=== PATIENT | male | born 1940 | race Caucasian/White ===

== ENCOUNTER → 2016-11-16 | Outpatient (CLI) | payer MEDICARE, OTHER ==
[~2016-11-16] MED LIST: 70/30 INSULIN SQ; ASP81TEC PO; CARV25TA PO; HCT25T PO; LOSA100T7 PO; LOVA40TA2 PO; PHEN100C4 PO; TERA5CAP10 GT; TRAM50TA2 PO; [UNRECOGNIZED DRUG - OTHER] SQ
--- NOTE | 2016-11-16 10:42 | Diagnostic Imaging Report ---
INDICATION: Fall with left hip pain. DISCUSSION: Two views of the left hip are obtained, no comparison. Moderate degenerative changes are noted within the left sacroiliac joint. The left hip joint is maintained. No fracture or dislocation. Soft tissues are unremarkable. IMPRESSION: 1. Negative left hip. 2. Moderate degenerative changes within the left sacroiliac joint. Dictated by: Dictated on workstation # [id number]
== END ==
LOC: RAD 09:52
PROVIDERS: ATTEND Nurse Practitioner Family
DX: M25.552 Pain in left hip (principal); Z91.81 History of falling
CPT/HCPCS: 73502

== ENCOUNTER → 2017-11-03 | Outpatient (CLI) | payer MEDICARE, OTHER ==
[~2017-11-03] VITALS: Ht 182.9 cm; Wt 97.5 kg
[~2017-11-03] MED LIST changes: +methylPREDNISolone 80 MG/ML (DEPO MEDROL) VIAL ONE
--- NOTE | 2017-11-05 13:43 | OPERATIVE REPORT ---
DATE OF SERVICE: 11/03/2017 DIAGNOSIS: Piriformis syndrome, left side. PROCEDURE: Left-sided piriformis injection. PROCEDURE IN DETAIL: With the patient placed in the prone position over the table, the area over the gluteus kathleen of the side in which the patient reports symptoms was prepped and under fluoroscopy a needle was used with local to anesthetize the area over the piriformis. A 25-gauge spinal needle was directed under fluoroscopy down into the location of where the piriformis is located. Aspiration was negative for blood or any other fluids. At this point, the contrast was injected and identified the flow that was similar to the muscle pattern of the piriformis. This was then visualized with internal and external rotation of the hip joint to identify the motion that was consistent with a piriformis dye pattern under the circumstance. Whenever we had satisfactory evidence of placement in the piriformis muscle, about 8 mg of Depo-Medrol was injected and approximately 6 to 7 mL of local was injected. The patient tolerated the procedure well. Job ID: [id number] DocumentID: [id number] Dictated Date: 11/04/2017 19:09:21 Transcripter Date: 11/05/2017 05:14:53 Dictated By: JONA LOREDO DO
== END ==
LOC: CARD 13:01
PROVIDERS: ATTEND Pain Medicine Interventional Pain Medicine
DX: G57.02 Lesion of sciatic nerve, left lower limb (principal)
CPT/HCPCS: 20550; 77002

== ENCOUNTER → 2018-07-20 | Outpatient (CLI) | payer MEDICARE, OTHER ==
[~2018-07-20] MED LIST changes: -methylPREDNISolone 80 MG/ML (DEPO MEDROL) VIAL ONE
== END ==
LOC: WOUNDCARE 08:39
PROVIDERS: ATTEND Nurse Practitioner
DX: E11.621 Type 2 diabetes mellitus with foot ulcer (principal); L97.522 Non-pressure chronic ulcer of other part of left foot with fat layer exposed; I70.345 Atherosclerosis of unspecified type of bypass graft(s) of the left leg with ulceration of other part of foot
CPT/HCPCS: 11042

== ENCOUNTER → 2018-07-25 | Outpatient (CLI) | payer MEDICARE, OTHER | LOC: WOUNDCARE 08:43 | PROVIDERS: ATTEND Nurse Practitioner | DX: E11.621 Type 2 diabetes mellitus with foot ulcer (principal); L97.522 Non-pressure chronic ulcer of other part of left foot with fat layer exposed; I70.345 Atherosclerosis of unspecified type of bypass graft(s) of the left leg with ulceration of other part of foot | CPT/HCPCS: 11042 ==

== ENCOUNTER → 2018-08-01 | Outpatient (CLI) | payer MEDICARE, OTHER | LOC: WOUNDCARE 09:16 | PROVIDERS: ATTEND Nurse Practitioner | DX: E11.621 Type 2 diabetes mellitus with foot ulcer (principal); L97.522 Non-pressure chronic ulcer of other part of left foot with fat layer exposed; I70.345 Atherosclerosis of unspecified type of bypass graft(s) of the left leg with ulceration of other part of foot | CPT/HCPCS: 99213 ==

== ENCOUNTER → 2018-08-08 | Outpatient (CLI) | payer MEDICARE, OTHER | LOC: WOUNDCARE 09:16 | PROVIDERS: ATTEND Nurse Practitioner | DX: E11.621 Type 2 diabetes mellitus with foot ulcer (principal); L97.522 Non-pressure chronic ulcer of other part of left foot with fat layer exposed; I70.345 Atherosclerosis of unspecified type of bypass graft(s) of the left leg with ulceration of other part of foot | CPT/HCPCS: 99213 ==

== ENCOUNTER → 2018-08-22 | Outpatient (CLI) | payer MEDICARE, OTHER | LOC: WOUNDCARE 09:19 | PROVIDERS: ATTEND Surgery | DX: E11.621 Type 2 diabetes mellitus with foot ulcer (principal); I70.345 Atherosclerosis of unspecified type of bypass graft(s) of the left leg with ulceration of other part of foot; L97.522 Non-pressure chronic ulcer of other part of left foot with fat layer exposed | CPT/HCPCS: 99212 ==

== ENCOUNTER → 2018-12-21 | Outpatient (CLI) | payer MEDICARE, OTHER ==
--- NOTE | 2018-12-21 12:03 | Diagnostic Imaging Report ---
PROCEDURE: US DOPPLER ABD/COMPLETE TECHNIQUE: Multiple real-time grayscale images were obtained over the kidneys in various projections. Duplex evaluation of renal arteries was also attempted. INDICATION: Uncontrolled hypertension. FINDINGS: The right kidney measures 11.8 x 6.2 x 5.3 cm and the left kidney measures 10.8 x 6.1 x 6.0 cm. Cortical thickness and echogenicity is normal. No calculi or hydronephrosis is identified. Right kidney does contain a cyst inferiorly measuring approximately 2.9 x 3.2 cm. Left kidney contains multiple cysts, largest 4.7 x 4.3 x 5.3 cm. Additional 4 to 5 cm cysts on the left are also noted. Renal Doppler is severely limited due to bowel interference. Only the distal renal arteries could be visualized which demonstrate normal velocities and normal renal artery to aorta ratios. IMPRESSION: 1. Bilateral renal cysts. No calculi or hydronephrosis is seen. 2. Severely compromised study of the renal arteries due to bowel interference. Only the distal renal arteries could be visualized and appear unremarkable. Dictated by: Dictated on workstation # [id number]
== END ==
LOC: RAD 06:45
PROVIDERS: ATTEND Nurse Practitioner Family
DX: N28.1 Cyst of kidney, acquired (principal); I10 Essential (primary) hypertension
CPT/HCPCS: 93975

== ENCOUNTER → 2019-09-14 | Outpatient (CLI) | payer MEDICARE, OTHER ==
--- NOTE | 2019-09-14 14:03 | Diagnostic Imaging Report ---
PROCEDURE: US carotid duplex, bilateral. TECHNIQUE: Multiple real-time grayscale images were obtained over the carotid arteries in various projections, bilaterally. Additional spectral analysis and color Doppler duplex images were also obtained. INDICATION: History of diabetes and hypertension. Carotid stenosis. CORRELATION STUDY: None FINDINGS: Color and grayscale images demonstrate rather extensive irregular, heterogeneous plaque-like formation at the carotid bifurcations as well as at the origin of the internal and external carotid arteries. Patient has reported right-sided endarterectomy which is patent. There is diffuse increased velocity within essentially all visualized vessels. On the right, there is increased velocity at the internal carotid artery up to 307 cm/s with an ICA/CCA ratio of 2.2. Findings are somewhat equivocal but would suggest to have at least 50% if not greater than 70% stenosis. There is also significant increased velocity in the external carotid artery to 465 cm/s. On the left, there is increased velocity up to 322 cm/s with an ICA/CCA ratio of 3. Findings are consistent with a greater than 50 and likely greater than 70% stenosis. There is also increased velocity in the left external carotid artery at 301 cm/s. The vertebral arteries are with antegrade direction of flow. Parameters based on the consensus panel Guthrie-Scale and Doppler ultrasound criteria published September 2003, Radiology, Volume 229. DOPPLER (peak systolic velocity M/S Right Left CCA 1.37 1.04 ICA Proximal 2.53 3.22 ICA Mid 3.07 1.95 ICA Distal 1.73 1.70 RATIO 2.2 3.0 ECA 4.65 3.01 VERT 1.01 .28 IMPRESSION: 1. There is rather extensive atherosclerotic plaque-like formation throughout the common carotid arteries, carotid bifurcations, as well as internal and external carotid arteries. This includes the previous right-sided endarterectomy. While findings are somewhat indeterminate, there is at least 50 if not greater than 70% stenosis of the bilateral internal carotid arteries slightly greater on the left compared to the right. 2. Findings compatible with likely significant stenosis of bilateral external carotid arteries right greater than left. Dictated by: Dictated on workstation # [id number]
== END ==
LOC: RAD 08:48
PROVIDERS: ATTEND Nurse Practitioner Family
DX: I65.29 Occlusion and stenosis of unspecified carotid artery (principal); I10 Essential (primary) hypertension; E11.9 Type 2 diabetes mellitus without complications
CPT/HCPCS: 93880

== ENCOUNTER 2020-12-16 17:23 | Inpatient (IN) | payer MEDICARE, OTHER ==
[~2020-12-16] VITALS: Ht 182.9 cm; Wt 91.9 kg
[2020-12-16] MEDS ORDERED: IBUPROFEN 800 MG (MOTRIN) TAB PO ONE (17:30)
--- NOTE | 2020-12-16 17:34 | ED Respiratory ---
General Chief Complaint: Respiratory Problems Stated Complaint: SOB/PNEUMONIA Source: patient, EMS Exam Limitations: no limitations History of Present Illness Date Seen by Provider: Dec 16, 2020 Time Seen by Provider: 17:32 Initial Comments To ER by EMS from home with reports of shortness of breath. Diagnosed allegedly with "double pneumonia" on 12/04, sick x2-3 weeks. Has not yet been tested for Covid. Temperature per EMS was 103 (though he is afebrile here). No pre- existing lung disease that he is aware of. He arrives dyspneic. His oxygen saturation was 94% on room air but with significantly increased respiratory effort Timing/Duration: constant Associated Symptoms: cough Allergies and Home Medications Allergies Coded Allergies: NKANo Known Allergies (Verified Allergy, Unknown, 05/25/08) Home Medications Aspirin 81 Mg Tabec, 81 MG PO DAILY, (Reported) Carvedilol 25 Mg Tablet, 1 EACH PO BID, (Reported) Hydrochlorothiazide 25 Mg Tab, 25 MG PO DAILY, (Reported) Losartan Potassium 100 Mg Tablet, 100 MG PO DAILY, (Reported) Lovastatin 40 Mg Tablet, 1 EACH PO DAILY WITH SUPPER, (Reported) Phenytoin Sodium Extended 100 Mg Capsule, 100 MG PO TID, (Reported) Terazosin Hcl 5 Mg Capsule, 5 MG GT BID, (Reported) Tramadol Hcl 50 Mg Tablet, 50 MG PO BID, (Reported) [70/30 Insulin] , 25 UNITS SQ DAILY, (Reported) [N Insulin] , 25 UNITS SQ DAILY, (Reported) Patient Home Medication List Home Medication List Reviewed: Yes Review of Systems Review of Systems Constitutional: see HPI, fever EENTM: see HPI Respiratory: see HPI, cough Genitourinary: no symptoms reported Musculoskeletal: no symptoms reported Skin: no symptoms reported Psychiatric/Neurological: No Symptoms Reported Past Lticfju-Bvemaq-Kxywth Hx Immunizations Up To Date Date of Pneumonia Vaccine: Aug 25, 2010 Physical Exam Vital Signs - First Documented 12/16/20 17:30 Temp 36.9 Pulse 71 Resp 30 B/P (MAP) 161/65 (97) Pulse Ox 99 O2 Delivery Non Rebreather O2 Flow Rate 12.00 Capillary Refill : Height: 6'0.00" Weight: 215lbs. 0.0oz. 97.199776ck; 29.2 BMI Method: General Appearance: WD/WN, no apparent distress, obese, other (Alert, he is in respiratory distress. His oxygen saturation is 99% on 10 L. His respiratory rate is 32, shallow breathing with expiratory wheezes. Blood pressure 161/65 heart rate 69.) Eyes: Bilateral Eye Normal Inspection, Bilateral Eye PERRL, Bilateral Eye EOMI Neck: non-tender, full range of motion Respiratory: decreased breath sounds, accessory muscle use, wheezing Cardiovascular: regular rate, rhythm, no murmur Gastrointestinal: normal bowel sounds, non tender, soft Extremities: normal capillary refill, other (Pedal edema 3+ left lower extremity 2+ right lower extremity) Neurologic/Psychiatric: alert, normal mood/affect, oriented x 3 Skin: normal color, warm/dry Focused Exam Lactate Level 12/16/20 17:50: Lactic Acid Level 1.03 Lactic Acid Level Laboratory Tests Test 12/16/20 17:50 Lactic Acid Level 1.03 MMOL/L (0.50-2.00) Progress/Results/Core Measures Suspected Sepsis SIRS Temperature: Pulse: Respiratory Rate: Laboratory Tests 12/16/20 17:50: White Blood Count 13.2H Blood Pressure / Mean: 12/16/20 17:50: Lactic Acid Level 1.03 Laboratory Tests 12/16/20 17:50: Creatinine 1.31H, Platelet Count 216, Total Bilirubin 0.4 Results/Orders Lab Results Laboratory Tests Test 12/16/20 17:50 12/16/20 17:59 12/16/20 18:10 Range/Units White Blood Count 13.2 H 4.3-11.0 10^3/uL Red Blood Count 3.87 L 4.30-5.52 10^6/uL Hemoglobin 11.2 L 13.3-17.7 g/dL Hematocrit 34 L 40-54 % Mean Corpuscular Volume 88 80-99 fL Mean Corpuscular Hemoglobin 29 25-34 pg Mean Corpuscular Hemoglobin Concent 33 32-36 g/dL Red Cell Distribution Width 13.5 10.0-14.5 % Platelet Count 216 130-400 10^3/uL Mean Platelet Volume 10.3 9.0-12.2 fL Immature Granulocyte % (Auto) 1 % Neutrophils (%) (Auto) 84 H 42-75 % Lymphocytes (%) (Auto) 4 L 12-44 % Monocytes (%) (Auto) 10 0-12 % Eosinophils (%) (Auto) 1 0-10 % Basophils (%) (Auto) 0 0-10 % Neutrophils # (Auto) 11.1 H 1.8-7.8 10^3/uL Lymphocytes # (Auto) 0.6 L 1.0-4.0 10^3/uL Monocytes # (Auto) 1.4 H 0.0-1.0 10^3/uL Eosinophils # (Auto) 0.1 0.0-0.3 10^3/uL Basophils # (Auto) 0.0 0.0-0.1 10^3/uL Immature Granulocyte # (Auto) 0.1 0.0-0.1 10^3/uL Neutrophils % (Manual) 80 % Lymphocytes % (Manual) 9 % Monocytes % (Manual) 9 % Eosinophils % (Manual) 1 % Basophils % (Manual) 1 % Blood Morphology Comment NORMAL D-Dimer 2.20 H 0.00-0.49 UG/ML Sodium Level 137 135-145 MMOL/L Potassium Level 4.2 3.6-5.0 MMOL/L Chloride Level 101 98-107 MMOL/L Carbon Dioxide Level 24 21-32 MMOL/L Anion Gap 12 5-14 MMOL/L Blood Urea Nitrogen 39 H 7-18 MG/DL Creatinine 1.31 H 0.60-1.30 MG/DL Estimat Glomerular Filtration Rate 53 BUN/Creatinine Ratio 30 Glucose Level 126 H 70-105 MG/DL Lactic Acid Level 1.03 0.50-2.00 MMOL/L Calcium Level 8.8 8.5-10.1 MG/DL Corrected Calcium 9.1 8.5-10.1 MG/DL Total Bilirubin 0.4 0.1-1.0 MG/DL Aspartate Amino Transf (AST/SGOT) 69 H 5-34 U/L Alanine Aminotransferase (ALT/SGPT) 48 0-55 U/L Alkaline Phosphatase 95 40-136 U/L Troponin I 0.886 *H <0.028 NG/ML C-Reactive Protein High Sensitivity 20.20 H 0.00-0.50 MG/DL B-Type Natriuretic Peptide 1555.0 H <100.0 PG/ML Total Protein 6.7 6.4-8.2 GM/DL Albumin 3.6 3.2-4.5 GM/DL Procalcitonin 0.09 <0.10 NG/ML Coronavirus 2019 ([facility]NA) Negative Negative Blood Gas Puncture Site NA Blood Gas Patient Temperature 36.9 Arterial Blood pH 7.39 7.37-7.43 Arterial Blood Partial Pressure CO2 42 35-45 MMHG Arterial Blood Partial Pressure O2 38 *L 79-93 MMHG Arterial Blood HCO3 25 23-27 MMOL/L Arterial Blood Total CO2 26.5 21.0-31.0 MMOL/L Arterial Blood Oxygen Saturation 59 L 94-100 % Arterial Blood Base Excess 0.9 -2.5-2.5 MMOL/L Alli Test NA Blood Gas Ventilator Setting NO Blood Gas Inspired Oxygen NA Micro Results Microbiology 12/16/20 Influenza Types A,B Antigen (VICENTE) - Final, Complete My Orders Orders - GRETA MOTA APRN Cbc With Automated Diff (12/16/20 17:29) Comprehensive Metabolic Panel (12/16/20 17:29) Bipap (Bilevel) Set Up (12/16/20 17:29) Arterial Blood Gas (12/16/20 17:29) BNP (12/16/20 17:29) Ekg Tracing (12/16/20 17:29) Chest 1 View, Ap/Pa Only (12/16/20 17:29) Procalcitonin (Pct) (12/16/20 17:29) Hs C Reactive Protein (12/16/20 17:29) Fibrin Degradation Products (12/16/20 17:29) Covid 19 Inhouse Test (12/16/20 17:29) Blood Culture (12/16/20 17:29) Lactic Acid Analyzer (12/16/20 17:29) Influenza A And B Antigens (12/16/20 17:53) Albuterol Inhaler (Ventolin Hfa) (12/16/20 17:48) Manual Differential (12/16/20 17:50) Ct Angio Chest W (12/16/20 18:27) Ns Iv 1000 Ml (Sodium Chloride 0.9%) (12/16/20 18:30) Enoxaparin Injection (Lovenox Injection) (12/16/20 18:45) Dexamethasone Injection (Decadron Inje (12/16/20 18:45) Iohexol Injection (Omnipaque 350 Mg/Ml 1 (12/16/20 18:45) Received Contrast (Hold Metformin- Contr (12/16/20 18:45) Ns (Ivpb) (Sodium Chloride 0.9% Ivpb Bag (12/16/20 18:45) Furosemide Injection (Lasix Injection) (12/16/20 18:45) Troponin I (12/16/20 18:41) Coronavirus Sars-Cov-2 So 2019 (12/16/20 18:41) Medications Given in ED Current Medications Medications Dose Ordered Sig/Obdulio Route Start Time Stop Time Status Last Admin Dose Admin Albuterol Sulfate 18 gm STK-MED ONCE IH 12/16/20 17:48 12/16/20 17:53 DC 12/16/20 18:22 18 GM Iohexol 100 ml ONCE ONCE IV 12/16/20 18:45 12/16/20 18:46 DC 12/16/20 19:05 82 ML Sodium Chloride 100 ml ONCE ONCE IV 12/16/20 18:45 12/16/20 18:46 DC 12/16/20 19:05 80 ML Vital Signs/I&O 12/16/20 12/16/20 17:30 18:15 Temp 36.9 Pulse 71 66 Resp 30 22 B/P (MAP) 161/65 (97) Pulse Ox 99 97 O2 Delivery Non Rebreather O2 Flow Rate 12.00 30.00 Capillary Refill : Diagnostic Imaging Diagonstic Imaging: Xray Plain Films/CT/US/NM/MRI: chest Comments NAME: ROSAURA JUAN [facility] REC#: [id number] PT STATUS: REG ER : 1940 PHYSICIAN: GRETA MOTA APRN ADMIT DATE: 12/16/20/ER Draft Date of Exam:12/16/20 CHEST 1 VIEW, AP/PA ONLY INDICATION: Shortness of air EXAMINATION: Chest 12/16/2020 FINDINGS: There are scattered bilateral peripheral infiltrates. There is a likely small left effusion. There is cardiomegaly. Pulmonary vasculature is congested. There is no pneumothorax. IMPRESSION: 1. Bibasilar peripheral infiltrates with possible small left effusion 2. Pulmonary vascular congestion. Dictated on workstation # [id number] Dict: 12/16/201816 Trans: 12/16/20 1821 EDEN [id number] Interpreted by: ANGELINA INIGUEZ MD Electronically signed by: Departure Communication (Admissions) 1950-with the application of BiPAP at 16/8 and 30% his respiratory rate decreased from the low to mid 30s down to 21. His sats remained 99%. He is much more relaxed and breathing better. I spoke with Dr. Aguilar and Dr. Decker, will admit the patient. I updated the patient's Amy. Impression Primary Impression: Respiratory distress Additional Impression: CHF (congestive heart failure) Disposition: ADMITTED INPATIENT Condition: Stable Admissions Decision to Admit Reason: Admit from ER (General) Decision to Admit/Date: Dec 16, 2020 Time/Decision to Admit Time: 18:41 Departure-Patient Inst. Referrals: JG AGUILAR MD (PCP/Family) Primary Care Physician GRETA MOTA APRN Dec 16, 2020 17:34
[2020-12-16] MEDS ORDERED: RT-ALBUTEROL INHALER HFA (VENTOLIN HFA) 18 GM IH ONE (17:48)
[2020-12-16 18:08] LABS: BASOPHILS % (AUTO) 0 % (0-10); EOSINOPHILS # (AUTO) 0.1 10^3/uL (0.0-0.3); EOSINOPHILS % (AUTO) 1 % (0-10); HEMATOCRIT 34 % (40-54); HEMOGLOBIN 11.2 g/dL (13.3-17.7); LYMPHOCYTES # (AUTO) 0.6 10^3/uL (1.0-4.0); LYMPHOCYTES % (AUTO) 4 % (12-44); MEAN CORPUSCULAR HEMOGLOBIN 29 pg (25-34); MEAN CORPUSCULAR HGB CONC 33 g/dL (32-36); MEAN CORPUSCULAR VOLUME 88 fL (80-99); MEAN PLATELET VOLUME 10.3 fL (9.0-12.2); MONOCYTES # (AUTO) 1.4 10^3/uL (0.0-1.0); MONOCYTES % (AUTO) 10 % (0-12); NEUTROPHILS # (AUTO) 11.1 10^3/uL (1.8-7.8); NEUTROPHILS % (AUTO) 84 % (42-75); PLATELET COUNT 216 10^3/uL (130-400); WHITE BLOOD COUNT 13.2 10^3/uL (4.3-11.0)
[2020-12-16 18:12] LABS: ALBUMIN 3.6 GM/DL (3.2-4.5); POTASSIUM 4.2 MMOL/L (3.6-5.0)
[2020-12-16 18:13] LABS: CALCIUM 8.8 MG/DL (8.5-10.1)
[2020-12-16 18:14] LABS: TOTAL PROTEIN 6.7 GM/DL (6.4-8.2)
[2020-12-16 18:15] VITALS: BP_DIAS 145
[2020-12-16 18:16] LABS: BILIRUBIN,TOTAL 0.4 MG/DL (0.1-1.0)
[2020-12-16 18:18] LABS: CREATININE SERUM 1.31 MG/DL (0.60-1.30)
[2020-12-16 18:19] LABS: ABG BASE EXCESS 0.9 MMOL/L (-2.5-2.5); ABG OXYGEN SATURATION 59 % (94-100); ABG PCO2 42 MMHG (35-45); ABG PH 7.39 (7.37-7.43); ABG TCO2 26.5 MMOL/L (21.0-31.0)
--- NOTE | 2020-12-16 18:21 | Diagnostic Imaging Report ---
INDICATION: Shortness of air EXAMINATION: Chest 12/16/2020 FINDINGS: There are scattered bilateral peripheral infiltrates. There is a likely small left effusion. There is cardiomegaly. Pulmonary vasculature is congested. There is no pneumothorax. IMPRESSION: 1. Bibasilar peripheral infiltrates with possible small left effusion 2. Pulmonary vascular congestion. Dictated by: Dictated on workstation # [id number]
[2020-12-16 18:23] LABS: ABG PO2 38 MMHG (79-93)
[2020-12-16 18:24] LABS: PATIENT TEMP 36.9; VENTILATOR NO
[2020-12-16 18:25] LABS: BASOPHILS % (MANUAL) 1 %; EOSINOPHILS % (MANUAL) 1 %; LYMPHOCYTES % (MANUAL) 9 %; MONOCYTES % (MANUAL) 9 %; NEUTROPHILS % (MANUAL) 80 %; RBC MORPH NORMAL
[2020-12-16] MEDS ORDERED: NS IV 1000 ML 1,000 ML IV SCH (18:30)
[2020-12-16] MEDS ORDERED: IOHEXOL 350 MG/ML 100 ML (OMNIPAQUE 350) VIAL IV ONE (18:45)
[2020-12-16] MEDS ORDERED: FUROSEMIDE 40 MG/4 ML INJ (LASIX) IVP ONE (18:45)
[2020-12-16] MEDS ORDERED: NS 100 ML (IVPB) BAG IV ONE (18:45)
[2020-12-16] MEDS ORDERED: ENOXAPARIN 100 MG/1 ML (LOVENOX) SYR SC ONE (18:45)
[2020-12-16] MEDS ORDERED: HOLD METFORMIN - RECEIVED CONTRAST 20 ML VIAL IV SCH (18:45)
[2020-12-16 19:11] VITALS: BP_DIAS 145
--- NOTE | 2020-12-16 19:27 | Diagnostic Imaging Report ---
PROCEDURE: CT angiography of the chest with contrast, 12/16/2020. TECHNIQUE: Multiple contiguous axial images were obtained through the chest after uneventful bolus administration of intravenous contrast. 3D reconstructed CTA MIP acquisitions were also performed. Auto Exposure Controls were utilized during the CT exam to meet ALARA standards for radiation dose reduction. INDICATION: Patient is on BiPAP, shortness of air with cough FINDINGS: There are no central or proximal segmental pulmonary emboli. There is atherosclerotic disease throughout the aorta. There is adenopathy throughout the mediastinum and the jose bilaterally. There are small bilateral pleural effusions. Patchy airspace opacity seen diffusely throughout both lungs likely infiltrates especially at the apices and both lung bases. Visualized upper abdomen demonstrates likely stones in the gallbladder. There are chronic changes throughout the osseous structures. IMPRESSION: 1. Small bilateral pleural effusions with scattered bilateral infiltrates. 2. No central or proximal segmental pulmonary emboli. 3. Adenopathy which is likely reactive, follow-up could be performed to assure resolution. Dictated by: Dictated on workstation # [id number]
[2020-12-16] MEDS ORDERED: PIPERACILLIN SODIUM/TAZOBACTAM 4.5 GM in NS (IVPB) 100 ML IV ONE ×4 (19:45)
[2020-12-16] MEDS ORDERED: NS (IVPB) 100 ML ONE (20:06)
[2020-12-16] MEDS ORDERED: PIPERACILLIN/TAZO 4.5 GM VIAL (ZOSYN) IV ONE (20:06)
[2020-12-16 21:48] VITALS: BP 172/67
[2020-12-16 22:08] VITALS: BP_DIAS 172
[2020-12-16 22:52] VITALS: BP_DIAS 161
[2020-12-16] MEDS: RT-ALBUTEROL INHALER HFA (VENTOLIN HFA) 18 GM IH SCH (22:52)
[2020-12-16] MEDS: inSUlin ASPART (NovoLOG) 1 UNIT/0.01 ML (CHARGE PER UNIT) SQ SCH (23:42)
[2020-12-17] MEDS ORDERED: PIPERACILLIN/TAZO 4.5 GM VIAL (ZOSYN) IV ONE (01:50)
[2020-12-17] MEDS ORDERED: NS (IVPB) 100 ML ONE (01:51)
[2020-12-17] MEDS: PIPERACILLIN/TAZO 4.5 GM/NS 100 ML IV SCH ×6 (02:13→17:59)
[2020-12-17] MEDS: RT-ALBUTEROL INHALER HFA (VENTOLIN HFA) 18 GM IH SCH ×6 (02:56→22:47)
[2020-12-17 03:30] LABS: BASOPHILS % (AUTO) 0 % (0-10); EOSINOPHILS % (AUTO) 0 % (0-10); HEMATOCRIT 35 % (40-54); HEMOGLOBIN 11.5 g/dL (13.3-17.7); LYMPHOCYTES # (AUTO) 0.5 10^3/uL (1.0-4.0); LYMPHOCYTES % (AUTO) 4 % (12-44); MEAN CORPUSCULAR HEMOGLOBIN 29 pg (25-34); MEAN CORPUSCULAR HGB CONC 33 g/dL (32-36); MEAN CORPUSCULAR VOLUME 88 fL (80-99); MEAN PLATELET VOLUME 10.2 fL (9.0-12.2); MONOCYTES # (AUTO) 0.7 10^3/uL (0.0-1.0); MONOCYTES % (AUTO) 5 % (0-12); NEUTROPHILS # (AUTO) 11.5 10^3/uL (1.8-7.8); NEUTROPHILS % (AUTO) 90 % (42-75); PLATELET COUNT 208 10^3/uL (130-400); WHITE BLOOD COUNT 12.8 10^3/uL (4.3-11.0)
[2020-12-17 03:41] LABS: ALBUMIN 3.6 GM/DL (3.2-4.5); POTASSIUM 3.6 MMOL/L (3.6-5.0)
[2020-12-17 03:42] LABS: CALCIUM 8.9 MG/DL (8.5-10.1)
[2020-12-17 03:44] LABS: TOTAL PROTEIN 6.9 GM/DL (6.4-8.2)
[2020-12-17 03:45] LABS: BILIRUBIN,TOTAL 0.5 MG/DL (0.1-1.0)
[2020-12-17 03:47] LABS: CREATININE SERUM 1.41 MG/DL (0.60-1.30); PHOSPHORUS 4.9 MG/DL (2.3-4.7)
[2020-12-17 03:50] LABS: MAGNESIUM 2.2 MG/DL (1.6-2.4)
--- NOTE | 2020-12-17 04:36 | Pulmonary Consultation ---
History of Present Illness History of Present Illness Date Seen by Provider: Dec 17, 2020 Time Seen by Provider: 04:31 Date of Admission Allergies and Home Medications Allergies Coded Allergies: NKANo Known Allergies (Verified Allergy, Unknown, 05/25/08) Home Medications Aspirin 81 Mg Tabec, 81 MG PO DAILY, (Reported) Carvedilol 25 Mg Tablet, 1 EACH PO BID, (Reported) Hydrochlorothiazide 25 Mg Tab, 25 MG PO DAILY, (Reported) Losartan Potassium 100 Mg Tablet, 100 MG PO DAILY, (Reported) Lovastatin 40 Mg Tablet, 1 EACH PO DAILY WITH SUPPER, (Reported) Phenytoin Sodium Extended 100 Mg Capsule, 100 MG PO TID, (Reported) Terazosin Hcl 5 Mg Capsule, 5 MG GT BID, (Reported) Tramadol Hcl 50 Mg Tablet, 50 MG PO BID, (Reported) [70/30 Insulin] , 25 UNITS SQ DAILY, (Reported) [N Insulin] , 25 UNITS SQ DAILY, (Reported) Past Ccgsdlq-Uskgch-Bhchyh Hx Patient Social History Alcohol Use: Denies Use Smoking Status: Former Smoker Type Used: Cigarettes Former Smoker, Quit: Dec 08, 1999 Recent Infectious Disease Expo: No Recent Hopitalizations: No Have you traveled recently?: No Alcohol Use?: No Immunizations Up To Date Date of Pneumonia Vaccine: Aug 25, 2010 Past Medical History Surgeries: Yes Respiratory: Yes Pneumonia Cardiac: Yes Hypertension Neurological: Yes (CVA) Stroke Gastrointestinal: No Musculoskeletal: Yes Endocrine: Yes (TYPE II TAKES INSULIN) Diabetes, Non-Insulin dep Cancer: No Psychosocial: No Sepsis Event Evaluation Height, Weight, BMI Height: 6'0.00" Weight: 215lbs. 0.0oz. 97.365999hw; 29.41 BMI Method: Exam Exam Vital Signs Date Time Temp Pulse Resp B/P (MAP) Pulse Ox O2 Delivery O2 Flow Rate FiO2 12/17/20 04:00 89 30 166/85 (112) 98 Nasal Cannula 3.00 12/17/20 03:00 86 20 164/86 (112) 98 Nasal Cannula 3.00 12/17/20 02:56 99 Nasal Cannula 3.00 12/17/20 02:30 Nasal Cannula 3.00 12/17/20 02:00 77 26 175/71 (105) 98 NIV Bilevel 30.00 12/17/20 01:00 76 12/17/20 01:00 76 24 165/67 (99) 99 NIV Bilevel 30.00 12/17/20 00:00 80 27 170/90 (116) 99 NIV Bilevel 30.00 12/16/20 23:00 77 19 169/68 (101) NIV Bilevel 30.00 12/16/20 22:52 75 24 30.00 12/16/20 22:08 77 19 98 30.00 12/16/20 22:00 78 26 172/69 (103) 97 NIV Bilevel 30.00 12/16/20 21:48 37.6 83 99 100 12/16/20 21:45 82 30 169/68 (101) 93 NIV Bilevel 30.00 12/16/20 21:30 84 32 130/91 (104) 92 NIV Bilevel 30.00 12/16/20 21:29 NIV Bilevel 30 12/16/20 21:26 37.6 83 25 172/67 (102) NIV Bilevel 30.00 12/16/20 21:00 93 35 178/95 (122) 93 NIV Bilevel 30.00 12/16/20 20:53 84 12/16/20 20:26 36.9 77 22 157/61 (97) 99 NIV Bilevel 12/16/20 19:11 66 22 96 30.00 12/16/20 18:15 66 22 97 30.00 12/16/20 17:30 36.9 71 30 161/65 (97) 99 Non Rebreather 12.00 I & O 12/17/20 07:00 Intake Total 200 ml Output Total 1150 ml Balance -950 ml Height & Weight Height: 6'0.00" Weight: 215lbs. 0.0oz. 97.782384tf; 29.41 BMI Method: Capillary Refill: Less Than 3 Seconds Gastrointestinal: normal bowel sounds, non tender, soft Results Lab Laboratory Tests 12/16/20 17:50 12/17/20 03:15 Assessment/Plan Assessment/Plan Acute respiratory distress -BiPAP PRN -Influenza neg -COVID pending leukocytosis r./o PNA -PCT is negative x 1 Cont Zosyn NSTEMI -Cardiology following [facility] -Lasix Hypokalemia -Replace SHAJI GREENE DO Dec 17, 2020 04:36
[2020-12-17] MEDS: KCL 20 MEQ TAB (K-DUR) PO SCH ×2 (05:47→08:11)
[2020-12-17] MEDS: inSUlin ASPART (NovoLOG) 1 UNIT/0.01 ML (CHARGE PER UNIT) SQ SCH ×3 (05:47→17:22)
[2020-12-17] MEDS ORDERED: POTASSIUM CL 10MEQ/50ML IVPB 50 ML IV SCH (06:00)
[2020-12-17] MEDS ORDERED: MAGNESIUM 1 GM/100 ML IVPB 100 ML IV SCH (06:00)
[2020-12-17] MEDS ORDERED: FUROSEMIDE 40 MG/4 ML INJ (LASIX) IV SCH (07:00)
--- NOTE | 2020-12-17 07:58 | Diagnostic Imaging Report ---
INDICATION: Congestive heart failure Portable chest 12:27 AM Heart size and pulmonary vascularity are normal. There is some bilateral perihilar atelectasis. There are no effusions or pneumothoraces. IMPRESSION: Perihilar atelectasis. No significant change compared to the previous day. Dictated by: Dictated on workstation # [id number]
[2020-12-17] MEDS ORDERED: KCL 20 MEQ TAB (K-DUR) PO ONE (08:00)
[2020-12-17] MEDS: ASPIRIN 81 MG CHEW (CHILDREN'S ASA) PO SCH (08:11)
[2020-12-17] MEDS: dexAMETHasone 6 MG TAB (DECADRON) PO SCH (08:11)
[2020-12-17] MEDS: ENOXAPARIN 100 MG/1 ML (LOVENOX) SYR SC SCH ×2 (08:12→21:37)
--- NOTE | 2020-12-17 08:31 | History & Physical ---
History of Present Illness History of Present Illness Reason for visit/HPI PT IS A 80 Y/O MALE WHO IS KNOWN TO ME A PATIENT IN MY CLINIC. HE WAS SEEN BY THE NURSE PRACTITIONER IN MY PRACTICE ON 12/04/2020 OVER TELEMEDICINE VISIT. HE HAD REPORTED A 4 WEEK ILLNESS, COUGH AND CONGESTION WORSENING, HE WAS SENT FOR LABS AND CHEST XRAY AT [facility] THAT DAY. HIS CXR SHOWED LARGE BILATERAL INFILTRATES AND NORMAL WHITE COUNT. HE WAS ADVISED WE THOUGHT ADMISSION TO THE HOSPITAL WAS NEEDED BUT HE REFUSED ADMISSION AND INSISTED ON OUTPATIENT TREATMENT. APPARENTLY, HE FELT A LITTLE BIT BETTER INITIALLY, HOWEVER ONCE ANTIBIOTICS WERE COMPLETED, HE STARTED TO FEEL POORLY AGAIN. HE WAS FOUND TO HAVE RECURRENT PNEUMONIA BILATERALLY AND NSTEMI AND ADMITTED TO THE HOSPITAL FOR FURTHER WORK-UP AND TREATMENT. Date of Admission Dec 16, 2020 at 18:45 Date Seen by a Provider: Dec 17, 2020 Time Seen by a Provider: 08:20 I consulted on this patient on 12/17/20 08:26 Attending Physician Jg Aguilar MD Admitting Physician Jg Aguilar MD Consult DR. GREENE CARDIOLOGY Allergies and Home Medications Allergies Coded Allergies: WILMAANo Known Allergies (Verified Allergy, Unknown, 05/25/08) Home Medications Albuterol Sulfate 18 Gm Hfa.aer.ad, 2 PUFF INH Q6H PRN for SHORTNESS OF BREATH, (Reported) Aspirin 81 Mg Tablet.dr, 81 MG PO DAILY, (Reported) Carvedilol 25 Mg Tablet, 25 MG PO BID, (Reported) Clonidine HCl 0.1 Mg Tablet, 0.2 MG PO 0800,1700, (Reported) TAKES 2 (0.1MG) TABS Clonidine HCl 0.1 Mg Tablet, 0.1 MG PO 1200,2200, (Reported) Diltiazem HCl 360 Mg Capsule.er, 360 MG PO DAILY, (Reported) Famotidine 10 Mg Tablet, 10 MG PO DAILY PRN for HEARTBURN, (Reported) Hydrochlorothiazide 25 Mg Tablet, 25 NG PO DAILY, (Reported) Ibuprofen 800 Mg Tablet, 400-800 MG PO BID PRN for PAIN-MILD (1-4), (Reported) TAKES TO 1 (400NG) TAB Insulin NPH Hum/Reg Insulin Hm 100 Unit/1 Ml Vial, 30 UNIT SQ DAILY, (Reported) Insulin NPH Human Isophane 100 Unit/1 Ml Vial, 30 UNIT SQ 1700 W/MEAL, (Reported) Levothyroxine Sodium 25 Mcg Tablet, 25 MCG PO DAILY, (Reported) Losartan Potassium 100 Mg Tablet, 100 MG PO 1200, (Reported) Phenytoin Sodium Extended 100 Mg Capsule, 100 MG PO DAILY, (Reported) Phenytoin Sodium Extended 100 Mg Capsule, 200 MG PO HS, (Reported) TAKES 2 (100MG) CAPS Terazosin HCl 5 Mg Capsule, 5 MG PO BID, (Reported) Tramadol HCl 50 Mg Tablet, 50-100 MG PO Q6H PRN for PAIN-MODERATE (5-7), (Reported) Patient Home Medication List Home Medication List Reviewed: Yes Past Fclqogh-Fhnxzj-Hhtfcr Hx Patient Social History Alcohol Use: Denies Use Recreational Drug Use: No Smoking Status: Former Smoker Former Smoker, Quit: Dec 08, 1999 Type Used: Cigarettes Recent Foreign Travel: No Contact w/other who traveled: No Recent Hopitalizations: No Recent Infectious Disease Expo: No Immunizations Up To Date Date of Pneumonia Vaccine: Aug 25, 2010 Past Medical History Cardiac: Hypertension Neurological: Stroke Endocrine: Diabetes, Non-Insulin dep Physical Exam Vital Signs Vital Signs - First Documented 12/16/20 12/16/20 17:30 21:29 Temp 36.9 Pulse 71 Resp 30 B/P (MAP) 161/65 (97) Pulse Ox 99 O2 Delivery Non Rebreather O2 Flow Rate 12.00 FiO2 30 Capillary Refill : Less Than 3 Seconds Height, Weight, BMI Height: 6'0.00" Weight: 215lbs. 0.0oz. 97.056126be; 29.41 BMI Method: Assessment/Plan Assessment and Plan BILATERAL PNEUMONIA RESPIRATORY DISTRESS NSTEMI LEUKOCYTOSIS HYPOKALEMIA HX OF EXTENSIVE TOBACCOISM BILATERAL PNEUMONIA RESPIRATORY DISTRESS NSTEMI LEUKOCYTOSIS HYPOKALEMIA HX OF EXTENSIVE TOBACCOISM Admission Diagnosis Admission Status: Inpatient Order (span 2 midnights) Reason for Inpatient Admission: INPT ADMISSION FOR PNEUMONIA, NSTEMI - WILL REQUIRE AT LEAST 72 HOURS IN THE HOSPITAL JG AGUILAR MD Dec 17, 2020 08:31
[2020-12-17] MEDS ORDERED: cloNIDine 0.1 MG (CATAPRES) TAB ONE (08:48)
[2020-12-17] MEDS ORDERED: LOSARTAN 100 MG (COZAAR) TABLET PO ONE (09:30)
[2020-12-17] MEDS ORDERED: CARVEDILOL 3.125 MG (COREG) TABLET PO ONE (09:30)
--- NOTE | 2020-12-17 09:31 | Consultation-Cardiology ---
HPI-Cardiology Cardiology Consultation: Date of Consultation 12/17/20 Time Seen by a Provider: 08:50 Date of Admission 12-16-20 Attending Physician Jg Duarte MD Admitting Physician Jg Duarte MD Consulting Physician SATISH CONNOLLY HPI: Chief Complaint: NSTEMI Mr. Juan is a 80 yr old male admitted to ICU 2 from the ED with increasing SOB over the last couple days. He reports he was diagnosed with pneumonia the end of November, he completed out pt tx and was feeling somewhat better. However, over the last couple days he began to develop increasing SOB. He denies any c/o CP, palpitations, syncope or near syncope. He reports chronic LLE swelling following fem-pop grafting, which he feels has been somewhat worse the last few weeks. He reports frequent minimally productive cough. He states his breathing is better this morning. He previously followed with Dr. Read of [facility] cardiology, but has not seen anyone in several years. Review of Systems-Cardiology Review of Systems Constitutional: No chills, No fever; malaise, tiredness Eyes: No vision change Ears/Nose/Throat: No epistaxis, No recent hearing loss Respiratory: As described under HPI Cardiovascular: As described under HPI Gastrointestinal: No constipation, No diarrhea, No nausea, No vomiting Genitourinary: No dysuria, No hematuria Musculoskeletal: back pain (chronic) Skin: No rash on exposed areas, No ulcerations on exposed areas Psychiatric/Neurological: No anxiety, No depression, No seizure, No focal weakness, No syncope Hematologic: No bleeding abnormalities WPN-Rnanwl-Mtcidl Hx Patient Social History Smoking Status: Former Smoker Have you traveled recently?: No Alcohol Use?: No Pt feels they are or have been: No Immunizations Up To Date Date of Pneumonia Vaccine: Aug 25, 2010 Past Medical History PMH As described under Assessment. Family Medical History Family Medical History: He reports his father from an [place] at age 50. Allergies and Home Medications Allergies Coded Allergies: NKANo Known Allergies (Verified Allergy, Unknown, 05/25/08) Home Medications Aspirin 81 Mg Tabec, 81 MG PO DAILY, (Reported) Carvedilol 25 Mg Tablet, 1 EACH PO BID, (Reported) Hydrochlorothiazide 25 Mg Tab, 25 MG PO DAILY, (Reported) Losartan Potassium 100 Mg Tablet, 100 MG PO DAILY, (Reported) Lovastatin 40 Mg Tablet, 1 EACH PO DAILY WITH SUPPER, (Reported) Phenytoin Sodium Extended 100 Mg Capsule, 100 MG PO TID, (Reported) Terazosin Hcl 5 Mg Capsule, 5 MG GT BID, (Reported) Tramadol Hcl 50 Mg Tablet, 50 MG PO BID, (Reported) [70/30 Insulin] , 25 UNITS SQ DAILY, (Reported) [N Insulin] , 25 UNITS SQ DAILY, (Reported) Physical Exam-Cardiology Physical Exam Vital Signs/I&O 12/16/20 12/16/20 12/16/20 12/16/20 21:29 21:30 21:45 21:48 Temp 37.6 Pulse 84 82 83 Resp 32 30 B/P (MAP) 130/91 (104) 169/68 (101) Pulse Ox 92 93 99 O2 Delivery NIV Bilevel NIV Bilevel NIV Bilevel O2 Flow Rate 30.00 30.00 FiO2 30 100 12/16/20 12/16/20 12/16/20 12/16/20 22:00 22:08 22:52 23:00 Pulse 78 77 75 77 Resp 26 19 24 19 B/P (MAP) 172/69 (103) 169/68 (101) Pulse Ox 97 98 O2 Delivery NIV Bilevel NIV Bilevel O2 Flow Rate 30.00 30.00 30.00 30.00 12/17/20 12/17/20 12/17/20 12/17/20 00:00 01:00 01:00 02:00 Pulse 80 76 76 77 Resp 27 24 26 B/P (MAP) 170/90 (116) 165/67 (99) 175/71 (105) Pulse Ox 99 99 98 O2 Delivery NIV Bilevel NIV Bilevel NIV Bilevel O2 Flow Rate 30.00 30.00 30.00 12/17/20 12/17/20 12/17/20 12/17/20 02:30 02:56 03:00 04:00 Pulse 86 89 Resp 20 30 B/P (MAP) 164/86 (112) 166/85 (112) Pulse Ox 99 98 98 O2 Delivery Nasal Cannula Nasal Cannula Nasal Cannula Nasal Cannula O2 Flow Rate 3.00 3.00 3.00 3.00 12/17/20 12/17/20 12/17/20 12/17/20 05:00 06:00 06:40 07:00 Pulse 89 93 93 89 B/P (MAP) 172/73 (106) 146/87 (106) 166/110 (128) Pulse Ox 99 97 99 O2 Delivery Nasal Cannula Nasal Cannula Nasal Cannula O2 Flow Rate 3.00 3.00 1.00 12/17/20 12/17/20 12/17/20 07:05 07:56 08:00 Temp 36.6 Pulse 93 B/P (MAP) 161/105 (123) Pulse Ox 98 97 O2 Delivery Nasal Cannula Nasal Cannula O2 Flow Rate 1.00 1.00 12/17/20 00:00 Intake Total 100 ml Output Total 400 ml Balance -300 ml Capillary Refill : Less Than 3 Seconds Constitutional: AAO x 3, well-developed, well-nourished HEENT: PERRL, hearing is well preserved, oral hygience is good Neck: No carotid bruit; carotid pulses are 2 + bilaterally Respiratory: No accessory muscle use, No respiratory distress; chest expansion is symmetric, chest is bilaterally symmetric, other (scattered rhonchi; fair air entry) Cardiovascular: regular rate-rhythm; No JVD; S1 and S2, systolic murmur Gastrointestinal: No tender; soft, round, audible bowel sounds Extremities: other (Mild to mod LLE swelling (he reports chronic)) Neurologic/Psychiatric: grossly intact (moves all extremities) Skin: No rash on exposed areas, No ulcerations on exposed areas Data Review Labs Laboratory Tests 12/16/20 17:50: White Blood Count 13.2H, Red Blood Count 3.87L, Hemoglobin 11.2L, Hematocrit 34L , Mean Corpuscular Volume 88, Mean Corpuscular Hemoglobin 29, Mean Corpuscular Hemoglobin Concent 33, Red Cell Distribution Width 13.5, Platelet Count 216, Mean Platelet Volume 10.3, Immature Granulocyte % (Auto) 1, Neutrophils (%) (Auto) 84H, Lymphocytes (%) (Auto) 4L, Monocytes (%) (Auto) 10, Eosinophils (%) (Auto) 1, Basophils (%) (Auto) 0, Neutrophils # (Auto) 11.1H, Lymphocytes # (Auto) 0.6L, Monocytes # (Auto) 1.4H, Eosinophils # (Auto) 0.1, Basophils # (Auto) 0.0, Immature Granulocyte # (Auto) 0.1, Neutrophils % (Manual) 80, Lymphocytes % (Manual) 9, Monocytes % (Manual) 9, Eosinophils % (Manual) 1, Basophils % (Manual) 1, Blood Morphology Comment NORMAL, D-Dimer 2.20H, Sodium Level 137, Potassium Level 4.2, Chloride Level 101, Carbon Dioxide Level 24, Anion Gap 12, Blood Urea Nitrogen 39H, Creatinine 1.31H, Estimat Glomerular Filtration Rate 53, BUN/Creatinine Ratio 30, Glucose Level 126H, Lactic Acid Level 1.03, Calcium Level 8.8, Corrected Calcium 9.1, Total Bilirubin 0.4, Aspartate Amino Transf (AST/SGOT) 69H, Alanine Aminotransferase (ALT/SGPT) 48, Alkaline Phosphatase 95, Troponin I 0.886*H, C-Reactive Protein High Sensitivity 20.20H, B-Type Natriuretic Peptide 1555.0H, Total Protein 6.7, Albumin 3.6, Procalcitonin 0.09 12/16/20 17:59: Coronavirus 2019 (BRENNA) Negative 12/16/20 18:10: Blood Gas Puncture Site NA, Blood Gas Patient Temperature 36.9, Arterial Blood pH 7.39, Arterial Blood Partial Pressure CO2 42, Arterial Blood Partial Pressure O2 38*L, Arterial Blood HCO3 25, Arterial Blood Total CO2 26.5, Arterial Blood Oxygen Saturation 59L, Arterial Blood Base Excess 0.9, Alli Test NA, Blood Gas Ventilator Setting NO, Blood Gas Inspired Oxygen NA 12/16/20 23:15: Glucometer 97 12/17/20 03:15: White Blood Count 12.8H, Red Blood Count 3.94L, Hemoglobin 11.5L, Hematocrit 35L , Mean Corpuscular Volume 88, Mean Corpuscular Hemoglobin 29, Mean Corpuscular Hemoglobin Concent 33, Red Cell Distribution Width 13.4, Platelet Count 208, Mean Platelet Volume 10.2, Immature Granulocyte % (Auto) 1, Neutrophils (%) (Auto) 90H, Lymphocytes (%) (Auto) 4L, Monocytes (%) (Auto) 5, Eosinophils (%) (Auto) 0, Basophils (%) (Auto) 0, Neutrophils # (Auto) 11.5H, Lymphocytes # (Auto) 0.5L, Monocytes # (Auto) 0.7, Eosinophils # (Auto) 0.0, Basophils # (Auto) 0.0, Immature Granulocyte # (Auto) 0.1, Sodium Level 137, Potassium Level 3.6, Chloride Level 99, Carbon Dioxide Level 24, Anion Gap 14, Blood Urea Nitrogen 38H, Creatinine 1.41H, Estimat Glomerular Filtration Rate 48, BUN/Creatinine Ratio 27, Glucose Level 157H, Calcium Level 8.9, Corrected Calcium 9.2, Phosphorus Level 4.9H, Magnesium Level 2.2, Total Bilirubin 0.5, Aspartate Amino Transf (AST/SGOT) 58H, Alanine Aminotransferase (ALT/SGPT) 44, Alkaline Phosphatase 93, Troponin I 0.786*H, Total Protein 6.9, Albumin 3.6, Procalcitonin 0.10H Microbiology 12/16/20 Influenza Types A,B Antigen (VICENTE) - Final, Complete Laboratory Tests 12/16/20 17:50 12/17/20 03:15 Radiology NAME: ROSAURA JUAN [facility] REC#: [id number] PT STATUS: ADM IN : 1940 PHYSICIAN: JG DUARTE MD ADMIT DATE: 12/16/20/ICU Signed Date of Exam:12/17/20 CHEST 1 VIEW, AP/PA ONLY INDICATION: Congestive heart failure Portable chest 12:27 AM Heart size and pulmonary vascularity are normal. There is some bilateral perihilar atelectasis. There are no effusions or pneumothoraces. IMPRESSION: Perihilar atelectasis. No significant change compared to the previous day. Dictated by: Dictated on workstation # [id number] Dict: 12/17/20 0749 Trans: 12/17/20 0823 [facility] [id number] Interpreted by: VIC THOMPSON MD Electronically signed by: VIC THOMPSON MD 12/17/20822 ECG Impression ECG Initial ECG Rhythm: Normal Sinus A/P-Cardiology Assessment/Admission Diagnosis NSTEMI Respiratory distress - improved COVID PUI CHF H/O CVA in 1974 - details unknown HTN PVD - H/O L fem-pop by Dr. Gould in Aug 2002 at [facility], [place], [place] - February 2006 - L fem-pop repair by Dr. Reeder at [facility] in [place], [place] - H/O MRSA in L LLE in the past - Chronic LLE swelling following fem-pop repair Carotid arterial dz - H/O R CEA in January [address] Reeder at [facility] in [place], [place] H/O iliac stenting in January [address] Reeder at [facility] HLD DM 2 - insulin CKD GERD Hiatal hernia H/O skin cancer removal Discussion and Recomendations NSTEMI - for which he desires conservative tx - no c/o CP CHF - echocardiogram to eval structure and function - treat with diuretics Monitor lab and replace electrolytes as indicated Uncontrolled hypertension - resume home medications adjust as indicated ASA, continue Lovenox Management of pneumonia per medical/pulmonary services Further recs will be based on his hospital course We would like to thank Dr. Duarte for this consult SATISH GUERRA Dec 17, 2020 09:31
[2020-12-17] MEDS ORDERED: ONDANSETRON 4 MG/2 ML (SDV) Z0FRAN ONE (12:13)
[2020-12-17] MEDS: ONDANSETRON 4 MG/2 ML (SDV) Z0FRAN IVP PRN ×3 (12:28→19:48)
--- NOTE | 2020-12-17 13:52 | Consultation-Cardiology ---
HPI-Cardiology Cardiology Consultation: Date of Consultation 12/17/20 Time Seen by a Provider: 09:30 Date of Admission Attending Physician Ines Aguilar MD Admitting Physician Ines Aguilar MD Consulting Physician HARRY BARLOW MD, FACP, FACC HPI: Chief Complaint: Reason for consultation: Mildly elevated troponin HPI Mr. Rosas is a 80 yr old male admitted to ICU 2 from the ED with increasing SOB over the last couple days. He reports he was diagnosed with pneumonia the end of November, he completed out pt tx and was feeling somewhat better. However, over the last couple days he began to develop increasing SOB. He denies any c/o CP, palpitations, syncope or near syncope. He reports chronic LLE swelling following fem-pop grafting, which he feels has been somewhat worse the last few weeks. He reports frequent minimally productive cough. He states his breathing is better this morning. He previously followed with Dr. Read of [facility] cardiology, but has not seen anyone in several years. Review of Systems-Cardiology Review of Systems Constitutional: No chills, No fever; malaise, tiredness Eyes: No vision change Ears/Nose/Throat: No epistaxis, No recent hearing loss Respiratory: As described under HPI Cardiovascular: As described under HPI Gastrointestinal: No constipation, No diarrhea, No nausea, No vomiting Genitourinary: No dysuria, No hematuria Musculoskeletal: back pain (chronic) Skin: No rash on exposed areas, No ulcerations on exposed areas Psychiatric/Neurological: No anxiety, No depression, No seizure, No focal weakness, No syncope Hematologic: No bleeding abnormalities TFU-Erqixt-Fqunnx Hx Patient Social History Smoking Status: Former Smoker Have you traveled recently?: No Alcohol Use?: No Pt feels they are or have been: No Immunizations Up To Date Date of Pneumonia Vaccine: Aug 25, 2010 Past Medical History PMH As described under Assessment. Family Medical History Family Medical History: He reports his father from an [place] at age 50. Allergies and Home Medications Allergies Coded Allergies: NKANo Known Allergies (Verified Allergy, Unknown, 05/25/08) Home Medications Aspirin 81 Mg Tabec, 81 MG PO DAILY, (Reported) Carvedilol 25 Mg Tablet, 1 EACH PO BID, (Reported) Hydrochlorothiazide 25 Mg Tab, 25 MG PO DAILY, (Reported) Losartan Potassium 100 Mg Tablet, 100 MG PO DAILY, (Reported) Lovastatin 40 Mg Tablet, 1 EACH PO DAILY WITH SUPPER, (Reported) Phenytoin Sodium Extended 100 Mg Capsule, 100 MG PO TID, (Reported) Terazosin Hcl 5 Mg Capsule, 5 MG GT BID, (Reported) Tramadol Hcl 50 Mg Tablet, 50 MG PO BID, (Reported) [70/30 Insulin] , 25 UNITS SQ DAILY, (Reported) [N Insulin] , 25 UNITS SQ DAILY, (Reported) Patient Home Medication List Home Medication List Reviewed: Yes Physical Exam-Cardiology Physical Exam Vital Signs/I&O 12/17/20 12/17/20 12/17/20 12/17/20 02:00 02:30 02:56 03:00 Pulse 77 86 Resp 26 20 B/P (MAP) 175/71 (105) 164/86 (112) Pulse Ox 98 99 98 O2 Delivery NIV Bilevel Nasal Cannula Nasal Cannula Nasal Cannula O2 Flow Rate 30.00 3.00 3.00 3.00 12/17/20 12/17/20 12/17/20 12/17/20 04:00 05:00 06:00 06:40 Pulse 89 89 93 93 Resp 30 B/P (MAP) 166/85 (112) 172/73 (106) 146/87 (106) Pulse Ox 98 99 97 O2 Delivery Nasal Cannula Nasal Cannula Nasal Cannula O2 Flow Rate 3.00 3.00 3.00 12/17/20 12/17/20 12/17/20 12/17/20 07:00 07:05 07:56 08:00 Temp 36.6 Pulse 89 93 B/P (MAP) 166/110 (128) 161/105 (123) Pulse Ox 99 98 97 O2 Delivery Nasal Cannula Nasal Cannula Nasal Cannula O2 Flow Rate 1.00 1.00 1.00 12/17/20 12/17/20 12/17/20 12/17/20 09:00 10:15 11:44 12:00 Temp 36.7 Pulse 103 Resp 18 B/P (MAP) 156/123 (134) Pulse Ox 95 94 96 O2 Delivery Nasal Cannula Nasal Cannula Nasal Cannula O2 Flow Rate 1.00 1.00 1.00 12/17/20 12:41 Pulse 95 12/17/20 00:00 Intake Total 100 ml Output Total 400 ml Balance -300 ml Capillary Refill : Less Than 3 Seconds Constitutional: AAO x 3, well-developed, well-nourished HEENT: PERRL, hearing is well preserved, oral hygience is good Neck: No carotid bruit; carotid pulses are 2 + bilaterally Respiratory: No accessory muscle use, No respiratory distress; chest expansion is symmetric, chest is bilaterally symmetric, other (scattered rhonchi; fair air entry) Cardiovascular: regular rate-rhythm; No JVD; S1 and S2, systolic murmur Gastrointestinal: No tender; soft, round, audible bowel sounds Extremities: other (Mild to mod LLE swelling (he reports chronic)) Neurologic/Psychiatric: grossly intact (moves all extremities) Skin: No rash on exposed areas, No ulcerations on exposed areas Data Review Labs Laboratory Tests 12/16/20 17:50: White Blood Count 13.2H, Red Blood Count 3.87L, Hemoglobin 11.2L, Hematocrit 34L , Mean Corpuscular Volume 88, Mean Corpuscular Hemoglobin 29, Mean Corpuscular Hemoglobin Concent 33, Red Cell Distribution Width 13.5, Platelet Count 216, Mean Platelet Volume 10.3, Immature Granulocyte % (Auto) 1, Neutrophils (%) (Auto) 84H, Lymphocytes (%) (Auto) 4L, Monocytes (%) (Auto) 10, Eosinophils (%) (Auto) 1, Basophils (%) (Auto) 0, Neutrophils # (Auto) 11.1H, Lymphocytes # (Auto) 0.6L, Monocytes # (Auto) 1.4H, Eosinophils # (Auto) 0.1, Basophils # (Auto) 0.0, Immature Granulocyte # (Auto) 0.1, Neutrophils % (Manual) 80, Lymphocytes % (Manual) 9, Monocytes % (Manual) 9, Eosinophils % (Manual) 1, Basophils % (Manual) 1, Blood Morphology Comment NORMAL, D-Dimer 2.20H, Sodium Level 137, Potassium Level 4.2, Chloride Level 101, Carbon Dioxide Level 24, Anion Gap 12, Blood Urea Nitrogen 39H, Creatinine 1.31H, Estimat Glomerular Filtration Rate 53, BUN/Creatinine Ratio 30, Glucose Level 126H, Lactic Acid Level 1.03, Calcium Level 8.8, Corrected Calcium 9.1, Total Bilirubin 0.4, Aspartate Amino Transf (AST/SGOT) 69H, Alanine Aminotransferase (ALT/SGPT) 48, Alkaline Phosphatase 95, Troponin I 0.886*H, C-Reactive Protein High Sensitivity 20.20H, B-Type Natriuretic Peptide 1555.0H, Total Protein 6.7, Albumin 3.6, Procalcitonin 0.09 12/16/20 17:59: Coronavirus 2019 (BRENNA) Negative 12/16/20 18:10: Blood Gas Puncture Site NA, Blood Gas Patient Temperature 36.9, Arterial Blood pH 7.39, Arterial Blood Partial Pressure CO2 42, Arterial Blood Partial Pressure O2 38*L, Arterial Blood HCO3 25, Arterial Blood Total CO2 26.5, Arterial Blood Oxygen Saturation 59L, Arterial Blood Base Excess 0.9, Alli Test NA, Blood Gas Ventilator Setting NO, Blood Gas Inspired Oxygen NA 12/16/20 23:15: Glucometer 97 12/17/20 03:15: White Blood Count 12.8H, Red Blood Count 3.94L, Hemoglobin 11.5L, Hematocrit 35L , Mean Corpuscular Volume 88, Mean Corpuscular Hemoglobin 29, Mean Corpuscular Hemoglobin Concent 33, Red Cell Distribution Width 13.4, Platelet Count 208, Mean Platelet Volume 10.2, Immature Granulocyte % (Auto) 1, Neutrophils (%) (Auto) 90H, Lymphocytes (%) (Auto) 4L, Monocytes (%) (Auto) 5, Eosinophils (%) (Auto) 0, Basophils (%) (Auto) 0, Neutrophils # (Auto) 11.5H, Lymphocytes # (Auto) 0.5L, Monocytes # (Auto) 0.7, Eosinophils # (Auto) 0.0, Basophils # (Auto) 0.0, Immature Granulocyte # (Auto) 0.1, Sodium Level 137, Potassium Level 3.6, Chloride Level 99, Carbon Dioxide Level 24, Anion Gap 14, Blood Urea Ni trogen 38H, Creatinine 1.41H, Estimat Glomerular Filtration Rate 48, BUN/Creatinine Ratio 27, Glucose Level 157H, Calcium Level 8.9, Corrected Calci um 9.2, Phosphorus Level 4.9H, Magnesium Level 2.2, Total Bilirubin 0.5, Aspartate Amino Transf (AST/SGOT) 58H, Alanine Aminotransferase (ALT/SGPT) 44, Alkaline Phosphatase 93, Troponin I 0.786*H, Total Protein 6.9, Albumin 3.6, Procalcitonin 0.10H 12/17/20 11:43: Glucometer 180H Microbiology 12/16/20 Influenza Types A,B Antigen (VICENTE) - Final, Complete Laboratory Tests 12/16/20 17:50 12/17/20 03:15 A/P-Cardiology Assessment/Admission Diagnosis Shortness of breath (likely multifactorial0 - bilat pneumonia - CHF (type undetermined) - possibly COVID Minimal troponin elevation, likely type 2 MT due to CHF and pneumonia H/O CVA in 1974 - details unknown HTN PVD - H/O L fem-pop by Dr. Gould in Aug 2002 at [place], [place] - February 2006 - L fem-pop repair by Dr. Reeder at [facility] in [place], [place] - H/O MRSA in L LLE in the past - Chronic LLE swelling following fem-pop repair Carotid arterial dz - H/O R CEA in January [address] Reeder at [facility] in [place], [place] H/O iliac stenting in January [address] Reeder at [facility] HLD DM 2 - insulin CKD GERD Hiatal hernia H/O skin cancer removal Discussion and Recomendations Unstable symptoms. He wishes to be managed conservatively only Echocardiogram to eval structure and function - treat with diuretics Monitor lab and replace electrolytes as indicated Uncontrolled hypertension - resume home medications adjust as indicated ASA, continue Lovenox Management of pneumonia per medical/pulmonary services Further recs will be based on his hospital course We would like to thank Dr. Aguilar for this consult HARRY BARLOW MD FACP [facility] Dec 17, 2020 13:52
[2020-12-17] MEDS ORDERED: LEVO25TA5 PO (15:27)
[2020-12-17] MEDS ORDERED: TRAM50TA3 PO (15:27)
[2020-12-17] MEDS ORDERED: IBUP-1780 PO (15:27)
[2020-12-17] MEDS ORDERED: TERA5CAP3 PO (15:27)
[2020-12-17] MEDS ORDERED: ASPI-1238 PO (15:27)
[2020-12-17] MEDS ORDERED: ALBU18HF2 INH (15:27)
[2020-12-17] MEDS ORDERED: HYDR25TA4 PO (15:27)
[2020-12-17] MEDS ORDERED: LOSA100T57 PO (15:27)
[2020-12-17] MEDS ORDERED: PHEN100C11 PO ×2 (15:27)
[2020-12-17] MEDS ORDERED: CARV25TA PO (15:27)
[2020-12-17] MEDS ORDERED: INSN1U SQ (15:27)
[2020-12-17] MEDS ORDERED: HUM100VI15 SQ (15:27)
[2020-12-17] MEDS ORDERED: DILT360C30 PO (15:27)
[2020-12-17] MEDS ORDERED: CLN.1T PO ×2 (15:27)
[2020-12-17] MEDS ORDERED: FAMO-144 PO (15:27)
[2020-12-17] MEDS: FUROSEMIDE 40 MG/4 ML INJ (LASIX) IVP SCH (17:59)
[2020-12-17] MEDS ORDERED: RX-TRAMADOL 50 MG (ULTRAM) TAB PPK#4 PO PRN (18:15)
[2020-12-17] MEDS ORDERED: IBUPROFEN 800 MG (MOTRIN) TAB PO PRN (18:15)
[2020-12-17] MEDS ORDERED: IBUPROFEN 600 MG (MOTRIN) TAB PO PRN (18:30)
[2020-12-17] MEDS: cloNIDine 0.1 MG (CATAPRES) TAB PO SCH ×2 (18:58→21:42)
[2020-12-17] MEDS ORDERED: PHENYTOIN 100 MG (DILANTIN) CAP PO SCH (21:00)
[2020-12-17] MEDS: KCL 10 MEQ TAB (MICRO K) PO SCH (21:37)
[2020-12-17] MEDS: CARVEDILOL 12.5 MG (COREG) TABLET PO SCH (21:37)
[2020-12-17] MEDS: TERAZOSIN 5 MG (HYTRIN) CAPSULE PO SCH (21:38)
[2020-12-18] MEDS: inSUlin ASPART (NovoLOG) 1 UNIT/0.01 ML (CHARGE PER UNIT) SQ SCH ×3 (00:51→12:04)
[2020-12-18] MEDS: PIPERACILLIN/TAZO 4.5 GM/NS 100 ML IV SCH ×4 (01:10→09:13)
[2020-12-18] MEDS: RT-ALBUTEROL INHALER HFA (VENTOLIN HFA) 18 GM IH SCH ×3 (02:39→10:35)
[2020-12-18] MEDS: KCL 20 MEQ TAB (K-DUR) PO SCH ×2 (06:08→06:17)
[2020-12-18] MEDS: FUROSEMIDE 40 MG/4 ML INJ (LASIX) IVP SCH (06:17)
[2020-12-18 06:22] LABS: BASOPHILS % (AUTO) 0 % (0-10); EOSINOPHILS # (AUTO) 0.1 10^3/uL (0.0-0.3); EOSINOPHILS % (AUTO) 1 % (0-10); HEMATOCRIT 32 % (40-54); HEMOGLOBIN 10.3 g/dL (13.3-17.7); LYMPHOCYTES % (AUTO) 17 % (12-44); MEAN CORPUSCULAR HEMOGLOBIN 29 pg (25-34); MEAN CORPUSCULAR HGB CONC 33 g/dL (32-36); MEAN CORPUSCULAR VOLUME 89 fL (80-99); MEAN PLATELET VOLUME 10.4 fL (9.0-12.2); MONOCYTES # (AUTO) 1.1 10^3/uL (0.0-1.0); MONOCYTES % (AUTO) 9 % (0-12); NEUTROPHILS % (AUTO) 73 % (42-75); PLATELET COUNT 219 10^3/uL (130-400); WHITE BLOOD COUNT 12.3 10^3/uL (4.3-11.0)
[2020-12-18] MEDS ORDERED: LEVOTHYROXINE 25 MCG (LEVOTHROID) TAB PO SCH (06:30)
[2020-12-18 06:31] LABS: POTASSIUM 3.6 MMOL/L (3.6-5.0)
[2020-12-18 06:33] LABS: CALCIUM 8.9 MG/DL (8.5-10.1)
[2020-12-18 06:37] LABS: CREATININE SERUM 1.5 MG/DL (0.60-1.30)
[2020-12-18] MEDS ORDERED: inSUlin NPH/REG (NovoLIN 70/30) CHARGE PER UNIT SQ SCH (07:00)
--- NOTE | 2020-12-18 08:43 | Discharge Summary ---
Diagnosis/Chief Complaint Date of Admission Dec 16, 2020 at 18:45 Date of Discharge Reason Hospital Visit PT IS A 80 Y/O MALE WHO IS KNOWN TO ME A PATIENT IN MY CLINIC. HE WAS SEEN BY THE NURSE PRACTITIONER IN MY PRACTICE ON 12/04/2020 OVER TELEMEDICINE VISIT. HE HAD REPORTED A 4 WEEK ILLNESS, COUGH AND CONGESTION WORSENING, HE WAS SENT FOR LABS AND CHEST XRAY AT [facility] THAT DAY. HIS CXR SHOWED LARGE BILATERAL INFILTRATES AND NORMAL WHITE COUNT. HE WAS ADVISED WE THOUGHT ADMISSION TO THE HOSPITAL WAS NEEDED BUT HE REFUSED ADMISSION AND INSISTED ON OUTPATIENT TREATMENT. APPARENTLY, HE FELT A LITTLE BIT BETTER INITIALLY, HOWEVER ONCE ANTIBIOTICS WERE COMPLETED, HE STARTED TO FEEL POORLY AGAIN. HE WAS FOUND TO HAVE RECURRENT PNEUMONIA BILATERALLY AND NSTEMI AND ADMITTED TO THE HOSPITAL FOR FURTHER WORK-UP AND TREATMENT. Discharge Summary Discharge Physical Examination Allergies: Coded Allergies: NKANo Known Allergies (Verified Allergy, Unknown, 05/25/08) Vitals & I&Os Vital Signs Date Time Temp Pulse Resp B/P (MAP) Pulse Ox O2 Delivery O2 Flow Rate FiO2 12/18/20 07:01 93 Room Air 12/18/20 04:37 36.4 80 20 122/58 (79) 12/17/20 12:00 1.00 12/16/20 21:48 100 Hospital Course Pending Labs Laboratory Tests 12/18/20 00:46: Glucometer 150 12/18/20 05:29: Glucometer 110 12/18/20 05:40: White Blood Count 12.3, Red Blood Count 3.57, Hemoglobin 10.3, Hematocrit 32, Mean Corpuscular Volume 89, Mean Corpuscular Hemoglobin 29, Mean Corpuscular Hemoglobin Concent 33, Red Cell Distribution Width 13.2, Platelet Count 219, Mean Platelet Volume 10.4, Immature Granulocyte % (Auto) 1, Neutrophils (%) (Auto) 73, Lymphocytes (%) (Auto) 17, Monocytes (%) (Auto) 9, Eosinophils (%) (Auto) 1, Basophils (%) (Auto) 0, Neutrophils # (Auto) 9.0, Lymphocytes # (Auto) 2.0, Monocytes # (Auto) 1.1, Eosinophils # (Auto) 0.1, Basophils # (Auto) 0.0, Immature Granulocyte # (Auto) 0.1, Sodium Level 142, Potassium Level 3.6, Chloride Level 103, Carbon Dioxide Level 25, Anion Gap 14, Blood Urea Nitrogen 50, Creatinine 1.50, Estimat Glomerular Filtration Rate 45, BUN/Creatinine Ratio 33, Glucose Level 110, Calcium Level 8.9 Discharge Instructions to patient/family Please see electronic discharge instructions given to patient. Discharge Medications Reviewed and agree with Discharge Medication list on patient's Discharge Instruction sheet JG DUARTE MD Dec 18, 2020 08:43
[2020-12-18] MEDS ORDERED: DEXA1TAB PO (08:55)
[2020-12-18] MEDS ORDERED: LACT1CAP87 PO (08:55)
[2020-12-18] MEDS ORDERED: MOXI400T31 PO (08:55)
[2020-12-18] MEDS ORDERED: FURO-124 PO (08:59)
[2020-12-18] MEDS ORDERED: POTA10TA36 PO (08:59)
[2020-12-18] MEDS ORDERED: LOSARTAN 100 MG (COZAAR) TABLET PO SCH (09:00)
[2020-12-18] MEDS ORDERED: PHENYTOIN 100 MG (DILANTIN) CAP PO SCH (09:00)
--- NOTE | 2020-12-18 09:01 | Discharge Inst-Simple/Standard ---
Discharge Inst-Standard Reconcile Patient Problems Problems Reviewed?: Yes Discharge Medications New, Converted or Re-Newed RX: Transmitted to Pharmacy Patient Instructions/Follow Up Plan of Care/Instructions/FU: 1 wk [facility] Activity as Tolerated: Yes Discharge Diet: ADA Diet Health Concerns: diabetes, pneumonia, hypertension, coronary artery disease Return to The Hospital For: worsening chest pain, shortness of breath, or lifethreatening illness or injury Medication List: Active Scripts Active Potassium Chloride 10 Meq Tab.er.prt 10 Meq PO Q48H Lasix (Furosemide) 40 Mg Tablet 40 Mg PO Q48H Acidophilus Lactobacilli (Lactobacillus Acidophilus) 1 Each Capsule 1 Each PO TID Moxifloxacin HCl 400 Mg Tablet 400 Mg PO DAILY drink 16 ounces of water with this pill Dexamethasone 1 Mg Tablet 1 Mg PO DAILY 3 pills day #1, 2 pills day#2 & 3 , 1pill day #4 & 5, 1/2 pill day # 6, 7 then stop Reported Acid Staff Development Coordinator (FAMOTIDINE) (Famotidine) 10 Mg Tablet 10 Mg PO DAILY PRN Aspirin EC (Aspirin) 81 Mg Tablet.dr 81 Mg PO DAILY Novolin 70-30 100 Unit/ml Vial (Insulin NPH Hum/Reg Insulin Hm) 100 Unit/1 Ml Vi al 30 Unit SQ DAILY Novolin N (Insulin NPH Human Isophane) 100 Unit/1 Ml Vial 30 Unit SQ 1700 W/MEAL Clonidine HCl 0.1 Mg Tablet 0.1 Mg PO 1200,2200 Clonidine HCl 0.1 Mg Tablet 0.2 Mg PO 0800,1700 TAKES 2 (0.1MG) TABS Ibuprofen 800 Mg Tablet 400-800 Mg PO BID PRN TAKES TO 1 (400NG) TAB Carvedilol 25 Mg Tablet 25 Mg PO BID Losartan Potassium 100 Mg Tablet 100 Mg PO 1200 Diltiazem ER (Diltiazem HCl) 360 Mg Capsule.er 360 Mg PO DAILY Levothyroxine Sodium 25 Mcg Tablet 25 Mcg PO DAILY Tramadol HCl 50 Mg Tablet 50-100 Mg PO Q6H PRN Terazosin HCl 5 Mg Capsule 5 Mg PO BID Hydrochlorothiazide 25 Mg Tablet 25 Ng PO DAILY Phenytoin Sodium Extended 100 Mg Capsule 200 Mg PO HS TAKES 2 (100MG) CAPS Phenytoin Sodium Extended 100 Mg Capsule 100 Mg PO DAILY Ventolin Hfa (Albuterol Sulfate) 18 Gm Hfa.aer.ad 2 Puff INH Q6H PRN Lab results: Laboratory Tests Test 12/17/20 11:43 12/17/20 18:24 12/18/20 00:46 12/18/20 05:29 Range/Units Glucometer 180 H 158 H 150 H 110 70-110 MG/DL Test 12/18/20 05:40 Range/Units White Blood Count 12.3 H 4.3-11.0 10^3/uL Red Blood Count 3.57 L 4.30-5.52 10^6/uL Hemoglobin 10.3 L 13.3-17.7 g/dL Hematocrit 32 L 40-54 % Mean Corpuscular Volume 89 80-99 fL Mean Corpuscular Hemoglobin 29 25-34 pg Mean Corpuscular Hemoglobin Concent 33 32-36 g/dL Red Cell Distribution Width 13.2 10.0-14.5 % Platelet Count 219 130-400 10^3/uL Mean Platelet Volume 10.4 9.0-12.2 fL Immature Granulocyte % (Auto) 1 % Neutrophils (%) (Auto) 73 42-75 % Lymphocytes (%) (Auto) 17 12-44 % Monocytes (%) (Auto) 9 0-12 % Eosinophils (%) (Auto) 1 0-10 % Basophils (%) (Auto) 0 0-10 % Neutrophils # (Auto) 9.0 H 1.8-7.8 10^3/uL Lymphocytes # (Auto) 2.0 1.0-4.0 10^3/uL Monocytes # (Auto) 1.1 H 0.0-1.0 10^3/uL Eosinophils # (Auto) 0.1 0.0-0.3 10^3/uL Basophils # (Auto) 0.0 0.0-0.1 10^3/uL Immature Granulocyte # (Auto) 0.1 0.0-0.1 10^3/uL Sodium Level 142 135-145 MMOL/L Potassium Level 3.6 3.6-5.0 MMOL/L Chloride Level 103 98-107 MMOL/L Carbon Dioxide Level 25 21-32 MMOL/L Anion Gap 14 5-14 MMOL/L Blood Urea Nitrogen 50 H 7-18 MG/DL Creatinine 1.50 H 0.60-1.30 MG/DL Estimat Glomerular Filtration Rate 45 BUN/Creatinine Ratio 33 Glucose Level 110 H 70-105 MG/DL Calcium Level 8.9 8.5-10.1 MG/DL My orders: Orders - JG DUARTE MD Ondansetron Injection (Zofran Injectio (12/17/20 12:15) Telemetry (12/17/20 12:11) Telemetry Nursing Assessment ( (12/17/20 12:11) Cpoe Transfer Order Process (12/17/20 12:11) Transfer - Bed/Room/Location (12/17/20 14:31) Clonidine Tablet (Catapres Tablet) (12/17/20 22:00) Clonidine Tablet (Catapres Tablet) (12/17/20 18:15) Ibuprofen Tablet (Motrin Tablet) (12/17/20 18:15) Insulin Nph/Reg 70/30 (Humulin 70/30 Mix (12/18/20 07:00) Insulin Nph Human (Per Unit) (Novolin N (12/18/20 17:00) Levothyroxine Tablet (Synthroid Tablet) (12/18/20 06:30) Phenytoin Capsule (Dilantin Capsule) (12/18/20 09:00) Phenytoin Capsule (Dilantin Capsule) (12/17/20 21:00) Terazosin Capsule (Hytrin Capsule) (12/17/20 21:00) Rx-Tramadol Hcl (Rx-Ultram) (12/17/20 18:15) Diltiazem Cd 24 Hr Capsule (Cardizem Cd (12/18/20 09:00) Ibuprofen Tablet (Motrin Tablet) (12/17/20 18:30) Tramadol Tablet (Ultram Tablet) (12/17/20 18:30) Us Carotid Brando Complete [id number] (12/18/20 08:00) Attending Discharge Inpt/Inobs (12/18/20 08:43) JG DUARTE MD Dec 18, 2020 09:01
[2020-12-18] MEDS: dexAMETHasone 6 MG TAB (DECADRON) PO SCH (09:09)
[2020-12-18] MEDS: CARVEDILOL 12.5 MG (COREG) TABLET PO SCH (09:09)
[2020-12-18] MEDS: ASPIRIN 81 MG CHEW (CHILDREN'S ASA) PO SCH (09:09)
[2020-12-18] MEDS: cloNIDine 0.1 MG (CATAPRES) TAB PO SCH ×2 (09:09→12:22)
[2020-12-18] MEDS: KCL 10 MEQ TAB (MICRO K) PO SCH (09:10)
[2020-12-18] MEDS: ENOXAPARIN 100 MG/1 ML (LOVENOX) SYR SC SCH (09:11)
[2020-12-18] MEDS: TERAZOSIN 5 MG (HYTRIN) CAPSULE PO SCH (09:46)
--- NOTE | 2020-12-18 10:41 | Diagnostic Imaging Report ---
PROCEDURE: US carotid duplex, bilateral. TECHNIQUE: Multiple real-time grayscale images were obtained over the carotid arteries in various projections, bilaterally. Additional spectral analysis and color Doppler duplex images were also obtained. INDICATION: Carotid stenosis Parameters based on the consensus panel Guthrie-Scale and Doppler ultrasound criteria published September 2003, Radiology, Volume 229. DOPPLER (peak systolic velocity M/S Right Left CCA 0.66 0.91 ICA Proximal 3.19 3.92 ICA Mid 2.60 3.02 ICA Distal 1.16 1.16 RATIO 4.86 4.31 ECA 2.85 2.69 VERT 0.32 NOT SEEN The previous color Doppler exam performed on 09/14/2019 noted atherosclerotic plaque throughout the carotid systems. There also appear to be 50-70% stenoses of the origins of the internal carotid arteries bilaterally. On this exam the atherosclerotic changes seen previously are again evident and essentially no different. However the flow velocities do show that the stenoses involving the origins of the internal carotid arteries bilaterally has worsened since the prior exam. The IC/CC ratio on the right is now 4.86 and on the left 4.31 (previously 2.2 and 3.0). I suspect these stenoses are in the 70-80% range. If further evaluation is desired, then CTA of the neck would be recommended. The vertebral arteries were not well visualized. There does seem to be antegrade flow in the right vertebral artery. The left vertebral artery could not be clearly visualized. IMPRESSION: The atherosclerotic disease involving the carotid systems has worsened since the prior exam as there are now 70-80% stenoses of the origins of the internal carotid arteries. CTA of the neck would be recommended for further evaluation. The vertebral arteries could also be further evaluated by the CT neck exam. Dictated by: Dictated on workstation # [id number]
[2020-12-18 13:07] VITALS: BP 121/58
[2020-12-18] MEDS ORDERED: inSUlin NPH (NovoLIN N) 1 UNIT/0.01 ML (CHARGE PER UNIT) SQ SCH (17:00)
== END 2020-12-18 13:10 | disposition home or self-care (01) | DRG 280 ==
LOC: EDUNIT# 17:23 → ER 17:25 → ICU 18:45 → 4TH 12-17 14:06
PROVIDERS: ADMIT Family Medicine; ATTEND Family Medicine
DX: I13.0 Hypertensive heart and chronic kidney disease with heart failure and stage 1 through stage 4 chronic kidney disease, or unspecified chronic kidney disease (principal); I21.A1 Myocardial infarction type 2; J18.9 Pneumonia, unspecified organism; I50.9 Heart failure, unspecified; Z20.822 Contact with and (suspected) exposure to COVID-19; Z86.73 Personal history of transient ischemic attack (TIA), and cerebral infarction without residual deficits; E11.51 Type 2 diabetes mellitus with diabetic peripheral angiopathy without gangrene; E78.5 Hyperlipidemia, unspecified; N18.9 Chronic kidney disease, unspecified; E11.22 Type 2 diabetes mellitus with diabetic chronic kidney disease; K21.9 Gastro-esophageal reflux disease without esophagitis; K44.9 Diaphragmatic hernia without obstruction or gangrene; Z79.82 Long term (current) use of aspirin; R06.03 Acute respiratory distress; Z85.828 Personal history of other malignant neoplasm of skin; Z87.891 Personal history of nicotine dependence; E87.6 Hypokalemia; D72.829 Elevated white blood cell count, unspecified
CPT/HCPCS: 36415; 36600; 71045; 71275; 80048; 80053; 82805; 82962; 83605; 83735; 83880; 84100; 84145; 84484; 85007; 85025; 85027; 85379; 86141; 86769; 87040; 87081; 87635; 87804; 93005; 93306; 93880; 94640; 94660; 99291

== ENCOUNTER → 2021-01-04 | Outpatient (CLI) | payer MEDICARE, OTHER ==
[~2021-01-04] MED LIST changes: +ALBU18HF2 INH; +ASPI-1238 PO; +CLN.1T PO; +DEXA1TAB PO; +DILT360C30 PO; +FAMO-144 PO; +FURO-124 PO; +HUM100VI15 SQ; +HYDR25TA4 PO; +IBUP-1780 PO; +INSN1U SQ; +LACT1CAP87 PO; +LEVO25TA5 PO; +LOSA100T57 PO; +MOXI400T31 PO; +PHEN100C11 PO; +POTA10TA36 PO; +TERA5CAP3 PO; +TRAM50TA3 PO
[2021-01-04 12:09] LABS: ALBUMIN 3.1 GM/DL (3.2-4.5)
[2021-01-04 12:10] LABS: CHLORIDE 106 MMOL/L (98-107); POTASSIUM 3.9 MMOL/L (3.6-5.0); SODIUM 141 MMOL/L (135-145)
[2021-01-04 12:12] LABS: GLUCOSE 183 MG/DL (70-105); TOTAL PROTEIN 5.5 GM/DL (6.4-8.2)
[2021-01-04 12:13] LABS: CARBON DIOXIDE 24 MMOL/L (21-32)
[2021-01-04 12:14] LABS: BILIRUBIN,TOTAL 0.4 MG/DL (0.1-1.0)
[2021-01-04 12:15] LABS: ALKALINE PHOSPHATASE 101 U/L (40-136)
[2021-01-04 12:16] LABS: CREATININE SERUM 0.92 MG/DL (0.60-1.30); GFR ESTIMATED > 60
[2021-01-04 12:17] LABS: BUN/CREATININE RATIO 24
[2021-01-04 12:19] LABS: ALANINE AMINOTRANSFERASE 46 U/L (0-55); MAGNESIUM 1.8 MG/DL (1.6-2.4)
[2021-01-04 12:25] LABS: BASOPHILS % (AUTO) 0 % (0-10); EOSINOPHILS # (AUTO) 0.2 10^3/uL (0.0-0.3); EOSINOPHILS % (AUTO) 2 % (0-10); HEMATOCRIT 30 % (40-54); HEMOGLOBIN 9.6 g/dL (13.3-17.7); LYMPHOCYTES # (AUTO) 0.8 10^3/uL (1.0-4.0); LYMPHOCYTES % (AUTO) 10 % (12-44); MEAN CORPUSCULAR HEMOGLOBIN 29 pg (25-34); MEAN CORPUSCULAR HGB CONC 32 g/dL (32-36); MEAN CORPUSCULAR VOLUME 90 fL (80-99); MEAN PLATELET VOLUME 10.3 fL (9.0-12.2); MONOCYTES # (AUTO) 0.6 10^3/uL (0.0-1.0); MONOCYTES % (AUTO) 7 % (0-12); NEUTROPHILS # (AUTO) 6.7 10^3/uL (1.8-7.8); NEUTROPHILS % (AUTO) 80 % (42-75); PLATELET COUNT 233 10^3/uL (130-400); WHITE BLOOD COUNT 8.4 10^3/uL (4.3-11.0)
== END ==
LOC: LABNPT 11:55
PROVIDERS: ATTEND Family Medicine
DX: Z01.89 Encounter for other specified special examinations (principal)
CPT/HCPCS: 80053; 83735; 85025

== ENCOUNTER → 2021-01-11 | Outpatient (CLI) | payer MEDICARE, OTHER ==
[~2021-01-11] MED LIST changes: +TERA5CAP10 PO; -TERA5CAP3 PO
[2021-01-11 13:37] LABS: BASOPHILS % (AUTO) 1 % (0-10); EOSINOPHILS # (AUTO) 0.3 10^3/uL (0.0-0.3); EOSINOPHILS % (AUTO) 3 % (0-10); HEMATOCRIT 31 % (40-54); HEMOGLOBIN 9.6 g/dL (13.3-17.7); LYMPHOCYTES # (AUTO) 1.2 10^3/uL (1.0-4.0); LYMPHOCYTES % (AUTO) 15 % (12-44); MEAN CORPUSCULAR HEMOGLOBIN 28 pg (25-34); MEAN CORPUSCULAR HGB CONC 32 g/dL (32-36); MEAN CORPUSCULAR VOLUME 89 fL (80-99); MEAN PLATELET VOLUME 10.4 fL (9.0-12.2); MONOCYTES # (AUTO) 0.8 10^3/uL (0.0-1.0); MONOCYTES % (AUTO) 10 % (0-12); NEUTROPHILS # (AUTO) 5.7 10^3/uL (1.8-7.8); NEUTROPHILS % (AUTO) 71 % (42-75); PLATELET COUNT 200 10^3/uL (130-400)
[2021-01-11 14:03] LABS: BAND NEUTROPHILS 0 %; EOSINOPHILS % (MANUAL) 2 %; LYMPHOCYTES % (MANUAL) 14 %; MONOCYTES % (MANUAL) 6 %; NEUTROPHILS % (MANUAL) 78 %
[2021-01-11 14:04] LABS: ANISOCYTOSIS SLIGHT; BASOPHILS % (MANUAL) 0 %
== END ==
LOC: HH 13:26
PROVIDERS: ATTEND Family Medicine
DX: I11.0 Hypertensive heart disease with heart failure (principal); I50.9 Heart failure, unspecified; I25.10 Atherosclerotic heart disease of native coronary artery without angina pectoris
CPT/HCPCS: 82728; 83540; 85007; 85027

== ENCOUNTER 2021-01-13 13:10 | Inpatient (IN) | payer MEDICARE, OTHER ==
[~2021-01-13] VITALS: Ht 182 cm; Wt 99.8 kg
[2021-01-13] MEDS ORDERED: NS IV 500 ML 500 ML IV ONE (13:30)
[2021-01-13 13:45] LABS: BASOPHILS % (AUTO) 0 % (0-10); EOSINOPHILS % (AUTO) 0 % (0-10); HEMATOCRIT 32 % (40-54); HEMOGLOBIN 10.2 g/dL (13.3-17.7); LYMPHOCYTES # (AUTO) 0.6 10^3/uL (1.0-4.0); LYMPHOCYTES % (AUTO) 5 % (12-44); MEAN CORPUSCULAR HEMOGLOBIN 28 pg (25-34); MEAN CORPUSCULAR HGB CONC 32 g/dL (32-36); MEAN CORPUSCULAR VOLUME 88 fL (80-99); MEAN PLATELET VOLUME 11.1 fL (9.0-12.2); MONOCYTES # (AUTO) 1.4 10^3/uL (0.0-1.0); MONOCYTES % (AUTO) 11 % (0-12); NEUTROPHILS # (AUTO) 10.5 10^3/uL (1.8-7.8); NEUTROPHILS % (AUTO) 83 % (42-75); PLATELET COUNT 218 10^3/uL (130-400); WHITE BLOOD COUNT 12.6 10^3/uL (4.3-11.0)
[2021-01-13 13:58] LABS: ALBUMIN 3.3 GM/DL (3.2-4.5); ANISOCYTOSIS SLIGHT; BAND NEUTROPHILS 2 %; CHLORIDE 104 MMOL/L (98-107); EOSINOPHILS % (MANUAL) 1 %; LYMPHOCYTES % (MANUAL) 8 %; MONOCYTES % (MANUAL) 6 %; NEUTROPHILS % (MANUAL) 83 %; POIKILOCYTOSIS SLIGHT; POTASSIUM 4.3 MMOL/L (3.6-5.0); SODIUM 138 MMOL/L (135-145)
[2021-01-13 13:59] LABS: CALCIUM 8.7 MG/DL (8.5-10.1)
[2021-01-13 14:01] LABS: GLUCOSE 171 MG/DL (70-105); TOTAL PROTEIN 6.6 GM/DL (6.4-8.2)
[2021-01-13 14:02] LABS: BILIRUBIN,TOTAL 0.6 MG/DL (0.1-1.0); CARBON DIOXIDE 21 MMOL/L (21-32)
[2021-01-13 14:04] LABS: ALKALINE PHOSPHATASE 97 U/L (40-136); CREATININE SERUM 0.95 MG/DL (0.60-1.30); GFR ESTIMATED > 60
[2021-01-13 14:05] LABS: BUN/CREATININE RATIO 19
[2021-01-13 14:07] LABS: ALANINE AMINOTRANSFERASE 31 U/L (0-55); FIBRIN DEGRADATION PRODUCTS <= 0.27 UG/ML (0.00-0.49); INR 1.3 (0.8-1.4); PARTIAL THROMBOPLASTIN TIME 36 SEC (24-35)
[2021-01-13] MEDS ORDERED: RT-ALBUTEROL INHALER HFA (VENTOLIN HFA) 18 GM IH STA (14:12)
--- NOTE | 2021-01-13 14:12 | ED General ---
General Chief Complaint: Respiratory Problems Stated Complaint: SOB Nursing Triage Note: pt presents to ED via EMS with c/o increased SOB over the last day. pt diagnosed and hospitalized with PNA/ARDS 1 month ago and states "I've never fully recovered." pt had CXR within the last week that was unchanged from one month ago. pt has increased WOB and using accessory muscles, although O2 saturation is 100% on 6L per NC. pt has BLE edema that is not acute but has worsened. pt also c/o feverish chills. Nursing Sepsis Screen: Possible Sepsis Risk Source of Information: Patient, EMS Exam Limitations: No Limitations History of Present Illness Date Seen by Provider: Jan 13, 2021 Time Seen by Provider: 13:20 Initial Comments Here by EMS with report of increasing shortness of breath over the last 24 hours but has been dealing with this over the last month and a half. He was admitted for pneumonia and had had ARDS. Previous Covid evaluation was negative. Denies any Covid exposure. States the lungs have progressively worsened over the last day or 2 and he was markedly short of breath today. EMS reports that he was dusky on their arrival and quite dyspneic. Initial O2 sats in the 60s to 70s but did improve with O2 and DuoNeb treatment. Currently improved into the upper 90s on a few liters via nasal cannula but still is quite dyspneic with respiratory rate in the 40s to 50s. Denies nausea or vomiting. Does report decreased appetite and fever. Denies diarrhea or dysuria. Timing/Duration: 1 Week, Getting Worse Severity: Moderate Associated Systoms: No Chest Pain; Cough, Fever/Chills, Loss of Appetite; No Nausea/Vomiting; Shortness of Air, Weakness Allergies and Home Medications Allergies Coded Allergies: NKANo Known Allergies (Verified Allergy, Unknown, 05/25/08) Home Medications Albuterol Sulfate 18 Gm Hfa.aer.ad, 2 PUFF INH Q6H PRN for SHORTNESS OF BREATH, (Reported) Aspirin 81 Mg Tablet.dr, 81 MG PO DAILY, (Reported) Carvedilol 25 Mg Tablet, 25 MG PO BID, (Reported) Clonidine HCl 0.1 Mg Tablet, 0.2 MG PO 0800,1700, (Reported) TAKES 2 (0.1MG) TABS Clonidine HCl 0.1 Mg Tablet, 0.1 MG PO 1200,2200, (Reported) Dexamethasone 1 Mg Tablet, 1 MG PO DAILY 3 pills day #1, 2 pills day#2 & 3 , 1pill day #4 & 5, 1/2 pill day # 6, 7 then stop Prescribed by: JG AGUILAR on 12/18/20854 Diltiazem HCl 360 Mg Capsule.er, 360 MG PO DAILY, (Reported) Famotidine 10 Mg Tablet, 10 MG PO DAILY PRN for HEARTBURN, (Reported) Furosemide 40 Mg Tablet, 40 MG PO Q48H Prescribed by: JG AGUILAR on 12/18/20858 Ibuprofen 800 Mg Tablet, 400-800 MG PO BID PRN for PAIN-MILD (1-4), (Reported) TAKES TO 1 (400NG) TAB Insulin NPH Hum/Reg Insulin Hm 100 Unit/1 Ml Vial, 30 UNIT SQ DAILY, (Reported) Insulin NPH Human Isophane 100 Unit/1 Ml Vial, 30 UNIT SQ 1700 W/MEAL, (Reported) Lactobacillus Acidophilus 1 Each Capsule, 1 EACH PO TID Prescribed by: JG AGUILAR on 12/18/20854 Levothyroxine Sodium 25 Mcg Tablet, 25 MCG PO DAILY, (Reported) Losartan Potassium 100 Mg Tablet, 100 MG PO 1200, (Reported) Moxifloxacin HCl 400 Mg Tablet, 400 MG PO DAILY drink 16 ounces of water with this pill Prescribed by: JG AGUILAR on 12/18/20854 Phenytoin Sodium Extended 100 Mg Capsule, 100 MG PO DAILY, (Reported) Phenytoin Sodium Extended 100 Mg Capsule, 200 MG PO HS, (Reported) TAKES 2 (100MG) CAPS Potassium Chloride 10 Meq Tab.er.prt, 10 MEQ PO Q48H Prescribed by: JG AGUILAR on 12/18/20858 Terazosin HCl 5 Mg Capsule, 5 MG PO BID, (Reported) Tramadol HCl 50 Mg Tablet, 50-100 MG PO Q6H PRN for PAIN-MODERATE (5-7), ( Reported) Patient Home Medication List Home Medication List Reviewed: Yes Review of Systems Review of Systems Constitutional: see HPI; No chills; fever EENTM: No nose congestion, No throat pain Respiratory: cough, dyspnea on exertion, short of breath, wheezing Cardiovascular: No chest pain; edema Gastrointestinal: No abdominal pain; loss of appetite; No nausea, No vomiting Genitourinary: no symptoms reported Musculoskeletal: No back pain; muscle twitching Skin: change in color; No lesions Psychiatric/Neurological: Denies Headache; Weakness All Other Systems Reviewed Negative Unless Noted: Yes Past Tqchujy-Ywewzy-Vaycyz Hx Past Med/Social Hx: Reviewed Nursing Past Med/Soc Hx Patient Social History Alcohol Use: Denies Use Type Used: Cigarettes Former Smoker, Quit: Dec 08, 1999 2nd Hand Smoke Exposure: Yes Recent Infectious Disease Expo: No Recent Hopitalizations: No Immunizations Up To Date Date of Pneumonia Vaccine: Aug 25, 2010 Past Medical History Surgeries: Yes Respiratory: Yes Pneumonia Cardiac: Yes Hypertension Neurological: Yes (CVA) Stroke Gastrointestinal: No Musculoskeletal: Yes Endocrine: Yes (TYPE II TAKES INSULIN) Diabetes, Non-Insulin dep Cancer: No Psychosocial: No Family Medical History Reviewed Nursing Family Hx No Pertinent Family Hx Physical Exam-Suspected Sepsis Physical Exam Vital Signs Vital Signs - First Documented 01/13/21 13:20 Temp 37.7 Pulse 92 Resp 30 B/P (MAP) 134/68 (90) Pulse Ox 100 O2 Delivery Nasal Cannula O2 Flow Rate 6.00 Capillary Refill : Less Than 3 Seconds Blood Pressure Mean: 91 Height, Weight, BMI Height: 6'0.00" Weight: 215lbs. 0.0oz. [id number]; 27.00 BMI Method: General Appearance: No Apparent Distress, WD/WN HEENT: PERRL/EOMI, Pharynx Normal Neck: Non Tender, Supple Respiratory: Crackles, Decreased Breath Sounds, Wheezing, Other (Patient is quite dyspneic and tachypneic.) Cardiovascular: Regular Rate, Rhythm, No Murmur Gastrointestinal: Non Tender, Soft Back: Normal Inspection, No CVA Tenderness, No Vertebral Tenderness Extremity: Normal Range of Motion, Non Tender, Pedal Edema Neurologic/Psychiatric: Alert, Oriented x3 (3+ to level above knees) Skin: normal color, warm/dry Focused Exam Lactate Level 01/13/21 13:25: Lactic Acid Level 2.34*H 01/13/21 15:30: Lactic Acid Level Laboratory Tests Test 01/13/21 13:25 01/13/21 15:30 Lactic Acid Level 2.34 MMOL/L (0.50-2.00) *H Progress/Results/Core Measures Suspected Sepsis Recent Fever Within 48 Hours: Yes Infection Criteria Present: Suspected New Infection New/Unexplained Altered Menta: No Sepsis Screen: Possible Sepsis Risk SIRS Temperature: Pulse: 92 Respiratory Rate: 30 Laboratory Tests 01/13/21 13:25: White Blood Count 12.6H Blood Pressure 134 /68 Mean: 91 01/13/21 13:25: Lactic Acid Level 2.34*H 01/13/21 15:30: Laboratory Tests 01/13/21 13:25: Creatinine 0.95, INR Comment 1.3, Platelet Count 218, Total Bilirubin 0.6 Results/Orders Lab Results Laboratory Tests Test 01/13/21 13:25 01/13/21 15:30 Range/Units White Blood Count 12.6 H 4.3-11.0 10^3/uL Red Blood Count 3.66 L 4.30-5.52 10^6/uL Hemoglobin 10.2 L 13.3-17.7 g/dL Hematocrit 32 L 40-54 % Mean Corpuscular Volume 88 80-99 fL Mean Corpuscular Hemoglobin 28 25-34 pg Mean Corpuscular Hemoglobin Concent 32 32-36 g/dL Red Cell Distribution Width 15.3 H 10.0-14.5 % Platelet Count 218 130-400 10^3/uL Mean Platelet Volume 11.1 9.0-12.2 fL Immature Granulocyte % (Auto) 1 % Neutrophils (%) (Auto) 83 H 42-75 % Lymphocytes (%) (Auto) 5 L 12-44 % Monocytes (%) (Auto) 11 0-12 % Eosinophils (%) (Auto) 0 0-10 % Basophils (%) (Auto) 0 0-10 % Neutrophils # (Auto) 10.5 H 1.8-7.8 10^3/uL Lymphocytes # (Auto) 0.6 L 1.0-4.0 10^3/uL Monocytes # (Auto) 1.4 H 0.0-1.0 10^3/uL Eosinophils # (Auto) 0.0 0.0-0.3 10^3/uL Basophils # (Auto) 0.0 0.0-0.1 10^3/uL Immature Granulocyte # (Auto) 0.1 0.0-0.1 10^3/uL Neutrophils % (Manual) 83 % Lymphocytes % (Manual) 8 % Monocytes % (Manual) 6 % Eosinophils % (Manual) 1 % Band Neutrophils 2 % Poikilocytosis SLIGHT Anisocytosis SLIGHT Prothrombin Time 17.0 H 12.2-14.7 SEC INR Comment 1.3 0.8-1.4 Activated Partial Thromboplast Time 36 H 24-35 SEC D-Dimer <= 0.27 0.00-0.49 UG/ML Sodium Level 138 135-145 MMOL/L Potassium Level 4.3 3.6-5.0 MMOL/L Chloride Level 104 98-107 MMOL/L Carbon Dioxide Level 21 21-32 MMOL/L Anion Gap 13 5-14 MMOL/L Blood Urea Nitrogen 18 7-18 MG/DL Creatinine 0.95 0.60-1.30 MG/DL Estimat Glomerular Filtration Rate > 60 BUN/Creatinine Ratio 19 Glucose Level 171 H 70-105 MG/DL Lactic Acid Level 2.34 *H 0.50-2.00 MMOL/L Calcium Level 8.7 8.5-10.1 MG/DL Corrected Calcium 9.3 8.5-10.1 MG/DL Total Bilirubin 0.6 0.1-1.0 MG/DL Aspartate Amino Transf (AST/SGOT) 43 H 5-34 U/L Alanine Aminotransferase (ALT/SGPT) 31 0-55 U/L Alkaline Phosphatase 97 40-136 U/L C-Reactive Protein High Sensitivity 14.13 H 0.00-0.50 MG/DL B-Type Natriuretic Peptide 1264.4 H <100.0 PG/ML Total Protein 6.6 6.4-8.2 GM/DL Albumin 3.3 3.2-4.5 GM/DL Procalcitonin 0.12 H <0.10 NG/ML Coronavirus 2019 (BRENNA) Negative Negative Micro Results Microbiology 01/13/21 Influenza Types A,B Antigen (VICENTE) - Final, Complete My Orders Orders - VIC ABDULLAHI MD Cbc With Automated Diff (01/13/21 13:19) Comprehensive Metabolic Panel (01/13/21 13:19) Blood Culture (01/13/21 13:19) Sputum Culture (01/13/21 13:19) Urinalysis (01/13/21 13:19) Urine Culture (01/13/21 13:19) Protime With Inr (01/13/21 13:19) Partial Thromboplastin Time (01/13/21 13:19) Chest 1 View, Ap/Pa Only (01/13/21 13:19) Ed Iv/Invasive Line Start (01/13/21 13:19) Vital Signs Adult Sepsis Patie Q15M (01/13/21 13:19) O2 (01/13/21 13:19) Remove Rings In Anticipation O (01/13/21 13:19) Lactic Acid Analyzer (01/13/21 13:19) Influenza A And B Antigens (01/13/21 13:19) Fibrin Degradation Products (01/13/21 13:19) Procalcitonin (Pct) (01/13/21 13:19) Hs C Reactive Protein (01/13/21 13:19) Covid 19 Inhouse Test (01/13/21 13:19) BNP (01/13/21 13:21) Ns Iv 500 Ml (Sodium Chloride 0.9%) (01/13/21 13:30) Manual Differential (01/13/21 13:25) Albuterol Inhaler (Ventolin Hfa) (01/13/21 14:12) Albuterol Pre-Mix Nebs (Rt) (Proventil (01/13/21 14:40) Albuterol/Ipra Inhalation Soln (Duoneb I (01/13/21 14:45) Svn Small Volume Nebulizer (01/13/21 14:40) Svn Small Volume Nebulizer (01/13/21 14:40) Furosemide Injection (Lasix Injection) (01/13/21 15:13) Piperacillin Sodium/Tazobactam (Zosyn Vi (01/13/21 15:15) Ct Chest Wo (01/13/21 15:29) Medications Given in ED Current Medications Medications Dose Ordered Sig/Obdulio Route Start Time Stop Time Status Last Admin Dose Admin Albuterol/ Ipratropium 3 ml ONCE ONCE INH 01/13/21 14:45 01/13/21 14:46 DC 01/13/21 15:01 3 ML Piperacillin Sod/ Tazobactam Sod 4.5 gm/Sodium Chloride 100 ml @ 200 mls/hr ONCE ONCE IV 01/13/21 15:15 01/13/21 15:44 01/13/21 15:30 200 MLS/HR Sodium Chloride 500 ml @ 0 mls/hr Q0M ONCE IV 01/13/21 13:30 01/13/21 13:31 DC 01/13/21 13:45 500 MLS/HR Vital Signs/I&O 01/13/21 01/13/21 01/13/21 01/13/21 13:20 13:20 14:04 14:53 Temp 37.7 Pulse 92 93 Resp 30 41 24 B/P (MAP) 134/68 (90) 124/75 (91) 137/72 Pulse Ox 100 100 100 97 O2 Delivery Nasal Cannula Nasal Cannula Nasal Cannula NIV Bilevel O2 Flow Rate 6.00 3.00 3.00 01/13/21 14:59 Pulse 91 Resp 27 Pulse Ox 94 O2 Flow Rate 21.00 Capillary Refill : Less Than 3 Seconds Blood Pressure Mean: 91 Progress Note : Progress Note Seen and evaluated. IV by EMS, labs, chest x-ray, blood cultures and lactic acid in accordance with sepsis protocol ordered. I have added influenza screen and COVID-19 screening. Albuterol MDI 4 puffs via spacer given. BNP added as there is concerns about pneumonia but also heart failure especially given his edema. Monitor patient. 1530: Patient does have findings concerning for pneumonia. Zosyn 4.5 g IV ordered. Also elevated BNP so Lasix 40 mg IV ordered. Patient has been started on BiPAP at 10/5 and he is much less distressed currently and states he is doing better. I have discussed the case with Dr. Aguilar. Patient to be admitted to the ICU. She has asked for CT of the chest look for concerns of postobstructive pneumonia and/or aspiration type pneumonia. She will follow results. 1538: Patient is doing well and she has authorized admission to the cardiac stepdown unit. All findings and concerns were discussed with the patient who agrees with the plan. Diagnostic Imaging Diagonstic Imaging: Xray Plain Films/CT/US/NM/MRI: chest Comments [facility]. [place], [place] NAME: ROSAURA JUAN [facility] REC#: [id number] PT STATUS: REG ER : 1940 PHYSICIAN: VIC ABDULLAHI MD ADMIT DATE: 01/13/21/ER Signed Date of Exam:01/13/21 CHEST 1 VIEW, AP/PA ONLY INDICATION: Sepsis Frontal chest obtained at 02:22 p.m. and compared to 12/17/2020. The heart is mildly enlarged. There is central vascular congestion. There is patchy infiltrate throughout the mid to lower lung cordero, appearing similar to the prior study. There is no pneumothorax or gross pleural fluid. IMPRESSION: Stable bilateral infiltrates with mild central vascular congestion. There is mild cardiomegaly. There is no pneumothorax or pleural fluid. Dictated by: Dictated on workstation # [id number] Dict: 01/13/21 1430 Trans: 01/13/21 1453 [facility] [id number] Interpreted by: SHASHA GARCIA MD Electronically signed by: SHASHA GARCIA MD 01/13/21 1453 Departure Communication (Admissions) Time/Spoke to Admitting Phy: 15:30 Impression Primary Impression: Pneumonia of both lower lobes Qualified Codes: J18.9 - Pneumonia, unspecified organism Additional Impression: CHF (congestive heart failure) Qualified Codes: I50.9 - Heart failure, unspecified Disposition: ADMITTED INPATIENT Condition: Stable Admissions Decision to Admit Reason: Admit from ER (General) Decision to Admit/Date: Jan 13, 2021 Time/Decision to Admit Time: 15:30 Departure-Patient Inst. Referrals: JG AGUILAR MD (PCP/Family) Primary Care Physician VIC ABDULLAHI MD Jan 13, 2021 14:12
[2021-01-13] MEDS ORDERED: RT-ALBUTEROL SULF 2.5 MG/3 ML PRE-MIX VIAL INH STA (14:40)
--- NOTE | 2021-01-13 14:41 | Diagnostic Imaging Report ---
INDICATION: Sepsis Frontal chest obtained at 02:22 p.m. and compared to 12/17/2020. The heart is mildly enlarged. There is central vascular congestion. There is patchy infiltrate throughout the mid to lower lung cordero, appearing similar to the prior study. There is no pneumothorax or gross pleural fluid. IMPRESSION: Stable bilateral infiltrates with mild central vascular congestion. There is mild cardiomegaly. There is no pneumothorax or pleural fluid. Dictated by: Dictated on workstation # [id number]
[2021-01-13] MEDS ORDERED: RT-ALBUTEROL/IPRATROPIUM 3 ML (DUONEB) VIAL INH ONE (14:45)
[2021-01-13 14:59] VITALS: BP 137/67
[2021-01-13] MEDS ORDERED: FUROSEMIDE 40 MG/4 ML INJ (LASIX) IV STA (15:13)
[2021-01-13] MEDS ORDERED: PIPERACILLIN SODIUM/TAZOBACTAM 4.5 GM in NS (IVPB) 100 ML IV ONE (15:15)
[2021-01-13 17:13] VITALS: BP 143/70
--- NOTE | 2021-01-13 17:20 | Diagnostic Imaging Report ---
PROCEDURE: CT chest without contrast. TECHNIQUE: Multiple contiguous axial images were obtained through the chest without the use of intravenous contrast. Auto Exposure Controls were utilized during the CT exam to meet ALARA standards for radiation dose reduction. INDICATION: Increasing shortness of air. COMPARISON: Correlation is made with prior CT chest from 12/16/2020. FINDINGS: Moderate-sized bilateral effusions persist. The heart is enlarged. No pericardial effusion is identified. No loculated effusion is detected. No axillary lymphadenopathy is identified. There are several small mediastinal lymph nodes which may be reactive. There is some patchy infiltrate in the right upper lobe which is similar to perhaps improved when compared with prior CT. Minimal patchy infiltrate in the left upper lobe is also improved. There is some parenchymal consolidation in the right lower lobe, similar to perhaps slightly improved. Left lower lobe is clear. Upper abdomen is unremarkable. IMPRESSION: 1. Continued moderate-sized nonloculated bilateral pleural effusions. 2. Bilateral infiltrates, improved when compared with examination from one month earlier. Dictated by: Dictated on workstation # [id number]
[2021-01-13 17:30] VITALS: BP 174/85
[2021-01-13] MEDS ORDERED: CATHETER FLUSH 10 ML SYR IV PRN (17:45)
--- NOTE | 2021-01-13 17:53 | History & Physicial ---
History of Present Illness History of Present Illness Reason for visit/HPI MR. JUAN IS A 80 Y/O MALE WHO IS KNOWN TO ME FROM CLINIC. HE HAS HISTORY OF RECENT PNEUMONIA WITH SEPSIS AND RESPIRATORY FAILURE. HE WAS TREATED IN THE HOSPITAL, HAD RAPID IMPROVEMENT AND WAS DISCHARGED ON CEFDINIR AND AZITHROMYCIN. HE THEN HAD RECURRENT SYMPTOMS OUTPATIENT, WAS TREATED WITH MOXIFLOXICIN AND HAD MILD SYMPTOM IMPROVEMENT, THEN JUST CALLED THE OFFICE THIS WEEK WITH WORSENING SYMPTOMS, WE GOT A CHEST XRAY WHICH SHOWED PERSISTENT PNEUMONIA. HOWEVER BEFORE WE COULD CALL HIM BACK THIS MORNING, HE CALLED 911 ABOUT HIS WORSENING DYSPNEA, THEY FOUND HIM TO HAVE OXYGEN SATURATION BELOW 80% AND HE WAS PLACED ON OXYGEN WITH SLOW IMPROVEMENT IN OXYGEN, BUT HE WAS BREATHING ABOUT 60 TIMES A MINUTE. THIS AFTERNOON HE REPORTS THAT HE IS FEELING A LITTLE BIT BETTER AFTER BIPAP AND LASIX. Date of Admission Jan 13, 2021 at 15:31 Date Seen by a Provider: Jan 13, 2021 Time Seen by a Provider: 17:30 Attending Physician Jg Aguilar MD Admitting Physician Jg Aguilar MD Consult Allergies and Home Medications Allergies Coded Allergies: NKANo Known Allergies (Verified Allergy, Unknown, 05/25/08) Home Medications Albuterol Sulfate 18 Gm Hfa.aer.ad, 2 PUFF INH Q6H PRN for SHORTNESS OF BREATH, (Reported) Aspirin 81 Mg Tablet.dr, 81 MG PO DAILY, (Reported) Carvedilol 25 Mg Tablet, 25 MG PO BID, (Reported) Clonidine HCl 0.1 Mg Tablet, 0.2 MG PO 0800,1700, (Reported) TAKES 2 (0.1MG) TABS Clonidine HCl 0.1 Mg Tablet, 0.1 MG PO 1200,2200, (Reported) Dexamethasone 1 Mg Tablet, 1 MG PO DAILY 3 pills day #1, 2 pills day#2 & 3 , 1pill day #4 & 5, 1/2 pill day # 6, 7 then stop Prescribed by: JG AGUILAR on 12/18/20 0855 Diltiazem HCl 360 Mg Capsule.er, 360 MG PO DAILY, (Reported) Famotidine 10 Mg Tablet, 10 MG PO DAILY PRN for HEARTBURN, (Reported) Furosemide 40 Mg Tablet, 40 MG PO Q48H Prescribed by: JG AGUILAR on 12/18/20 0859 Ibuprofen 800 Mg Tablet, 400-800 MG PO BID PRN for PAIN-MILD (1-4), (Reported) TAKES TO 1 (400NG) TAB Insulin NPH Hum/Reg Insulin Hm 100 Unit/1 Ml Vial, 30 UNIT SQ DAILY, (Reported) Insulin NPH Human Isophane 100 Unit/1 Ml Vial, 30 UNIT SQ 1700 W/MEAL, (Reported) Lactobacillus Acidophilus 1 Each Capsule, 1 EACH PO TID Prescribed by: JG AGUILAR on 12/18/20 0855 Levothyroxine Sodium 25 Mcg Tablet, 25 MCG PO DAILY, (Reported) Losartan Potassium 100 Mg Tablet, 100 MG PO 1200, (Reported) Moxifloxacin HCl 400 Mg Tablet, 400 MG PO DAILY drink 16 ounces of water with this pill Prescribed by: JG AGUILAR on 12/18/20 0855 Phenytoin Sodium Extended 100 Mg Capsule, 100 MG PO DAILY, (Reported) Phenytoin Sodium Extended 100 Mg Capsule, 200 MG PO HS, (Reported) TAKES 2 (100MG) CAPS Potassium Chloride 10 Meq Tab.er.prt, 10 MEQ PO Q48H Prescribed by: JG AGUILAR on 12/18/20 0859 Terazosin HCl 5 Mg Capsule, 5 MG PO BID, (Reported) Tramadol HCl 50 Mg Tablet, 50-100 MG PO Q6H PRN for PAIN-MODERATE (5-7), (Reported) Patient Home Medication List Home Medication List Reviewed: Yes Past Vpzcefo-Ovrkjf-Kodfxr Hx Patient Social History Marrital Status: Living Status: LIVES WITH SPOUSE IN PRIVATE HOME Employed/Student: retired Smoking Status: Former Smoker Former Smoker, Quit: Dec 08, 1999 2nd Hand Smoke Exposure: Yes Recent Hopitalizations: Yes (DEC 16 2020) Social History LIVES WITH SPOUSE, DISABLED SINCE 1974 AFTER STROKE Have you traveled recently?: No Alcohol Use?: No Pt feels they are or have been: No Immunizations Up To Date Date of Pneumonia Vaccine: Aug 25, 2010 Seasonal Allergies Seasonal Allergies: No Surgeries Yes (- H/O L fem-pop by Dr. 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, Non-Insulin dep HEENT Loss of Vision: Denies Hearing Impairment: Denies Cancer No Skin Psychosocial History of Psychiatric Problem: No Reviewed Nursing Assessment Reviewed/Agree w Nursing PMH: Yes Family Medical History Significant Family History: Hypertension Review of Systems Constitutional: No chills, No diaphoresis, No fever; malaise, weakness EENTM: other (NO SYMPTOMS IN eent REPORTED) Respiratory: cough, dyspnea on exertion, orthopnea, short of breath Cardiovascular: edema, Hx of Intervention, vascular heart diseas Gastrointestinal: No no symptoms reported Genitourinary: frequency Musculoskeletal: muscle weakness Skin: lesions (BOTH LOWER LEGS WITH COLOR CHANGES ) Psychiatric/Neurological: Anxiety, Pre-Existing Deficit, Weakness All Other Systems Reviewed Negative Unless Noted: Yes Physical Exam Vital Signs Vital Signs - First Documented 01/13/21 13:20 Temp 37.7 Pulse 92 Resp 30 B/P (MAP) 134/68 (90) Pulse Ox 100 O2 Delivery Nasal Cannula O2 Flow Rate 6.00 Capillary Refill : Less Than 3 Seconds Height, Weight, BMI Height: 6'0.00" Weight: 215lbs. 0.0oz. [id number]; 27.74 BMI Method: General Appearance: WD/WN, Moderate Distress (WITH BREATHING) HEENT: PERRL/EOMI, Pharynx Normal Neck: Full Range of Motion, Supple Respiratory: Chest Non Tender, Crackles (IN BASES), Decreased Breath Sounds, Respiratory Distress (BREATHING AT 40 TIMES PER MINUTE) Cardiovascular: Systolic Murmur, Tachycardia Gastrointestinal: Normal Bowel Sounds, No Organomegaly, No Pulsatile Mass, Non Tender, Soft Rectal: Deferred Back: Normal Inspection Extremity: Pedal Edema (4 + TO KNEES AND POSTERIOR THIGHS WITHMILD EDEMA BILATERAL LOWER ABDOMEN) Neurologic/Psychiatric: Alert, Oriented x3, No Motor/Sensory Deficits, Normal Mood/Affect, mine analyst II-XII Norm as Tested Skin: Erythema (BILATERAL LOWER LEGS ANTERIOR LOWER LEGS) Lymphatic: No Adenopathy Assessment/Plan Assessment and Plan SEPSIS PNEUMONIA CONGESTIVE HEART FAILURE HYPERTENSION HYPERLIPIDEMIA LACTIC ACIDOSIS LEUKOCYTOSIS ANEMIA 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 - CHECK REPEAT CXR TOMORROW - CONTINUE WITH BIPAP OVERNIGHT. - CT CHEST FOLLOWS: IMPRESSION: 1. Continued moderate-sized nonloculated bilateral pleural effusions. 2. Bilateral infiltrates, improved when compared with examination from one month earlier. CONGESTIVE HEART FAILURE - IV LASIX, MONITOR OUTPUT - SERIAL WEIGHTS HYPERTENSION - RESUME HOME REGIMEN, MONITOR BLOOD PRESSURE SERIALLY. HYPERLIPIDEMIA - WILL RESTART STATIN ONCE MEDS RECONCILED. LACTIC ACIDOSIS - DUE TO RESPIRATORY FAILURE AND PNEUMONIA, WILL NOT OVERLY AGGRESSIVELY REPLACE FLUIDS DUE TO HIS CHF AND RISK OF FURTHER FLUID OVERLOAD WITH FOLLOWING OF THE SEPSIS PROTOCOL. LEUKOCYTOSIS - MONITOR LABS - SHOULD IMPROVE WITH TREATMENT OF PNEUMONIA ANEMIA - MONITOR LABS. 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
[2021-01-13 19:35] VITALS: BP 154/74
[2021-01-13] MEDS: FUROSEMIDE 40 MG/4 ML INJ (LASIX) IV SCH (20:12)
[2021-01-13] MEDS: PIPERACILLIN/TAZO 4.5 GM/NS 100 ML IV SCH ×2 (20:12)
[2021-01-13] MEDS: CATHETER FLUSH 10 ML SYR IV SCH (20:12)
[2021-01-13] MEDS ORDERED: ENOXAPARIN 40 MG/0.4 ML (LOVENOX) SYR SC SCH (21:15)
[2021-01-13] MEDS ORDERED: cloNIDine 0.1 MG (CATAPRES) TAB ONE (21:29)
[2021-01-13] MEDS ORDERED: ENOXAPARIN 40 MG/0.4 ML (LOVENOX) SYR ONE (21:29)
[2021-01-13] MEDS: cloNIDine 0.1 MG (CATAPRES) TAB PO SCH (21:36)
[2021-01-13] MEDS: PHENYTOIN 100 MG (DILANTIN) CAP PO SCH (22:09)
[2021-01-13] MEDS: LORazepam INJ 2 MG/ML (ATIVAN) VIAL IVP PRN (22:14)
[2021-01-13 23:00] VITALS: BP 136/62
[2021-01-14] VITALS (9 sets, daily range): BP systolic 115–172; BP diastolic 64–86
[2021-01-14] MEDS: ONDANSETRON 4 MG/2 ML (SDV) Z0FRAN IV PRN ×2 (01:38→04:41)
[2021-01-14] MEDS: LORazepam INJ 2 MG/ML (ATIVAN) VIAL IVP PRN (01:44)
[2021-01-14 04:25] LABS: HEMOGLOBIN 9.7 g/dL (13.3-17.7); MEAN PLATELET VOLUME 10.6 fL (9.0-12.2); WHITE BLOOD COUNT 11.2 10^3/uL (4.3-11.0)
[2021-01-14] MEDS: PIPERACILLIN/TAZO 4.5 GM/NS 100 ML IV SCH ×6 (04:34→21:11)
[2021-01-14] MEDS: CATHETER FLUSH 10 ML SYR IV SCH ×3 (04:34→23:26)
[2021-01-14] MEDS ORDERED: PROMETHAZINE INJ 25 MG/ML (PHENERGAN) AMP ONE (04:39)
[2021-01-14 04:45] LABS: ALBUMIN 3.2 GM/DL (3.2-4.5); CHLORIDE 104 MMOL/L (98-107); POTASSIUM 3.4 MMOL/L (3.6-5.0); SODIUM 141 MMOL/L (135-145)
[2021-01-14 04:46] LABS: CALCIUM 8.7 MG/DL (8.5-10.1)
[2021-01-14 04:47] LABS: GLUCOSE 126 MG/DL (70-105); TOTAL PROTEIN 6.3 GM/DL (6.4-8.2)
[2021-01-14 04:48] LABS: CARBON DIOXIDE 25 MMOL/L (21-32)
[2021-01-14] MEDS: PROMETHAZINE INJ 25 MG/ML (PHENERGAN) AMP IVP PRN (04:48)
[2021-01-14 04:49] LABS: BILIRUBIN,TOTAL 0.6 MG/DL (0.1-1.0)
[2021-01-14] MEDS: inSUlin ASPART (NovoLOG) 1 UNIT/0.01 ML (CHARGE PER UNIT) SC SCH ×4 (04:49→21:03)
[2021-01-14 04:51] LABS: ALKALINE PHOSPHATASE 93 U/L (40-136); CREATININE SERUM 1.08 MG/DL (0.60-1.30); GFR ESTIMATED > 60
[2021-01-14 04:52] LABS: BUN/CREATININE RATIO 19
[2021-01-14 04:54] LABS: ALANINE AMINOTRANSFERASE 27 U/L (0-55)
[2021-01-14] MEDS: RT-ALBUTEROL/IPRATROPIUM 3 ML (DUONEB) VIAL INH SCH ×5 (04:58→21:31)
[2021-01-14] MEDS: FUROSEMIDE 40 MG/4 ML INJ (LASIX) IV SCH ×2 (05:59→17:42)
[2021-01-14] MEDS ORDERED: METOCLOPRAMIDE INJ 10 MG/2 ML (REGLAN) ONE (06:22)
[2021-01-14] MEDS ORDERED: methylPREDNISolone 40 MG/ML (Solu-MEDROL) VIAL ONE (06:22)
[2021-01-14] MEDS ORDERED: METOCLOPRAMIDE INJ 10 MG/2 ML (REGLAN) IVP ONE (06:30)
[2021-01-14] MEDS ORDERED: methylPREDNISolone 125 MG (Solu-MEDROL) VIAL IV ONE (06:45)
[2021-01-14 07:09] LABS: OCCULT BLOOD,GASTRIC FLUID POSITIVE (NEGATIVE)
[2021-01-14] MEDS: RT-ALBUTEROL/IPRATROPIUM 3 ML (DUONEB) VIAL INH PRN ×2 (07:12→11:30)
--- NOTE | 2021-01-14 07:42 | Progress Note ---
Subjective Subjective Date Seen by Provider: Jan 14, 2021 Time Seen by Provider: 07:20 Pt seen and examined. He was awake, laying in bed. Vapotherm and NGT in place. He has been feeling nauseated with minimal improvement since NGT placement. Continues to have SOB with abd breathing and dyspnea with exertion. Denies chest pain, abd pain, lightheadedness. Review of Systems General: No Chills; Fatigue HEENT: No Head Aches, No Visual Changes Pulmonary: Dyspnea Cardiovascular: No: Chest Pain, Palpitations, Lt Headedness Gastrointestinal: Nausea, Vomiting; No: Abdominal Pain Genitourinary: No Dysuria Neurological: Weakness (LLE), Numbness (LLE) All Other Systems Reviewed All Other Systems Reviewed: Yes Objective Exam Vital Signs Vital Signs - First Documented 01/13/21 01/14/21 13:20 02:44 Temp 37.7 Pulse 92 Resp 30 B/P (MAP) 134/68 (90) Pulse Ox 100 O2 Delivery Nasal Cannula O2 Flow Rate 6.00 FiO2 44 Capillary Refill : Less Than 3 Seconds General Appearance: WD/WN, Chronically ill, Moderate Distress (rapid breathing, abd breathing), Obese HEENT: PERRL/EOMI, Pharynx Normal Neck: Full Range of Motion, Supple Respiratory: Chest Non Tender, Accessory Muscle Use (abd breathing), Crackles (Bilat bases), Expiration, Inspiration, Respiratory Distress (rapid breathing with accessory muscle use), Wheezing Cardiovascular: Normal Peripheral Pulses, Systolic Murmur, Tachycardia, Other (severe BLE pitting edema) Gastrointestinal: Normal Bowel Sounds, No Organomegaly, No Pulsatile Mass, Non Tender, Soft Rectal: Deferred Back: Normal Inspection Extremity: Inflammation (BLE shins), Pedal Edema (4+ BLE pitting edema), Swelling (BLE) Neurologic/Psychiatric: Alert, Oriented x3, Normal Mood/Affect, Motor Weakness (LLE), Sensory Deficit (LLE) Skin: Erythema (BILATERAL LOWER LEGS ANTERIOR LOWER LEGS) Lymphatic: No Adenopathy Results Lab Laboratory Tests 01/13/21 13:25: White Blood Count 12.6H, Red Blood Count 3.66L, Hemoglobin 10.2L, Hematocrit 32L , Mean Corpuscular Volume 88, Mean Corpuscular Hemoglobin 28, Mean Corpuscular Hemoglobin Concent 32, Red Cell Distribution Width 15.3H, Platelet Count 218, Mean Platelet Volume 11.1, Immature Granulocyte % (Auto) 1, Neutrophils (%) (Auto) 83H, Lymphocytes (%) (Auto) 5L, Monocytes (%) (Auto) 11, Eosinophils (%) (Auto) 0, Basophils (%) (Auto) 0, Neutrophils # (Auto) 10.5H, Lymphocytes # (Auto) 0.6L, Monocytes # (Auto) 1.4H, Eosinophils # (Auto) 0.0, Basophils # (Auto) 0.0, Immature Granulocyte # (Auto) 0.1, Neutrophils % (Manual) 83, Lymphocytes % (Manual) 8, Monocytes % (Manual) 6, Eosinophils % (Manual) 1, Band Neutrophils 2, Poikilocytosis SLIGHT, Anisocytosis SLIGHT, Prothrombin Time 17.0H, INR Comment 1.3, Activated Partial Thromboplast Time 36H, D-Dimer <= 0.27, Sodium Level 138, Potassium Level 4.3, Chloride Level 104, Carbon Dioxide Level 21, Anion Gap 13, Blood Urea Nitrogen 18, Creatinine 0.95, Estimat Glomerular Filtration Rate > 60, BUN/Creatinine Ratio 19, Glucose Level 171H, Lactic Acid Level 2.34*H, Calcium Level 8.7, Corrected Calcium 9.3, Total Bilirubin 0.6, Aspartate Amino Transf (AST/SGOT) 43H, Alanine Aminotransferase (ALT/SGPT) 31, Alkaline Phosphatase 97, C-Reactive Protein High Sensitivity 14.13H, B-Type Natriuretic Peptide 1264.4H, Total Protein 6.6, Albumin 3.3, Procalcitonin 0.12H, Coronavirus 2019 ([facility]NA) Negative 01/13/21 15:30: Lactic Acid Level 2.03*H 01/13/21 17:25: Lactic Acid Level 1.97 01/14/21 03:44: White Blood Count 11.2H, Red Blood Count 3.48L, Hemoglobin 9.7L, Hematocrit 30L, Mean Corpuscular Volume 87, Mean Corpuscular Hemoglobin 28, Mean Corpuscular Hemoglobin Concent 32, Red Cell Distribution Width 15.4H, Platelet Count 229, Mean Platelet Volume 10.6, Sodium Level 141, Potassium Level 3.4L, Chloride Level 104, Carbon Dioxide Level 25, Anion Gap 12, Blood Urea Nitrogen 21H, Creat inine 1.08, Estimat Glomerular Filtration Rate > 60, BUN/Creatinine Ratio 19, Glucose Level 126H, Calcium Level 8.7, Corrected Calcium 9.3, Total Bilirubin 0.6, Aspartate Amino Transf (AST/SGOT) 43H, Alanine Aminotransferase (ALT/SGPT) 27, Alkaline Phosphatase 93, Total Protein 6.3L, Albumin 3.2 01/14/21 06:45: Gastric Fluid Occult Blood POSITIVEH Microbiology 01/13/21 Influenza Types A,B Antigen (VICENTE) - Final, Complete Assessment/Plan Assessment/Plan Assessment and Plan Sepsis Respiratory distress r/t Bilateral lower lobe pneumonia UGIB CHF Lactic acidosis - LA 1.97 Leukocytosis - WBC 11.2, 12.6 yesterday Anemia - Hgb 9.7, 10.2 yesterday HTN HLD Hx stroke w/ LLE paresis Pt not tolerating BiPAP, tolerating Vapotherm 35%, continuing to have respiratory distress Continue Zosyn for PNA Furosemide for diuresis; CXR shows bilateral lower lobe infiltrates, CT shows moderate bilateral pleural effusions NGT in place for nausea/vomiting, draining dark red/bilious fluid Occult blood positive, General Surgery consulted Hold Lovenox, SCD's for DVT prophylaxis Cardiology consulted Continue to monitor VS, labs Supervisory-Addendum Brief Verification & Attestation Participated in pt care: history, MDM, physical Personally performed: exam, history, MDM, supervision of care Care discussed with: Medical Student Procedures: n/a Results interpretation: Verified all documentation I AGREE WITH MEDICAL STUDENT NOTE AT DOCUMENTED - I PERSONALLY PERFORMED INTERVIEW, AND PHYSICAL EXAM INDEPENDENT OF THE STUDENT. SEE MY DOCUMENTATION BELOW FOR FURTHER DETAILS. I HAD SEVERAL PHONE CALLS ON MR. JUAN IN THE MIDDLE OF THE NIGHT DUE TO HIS EMESIS - I ADVISED PLACEMENT OF AN NG TUBE AND STOPPING BIPAP DUE TO HIS EMESIS AND RISK OF ASPIRATION, VAPOTHERM WAS PLACED. PT HAS BEEN USING HIS ABDOMINAL MUSCLES FOR BREATHING, HAS BEEN FATIGUED DUE TO HIS INCREASED WORK OF BREATHING. 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 - CHECK REPEAT CXR TOMORROW - VAPOTHERM AT THIS TIME DUE TO NG TUBE AND EMESIS/NAUSEA.. - CT CHEST FOLLOWS: IMPRESSION: 1. Continued moderate-sized nonloculated bilateral pleural effusions. 2. Bilateral infiltrates, improved when compared with examination from one month earlier. CONGESTIVE HEART FAILURE - IV LASIX, MONITOR OUTPUT - SERIAL WEIGHTS - CONSULT PLACED TO CARDIOLOGY HYPERTENSION - RESUME HOME REGIMEN, MONITOR BLOOD PRESSURE SERIALLY. HYPERLIPIDEMIA - HOLD MED AT THIS TIME DUE TO NEED TO DECREASE GI INPUTS. LACTIC ACIDOSIS - DUE TO RESPIRATORY FAILURE AND PNEUMONIA, WILL NOT OVERLY AGGRESSIVELY REPLACE FLUIDS DUE TO HIS CHF AND RISK OF FURTHER FLUID OVERLOAD WITH FOLLOWING OF THE SEPSIS PROTOCOL. LEUKOCYTOSIS - MONITOR LABS - SHOULD IMPROVE WITH TREATMENT OF PNEUMONIA ANEMIA - MONITOR LABS. 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 EDEMA OF LOWER LEGS - ELEVATE LEGS, THIGH HIGH COMPRESSION SLEEVES SEIZURE DISORDER - CHRONIC ANTI-SEIZURE MEDICATION USE - RESUME PHENYTOIN UPPER GI BLEED NG TUBE PLACED CONSULT TO DR. TORRES FOR EGD FIORELLA. HOLD ANTICOAGULATION DUE TO HIS UPPER GI BLEED. DISCUSSED WITH ROSAURA THAT HE IS VERY HIGH RISK FOR DECLINE/DETERIORATION OF HIS SITUATION, ATTEMPTED TO CALL HIS SEVERAL TIMES, LEFT A MESSAGE TO CONTACT THE HOSPITAL OR MY OFFICE, NO CALLS RECEIVED TODAY. DAVID BERRY MED STUDENT Jan 14, 2021 07:42 JG DUARTE MD Jan 14, 2021 19:55
[2021-01-14] MEDS ORDERED: meTOprolol 5 MG/5 ML (LOPRESSOR) VIAL ONE (08:21)
[2021-01-14] MEDS: PANTOPRAZOLE 40 MG (PROTONIX) VIAL IV SCH ×2 (08:25→21:10)
[2021-01-14] MEDS ORDERED: meTOprolol 5 MG/5 ML (LOPRESSOR) VIAL IV ONE (08:30)
[2021-01-14] MEDS: TERAZOSIN 5 MG (HYTRIN) CAPSULE PO SCH ×2 (08:33→21:11)
[2021-01-14] MEDS: cloNIDine 0.1 MG (CATAPRES) TAB PO SCH ×4 (08:33→23:25)
[2021-01-14] MEDS: CARVEDILOL 12.5 MG (COREG) TABLET PO SCH ×2 (08:33→17:42)
[2021-01-14] MEDS: PHENYTOIN 100 MG (DILANTIN) CAP PO SCH ×2 (08:47→21:10)
[2021-01-14] MEDS: NS IV 1000 ML 1,000 ML IV SCH ×2 (08:59→18:27)
[2021-01-14] MEDS ORDERED: LIDOCAINE UROJET 2% GEL 10 ML PKG ONE (09:09)
--- NOTE | 2021-01-14 10:30 | Diagnostic Imaging Report ---
EXAMINATION: US Abdomen limited. TECHNIQUE: Multiple real-time grayscale images were obtained over the right upper quadrant in various projections. HISTORY: Vomiting COMPARISON: None available. FINDINGS: Pancreas: The visualized portions of the pancreas are normal. Liver: The liver is normal in echogenicity and contour. No focal lesions are seen. The portal vein is patent with hepatopetal flow. Gallbladder and biliary tree: The gallbladder contains a 2.8 cm stone without wall thickening, pericholecystic fluid, or sonographic Layne sign. There is no biliary ductal dilation. The common duct measures 0.4 cm. Right kidney: The right kidney is normal without hydronephrosis. Aorta and IVC: The aorta and IVC are nonvisualized secondary to overlying bowel gas. Fluid: No ascites is seen. IMPRESSION: 1. A 2.8 cm gallstone without other sonographic findings to suggest acute cholecystitis. Dictated by: Dictated on workstation # [id number]
--- NOTE | 2021-01-14 11:44 | Diagnostic Imaging Report ---
INDICATION: Pneumonia, CHF, follow-up. TECHNIQUE: Two view chest 10:56 AM CORRELATION STUDY: 01/13/2021 FINDINGS: Gastric tube has been placed tip appears to pass below left diaphragm. Right upper central line has also been placed. Tip not well-defined but likely superimposed over lower SVC. Heart size enlarged and mediastinum prominent. Calcifications of the aortic arch. Vascular slightly prominent. Bilateral pulmonary parenchymal densities are present particularly in the mid and lower lung field. Given differences in technique may be slightly improved. Bilateral pleural effusions. Advanced degenerative changes visualized spine. IMPRESSION: 1. Placement right upper extremity central line tip not well visualized but appears to be likely over the low SVC. Also placement of gastric tube passes below the left taco diaphragm. 2. Stable cardiac enlargement. Vascular congestion but overall appears improved. Slight improvement in aeration to the lung cordero with bilateral pulmonary opacities persisting. Bilateral pleural effusions. Dictated by: Dictated on workstation # [id number]
[2021-01-14 12:10] LABS: HEMOGLOBIN 9.8 g/dL (13.3-17.7)
--- NOTE | 2021-01-14 12:57 | Consultation-Cardiology ---
HPI-Cardiology Cardiology Consultation: Date of Consultation 01/14/21 Time Seen by a Provider: 09:10 Date of Admission Attending Physician Jg Aguilar MD Admitting Physician Jg Aguilar MD Consulting Physician HARRY BARLOW MD, MA, FACP, FACC, FSCAI, CCDS HPI: Chief Complaint: CC: Gen malaise, shortness of breath HPI Mr. Rosas is a 80 yr old male who has had increasing SOB and increasing gen malaise for several days prior to this admission. He reports was diagnosed with pneumonia the November and had a hospitalization in Dec 2020. Several days ago, he began to have recurrence of sympoms. He denies any c/o CP, palpitations, syncope or near syncope. He has chronic leg swelling, somewhat worse lately. He reports frequent minimally productive cough. He has been found to have A Fib with RVR during this hospitalization Review of Systems-Cardiology Review of Systems Constitutional: malaise, tiredness; No weight loss, No weight gain Ears/Nose/Throat: No ear discharge, No nasal drainage, No recent hearing loss Respiratory: As described under HPI Cardiovascular: As described under HPI Gastrointestinal: nausea, vomiting Genitourinary: No dysuria, No hematuria, No urine frequency changes Musculoskeletal: back pain (chronic), joint pain (chronic) Skin: No rash, No ulcerations Psychiatric/Neurological: No seizure, No focal weakness, No syncope Hematologic: No bleeding abnormalities All Other Systems Reviewed Negative Unless Noted: Yes ZDQ-[id number]-Xbyyay Hx Patient Social History Marrital Status: Living Status: LIVES WITH SPOUSE IN PRIVATE HOME Employed/Student: retired Smoking Status: Former Smoker 2nd Hand Smoke Exposure: Yes Have you traveled recently?: No Alcohol Use?: No Pt feels they are or have been: No Immunizations Up To Date Date of Pneumonia Vaccine: Aug 25, 2010 Date of Influenza Vaccine: Aug 15, 2020 Past Medical History PMH As described under Assessment. Family Medical History Family Medical History: He reports his father from an CT at age 50. Allergies and Home Medications Allergies Coded Allergies: NKANo Known Allergies (Verified Allergy, Unknown, 05/25/08) Home Medications Albuterol Sulfate 18 Gm Hfa.aer.ad, 2 PUFF INH Q6H PRN for SHORTNESS OF BREATH, (Reported) Aspirin 81 Mg Tablet.dr, 81 MG PO DAILY, (Reported) Carvedilol 25 Mg Tablet, 25 MG PO BID, (Reported) Clonidine HCl 0.1 Mg Tablet, 0.2 MG PO 0800,1700, (Reported) TAKES 2 (0.1MG) TABS Clonidine HCl 0.1 Mg Tablet, 0.1 MG PO 1200,2200, (Reported) Dexamethasone 1 Mg Tablet, 1 MG PO DAILY 3 pills day #1, 2 pills day#2 & 3 , 1pill day #4 & 5, 1/2 pill day # 6, 7 then stop Prescribed by: JG AGUILAR on 12/18/20854 Diltiazem HCl 360 Mg Capsule.er, 360 MG PO DAILY, (Reported) Famotidine 10 Mg Tablet, 10 MG PO DAILY PRN for HEARTBURN, (Reported) Furosemide 40 Mg Tablet, 40 MG PO Q48H Prescribed by: JG AGUILAR on 12/18/20858 Ibuprofen 800 Mg Tablet, 400-800 MG PO BID PRN for PAIN-MILD (1-4), (Reported) TAKES TO 1 (400NG) TAB Insulin NPH Hum/Reg Insulin Hm 100 Unit/1 Ml Vial, 30 UNIT SQ DAILY, (Reported) Insulin NPH Human Isophane 100 Unit/1 Ml Vial, 30 UNIT SQ 1700 W/MEAL, (Reported) Lactobacillus Acidophilus 1 Each Capsule, 1 EACH PO TID Prescribed by: JG AGUILAR on 12/18/20854 Levothyroxine Sodium 25 Mcg Tablet, 25 MCG PO DAILY, (Reported) Losartan Potassium 100 Mg Tablet, 100 MG PO 1200, (Reported) Moxifloxacin HCl 400 Mg Tablet, 400 MG PO DAILY drink 16 ounces of water with this pill Prescribed by: JG AGUILAR on 12/18/20854 Phenytoin Sodium Extended 100 Mg Capsule, 100 MG PO DAILY, (Reported) Phenytoin Sodium Extended 100 Mg Capsule, 200 MG PO HS, (Reported) TAKES 2 (100MG) CAPS Potassium Chloride 10 Meq Tab.er.prt, 10 MEQ PO Q48H Prescribed by: JG AGUILAR on 12/18/20858 Terazosin HCl 5 Mg Capsule, 5 MG PO BID, (Reported) Tramadol HCl 50 Mg Tablet, 50-100 MG PO Q6H PRN for PAIN-MODERATE (5-7), (Reported) Patient Home Medication List Home Medication List Reviewed: Yes Physical Exam-Cardiology Physical Exam Vital Signs/I&O 01/14/21 01/14/21 01/14/21 01/14/21 01:00 02:03 02:44 03:36 Temp 37.7 37.0 Pulse 112 121 92 114 Resp 27 30 B/P (MAP) 148/82 (104) Pulse Ox 97 100 94 O2 Delivery NIV Bilevel O2 Flow Rate 30.00 30.00 FiO2 44 01/14/21 01/14/21 01/14/21 01/14/21 04:58 07:10 07:12 08:00 Pulse 123 Pulse Ox 95 96 92 O2 Delivery Vapotherm Vapotherm Vapotherm O2 Flow Rate 30.00 35.00 FiO2 35 35 30 01/14/21 01/14/21 01/14/21 01/14/21 08:00 08:52 08:54 11:27 Temp 36.5 36.5 37.6 Pulse 134 134 88 Resp 24 24 B/P (MAP) 172/86 (114) 143/85 (104) 148/74 (98) Pulse Ox 94 94 97 O2 Delivery Vapotherm Vapotherm Vapotherm O2 Flow Rate 35.00 35.00 35.00 30.00 35.00 35.00 FiO2 35 01/14/21 11:30 Pulse Ox 98 O2 Delivery Vapotherm O2 Flow Rate 35.00 FiO2 35 01/14/21 00:00 Intake Total 320 ml Output Total 700 ml Balance -380 ml Capillary Refill : Less Than 3 Seconds Constitutional: AAO x 3, well-developed, well-nourished HEENT: EOMI, hearing is well preserved Neck: carotid pulses are 2 + bilaterally Respiratory: No accessory muscle use; other (diminished air entry at the bases; scattered rhonchi) Cardiovascular: S1 and S2, systolic murmur (soft ISATU at card base) Gastrointestinal: No tender, No rebound; audible bowel sounds Extremities: other (mild, bilateral leg edema); No clubbing, No cyanosis Neurologic/Psychiatric: oriented x 3, other (moves all limbs equally) Skin: normal color, warm/dry Data Review Labs Laboratory Tests 01/13/21 13:25: White Blood Count 12.6H, Red Blood Count 3.66L, Hemoglobin 10.2L, Hematocrit 32L , Mean Corpuscular Volume 88, Mean Corpuscular Hemoglobin 28, Mean Corpuscular Hemoglobin Concent 32, Red Cell Distribution Width 15.3H, Platelet Count 218, Mean Platelet Volume 11.1, Immature Granulocyte % (Auto) 1, Neutrophils (%) (Auto) 83H, Lymphocytes (%) (Auto) 5L, Monocytes (%) (Auto) 11, Eosinophils (%) (Auto) 0, Basophils (%) (Auto) 0, Neutrophils # (Auto) 10.5H, Lymphocytes # (Auto) 0.6L, Monocytes # (Auto) 1.4H, Eosinophils # (Auto) 0.0, Basophils # (A uto) 0.0, Immature Granulocyte # (Auto) 0.1, Neutrophils % (Manual) 83, Lymphocytes % (Manual) 8, Monocytes % (Manual) 6, Eosinophils % (Manual) 1, Band Neutrophils 2, Poikilocytosis SLIGHT, Anisocytosis SLIGHT, Prothrombin Time 17.0H, INR Comment 1.3, Activated Partial Thromboplast Time 36H, D-Dimer <= 0.27, Sodium Level 138, Potassium Level 4.3, Chloride Level 104, Carbon Dioxide Level 21, Anion Gap 13, Blood Urea Nitrogen 18, Creatinine 0.95, Estimat Glomerular Filtration Rate > 60, BUN/Creatinine Ratio 19, Glucose Level 171H, Lactic Acid Level 2.34*H, Calcium Level 8.7, Corrected Calcium 9.3, Total Biliru bin 0.6, Aspartate Amino Transf (AST/SGOT) 43H, Alanine Aminotransferase (ALT/S GPT) 31, Alkaline Phosphatase 97, C-Reactive Protein High Sensitivity 14.13H, B- Type Natriuretic Peptide 1264.4H, Total Protein 6.6, Albumin 3.3, Procalcitonin 0.12H, Coronavirus 2019 (BRENNA) Negative 01/13/21 15:30: Lactic Acid Level 2.03*H 01/13/21 17:25: Lactic Acid Level 1.97 01/14/21 03:44: White Blood Count 11.2H, Red Blood Count 3.48L, Hemoglobin 9.7L, Hematocrit 30L, Mean Corpuscular Volume 87, Mean Corpuscular Hemoglobin 28, Mean Corpuscular Hemoglobin Concent 32, Red Cell Distribution Width 15.4H, Platelet Count 229, Mean Platelet Volume 10.6, Sodium Level 141, Potassium Level 3.4L, Chloride Level 104, Carbon Dioxide Level 25, Anion Gap 12, Blood Urea Nitrogen 21H, Creatinine 1.08, Estimat Glomerular Filtration Rate > 60, BUN/Creatinine Ratio 19, Glucose Level 126H, Calcium Level 8.7, Corrected Calcium 9.3, Total Bilirubin 0.6, Aspartate Amino Transf (AST/SGOT) 43H, Alanine Aminotransferase (ALT/SGPT) 27, Alkaline Phosphatase 93, Total Protein 6.3L, Albumin 3.2 01/14/21 06:45: Gastric Fluid Occult Blood POSITIVEH 01/14/21 11:26: Glucometer 141H 01/14/21 12:00: Hemoglobin 9.8L, Hematocrit 31L Microbiology 01/13/21 Influenza Types A,B Antigen (VICENTE) - Final, Complete Laboratory Tests 01/13/21 13:25 01/14/21 03:44 01/14/21 12:00 A/P-Cardiology Assessment/Admission Diagnosis Sepsis Shortness of breath (likely multifactorial) - acute diastolic CHF - bilat lung opacities, ?pneumonia A Fib with RVR, diagnose 01-14-21 Echo on 12/17/20: LVEF 55-65%, mild to mod TR and MR, PASP 45-50 mmHg GI bleed, reported to have had hematemesis and stool positive for occult blood during this hospitalization H/O CVA in 1974 - details unknown HTN PVD - H/O L fem-pop by Dr. Gould in Aug 2002 at [place], [place] - February 2006 - L fem-pop repair by Dr. Reeder at [facility] in [place], [place] - H/O iliac stenting in January [address] Reeder at 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 Reeder at [facility] in [place], [place] HLD DM 2 - insulin CKD GERD Hiatal hernia H/O skin cancer removal Discussion and Recomendations * Complex management due to multiple comorbidities * iv dilt for rate control * iv fluids * Investigate GI bleed. When source identified and treated, then anticoagulate for stroke prophylaxis * Monitor labs closely * I discussed his case with Dr Aguilar on the phone this morning HARRY BARLOW MD FACP FAC CCDS Jan 14, 2021 12:57
[2021-01-14] MEDS ORDERED: POTA10TA PO (14:17)
[2021-01-14] MEDS ORDERED: FURO40TA4 PO (14:17)
--- NOTE | 2021-01-14 14:25 | CONSULTATION REPORT ---
DATE OF SERVICE: 01/14/2021 ATTENDING PRIMARY CARE PHYSICIAN: Ines Aguilar MD. HISTORY OF PRESENT ILLNESS: The patient is a 80-year-old male who we have seen before in the past. He presented with shortness of breath and respiratory failure and found to have pneumonia. He had also been recently treated and admitted for the same issue. Again, a chest x-ray did show persistent pneumonia. EMS was called and found his oxygen saturations were below 80%. Since being admitted, he has developed nausea and vomiting and an NG tube was placed, which did show a small amount of blood. He does take number of nonsteroidal anti-inflammatories and does have a history of gastroesophageal reflux disease as well as peptic ulcer disease. An ultrasound was also performed, which did show a large gallstone. 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 PAST SURGICAL HISTORY: Fem-pop bypass in 2001, revision of fem-pop in 2005, right carotid endarterectomy in 2005, iliac stent placement in 2005, back surgery in 2001. ALLERGIES: No known drug allergies. MEDICATIONS: Albuterol 2 puffs q.6 hours p.r.n. Aspirin 81 mg daily. Carvedilol 25 mg b.i.d. Clonidine 0.1 mg daily, dexamethasone 1 mg daily, diltiazem 360 mg daily, famotidine 10 mg p.r.n., furosemide 40 mg q.48 hours, ibuprofen 800 mg p.r.n., regular insulin 30 units q.a.c. and at bedtime, levothyroxine 25 mcg daily, losartan 100 mg b.i.d., moxifloxacin 400 mg daily, phenytoin 200 mg daily, potassium 10 mEq q.48 hours, terazosin 5 mg b.i.d., tramadol 50 mg p.r.n. SOCIAL HISTORY: Previous smoker, quit 1999. Negative alcohol. FAMILY HISTORY: Noncontributory. VITAL SIGNS: Temperature 37.7, blood pressure 134/68, pulse 92, respirations 30, pulse ox 100% with humidified high flow oxygen at 30% FiO2. REVIEW OF SYSTEMS: Well-nourished male, who is currently slightly short of breath. He is also having some intermittent cough and some mild sputum production. He did develop nausea and vomiting and a nasogastric tube was gastric occult positive. No chest pain, palpitations or diaphoresis. No diarrhea or constipation, no red blood per rectum, no dark tarry stools. No fever, chills, no recent inadvertent weight loss. All other review of systems negative. PHYSICAL EXAMINATION: CHEST: Scattered rales and rhonchi, bilaterally. HEART: Regular, no murmurs. EXTREMITIES: A+1/3 bilateral lower extremity edema, negative Homans sign. HEENT: No scleral icterus. NECK: No cervical lymphadenopathy. ABDOMEN: Soft, nontender, nondistended. No hernias. SKIN: Warm, dry. LABORATORY DATA: WBC 11.2, hemoglobin 9.8, hematocrit 31, platelets 229, BUN 21, creatinine 1.08. ASSESSMENT AND PLAN: A 80-year-old male with nausea, vomiting as well as gastric occult positive, NG tube aspirate with small amounts of visible blood as well. He also does have a history of gastroesophageal reflux disease as well as peptic ulcer disease. On this admission, we will proceed with an EGD. The likely etiology of the nausea and vomiting is related to his symptomatic cholelithiasis; however, at this time due to his respiratory status, exacerbation of chronic obstructive pulmonary disease as well as pneumonia, this would be contraindicated and we will recommend conservative management for now with low fat diet and then once stable as an outpatient, then proceed with laparoscopic cholecystectomy. Job ID: [id number] DocumentID: [id number] Dictated Date: 01/14/2021 14:00:11 Cigarette Making Machine Catcher Date: 01/14/2021 14:24:54 Dictated By: PORFIRIO TORRES MD
[2021-01-14] MEDS ORDERED: ENOXAPARIN 40 MG/0.4 ML (LOVENOX) SYR SC SCH (21:00)
[2021-01-14] MEDS ORDERED: dilTIAZem120 MG (CARDIZEM CD) CAP PO SCH (21:00)
[2021-01-14] MEDS ORDERED: LORazepam INJ 2 MG/ML (ATIVAN) VIAL IVP ONE (23:30)
[2021-01-15] VITALS: BP 129/78
[2021-01-15] MEDS: RT-ALBUTEROL/IPRATROPIUM 3 ML (DUONEB) VIAL INH SCH ×6 (02:07→22:05)
[2021-01-15 04:00] VITALS: BP 122/63
[2021-01-15 04:47] LABS: HEMOGLOBIN 9.1 g/dL (13.3-17.7); MEAN PLATELET VOLUME 10.1 fL (9.0-12.2)
[2021-01-15] MEDS: PIPERACILLIN/TAZO 4.5 GM/NS 100 ML IV SCH ×6 (04:50→22:12)
[2021-01-15] MEDS: NS IV 1000 ML 1,000 ML IV SCH (04:51)
[2021-01-15 05:04] LABS: ALBUMIN 2.9 GM/DL (3.2-4.5); BILIRUBIN,TOTAL 0.4 MG/DL (0.1-1.0); CALCIUM 8.3 MG/DL (8.5-10.1); CREATININE SERUM 1.22 MG/DL (0.60-1.30); POTASSIUM 3.2 MMOL/L (3.6-5.0); TOTAL PROTEIN 5.9 GM/DL (6.4-8.2)
[2021-01-15] MEDS: CATHETER FLUSH 10 ML SYR IV SCH ×3 (05:17→22:28)
[2021-01-15] MEDS: inSUlin ASPART (NovoLOG) 1 UNIT/0.01 ML (CHARGE PER UNIT) SC SCH ×4 (05:18→22:24)
[2021-01-15] MEDS: FUROSEMIDE 40 MG/4 ML INJ (LASIX) IV SCH ×2 (05:21→17:24)
--- NOTE | 2021-01-15 07:46 | Progress Note ---
Subjective Subjective Date Seen by Provider: Jan 15, 2021 Time Seen by Provider: 09:00 Pt seen and examined. He was asleep, NAD. Feels better since yesterday, decreased accessory respiratory effort but abdominal breathing still present. He says his SOB has improved minimally. Denies chest pain, nausea, vomiting, abd pain. He complained of discomfort related to dry mouth and was provided with an oral swab with water. No other complaints. Review of Systems General: No Chills; Fatigue HEENT: No Head Aches, No Visual Changes Pulmonary: Dyspnea Cardiovascular: No: Chest Pain, Palpitations, Lt Headedness Gastrointestinal: Nausea, Vomiting; No: Abdominal Pain Genitourinary: No Dysuria Neurological: Weakness (LLE), Numbness (LLE) All Other Systems Reviewed All Other Systems Reviewed: Yes Objective Exam Vital Signs Vital Signs - First Documented 01/13/21 01/14/21 13:20 02:44 Temp 37.7 Pulse 92 Resp 30 B/P (MAP) 134/68 (90) Pulse Ox 100 O2 Delivery Nasal Cannula O2 Flow Rate 6.00 FiO2 44 Capillary Refill : Greater Than 3 Seconds General Appearance: WD/WN, Chronically ill, Mild Distress (abd breathing, improved since yesterday), Obese HEENT: PERRL/EOMI; No Moist Mucous Membranes (dry) Neck: Full Range of Motion, Supple Respiratory: Chest Non Tender, Accessory Muscle Use (abd breathing), Crackles (diffuse, bilateral), Expiration, Inspiration, Respiratory Distress (rapid breathing with accessory muscle use), Rhonci (diffuse bilaterally) Cardiovascular: Regular Rate, Rhythm, Normal Peripheral Pulses, Other (moderate BLE pitting edema) Gastrointestinal: Normal Bowel Sounds, Non Tender, Soft Rectal: Deferred Back: Normal Inspection Extremity: Inflammation (BLE shins), Pedal Edema (2+ BLE pitting edema), Swelling (BLE) Neurologic/Psychiatric: Alert, Oriented x3, Normal Mood/Affect, Motor Weakness (LLE), Sensory Deficit (LLE) Skin: Erythema (BILATERAL LOWER LEGS ANTERIOR LOWER LEGS) Lymphatic: No Adenopathy Results Lab Laboratory Tests 01/14/21 11:26: Glucometer 141H 01/14/21 12:00: Hemoglobin 9.8L, Hematocrit 31L 01/14/21 16:44: Glucometer 123H 01/14/21 21:00: Glucometer 111H 01/14/21 23:18: Glucometer 124H 01/15/21 04:40: White Blood Count 10.0, Red Blood Count 3.30L, Hemoglobin 9.1L, Hematocrit 30L, Mean Corpuscular Volume 89, Mean Corpuscular Hemoglobin 28, Mean Corpuscular Hemoglobin Concent 31L, Red Cell Distribution Width 15.3H, Platelet Count 205, Mean Platelet Volume 10.1, Sodium Level 146H, Potassium Level 3.2L, Chloride Level 105, Carbon Dioxide Level 28, Anion Gap 13, Blood Urea Nitrogen 29H, Creatinine 1.22, Estimat Glomerular Filtration Rate 57, BUN/Creatinine Ratio 24, Glucose Level 122H, Calcium Level 8.3L, Corrected Calcium 9.2, Total Bilirubin 0.4, Aspartate Amino Transf (AST/SGOT) 43H, Alanine Aminotransferase (ALT/SGPT) 25, Alkaline Phosphatase 71, Total Protein 5.9L, Albumin 2.9L Microbiology 01/13/21 Blood Culture - Preliminary, Resulted No growth 01/13/21 Influenza Types A,B Antigen (VICENTE) - Final, Complete Assessment/Plan Assessment/Plan Assessment and Plan Sepsis Respiratory distress r/t Bilateral lower lobe pneumonia UGIB CHF Lactic acidosis - LA 1.97 Leukocytosis - WBC 10.0, 11.2 yesterday Anemia - Hgb 9.1, 9.8 yesterday Hypokalemia - K 3.2 HTN HLD Hx stroke w/ LLE paresis Respiratory status improving, tolerating 35% FiO2 Vapotherm Continue Zosyn for PNA Continue Furosemide for diuresis; CXR shows bilateral lower lobe infiltrates, CT shows moderate bilateral pleural effusions Gallbladder US showed large gallstone w/o cholecystitis, to be managed outpt NGT to suction; no drainage noted EGD planned for Tuesday Hold Lovenox until GI bleed resolved, SCD's for DVT prophylaxis Cardiology consulted; started on Diltiazem, appreciate recs NPO w/ IVF, add K for replenishment Continue to monitor VS, labs Supervisory-Addendum Brief Verification & Attestation Participated in pt care: history, MDM, physical Personally performed: exam, history, MDM, supervision of care Care discussed with: Medical Student Procedures: n/a Results interpretation: Verified all documentation I HAVE PERSONALLY EXAMINED THE PATIENT, PERFORMED INTERVIEW, PHYSICAL EXAM AND ASSISTED IN FORMULATION OF ASSESSMENT AND PLAN WELL REVIEWED MEDICAL STUDENT DOCUMENTATION. I AGREE WITH DOCUMENTATION NOTED. SEPSIS PNEUMONIA CONGESTIVE HEART FAILURE HYPERTENSION HYPERLIPIDEMIA LACTIC ACIDOSIS LEUKOCYTOSIS ANEMIA HX OF STROKE WITH CHRONIC PARESIS LEFT UPPER AND LOWER LEG EDEMA OF LOWER LEGS SEIZURE DISORDER - CHRONIC ANTI-SEIZURE MEDICATION USE SEPSIS WITH PNEUMONIA - PT STARTED ON ZOSYN, HAS RECENT HOSPITALIZATION, BUT HAS BEEN SERIALLY N EGATIVE FOR MRSA, AGREE WITH SINGLE AGENT USE. - CHECK REPEAT CXR TOMORROW - VAPOTHERM AT THIS TIME DUE TO NG TUBE AND EMESIS/NAUSEA.. - CT CHEST FOLLOWS: IMPRESSION: 1. Continued moderate-sized nonloculated bilateral pleural effusions. 2. Bilateral infiltrates, improved when compared with examination from one month earlier. CONGESTIVE HEART FAILURE - IV LASIX, MONITOR OUTPUT - SERIAL WEIGHTS - CONSULT PLACED TO CARDIOLOGY HYPERTENSION - RESUMED HOME REGIMEN, CARDIZEM ADDED FOR AFIB/RATE CONTROL HYPERLIPIDEMIA - HOLD MED AT THIS TIME DUE TO NEED TO DECREASE GI INPUTS. LACTIC ACIDOSIS - DUE TO RESPIRATORY FAILURE AND PNEUMONIA, WILL NOT OVERLY AGGRESSIVELY REPLACE FLUIDS DUE TO HIS CHF AND RISK OF FURTHER FLUID OVERLOAD WITH FOLLOWING OF THE SEPSIS PROTOCOL. LEUKOCYTOSIS - MONITOR LABS - SHOULD IMPROVE WITH TREATMENT OF PNEUMONIA ANEMIA - - SLIGHTLY DECREASED, MONITOR, IRON PANEL PENDING HX OF STROKE WITH CHRONIC PARESIS LEFT UPPER AND LOWER LEG - SUPPORTIVE CARE AT THIS TIME. EDEMA OF LOWER LEGS - ELEVATE LEGS, THIGH HIGH COMPRESSION SLEEVES ORDERED- PT HAS CALF SCD'S IN PLACE, SWELLING HAS IMPROVED SIGNIFICANTLY. SEIZURE DISORDER - CHRONIC ANTI-SEIZURE MEDICATION USE - RESUMED PHENYTOIN UPPER GI BLEED - GI SYMPTOMS HAVE STABILIZED EGD PLANNED FOR TUESDAY MORNING DISCUSSED WITH ROSAURA AND HIS THAT SHE WILL NOT BE ABLE TO MANAGE HIM AT HOME RIGHT NOW AND ADVISED THAT WE LOOK INTO [facility] - THEY WOULD LIKE [facility] SINCE THEY LIVE A FEW BLOCKS AWAY FROM THE FACILITY. DAVID BERRY MED STUDENT Jan 15, 2021 07:46 JG DUARTE MD Jan 16, 2021 10:18
[2021-01-15 08:00] VITALS: BP 100/65
[2021-01-15] MEDS: PHENYTOIN 100 MG (DILANTIN) CAP PO SCH ×2 (08:23→21:29)
[2021-01-15] MEDS: PANTOPRAZOLE 40 MG (PROTONIX) VIAL IV SCH ×2 (08:23→21:29)
[2021-01-15] MEDS: TERAZOSIN 5 MG (HYTRIN) CAPSULE PO SCH ×2 (08:24→21:30)
[2021-01-15] MEDS: CARVEDILOL 12.5 MG (COREG) TABLET PO SCH ×2 (08:24→17:24)
--- NOTE | 2021-01-15 08:44 | Pulmonary Consultation ---
History of Present Illness History of Present Illness Date Seen by Provider: Jan 15, 2021 Time Seen by Provider: 08:39 Date of Admission History of Present Illness 80yo with hx of COPD and recent hospitalization with PNA presented to ED via EMS secondary to worsening SOB. Pt was discharged from hospital with Cefdinir and Azithromycin. Pt was then tx'd with Moxifloxicin however still had progressive respiratory symptoms and fever. Upon EMS arrival pt was found to be hypoxic with Sp02 80% and he was placed on oxygen. Pt is currently requiring Vapotherm. Dr. Aguilar is consulting tx for respiratory management. Allergies and Home Medications Allergies Coded Allergies: WILMAANo Known Allergies (Verified Allergy, Unknown, 05/25/08) Home Medications Albuterol Sulfate 18 Gm Hfa.aer.ad, 2 PUFF INH Q6H PRN for SHORTNESS OF BREATH, (Reported) Aspirin 81 Mg Tablet.dr, 81 MG PO DAILY, (Reported) Carvedilol 25 Mg Tablet, 25 MG PO BID, (Reported) Clonidine HCl 0.1 Mg Tablet, 0.2 MG PO 0800,1700 PRN for BLOOD PRESSURE, (Reported) TAKES 2 (0.1MG) TABS Clonidine HCl 0.1 Mg Tablet, 0.1 MG PO 1200,2200 PRN for BLOOD PRESSURE, (Reported) Diltiazem HCl 360 Mg Capsule.er, 360 MG PO DAILY, (Reported) Furosemide 40 Mg Tablet, 40 MG PO Q48H, (Reported) Ibuprofen 800 Mg Tablet, 400-800 MG PO BID PRN for PAIN-MILD (1-4), (Reported) TAKES TO 1 (400NG) TAB Insulin NPH Hum/Reg Insulin Hm 100 Unit/1 Ml Vial, 30 UNIT SQ DAILY, (Reported) Insulin NPH Human Isophane 100 Unit/1 Ml Vial, 30 UNIT SQ 1700 W/MEAL, (Reported) Levothyroxine Sodium 25 Mcg Tablet, 25 MCG PO DAILY, (Reported) Losartan Potassium 100 Mg Tablet, 100 MG PO 1200, (Reported) Phenytoin Sodium Extended 100 Mg Capsule, 100 MG PO DAILY, (Reported) Phenytoin Sodium Extended 100 Mg Capsule, 200 MG PO HS, (Reported) TAKES 2 (100MG) CAPS Potassium Chloride 10 Meq Tablet.er, 10 MEQ PO Q48H, (Reported) Terazosin HCl 5 Mg Capsule, 5 MG PO BID, (Reported) Tramadol HCl 50 Mg Tablet, 50-100 MG PO Q6H PRN for PAIN-MODERATE (5-7), (Reported) Past Qnhafoy-Odscok-Vdgvjf Hx Past Med/Social Hx: Reviewed Nursing Past Med/Soc Hx Patient Social History Alcohol Use: Denies Use Smoking Status: Former Smoker Type Used: Cigarettes Former Smoker, Quit: Dec 08, 1999 2nd Hand Smoke Exposure: Yes Recent Infectious Disease Expo: No Recent Hopitalizations: Yes (DEC 16 2020) Have you traveled recently?: No Alcohol Use?: No Immunizations Up To Date Date of Pneumonia Vaccine: Aug 25, 2010 Date of Influenza Vaccine: Aug 15, 2020 Seasonal Allergies Seasonal Allergies: No Past Medical History Surgeries: Yes (- H/O L fem-pop by Dr. 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 0.0oz. 97.004575kd; 27.74 BMI Method: Exam Exam Vital Signs Date Time Temp Pulse Resp B/P (MAP) Pulse Ox O2 Delivery O2 Flow Rate FiO2 01/15/21 07:24 96 Vapotherm 25.00 35 01/15/21 04:00 37.2 93 21 122/63 (82) 98 Vapotherm 25.00 01/15/21 02:07 98 Vapotherm 25.00 35 01/15/21 01:00 101 01/15/21 00:00 37.2 95 22 129/78 (95) 95 Vapotherm 40.00 01/14/21 21:31 99 Vapotherm 40.00 35 01/14/21 21:00 99 Vapotherm 40.00 01/14/21 20:00 37.0 87 24 115/67 (83) 99 Vapotherm 40.00 01/14/21 19:00 100 01/14/21 18:04 97 Vapotherm 35.00 35 01/14/21 15:27 37.9 109 29 137/74 (95) 95 Vapotherm 35.00 35.00 01/14/21 15:11 93 Vapotherm 35.00 35 01/14/21 12:43 94 01/14/21 11:30 98 Vapotherm 35.00 35 01/14/21 11:27 37.6 88 24 148/74 (98) 97 Vapotherm 35.00 35.00 01/14/21 08:54 36.5 134 94 35 01/14/21 08:52 143/85 (104) Vapotherm 35.00 35.00 I & O 01/15/21 07:00 Intake Total 100 ml Output Total 2250 ml Balance -2150 ml Height & Weight Height: 6'0.00" Weight: 215lbs. 0.0oz. 97.464813xz; 27.74 BMI Method: General Appearance: WD/WN, Chronically ill, Mild Distress (abd breathing, improved since yesterday), Obese HEENT: PERRL/EOMI; No Moist Mucous Membranes (dry) Neck: Full Range of Motion, Supple Respiratory: Chest Non Tender, Accessory Muscle Use (abd breathing), Crackles (diffuse, bilateral), Expiration, Inspiration, Respiratory Distress (rapid breathing with accessory muscle use), Rhonci (diffuse bilaterally) Cardiovascular: Regular Rate, Rhythm, Normal Peripheral Pulses, Other (moderate BLE pitting edema) Capillary Refill: Greater Than 3 Seconds Extremity: Inflammation (BLE shins), Pedal Edema (2+ BLE pitting edema), Swelling (BLE) Neurologic/Psychiatric: Alert, Oriented x3, Normal Mood/Affect, Motor Weakness (LLE), Sensory Deficit (LLE) Skin: Erythema (BILATERAL LOWER LEGS ANTERIOR LOWER LEGS) Lymphatic: No Adenopathy Results Lab Laboratory Tests 01/13/21 13:25 01/14/21 03:44 01/14/21 12:00 01/15/21 04:40 Assessment/Plan Assessment/Plan acute respiratory distress PNA -Continue Zosyn -Cultures negative thus far -Repeat CT of chest 8 wks after discharge to ensure complete resolution of infiltration Pulmonary edema with bilateral pleural effusions -Agree with Lasix -Consider adding Spironolactone -Echo shows Diastolic CHF -Cardiology is following -Lasix H/O CVA in 1974 - details unknown HTN PVD HLD DM 2 CKD GERD Hiatal hernia SHAJI GREENE DO Jan 15, 2021 08:44
[2021-01-15] MEDS: cloNIDine 0.1 MG (CATAPRES) TAB PO SCH ×2 (08:46→21:28)
--- NOTE | 2021-01-15 09:12 | Progress Note - Cardiology ---
Cardiology SOAP Progress Note Subjective: In bed, spouse at the bedside States he feels a little bit better today He feels his SOB is improving No c/o CP Objective: I&O/Vital Signs 01/14/21 01/15/21 01/15/21 01/15/21 21:31 00:00 01:00 02:07 Temp 37.2 Pulse 95 101 Resp 22 B/P (MAP) 129/78 (95) Pulse Ox 99 95 98 O2 Delivery Vapotherm Vapotherm Vapotherm O2 Flow Rate 40.00 40.00 25.00 FiO2 35 35 01/15/21 01/15/21 01/15/21 01/15/21 04:00 07:00 07:24 09:00 Temp 37.2 Pulse 93 85 Resp 21 B/P (MAP) 122/63 (82) Pulse Ox 98 96 99 O2 Delivery Vapotherm Vapotherm Vapotherm O2 Flow Rate 25.00 25.00 40.00 FiO2 35 01/15/21 00:00 Intake Total 100 ml Output Total 1350 ml Balance -1250 ml Weight (Pounds): 215 Weight (Ounces): 0.0 Weight (Calculated Kilograms): 97.202337 Constitutional: AAO x 3, well-developed, well-nourished Respiratory: No accessory muscle use; other (diminished air entry at the bases; scattered rhonchi) Cardiovascular: S1 and S2, systolic murmur (soft ISATU at card base) Gastrointestional: No tender, No rebound; audible bowel sounds Extremities: other (mild, bilateral leg edema); No clubbing, No cyanosis Neurologic/Psychiatric: oriented x 3, other (moves all limbs equally) Skin: normal color, warm/dry Results/Procedures: Labs Laboratory Tests 01/14/21 11:26: Glucometer 141H 01/14/21 12:00: Hemoglobin 9.8L, Hematocrit 31L 01/14/21 16:44: Glucometer 123H 01/14/21 21:00: Glucometer 111H 01/14/21 23:18: Glucometer 124H 01/15/21 04:40: White Blood Count 10.0, Red Blood Count 3.30L, Hemoglobin 9.1L, Hematocrit 30L, Mean Corpuscular Volume 89, Mean Corpuscular Hemoglobin 28, Mean Corpuscular Hemoglobin Concent 31L, Red Cell Distribution Width 15.3H, Platelet Count 205, Mean Platelet Volume 10.1, Sodium Level 146H, Potassium Level 3.2L, Chloride Level 105, Carbon Dioxide Level 28, Anion Gap 13, Blood Urea Nitrogen 29H, Creatinine 1.22, Estimat Glomerular Filtration Rate 57, BUN/Creatinine Ratio 24, Glucose Level 122H, Calcium Level 8.3L, Corrected Calcium 9.2, Total Bilirubin 0.4, Aspartate Amino Transf (AST/SGOT) 43H, Alanine Aminotransferase (ALT/SGPT) 25, Alkaline Phosphatase 71, Total Protein 5.9L, Albumin 2.9L Microbiology 01/13/21 Blood Culture - Preliminary, Resulted No growth 01/13/21 Influenza Types A,B Antigen (VICENTE) - Final, Complete Laboratory Tests 01/13/21 13:25 01/14/21 03:44 01/14/21 12:00 01/15/21 04:40 A/P: Assessment: Sepsis Shortness of breath (likely multifactorial) - acute diastolic CHF - bilat lung opacities, ?pneumonia A Fib with RVR, diagnose 01-14-21 Echo on 12/17/20: LVEF 55-65%, mild to mod TR and MR, PASP 45-50 mmHg GI bleed, reported to have had hematemesis and stool positive for occult blood during this hospitalization H/O CVA in 1974 - details unknown HTN PVD - H/O L fem-pop by Dr. Gould in Aug 2002 at [place], [place] - February 2006 - L fem-pop repair by Dr. Reeder at [facility] in [place], [place] - H/O iliac stenting in January [address] 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 Reeder at [facility] in [place], [place] HLD DM 2 - insulin CKD GERD Hiatal hernia H/O skin cancer removal Plan: * Complex management due to multiple comorbidities * HR improved * Increasing SOB - give IV Lasix this morning and reduce IVF * Investigate GI bleed. When source identified and treated, then anticoagulate for stroke prophylaxis * Monitor labs closely * Replace electrolytes SATISH GUERRA Jan 15, 2021 09:12
[2021-01-15] MEDS: 1/2 NS W/KCL 20 MEQ/L 1,000 ML IV SCH ×2 (09:26→21:30)
[2021-01-15] MEDS: POTASSIUM CL 10MEQ/50ML IVPB 50 ML IV SCH ×4 (09:27→13:05)
[2021-01-15] MEDS ORDERED: FUROSEMIDE 40 MG/4 ML INJ (LASIX) IVP NR (09:30)
[2021-01-15] MEDS ORDERED: dilTIAZem120 MG (CARDIZEM CD) CAP PO NR (09:45)
[2021-01-15 11:30] VITALS: BP 128/69
--- NOTE | 2021-01-15 14:42 | Progress Note ---
Subjective Date Seen by a Provider: Jan 15, 2021 Time Seen by a Provider: 14:30 Subjective/Events-last exam Patient seen with Dr. Monte. Patient reports doing ok today. Denies any heartburn, N/V, or abdominal pain. Tolerating clear liquid diet. Denies vomiting any blood. Focused Exam Lactate Level 01/13/21 13:25: Lactic Acid Level 2.34*H 01/13/21 15:30: Lactic Acid Level 2.03*H 01/13/21 17:25: Lactic Acid Level 1.97 Objective Exam Vital Signs Date Time Temp Pulse Resp B/P (MAP) Pulse Ox O2 Delivery O2 Flow Rate FiO2 01/15/21 13:00 100 01/15/21 11:30 37.3 98 26 128/69 (88) 99 Vapotherm 25.00 01/15/21 10:44 96 Vapotherm 25.00 35 01/15/21 09:00 99 Vapotherm 40.00 01/15/21 08:00 37.0 97 30 100/65 (77) 97 Vapotherm 25.00 01/15/21 07:24 96 Vapotherm 25.00 35 01/15/21 07:00 85 01/15/21 04:00 37.2 93 21 122/63 (82) 98 Vapotherm 25.00 01/15/21 02:07 98 Vapotherm 25.00 35 01/15/21 01:00 101 01/15/21 00:00 37.2 95 22 129/78 (95) 95 Vapotherm 40.00 01/14/21 21:31 99 Vapotherm 40.00 35 01/14/21 21:00 99 Vapotherm 40.00 01/14/21 20:00 37.0 87 24 115/67 (83) 99 Vapotherm 40.00 01/14/21 19:00 100 01/14/21 18:04 97 Vapotherm 35.00 35 01/14/21 15:27 37.9 109 29 137/74 (95) 95 Vapotherm 35.00 35.00 01/14/21 15:11 93 Vapotherm 35.00 35 I & O 01/15/21 07:00 Intake Total 100 ml Output Total 2250 ml Balance -2150 ml Capillary Refill : Greater Than 3 Seconds General Appearance: No Apparent Distress, WD/WN Neck: Normal Inspection, Supple Respiratory: No Accessory Muscle Use, No Respiratory Distress Cardiovascular: Regular Rate, Rhythm, No Edema Gastrointestinal: soft, tenderness (LUQ) Extremity: Normal Inspection, Normal Range of Motion Neurologic/Psychiatric: Alert, Oriented x3 Skin: Normal Color, Warm/Dry Results Lab Laboratory Tests 01/14/21 16:44: Glucometer 123H 01/14/21 21:00: Glucometer 111H 01/14/21 23:18: Glucometer 124H 01/15/21 04:40: White Blood Count 10.0, Red Blood Count 3.30L, Hemoglobin 9.1L, Hematocrit 30L, Mean Corpuscular Volume 89, Mean Corpuscular Hemoglobin 28, Mean Corpuscular Hemoglobin Concent 31L, Red Cell Distribution Width 15.3H, Platelet Count 205, Mean Platelet Volume 10.1, Sodium Level 146H, Potassium Level 3.2L, Chloride Level 105, Carbon Dioxide Level 28, Anion Gap 13, Blood Urea Nitrogen 29H, Creatinine 1.22, Estimat Glomerular Filtration Rate 57, BUN/Creatinine Ratio 24, Glucose Level 122H, Calcium Level 8.3L, Corrected Calcium 9.2, Total Bilirubin 0.4, Aspartate Amino Transf (AST/SGOT) 43H, Alanine Aminotransferase (ALT/SGPT) 25, Alkaline Phosphatase 71, Total Protein 5.9L, Albumin 2.9L 01/15/21 11:38: Glucometer 112H Microbiology 01/13/21 Blood Culture - Preliminary, Resulted No growth 01/13/21 Influenza Types A,B Antigen (VICENTE) - Final, Complete Assessment/Plan Assessment/Plan Assess & Plan/Chief Complaint A 80-year-old male with nausea, vomiting as well as gastric occult positive VSS WBC 10.0 Hgb 9.1 Continue Protonix NPO at 0200 on 01/16 Will schedule for EGD tomorrow morning FRED LAINEZ APRN Jan 15, 2021 14:42
--- NOTE | 2021-01-15 14:47 | Progress Note - Cardiology ---
Cardiology SOAP Progress Note Subjective: Shortness of breath modestly improved No cp or palp or syncope No n/v/d Gen malaise present Objective: I&O/Vital Signs 01/15/21 01/15/21 01/15/21 01/15/21 04:00 07:00 07:24 08:00 Temp 37.2 37.0 Pulse 93 85 97 Resp 21 30 B/P (MAP) 122/63 (82) 100/65 (77) Pulse Ox 98 96 97 O2 Delivery Vapotherm Vapotherm Vapotherm O2 Flow Rate 25.00 25.00 25.00 FiO2 35 01/15/21 01/15/21 01/15/21 01/15/21 09:00 10:44 11:30 13:00 Temp 37.3 Pulse 98 100 Resp 26 B/P (MAP) 128/69 (88) Pulse Ox 99 96 99 O2 Delivery Vapotherm Vapotherm Vapotherm O2 Flow Rate 40.00 25.00 25.00 FiO2 35 01/15/21 00:00 Intake Total 100 ml Output Total 1350 ml Balance -1250 ml Weight (Pounds): 215 Weight (Ounces): 0.0 Weight (Calculated Kilograms): 97.560460 Constitutional: AAO x 3, well-developed, well-nourished Respiratory: No accessory muscle use; other (diminished air entry at the bases; scattered rhonchi) Cardiovascular: S1 and S2, systolic murmur (soft ISATU at card base) Gastrointestional: No tender, No rebound; audible bowel sounds Extremities: other (mild to mod, bilateral leg edema); No clubbing, No cyanosis Neurologic/Psychiatric: oriented x 3, other (moves all limbs equally) Skin: normal color, warm/dry Results/Procedures: Labs Laboratory Tests 01/14/21 16:44: Glucometer 123H 01/14/21 21:00: Glucometer 111H 01/14/21 23:18: Glucometer 124H 01/15/21 04:40: White Blood Count 10.0, Red Blood Count 3.30L, Hemoglobin 9.1L, Hematocrit 30L, Mean Corpuscular Volume 89, Mean Corpuscular Hemoglobin 28, Mean Corpuscular Hemoglobin Concent 31L, Red Cell Distribution Width 15.3H, Platelet Count 205, Mean Platelet Volume 10.1, Sodium Level 146H, Potassium Level 3.2L, Chloride Level 105, Carbon Dioxide Level 28, Anion Gap 13, Blood Urea Nitrogen 29H, Creatinine 1.22, Estimat Glomerular Filtration Rate 57, BUN/Creatinine Ratio 24, Glucose Level 122H, Calcium Level 8.3L, Corrected Calcium 9.2, Total Bilirubin 0.4, Aspartate Amino Transf (AST/SGOT) 43H, Alanine Aminotransferase (ALT/SGPT) 25, Alkaline Phosphatase 71, Total Protein 5.9L, Albumin 2.9L 01/15/21 11:38: Glucometer 112H Microbiology 01/13/21 Blood Culture - Preliminary, Resulted No growth 01/13/21 Influenza Types A,B Antigen (VICENTE) - Final, Complete Laboratory Tests 01/14/21 03:44 01/14/21 12:00 01/15/21 04:40 A/P: Assessment: Sepsis Shortness of breath (likely multifactorial) - acute diastolic CHF - bilat lung opacities, ?pneumonia A Fib with RVR, diagnose 01-14-21 Echo on 12/17/20: LVEF 55-65%, mild to mod TR and MR, PASP 45-50 mmHg GI bleed, reported to have had hematemesis and stool positive for occult blood during this hospitalization H/O CVA in 1974 - details unknown HTN PVD - H/O L fem-pop by Dr. Gould in Aug 2002 at [place], [place] - February 2006 - L fem-pop repair by Dr. Reeder at [facility] in [place], [place] - H/O iliac stenting in January [address] 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 Reeder at [facility] in [place], [place] HLD DM 2 - insulin CKD GERD Hiatal hernia H/O skin cancer removal Plan: * Complex management due to multiple comorbidities * HR improved. Diltiazem changed to oral * Increasing SOB - give IV Lasix this morning and reduce IVF * Investigate GI bleed. When source identified and treated, then anticoagulate for stroke prophylaxis * Monitor labs closely * Replace electrolytes HARRY BARLOW MD FACP FAC CCDS Jan 15, 2021 14:47
--- NOTE | 2021-01-15 15:35 | Progress Note-Pre Operative ---
Pre-Operative Progress Note H&P Reviewed The H&P was reviewed, patient examined and no changes noted. Date Seen by Provider: Jan 15, 2021 Time Seen by Provider: 15:30 Date H&P Reviewed: Jan 15, 2021 Time H&P Reviewed: 15:30 Pre-Operative Diagnosis: upper GI bleed PORFIRIO TORRES MD Jan 15, 2021 15:35
--- NOTE | 2021-01-15 15:35 | Conscious Sedation/ASA ---
Conscious Sedation Pre-Proced Time 15:30 ASA Score 3 For ASA 3 and 4: Consider anesthesia and medical clearance. Also, for patients with a history of failed moderate sedation consider anesthesia. Airway Lungs Heart ASA score ASA 1: a normal healthy patient ASA 2: a patient with a mild systemic disease (mid diabetes, controlled hypertension, obesity ASA 3: a patient with a severe systemic disease that limits activity (angina, COPD, prior Myocardial infarction) ASA 4: a patient with an incapacitating disease that is a constant threat to life (CHF, renal failure) ASA 5: a moribund patient not expected to survive 24 hrs. (ruptured aneurysm) ASA 6: a declared brain- patient whose organs are being harvested. For emergent operations, add the letter E after the classification Mallampati Classification Grade 2 Sedation Plan Analgesia, Amnesia, Plan communicated to team members, Discussed options with patient/fam, Discussed risks with patient/fam The patient is an appropriate candidate to undergo the planned procedure, sedation, and anesthesia. The patient immediately re-assessed prior to indication. PORFIRIO TORRES MD Jan 15, 2021 15:35
[2021-01-15 16:00] VITALS: BP 164/71
[2021-01-15] MEDS: PROMETHAZINE INJ 25 MG/ML (PHENERGAN) AMP IVP PRN (18:38)
[2021-01-15 19:48] VITALS: BP 171/73
[2021-01-15] MEDS: dilTIAZem120 MG (CARDIZEM CD) CAP PO SCH (21:29)
[2021-01-15] MEDS: LORazepam INJ 2 MG/ML (ATIVAN) VIAL IVP PRN (22:15)
[2021-01-16] VITALS (7 sets, daily range): BP systolic 121–153; BP diastolic 57–76
[2021-01-16] MEDS ORDERED: METOCLOPRAMIDE INJ 10 MG/2 ML (REGLAN) IVP SCH
[2021-01-16] MEDS: RT-ALBUTEROL/IPRATROPIUM 3 ML (DUONEB) VIAL INH SCH ×6 (02:10→22:42)
[2021-01-16] MEDS: METOCLOPRAMIDE INJ 10 MG/2 ML (REGLAN) IVP SCH ×4 (02:58→17:07)
[2021-01-16 04:09] LABS: HEMOGLOBIN 10.7 g/dL (13.3-17.7); MEAN PLATELET VOLUME 10.1 fL (9.0-12.2); WHITE BLOOD COUNT 9.2 10^3/uL (4.3-11.0)
[2021-01-16 04:33] LABS: POTASSIUM 3.6 MMOL/L (3.6-5.0)
[2021-01-16 04:34] LABS: CALCIUM 8.3 MG/DL (8.5-10.1)
[2021-01-16 04:37] LABS: BILIRUBIN,TOTAL 0.5 MG/DL (0.1-1.0)
[2021-01-16 04:39] LABS: CREATININE SERUM 1.32 MG/DL (0.60-1.30)
--- NOTE | 2021-01-16 05:39 | Pulmonary Progress Note ---
Subjective Time Seen by a Provider: 05:37 Subjective/Events-last exam Currently on Vapotherm 30% Sepsis Event Evaluation Height, Weight, BMI Height: 6'0.00" Weight: 215lbs. 0.0oz. 97.523872qs; 27.74 BMI Method: Focused Exam Lactate Level 01/13/21 13:25: Lactic Acid Level 2.34*H 01/13/21 15:30: Lactic Acid Level 2.03*H 01/13/21 17:25: Lactic Acid Level 1.97 Exam Exam Vital Signs Date Time Temp Pulse Resp B/P (MAP) Pulse Ox O2 Delivery O2 Flow Rate FiO2 01/16/21 04:06 37.1 78 22 153/76 (101) 93 Vapotherm 25.00 30.00 01/16/21 02:10 87 Vapotherm 25.00 25 01/16/21 01:00 80 01/16/21 00:01 36.8 77 20 121/68 (85) 93 Vapotherm 25.00 30.00 01/15/21 22:05 95 Vapotherm 25.00 25 01/15/21 21:00 25 Vapotherm 25.00 01/15/21 19:48 37.2 87 30 171/73 (105) 92 Vapotherm 25.00 25.00 01/15/21 19:00 90 01/15/21 18:16 96 Vapotherm 25.00 30 01/15/21 16:00 36.9 82 16 164/71 (102) 98 Vapotherm 25.00 25.00 01/15/21 14:51 100 Vapotherm 25.00 35 01/15/21 13:00 100 01/15/21 11:30 37.3 98 26 128/69 (88) 99 Vapotherm 25.00 01/15/21 10:44 96 Vapotherm 25.00 35 01/15/21 09:00 99 Vapotherm 40.00 01/15/21 08:00 37.0 97 30 100/65 (77) 97 Vapotherm 25.00 01/15/21 07:24 96 Vapotherm 25.00 35 01/15/21 07:00 85 I & O 01/16/21 06:59 Intake Total 1670 ml Output Total 2575 ml Balance -905 ml Height & Weight Height: 6'0.00" Weight: 215lbs. 0.0oz. 97.931104yz; 27.74 BMI Method: General Appearance: No Apparent Distress, WD/WN HEENT: PERRL/EOMI; No Moist Mucous Membranes (dry) Neck: Normal Inspection, Supple Respiratory: No Accessory Muscle Use, No Respiratory Distress Cardiovascular: Regular Rate, Rhythm, No Edema Capillary Refill: Greater Than 3 Seconds Gastrointestinal: soft, tenderness (LUQ) Extremity: Normal Inspection, Normal Range of Motion Neurologic/Psychiatric: Alert, Oriented x3 Skin: Normal Color, Warm/Dry Lymphatic: No Adenopathy Results Lab Laboratory Tests 01/14/21 12:00 01/15/21 04:40 01/16/21 04:00 Assessment/Plan Assessment/Plan acute respiratory distress -Continue Duoneb add pulmicort -Check CXR and ABG PNA -Continue Zosyn -Cultures negative thus far -Repeat CT of chest 8 wks after discharge to ensure complete resolution of infiltration Pulmonary edema with bilateral pleural effusions -Lasix -Echo Diastolic CHF -Cardiology is following -Lasix H/O CVA in 1974 - details unknown HTN PVD HLD DM 2 CKD GERD Hiatal hernia SHAJI GREENE DO Jan 16, 2021 05:39
[2021-01-16] MEDS ORDERED: KCL 20 MEQ TAB (K-DUR) PO ONE ×2 (05:45→09:15)
[2021-01-16] MEDS: PIPERACILLIN/TAZO 4.5 GM/NS 100 ML IV SCH ×6 (05:57→22:05)
[2021-01-16 06:12] LABS: ABG BASE EXCESS 6.3 MMOL/L (-2.5-2.5); ABG OXYGEN SATURATION 98 % (94-100); ABG PCO2 41 MMHG (35-45); ABG PH 7.48 (7.37-7.43); ABG PO2 90 MMHG (79-93); ABG TCO2 31.1 MMOL/L (21.0-31.0)
[2021-01-16 06:14] LABS: INSPIRED O2 25L 30%; PATIENT TEMP 37.5; VENTILATOR NO
[2021-01-16] MEDS: FUROSEMIDE 40 MG/4 ML INJ (LASIX) IV SCH ×2 (06:36→15:53)
[2021-01-16] MEDS: inSUlin ASPART (NovoLOG) 1 UNIT/0.01 ML (CHARGE PER UNIT) SC SCH ×4 (06:37→22:03)
[2021-01-16] MEDS: LORazepam INJ 2 MG/ML (ATIVAN) VIAL IVP PRN (06:37)
[2021-01-16] MEDS: CATHETER FLUSH 10 ML SYR IV SCH ×3 (06:42→22:05)
[2021-01-16] MEDS: RT-BUDESONIDE NEBS 0.5 MG/2ML (PULMICORT) AMP INH SCH ×2 (07:06→20:52)
--- NOTE | 2021-01-16 07:20 | Diagnostic Imaging Report ---
INDICATION: Shortness of breath. Comparison made with prior examination 01/14/2021. FINDINGS: Heart size is normal. There is some venous congestion. There are bibasilar infiltrates. There is a left pleural effusion. There is no pneumothorax. Mediastinum is unremarkable. Right upper extremity PICC line remains in place. IMPRESSION: Bibasilar infiltrates with a left pleural fusion. Moderate central pulmonary venous congestion. Dictated by: Dictated on workstation # [id number]
[2021-01-16] MEDS: PANTOPRAZOLE 40 MG (PROTONIX) VIAL IV SCH ×2 (08:33→21:59)
[2021-01-16] MEDS ORDERED: dilTIAZem120 MG (CARDIZEM CD) CAP PO SCH (09:00)
[2021-01-16] MEDS: CARVEDILOL 12.5 MG (COREG) TABLET PO SCH ×2 (09:17→17:07)
[2021-01-16] MEDS: cloNIDine 0.1 MG (CATAPRES) TAB PO SCH ×2 (09:17→21:59)
[2021-01-16] MEDS: TERAZOSIN 5 MG (HYTRIN) CAPSULE PO SCH ×2 (09:18→22:00)
[2021-01-16] MEDS: PHENYTOIN 100 MG (DILANTIN) CAP PO SCH ×2 (09:18→22:01)
[2021-01-16] MEDS ORDERED: IRON DEXTRAN INJECTION 1,000 MG in NS (IVPB) 250 ML IV ONE (10:30)
[2021-01-16] MEDS ORDERED: IRON DEXTRAN INJECTION 25 MG in NS (IVPB) 5.75 ML IV ONE (10:30)
[2021-01-16] MEDS ORDERED: RT-ALBUTEROL SULF 2.5 MG/3 ML PRE-MIX VIAL IH PRN (10:30)
[2021-01-16] MEDS ORDERED: HYDROCORTISONE 100 MG/2 ML (Solu-CORTEF) VIAL IV PRN (10:30)
[2021-01-16] MEDS ORDERED: NS IV 500 ML 500 ML IV SCH (10:30)
[2021-01-16] MEDS ORDERED: diphenhydrAMINE 50 MG/ML INJ (BENADRYL) IV PRN (10:30)
[2021-01-16] MEDS ORDERED: EPINEPHrine INJECTION 1 MG/ML AMP IM PRN (10:30)
[2021-01-16] MEDS: 1/2 NS W/KCL 20 MEQ/L 1,000 ML IV SCH (10:35)
--- NOTE | 2021-01-16 10:44 | Progress Note ---
Subjective Subjective Date Seen by Provider: Jan 16, 2021 Time Seen by Provider: 09:40 PT REPORTS THAT HE IS FEELING A LITTLE BETTER NOW COMPARED TO EARLIER THIS MORNING. WHEN I WALKED INTO THE ROOM HE HAD HIS OXYGEN OFF AND AN EMESIS BUCKET IN FRONT OF HIM. HE DENIES CURRENT NAUSEA, BUT STATED THAT HE WAS TAKING OFF HIS OXYGEN BECAUSE IT WAS "PULLING ON MY EARS". I READJUSTED HIS OXYGEN TUBING LINES AND ADVISED AGAINST TAKING OFF THE OXYGEN DUE TO HIS VERY TENUOUS PULMONARY STATUS. Review of Systems General: No Chills; Fatigue HEENT: No Head Aches, No Visual Changes Pulmonary: Dyspnea, Cough Cardiovascular: Edema; No: Chest Pain, Palpitations, Lt Headedness Gastrointestinal: Nausea, Abdominal Pain; No: Vomiting Genitourinary: No Dysuria Neurological: Weakness (LLE), Numbness (LLE) All Other Systems Reviewed All Other Systems Reviewed: Yes Objective Exam Vital Signs Vital Signs - First Documented 01/13/21 01/14/21 13:20 02:44 Temp 37.7 Pulse 92 Resp 30 B/P (MAP) 134/68 (90) Pulse Ox 100 O2 Delivery Nasal Cannula O2 Flow Rate 6.00 FiO2 44 Capillary Refill : Greater Than 3 Seconds General Appearance: WD/WN, Chronically ill, Mild Distress (abd breathing, improved since yesterday), Obese HEENT: PERRL/EOMI; No Moist Mucous Membranes (dry) Neck: Full Range of Motion, Supple Respiratory: Chest Non Tender, Accessory Muscle Use (abd breathing), Crackles (diffuse, bilateral), Expiration, Inspiration, Respiratory Distress (SLIGHT DISTRESS), Rhonci (diffuse bilaterally) Cardiovascular: Regular Rate, Rhythm, Normal Peripheral Pulses, Other (moderate BLE pitting edema) Gastrointestinal: Normal Bowel Sounds, Non Tender, Soft Rectal: Deferred Back: Normal Inspection Extremity: Inflammation (BLE shins), Pedal Edema (2+ BLE pitting edema), Swelling (BLE) Neurologic/Psychiatric: Alert, Oriented x3, Normal Mood/Affect, Motor Weakness (LLE), Sensory Deficit (LLE) Skin: Erythema (BILATERAL LOWER LEGS ANTERIOR LOWER LEGS) Lymphatic: No Adenopathy Results Lab Laboratory Tests 01/15/21 11:38: Glucometer 112H 01/15/21 17:13: Glucometer 117H 01/15/21 20:42: Glucometer 132H 01/15/21 22:21: Glucometer 191H 01/16/21 04:00: White Blood Count 9.2, Red Blood Count 3.85L, Hemoglobin 10.7L, Hematocrit 34L, Mean Corpuscular Volume 89, Mean Corpuscular Hemoglobin 28, Mean Corpuscular Hemoglobin Concent 31L, Red Cell Distribution Width 15.3H, Platelet Count 194, Mean Platelet Volume 10.1, Sodium Level 143, Potassium Level 3.6, Chloride Level 103, Carbon Dioxide Level 28, Anion Gap 12, Blood Urea Nitrogen 35H, Creatinine 1.32H, Estimat Glomerular Filtration Rate 52, BUN/Creatinine Ratio 27, Glucose Level 128H, Calcium Level 8.3L, Corrected Calcium 9.1, Total Bilirubin 0.5, Aspartate Amino Transf (AST/SGOT) 131H, Alanine Aminotransferase (ALT/SGPT) 56H, Alkaline Phosphatase 78, Total Protein 6.0L, Albumin 3.0L 01/16/21 06:00: Blood Gas Puncture Site UNK, Blood Gas Patient Temperature 37.5, Arterial Blood pH 7.48H, Arterial Blood Partial Pressure CO2 41, Arterial Blood Partial Pressure O2 90, Arterial Blood HCO3 30H, Arterial Blood Total CO2 31.1H, Arterial Blood Oxygen Saturation 98, Arterial Blood Base Excess 6.3H, Alli Test UNK, Blood Gas Ventilator Setting NO, Blood Gas Inspired Oxygen 25L 30% 01/16/21 06:33: Glucometer 135H 01/16/21 10:21: Glucometer 138H Microbiology 01/13/21 Blood Culture - Preliminary, Resulted No growth 01/13/21 Influenza Types A,B Antigen (VICENTE) - Final, Complete Assessment/Plan Assessment/Plan Admission Dx SEPSIS PNEUMONIA CONGESTIVE HEART FAILURE HYPERTENSION HYPERLIPIDEMIA LACTIC ACIDOSIS LEUKOCYTOSIS ANEMIA 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 - CHECK REPEAT CXR TOMORROW - VAPOTHERM AT THIS TIME DUE TO NG TUBE AND EMESIS/NAUSEA.. - CXR 01/16/2021 FOLLOWS:IMPRESSION: Bibasilar infiltrates with a left pleural fusion. Moderate central pulmonary venous congestion. CONGESTIVE HEART FAILURE - IV LASIX, MONITOR OUTPUT - WEIGHT UP FROM YESTERDAY BY 5KG - DOUBT THIS IS A CORRECT WEIGHT SINCE HIS EDEMA FROM TOES TO ABDOMEN HAS IMPROVED OVER THE PAST WEEK. - SERIAL WEIGHTS - CONSULT PLACED TO CARDIOLOGY HYPERTENSION - RESUME HOME REGIMEN, MONITOR BLOOD PRESSURE SERIALLY. HYPERLIPIDEMIA - HOLD MED AT THIS TIME DUE TO NEED TO DECREASE GI INPUTS. LACTIC ACIDOSIS - DUE TO RESPIRATORY FAILURE AND PNEUMONIA, WILL NOT OVERLY AGGRESSIVELY REPLACE FLUIDS DUE TO HIS CHF AND RISK OF FURTHER FLUID OVERLOAD WITH FOLLOWING OF THE SEPSIS PROTOCOL. LEUKOCYTOSIS - MONITOR LABS - SHOULD IMPROVE WITH TREATMENT OF PNEUMONIA ANEMIA - - SLIGHTLY IMPROVED. 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 EDEMA OF LOWER LEGS - ELEVATE LEGS, THIGH HIGH COMPRESSION SLEEVES ORDERED- PT HAS CALF SCD'S IN PLACE, SWELLING HAS IMPROVED SIGNIFICANTLY. SEIZURE DISORDER - CHRONIC ANTI-SEIZURE MEDICATION USE - RESUMED PHENYTOIN, CHECK LEVEL TOMORROW UPPER GI BLEED - GI SYMPTOMS HAVE STABILIZED, HOWEVER DUE TO HIS PULMONARY DECLINE THE EGD WAS CANCELLED FOR THIS MORNING. DISCUSSED WITH ROSAURA AND HIS THAT HE IS VERY HIGH RISK FOR DECLINE/DETERIORATION OF HIS SITUATION. THEY BOTH VERBALIZED UNDERSTANDING AND CONTINUE TO DESIRE DNR/DNI STATUS. SOCIAL WORK HAS CONTACTED [facility] AND WE WILL PLAN ON DISCHARGE TO [place] WHEN HE IS MEDICALLY STABLE AND OFF OF VAPOTHERM. 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
--- NOTE | 2021-01-16 10:47 | Progress Note ---
Subjective Date Seen by a Provider: Jan 16, 2021 Time Seen by a Provider: 10:30 Subjective/Events-last exam doing ok. had worsening SOB this am requiring CPAP. doing slightly better now. no nausea/vomiting. Hb stable. Focused Exam Lactate Level 01/13/21 13:25: Lactic Acid Level 2.34*H 01/13/21 15:30: Lactic Acid Level 2.03*H 01/13/21 17:25: Lactic Acid Level 1.97 Objective Exam Vital Signs Date Time Temp Pulse Resp B/P (MAP) Pulse Ox O2 Delivery O2 Flow Rate FiO2 01/16/21 10:22 98 Vapotherm 30.00 30 01/16/21 09:00 94 Vapotherm 30.00 30 01/16/21 08:06 73 23 98 30.00 01/16/21 07:27 36.6 73 31 147/66 (93) 85 Vapotherm 25.00 30.00 01/16/21 07:08 94 Vapotherm 25.00 30 01/16/21 07:07 94 Vapotherm 25.00 30 01/16/21 07:00 74 01/16/21 04:06 37.1 78 22 153/76 (101) 93 Vapotherm 25.00 30.00 01/16/21 02:10 87 Vapotherm 25.00 25 01/16/21 01:00 80 01/16/21 00:01 36.8 77 20 121/68 (85) 93 Vapotherm 25.00 30.00 01/15/21 22:05 95 Vapotherm 25.00 25 01/15/21 21:00 25 Vapotherm 25.00 01/15/21 19:48 37.2 87 30 171/73 (105) 92 Vapotherm 25.00 25.00 01/15/21 19:00 90 01/15/21 18:16 96 Vapotherm 25.00 30 01/15/21 16:00 36.9 82 16 164/71 (102) 98 Vapotherm 25.00 25.00 01/15/21 14:51 100 Vapotherm 25.00 35 01/15/21 13:00 100 01/15/21 11:30 37.3 98 26 128/69 (88) 99 Vapotherm 25.00 I & O 01/16/21 07:00 Intake Total 1670 ml Output Total 2700 ml Balance -1030 ml Capillary Refill : Greater Than 3 Seconds General Appearance: No Apparent Distress HEENT: PERRL/EOMI Neck: Full Range of Motion Respiratory: Decreased Breath Sounds, Rhonci Cardiovascular: Regular Rate, Rhythm Gastrointestinal: normal bowel sounds, non tender, soft Extremity: Normal Capillary Refill Neurologic/Psychiatric: Alert, Oriented x3 Skin: Normal Color Lymphatic: No Adenopathy Results Lab Laboratory Tests 01/15/21 11:38: Glucometer 112H 01/15/21 17:13: Glucometer 117H 01/15/21 20:42: Glucometer 132H 01/15/21 22:21: Glucometer 191H 01/16/21 04:00: White Blood Count 9.2, Red Blood Count 3.85L, Hemoglobin 10.7L, Hematocrit 34L, Mean Corpuscular Volume 89, Mean Corpuscular Hemoglobin 28, Mean Corpuscular Hemoglobin Concent 31L, Red Cell Distribution Width 15.3H, Platelet Count 194, Mean Platelet Volume 10.1, Sodium Level 143, Potassium Level 3.6, Chloride Level 103, Carbon Dioxide Level 28, Anion Gap 12, Blood Urea Nitrogen 35H, Creatinine 1.32H, Estimat Glomerular Filtration Rate 52, BUN/Creatinine Ratio 27, Glucose Level 128H, Calcium Level 8.3L, Corrected Calcium 9.1, Total Bilirubin 0.5, Aspartate Amino Transf (AST/SGOT) 131H, Alanine Aminotransferase (ALT/SGPT) 56H, Alkaline Phosphatase 78, Total Protein 6.0L, Albumin 3.0L 01/16/21 06:00: Blood Gas Puncture Site UNK, Blood Gas Patient Temperature 37.5, Arterial Blood pH 7.48H, Arterial Blood Partial Pressure CO2 41, Arterial Blood Partial Pressure O2 90, Arterial Blood HCO3 30H, Arterial Blood Total CO2 31.1H, Arterial Blood Oxygen Saturation 98, Arterial Blood Base Excess 6.3H, Alli Test UNK, Blood Gas Ventilator Setting NO, Blood Gas Inspired Oxygen 25L 30% 01/16/21 06:33: Glucometer 135H 01/16/21 10:21: Glucometer 138H Microbiology 01/13/21 Blood Culture - Preliminary, Resulted No growth 01/13/21 Influenza Types A,B Antigen (VICENTE) - Final, Complete Assessment/Plan Assessment/Plan Assess & Plan/Chief Complaint sx cholelithiasis. ok for low fat diet. do not recommend surgery now due to respiratory status. more ideal as OP. hold off on EGD for now. PORFIRIO TORRES MD Jan 16, 2021 10:47
--- NOTE | 2021-01-16 12:28 | Cardiology Progress Note ---
Subjective Date Seen by Provider: Jan 16, 2021 Time Seen by Provider: 12:25 Subjective/Events-last exam Patient was seen at bedside, lethargic, on BiPAP. Review of Systems General: Other (unable to provide review of systems) Focused Exam Lactate Level 01/13/21 13:25: Lactic Acid Level 2.34*H 01/13/21 15:30: Lactic Acid Level 2.03*H 01/13/21 17:25: Lactic Acid Level 1.97 Objective-Cardiology Exam Last Set of Vital Signs Vital Signs 01/16/21 01/16/21 10:22 11:20 Temp 36.7 Pulse 64 Resp 23 B/P (MAP) 138/57 (84) Pulse Ox 98 O2 Delivery Vapotherm O2 Flow Rate 30.00 30.00 FiO2 30 Capillary Refill : Greater Than 3 Seconds I&O l Intake and Output 01/16/21 00:00 Intake Total 1670 ml Output Total 3225 ml Balance -1555 ml Intake Oral 100 ml IV Total 1570 ml Output Urine Total 3125 ml Gastric Drainage Total 100 ml General: Alert, Moderate Distress HEENT: Atraumatic Neck: Supple Lungs: Normal Air Movement, Other (bilateral rhonchi) Heart: Normal S1, Normal S2 Abdomen: Normal Bowel Sounds Extremities: No Clubbing, No Cyanosis Skin: No Rashes Neuro: Other (on BiPAP) Psych/Mental Status: Other (on BiPAP) Results Lab Laboratory Tests 01/16/21 04:00 A/P-Cardiology Admission Diagnosis Acute respiratory failure Sepsis Atrial fibrillation GI Assessment/Plan Acute respiratory failure, multifactorial, pneumonia and acute on chronic congestive heart failure, left ventricular diastolic dysfunction. Currently on BiPAP, managed by medical team, continue with diuretics Atrial fibrillation without ventricular response, rate is better controlled, maintained on oral diltiazem and Coreg. Continue to monitor Sepsis, receiving antibiotics and managed by primary care physician She'll double GI bleed, patient reportedly had hematemesis and stool positive for occult blood. Was planning to have endoscopy today, it was postponed. Managed by primary care team Echocardiogram done in December 2020 showing normal LV size, EF 55-65 percent, [id number] TR, mild MR, PA 45-50 mmHg Hypertension, continue to monitor blood pressure Peripheral arterial disease, extensive multiple procedures following with heart and vascular care Carotid stenosis followed with heart and vascular care Hyperlipidemia, monitor lipids Chronic kidney disease stage IV, and slight deterioration in renal function. Continue to monitor next Diabetes mellitus, followed and managed by primary care physician GERD Hiatal hernia H/O skin cancer removal ZHANNA ACE MD Jan 16, 2021 12:28
[2021-01-16] MEDS: dilTIAZem120 MG (CARDIZEM CD) CAP PO SCH (22:04)
[2021-01-17 00:03] VITALS: BP 124/73
[2021-01-17] MEDS: 1/2 NS W/KCL 20 MEQ/L 1,000 ML IV SCH ×2 (02:17→16:18)
[2021-01-17] MEDS: RT-ALBUTEROL/IPRATROPIUM 3 ML (DUONEB) VIAL INH SCH ×6 (02:23→22:14)
[2021-01-17 04:17] VITALS: BP 132/55
[2021-01-17 04:21] LABS: HEMOGLOBIN 9.6 g/dL (13.3-17.7); MEAN PLATELET VOLUME 10.6 fL (9.0-12.2); WHITE BLOOD COUNT 9.1 10^3/uL (4.3-11.0)
[2021-01-17 04:37] LABS: CHLORIDE 103 MMOL/L (98-107); POTASSIUM 3.2 MMOL/L (3.6-5.0); SODIUM 142 MMOL/L (135-145)
[2021-01-17 04:38] LABS: CALCIUM 7.9 MG/DL (8.5-10.1)
[2021-01-17 04:39] LABS: GLUCOSE 136 MG/DL (70-105)
[2021-01-17 04:40] LABS: CARBON DIOXIDE 28 MMOL/L (21-32)
[2021-01-17 04:43] LABS: CREATININE SERUM 1.15 MG/DL (0.60-1.30); GFR ESTIMATED > 60
[2021-01-17 04:44] LABS: BUN/CREATININE RATIO 27
[2021-01-17] MEDS: PIPERACILLIN/TAZO 4.5 GM/NS 100 ML IV SCH ×6 (05:30→21:40)
[2021-01-17] MEDS: METOCLOPRAMIDE INJ 10 MG/2 ML (REGLAN) IVP SCH ×2 (05:33)
[2021-01-17] MEDS: inSUlin ASPART (NovoLOG) 1 UNIT/0.01 ML (CHARGE PER UNIT) SC SCH ×4 (05:34→21:56)
[2021-01-17] MEDS: CATHETER FLUSH 10 ML SYR IV SCH ×3 (05:35→21:41)
[2021-01-17] MEDS: FUROSEMIDE 40 MG/4 ML INJ (LASIX) IV SCH ×2 (06:52→17:49)
[2021-01-17] MEDS: RT-BUDESONIDE NEBS 0.5 MG/2ML (PULMICORT) AMP INH SCH ×2 (06:54→18:36)
[2021-01-17] MEDS ORDERED: METOCLOPRAMIDE INJ 10 MG/2 ML (REGLAN) IVP PRN (08:15)
[2021-01-17] MEDS: cloNIDine 0.1 MG (CATAPRES) TAB PO SCH ×2 (08:36→21:40)
[2021-01-17] MEDS: POTASSIUM CL 10MEQ/50ML IVPB 50 ML IV SCH ×2 (08:36→11:37)
[2021-01-17] MEDS: TERAZOSIN 5 MG (HYTRIN) CAPSULE PO SCH ×2 (08:37→21:41)
[2021-01-17] MEDS: PHENYTOIN 100 MG (DILANTIN) CAP PO SCH ×2 (08:37→21:40)
[2021-01-17] MEDS: PANTOPRAZOLE 40 MG (PROTONIX) VIAL IV SCH ×2 (08:37→21:41)
[2021-01-17] MEDS: CARVEDILOL 12.5 MG (COREG) TABLET PO SCH ×2 (08:37→17:49)
[2021-01-17 08:51] VITALS: BP 138/56
[2021-01-17] MEDS ORDERED: SPIRONOLACTONE 25 MG (ALDACTONE) TAB PO NR (09:30)
--- NOTE | 2021-01-17 09:35 | Progress Note ---
Subjective Date Seen by a Provider: Jan 17, 2021 Time Seen by a Provider: 09:30 Subjective/Events-last exam Fwup acute respiratory failure, pneumonia with sepsis, decompensated diastolic CHF, atrial fibrillation, Hypertension, DMII, iron deficiency anemia, hematemesis, generalized weakness/debility. Sitting up in bed drinking clear liquids. On Vapotherm. Wants advanced diet. Objective Exam Vital Signs Date Time Temp Pulse Resp B/P (MAP) Pulse Ox O2 Delivery O2 Flow Rate FiO2 01/17/21 08:51 36.8 82 21 138/56 (83) 95 Vapotherm 30.00 30.00 01/17/21 07:00 61 01/17/21 06:59 96 Vapotherm 30.00 30 01/17/21 06:52 95 Vapotherm 30.00 30 01/17/21 04:17 36.7 58 20 132/55 (80) 96 Vapotherm 30.00 30.00 01/17/21 02:23 96 Vapotherm 30.00 30 01/17/21 01:00 60 01/17/21 00:35 74 01/17/21 00:03 36.4 73 18 124/73 (90) 96 Vapotherm 30.00 30.00 01/16/21 22:42 95 Vapotherm 30.00 30 01/16/21 21:30 92 Vapotherm 30.00 30 01/16/21 20:53 95 Vapotherm 30.00 30 01/16/21 19:39 36.6 73 18 136/65 (88) 96 Vapotherm 30.00 30.00 01/16/21 19:00 78 01/16/21 18:50 95 Vapotherm 30.00 30 01/16/21 15:54 36.7 60 16 134/66 (88) 97 Vapotherm 30.00 30.00 01/16/21 14:32 97 Vapotherm 30.00 30 01/16/21 12:36 74 01/16/21 11:20 36.7 64 23 138/57 (84) 98 Vapotherm 30.00 30.00 01/16/21 10:22 98 Vapotherm 30.00 30 I & O 01/17/21 07:00 Intake Total 1351.25 ml Output Total 2425 ml Balance -1073.75 ml Capillary Refill : Greater Than 3 Seconds General Appearance: Mild Distress (respiratory) Neck: Supple Respiratory: Crackles, Decreased Breath Sounds, Rhonci Cardiovascular: Systolic Murmur, Irregularly Irregular Gastrointestinal: normal bowel sounds, non tender, soft Extremity: Non Tender, No Calf Tenderness, No Pedal Edema Neurologic/Psychiatric: Alert, Oriented x3 Skin: Warm/Dry Results Lab Laboratory Tests 01/16/21 10:21: Glucometer 138H 01/16/21 15:30: Glucometer 127H 01/16/21 20:22: Glucometer 157H 01/17/21 04:00: White Blood Count 9.1, Red Blood Count 3.49L, Hemoglobin 9.6L, Hematocrit 31L, Mean Corpuscular Volume 88, Mean Corpuscular Hemoglobin 28, Mean Corpuscular Hemoglobin Concent 31L, Red Cell Distribution Width 15.2H, Platelet Count 220, Mean Platelet Volume 10.6, Sodium Level 142, Potassium Level 3.2L, Chloride Level 103, Carbon Dioxide Level 28, Anion Gap 11, Blood Urea Nitrogen 31H, Creatinine 1.15, Estimat Glomerular Filtration Rate > 60, BUN/Creatinine Ratio 27, Glucose Level 136H, Calcium Level 7.9L Microbiology 01/13/21 Blood Culture - Preliminary, Resulted No growth 01/13/21 Influenza Types A,B Antigen (VICENTE) - Final, Complete Assessment/Plan Assessment/Plan Assess & Plan/Chief Complaint 1. Acute Respiratory Failure due to pneumonia and decompensated CHF--on vapotherm, zosyn, lasix, SVNs with albuterol 2. Pneumonia with sepsis--improved, on zosyn, repeat CXR tomorrow 3. Atrial Fibrillation--rate controlled on coreg and cardizem, on lovenox for DVT prophylaxis but otherwise blood thinners on hold due to possible uppper GI bleed with anemia 4. DMII--on accuchecks with SSI 5. Hypertension--stable 6. Acute on Chronic Diastolic CHF--on IV lasix for diuresis 7. Hypokalemia--replace potassium and check Mg level 8. Hematemisis with probable Upper GI Hemorrhage--on IV protonix, nausea/vomiting resolved so will advance to soft diet, EGD on hold due to respiratory status 9. Iron Deficiency Anemia--S/P Infed, monitor H/H 10. Acute on Chronic Renal Insufficiency--BUN/Cr improved today 11. Generalized weakness/debility--will start PT to at least get up to side of bed and possibly stand CÉSAR ALEXANDER DO Jan 17, 2021 09:35
--- NOTE | 2021-01-17 10:33 | Cardiology Progress Note ---
Subjective Date Seen by Provider: Jan 17, 2021 Time Seen by Provider: 10:31 Subjective/Events-last exam Patient is laying down in bed, having shortness of breath, on Vapotherm. Review of Systems General: No Chills, No Night Sweats; Fatigue, Malaise; No Appetite, No Other HEENT: No Head Aches, No Visual Changes, No Eye Pain, No Ear Pain, No Dysphasia, No Sinus Congestion, No Post Nasal Drip, No Sore Throat, No Other Pulmonary: Dyspnea; No Cough, No Pleuritic Chest Pain, No Other Cardiovascular: No: Chest Pain, Palpitations, Orthopnea, Paroxysmal Noc. Dyspnea, Edema, Lt Headedness, Other Objective-Cardiology Exam Last Set of Vital Signs Vital Signs 01/17/21 01/17/21 08:51 10:23 Temp 36.8 Pulse 82 Resp 21 B/P (MAP) 138/56 (83) Pulse Ox 95 O2 Delivery Vapotherm O2 Flow Rate 30.00 FiO2 30 Capillary Refill : Greater Than 3 Seconds I&O Intake and Output 01/17/21 00:00 Intake Total 1151.25 ml Output Total 1950 ml Balance -798.75 ml Intake Oral 725 ml IV Total 426.25 ml Output Urine Total 1950 ml General: Alert, Oriented X3, Cooperative, Moderate Distress HEENT: Atraumatic Neck: Supple Lungs: Normal Air Movement, Other (bilateral rhonchi) Heart: Normal S1, Normal S2, Other (irregular rhythm) Abdomen: Normal Bowel Sounds Extremities: No Clubbing, No Cyanosis Skin: No Rashes Neuro: Normal Speech, Sensation Intact Psych/Mental Status: Mental Status NL, Mood NL Results Lab Laboratory Tests 01/17/21 04:00 A/P-Cardiology Admission Diagnosis Acute respiratory failure Sepsis Atrial fibrillation GI Assessment/Plan Acute respiratory failure, multifactorial, pneumonia and acute on chronic congestive heart failure, left ventricular diastolic dysfunction. Currently on BiPAP, managed by medical team, continue with diuretics Atrial fibrillation without ventricular response, rate is better controlled, maintained on oral diltiazem and Coreg. Continue to monitor Sepsis, receiving antibiotics and managed by primary care physician Questionable GI bleed, patient reportedly had hematemesis and stool positive for occult blood, managed by medical team Echocardiogram done in December 2020 showing normal LV size, EF 55-65 percent, hjiu-wy-[id number] TR, mild MR, PA 45-50 mmHg Hypertension, continue to monitor blood pressure Peripheral arterial disease, extensive multiple procedures following with heart and vascular care Carotid stenosis followed with heart and vascular care Hyperlipidemia, monitor lipids Chronic kidney disease stage IV, and slight deterioration in renal function. Continue to monitor next Diabetes mellitus, followed and managed by primary care physician GERD, Hiatal hernia H/O skin cancer removal ZHANNA ACE MD Jan 17, 2021 10:33 am
--- NOTE | 2021-01-17 11:00 | Physical Therapy Evaluation ---
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 0-Byhcdwroha-umhenym completes the activity by him/herself with no assistance from a helper. 5-Set-up or Clean-up Assistance-helper sets up or cleans up; patient completes activity. [place] assists only prior to or following the activity. 4-Supervision or Touching Assistance-helper provides verbal cues and/or touching/steadying and/or contact guard assistance as patient completes activity. Assistance may be provided throughout the activity or intermittently. 3-Partial/Moderate Assistance-helper does LESS THAN HALF the effort. [place] lifts, holds or supports trunk or limbs, but provides less than half the effort. 2-Substantial/Maximal Assistance-helper does MORE THAN HALF the effort. [place] lifts or holds trunk or limbs and provides more than half the effort. 1-Bolyhzlon-sgjkig does ALL the effort. Patient does none of the effort to complete the activity. Or, the assistance of 2 or more helpers is required for the patient to complete the activity. If activity was not attempted, code reason: 7-Patient Refused. 9-Not Applicable-not attempted and the patient did not perform the activity before the current illness, exacerbation or injury. 10-Not Attempted due to Environmental Limitations-(lack of equipment, weather restraints, etc.). 88-Not Attempted due to Medical Conditions or Safety Concerns. Bed Mobility: 6 Transfers (B,C,W/C): 6 Gait: 6 Stairs: 6 Indoor Mobility (Ambulation): Independent Stairs: Independent Prior Devices Use: Walker PT Evaluation-Current Subjective The patient states that he is doing better and that he would like to try to stand. Pain Numeric Pain Scale: 7 Location: Left Location Body Site: Shoulder Pain Description: Sharp Objective Patient Orientation: Person, Place, Time Attachments: Conde Catheter, IV ROM/Strength Strength Lower Extremities 3+/5 on (R), 2-/5 on (L) grossly Transfers Roll Left to Right (QC): 3 Sit to Lying (QC): 3 Lying to Sitting/Side of Bed(Q: 3 Sit to Stand (QC): 3 Chair/Lse-lo-Yqtsj Xfer(QC): 88 Toilet Transfer (QC): 88 Car Transfer (QC): 88 Gait Does the Patient Walk?: No and Walking Goal IS indicated Mode of Locomotion: Walk Anticipated Mode of Locomotion: Walk Walk 10 feet (QC): 88 Walk 50 ft with 2 Turns(QC): 88 Walk 150 ft (QC): 88 Walking 10ft/uneven surface-QC: 88 Distance: 0 Balance Sitting Static: Fair Sitting Dynamic: Fair Standing Static: Poor Assessment/Needs The patient has significant functional mobility limitations secondary to weakness and previous CVA. He should do well with skilled therapy to address his limitations. Rehab Potential: Good PT Short Term Goals Short Term Goals Time Frame: Jan 24, 2021 Roll Left & Right: 4 Sit to lyin Lying to sitting on side of be: 4 Sit to stand: 4 Chair/slv-tb-xsrru transfer: 4 Toilet transfer: 4 Car transfer: 4 Walk 10 feet: 4 1 step (curb): 4 4 steps: 4 PT Certified Flex Endoscope Reprocessor Goals Assisted Goals PT Certified Flex Endoscope Reprocessor Goals Time Frame: Jan 31, 2021 Roll Left & Right (QC): 5 Sit to Lying (QC): 5 Lying-Sitting on Side/Bed(QC): 5 Sit to Stand (QC): 5 Chair/Dtb-oy-Lzhko Xfer(QC): 5 Toilet Transfer (QC): 5 Car Transfer (QC): 5 Does the Patient Walk: No and Walking Goal IS indicated Walk 10 feet (QC): 5 Walk 50ft with 2 Turns (QC): 5 1 Step (curb) (QC): 5 4 Steps (QC): 5 PT Plan Problem List Problem List: Activity Tolerance, Functional Strength, Balance, Gait, Transfer, Bed Mobility, ROM Treatment/Plan Treatment Plan: Continue Plan of Care Treatment Plan: Bed Mobility, Functional Activity Phuong, Functional Strength, Gait, Safety, Therapeutic Exercise, Transfers Treatment Duration: Jan 31, 2021 Frequency: 11 times per week Estimated Hrs Per Day: 1 hour per day Time/GCodes Time In: 1030 Time Out: 1050 Total Billed Treatment Time: 20 Total Billed Treatment 1, EV low complexity x 20' LATOYA CIFUENTES PT Jan 17, 2021 10:59
[2021-01-17 12:00] VITALS: BP 117/60
[2021-01-17 15:28] VITALS: BP 124/55
[2021-01-17 20:08] VITALS: BP 139/67
[2021-01-17] MEDS: dilTIAZem120 MG (CARDIZEM CD) CAP PO SCH (21:41)
[2021-01-18] VITALS (7 sets, daily range): BP systolic 107–152; BP diastolic 62–75
[2021-01-18] MEDS: RT-ALBUTEROL/IPRATROPIUM 3 ML (DUONEB) VIAL INH SCH ×6 (01:59→22:23)
[2021-01-18] MEDS: LORazepam INJ 2 MG/ML (ATIVAN) VIAL IVP PRN (03:50)
[2021-01-18] MEDS: 1/2 NS W/KCL 20 MEQ/L 1,000 ML IV SCH (03:50)
[2021-01-18 04:10] LABS: HEMOGLOBIN 9.5 g/dL (13.3-17.7); MEAN PLATELET VOLUME 10.6 fL (9.0-12.2); WHITE BLOOD COUNT 11.6 10^3/uL (4.3-11.0)
[2021-01-18 04:18] LABS: CHLORIDE 103 MMOL/L (98-107); POTASSIUM 3.4 MMOL/L (3.6-5.0); SODIUM 140 MMOL/L (135-145)
[2021-01-18 04:19] LABS: CALCIUM 7.8 MG/DL (8.5-10.1); GLUCOSE 140 MG/DL (70-105)
[2021-01-18 04:21] LABS: CARBON DIOXIDE 27 MMOL/L (21-32)
[2021-01-18 04:23] LABS: CREATININE SERUM 1.09 MG/DL (0.60-1.30); GFR ESTIMATED > 60
[2021-01-18 04:24] LABS: BUN/CREATININE RATIO 24
[2021-01-18] MEDS: PIPERACILLIN/TAZO 4.5 GM/NS 100 ML IV SCH ×4 (06:20→17:01)
[2021-01-18] MEDS: CATHETER FLUSH 10 ML SYR IV SCH ×3 (06:20→20:29)
[2021-01-18] MEDS: FUROSEMIDE 40 MG/4 ML INJ (LASIX) IV SCH ×2 (06:20→17:00)
[2021-01-18] MEDS: inSUlin ASPART (NovoLOG) 1 UNIT/0.01 ML (CHARGE PER UNIT) SC SCH ×4 (06:20→20:18)
[2021-01-18] MEDS: RT-BUDESONIDE NEBS 0.5 MG/2ML (PULMICORT) AMP INH SCH ×2 (06:50→18:43)
--- NOTE | 2021-01-18 07:51 | Diagnostic Imaging Report ---
INDICATION: Follow-up pneumonia. Time of exam: 3:18 AM Correlation is made with prior chest 01/16/2021. Heart is enlarged. Central congestion is again noted. Bibasilar infiltrates or atelectasis persists, greatest in the left base where there is obscuration of the left hemidiaphragm. There may be left pleural fluid as well. There is no pneumothorax. IMPRESSION: Stable appearance of the chest when compared with exam 2 days earlier. Dictated by: Dictated on workstation # [id number]
[2021-01-18] MEDS ORDERED: KCL 20 MEQ TAB (K-DUR) PO SCH (08:00)
[2021-01-18] MEDS: PANTOPRAZOLE 40 MG (PROTONIX) VIAL IV SCH ×2 (08:21→20:17)
[2021-01-18] MEDS: CARVEDILOL 12.5 MG (COREG) TABLET PO SCH ×2 (08:22→17:00)
[2021-01-18] MEDS: PHENYTOIN 100 MG (DILANTIN) CAP PO SCH ×2 (08:22→20:19)
[2021-01-18] MEDS: cloNIDine 0.1 MG (CATAPRES) TAB PO SCH ×2 (08:22→20:19)
[2021-01-18] MEDS: ACETAMINOPHEN 500 MG TAB (TYLENOL) PO PRN (08:23)
[2021-01-18] MEDS: TERAZOSIN 5 MG (HYTRIN) CAPSULE PO SCH ×2 (08:25→20:20)
[2021-01-18] MEDS ORDERED: guaiFENesin (MUCINEX) 600 MG TAB PO NR (09:15)
[2021-01-18] MEDS ORDERED: SPIRONOLACTONE 25 MG (ALDACTONE) TAB PO NR (09:15)
[2021-01-18] MEDS ORDERED: methylPREDNISolone 40 MG/ML (Solu-MEDROL) VIAL IV NR (09:15)
--- NOTE | 2021-01-18 09:26 | Progress Note ---
Subjective Date Seen by a Provider: Jan 18, 2021 Time Seen by a Provider: 09:20 Subjective/Events-last exam Fwup acute respiratory failure, pneumonia with sepsis, decompensated diastolic CHF, atrial fibrillation, Hypertension, DMII, iron deficiency anemia, hematemesis, generalized weakness/debility. C/O left shoulder pain since did PT yesterday. Still on Vapotherm. Feels like needs to cough things up. Wants to advance diet. Objective Exam Vital Signs Date Time Temp Pulse Resp B/P (MAP) Pulse Ox O2 Delivery O2 Flow Rate FiO2 01/18/21 07:30 36.4 71 24 128/67 (87) 97 NIV Bilevel 01/18/21 07:00 79 01/18/21 06:50 78 19 97 30.00 01/18/21 04:18 75 30 121/63 (82) 97 NIV Bilevel 30.00 01/18/21 03:19 77 23 96 30.00 01/18/21 01:59 92 Vapotherm 10.00 30 01/18/21 00:06 75 01/18/21 00:06 36.8 69 24 107/62 (77) 94 Vapotherm 10.00 30.00 01/17/21 22:14 94 Vapotherm 10.00 30 01/17/21 21:00 95 Vapotherm 20.00 30 01/17/21 20:08 37.5 76 22 139/67 (91) 93 Vapotherm 10.00 30.00 01/17/21 19:00 76 01/17/21 18:38 93 Vapotherm 10.00 30 01/17/21 18:36 93 Vapotherm 10.00 30 01/17/21 15:28 37.0 60 18 124/55 (78) 94 Vapotherm 10.00 30.00 01/17/21 14:19 96 Vapotherm 20.00 30 01/17/21 12:56 77 01/17/21 12:00 66 16 117/60 (79) 95 Vapotherm 20.00 30.00 01/17/21 10:23 95 Vapotherm 30.00 30 I & O 01/18/21 07:00 Intake Total 2260 ml Output Total 1850 ml Balance 410 ml Capillary Refill : Greater Than 3 Seconds General Appearance: Mild Distress Neck: Supple Respiratory: Decreased Breath Sounds, Rales, Rhonci Cardiovascular: Systolic Murmur, Irregularly Irregular Gastrointestinal: normal bowel sounds, non tender, soft Extremity: Non Tender, No Calf Tenderness, No Pedal Edema Neurologic/Psychiatric: Alert, Oriented x3, Other (left shoulder tender to palpation anteriorly and with ROM) Skin: Warm/Dry Results Lab Laboratory Tests 01/17/21 11:05: Glucometer 167H 01/17/21 17:46: Glucometer 187H 01/17/21 21:45: Glucometer 196H 01/18/21 03:56: White Blood Count 11.6H, Red Blood Count 3.50L, Hemoglobin 9.5L, Hematocrit 30L, Mean Corpuscular Volume 87, Mean Corpuscular Hemoglobin 27, Mean Corpuscular Hemoglobin Concent 31L, Red Cell Distribution Width 15.2H, Platelet Count 234, Mean Platelet Volume 10.6, Sodium Level 140, Potassium Level 3.4L, Chloride Level 103, Carbon Dioxide Level 27, Anion Gap 10, Blood Urea Nitrogen 26H, Creatinine 1.09, Estimat Glomerular Filtration Rate > 60, BUN/Creatinine Ratio 24, Glucose Level 140H, Calcium Level 7.8L Microbiology 01/13/21 Blood Culture - Preliminary, Resulted No growth 01/13/21 Influenza Types A,B Antigen (VICENTE) - Final, Complete Assessment/Plan Assessment/Plan Assess & Plan/Chief Complaint 1. Acute Respiratory Failure due to pneumonia and decompensated CHF--on vapotherm, zosyn, lasix, SVNs with albuterol, add spironolactone 2. Pneumonia with sepsis--improved, on zosyn, WBC count has gone up but repeat CXR about the same and afebrile so will add mucinex and get sputum culture 3. Atrial Fibrillation--rate controlled on coreg and cardizem, on lovenox for DVT prophylaxis but otherwise blood thinners on hold due to possible uppper GI bleed with anemia 4. DMII--on accuchecks with SSI 5. Hypertension--stable 6. Acute on Chronic Diastolic CHF--on IV lasix for diuresis, add spironolactone 7. Hypokalemia--replace potassium 8. Hematemisis with probable Upper GI Hemorrhage--on IV protonix, nausea/vomiting resolved and tolerating full liquids so will advance to cardiac diet, EGD on hold due to respiratory status 9. Iron Deficiency Anemia--S/P Infed, monitor H/H 10. Acute on Chronic Renal Insufficiency--BUN/Cr improved 11. Generalized weakness/debility--PT started to at least get up to side of bed and possibly stand 12. Left Shoulder Pain--will use topical Pedro Magallon as well as give IV solumedrol and has tylenol/tramadol to use prn CÉSAR ALEXANDER DO Jan 18, 2021 09:26
[2021-01-18] MEDS: METHYL SALICYLATE/MENTHOL (BENGAY, MUSCLE RUB) 3 OZ TUBE TP PRN ×2 (10:33→21:42)
--- NOTE | 2021-01-18 11:18 | Cardiology Progress Note ---
Subjective Date Seen by Provider: Jan 18, 2021 Time Seen by Provider: 11:17 Subjective/Events-last exam Patient was seen at bedside, still having cough and shortness of breath. Review of Systems General: No Chills, No Night Sweats; Fatigue; No Malaise, No Appetite, No Other HEENT: No Head Aches, No Visual Changes, No Eye Pain, No Ear Pain, No Dysphasia, No Sinus Congestion, No Post Nasal Drip, No Sore Throat, No Other Pulmonary: Dyspnea, Cough; No Pleuritic Chest Pain, No Other Cardiovascular: No: Chest Pain, Palpitations, Orthopnea, Paroxysmal Noc. Dyspnea, Edema, Lt Headedness, Other Objective-Cardiology Exam Last Set of Vital Signs Vital Signs 01/18/21 01/18/21 07:30 10:10 Temp 36.4 Pulse 71 Resp 24 B/P (MAP) 128/67 (87) Pulse Ox 94 O2 Delivery Vapotherm O2 Flow Rate 20.00 FiO2 30 Capillary Refill : Greater Than 3 Seconds I&O Intake and Output 01/18/21 00:00 Intake Total 1240 ml Output Total 2100 ml Balance -860 ml Intake Oral 800 ml IV Total 440 ml Output Urine Total 2100 ml General: Alert, Oriented X3, Cooperative, Moderate Distress HEENT: Atraumatic Neck: Supple Lungs: Normal Air Movement, Other (bilateral rhonchi) Heart: Normal S1, Normal S2, Other (irregular rhythm) Abdomen: Normal Bowel Sounds Extremities: No Clubbing, No Cyanosis Skin: No Rashes Neuro: Normal Speech, Sensation Intact Psych/Mental Status: Mental Status NL, Mood NL Results Lab Laboratory Tests 01/18/21 03:56 A/P-Cardiology Admission Diagnosis Acute respiratory failure Sepsis Atrial fibrillation GI Assessment/Plan Acute respiratory failure, multifactorial, pneumonia and acute on chronic congestive heart failure, left ventricular diastolic dysfunction. Currently on BiPAP, managed by medical team, continue with diuretics Atrial fibrillation with rapid ventricular response, rate is better controlled, maintained on oral diltiazem and Coreg. Continue to monitor Sepsis, receiving antibiotics and managed by primary care physician Questionable GI bleed, patient reportedly had hematemesis and stool positive for occult blood, H&H are stable, managed by medical team Echocardiogram done in December 2020 showing normal LV size, EF 55-65 percent, [id number] TR, mild MR, PA 45-50 mmHg Hypertension, continue to monitor blood pressure Peripheral arterial disease, extensive multiple procedures following with heart and vascular care Carotid stenosis followed with heart and vascular care Hyperlipidemia, monitor lipids Chronic kidney disease stage IV, and slight deterioration in renal function. Continue to monitor next Diabetes mellitus, followed and managed by primary care physician GERD, Hiatal hernia H/O skin cancer removal ZHANNA ACE MD Jan 18, 2021 11:18
[2021-01-18] MEDS: KCL 20 MEQ TAB (K-DUR) PO SCH (19:36)
[2021-01-18] MEDS: dilTIAZem120 MG (CARDIZEM CD) CAP PO SCH (20:18)
[2021-01-18] MEDS: guaiFENesin (MUCINEX) 600 MG TAB PO SCH (20:19)
[2021-01-19] VITALS (10 sets, daily range): BP systolic 117–152; BP diastolic 53–92
[2021-01-19] MEDS: RT-ALBUTEROL/IPRATROPIUM 3 ML (DUONEB) VIAL INH SCH ×6 (02:39→23:07)
[2021-01-19] MEDS: LORazepam INJ 2 MG/ML (ATIVAN) VIAL IVP PRN (04:16)
[2021-01-19 04:36] LABS: MEAN PLATELET VOLUME 10.3 fL (9.0-12.2); WHITE BLOOD COUNT 13.5 10^3/uL (4.3-11.0)
[2021-01-19 04:50] LABS: BUN/CREATININE RATIO 28; CALCIUM 7.8 MG/DL (8.5-10.1); CARBON DIOXIDE 24 MMOL/L (21-32); CHLORIDE 104 MMOL/L (98-107); CREATININE SERUM 1.08 MG/DL (0.60-1.30); GFR ESTIMATED > 60; GLUCOSE 206 MG/DL (70-105); SODIUM 138 MMOL/L (135-145)
[2021-01-19] MEDS: inSUlin ASPART (NovoLOG) 1 UNIT/0.01 ML (CHARGE PER UNIT) SC SCH ×4 (06:24→21:19)
[2021-01-19] MEDS: FUROSEMIDE 40 MG/4 ML INJ (LASIX) IV SCH ×2 (06:24→17:19)
[2021-01-19] MEDS: CATHETER FLUSH 10 ML SYR IV SCH ×3 (06:24→22:00)
[2021-01-19] MEDS: RT-BUDESONIDE NEBS 0.5 MG/2ML (PULMICORT) AMP INH SCH ×2 (07:11→22:58)
--- NOTE | 2021-01-19 08:03 | Progress Note ---
Subjective Subjective Date Seen by Provider: Jan 19, 2021 Time Seen by Provider: 07:20 Pt seen and examined. He was awake, laying in bed, NAD, son at bedside. Continues to have SOB, no change from yesterday. Denies chest pain, N/V. He is glad that he's able to eat/drink. Had a bowel movement yesterday. Review of Systems General: No Chills, No Night Sweats; Fatigue; No Malaise HEENT: No Head Aches, No Visual Changes, No Eye Pain, No Ear Pain, No Dysphasia Pulmonary: Dyspnea, Cough; No Pleuritic Chest Pain Cardiovascular: No: Chest Pain, Palpitations, Orthopnea, Paroxysmal Noc. Dyspnea, Edema, Lt Headedness, Other Gastrointestinal: No: Nausea, Vomiting, Abdominal Pain Genitourinary: No Dysuria; Other (veronica) Musculoskeletal: No: neck pain, back pain Neurological: Weakness (LLE), Numbness (LLE) All Other Systems Reviewed All Other Systems Reviewed: Yes Objective Exam Vital Signs Vital Signs - First Documented 01/13/21 01/14/21 13:20 02:44 Temp 37.7 Pulse 92 Resp 30 B/P (MAP) 134/68 (90) Pulse Ox 100 O2 Delivery Nasal Cannula O2 Flow Rate 6.00 FiO2 44 Capillary Refill : Greater Than 3 Seconds General Appearance: Chronically ill, Mild Distress, Obese HEENT: PERRL/EOMI, Normal ENT Inspection, Pharynx Normal Neck: Full Range of Motion, Normal Inspection, Non Tender, Supple Respiratory: Chest Non Tender, Accessory Muscle Use, Decreased Breath Sounds, Rales, Rhonci Cardiovascular: Systolic Murmur, Irregularly Irregular Gastrointestinal: Normal Bowel Sounds, Non Tender, Soft Rectal: Deferred Back: Normal Inspection Extremity: Normal Capillary Refill, Non Tender, No Calf Tenderness, No Pedal Edema Neurologic/Psychiatric: Alert, Oriented x3, Normal Mood/Affect, Motor Weakness (LLE), Sensory Deficit (LLE) Skin: Warm/Dry Lymphatic: No Adenopathy Results Lab Laboratory Tests 01/18/21 10:33: Glucometer 149H 01/18/21 15:31: Glucometer 192H 01/18/21 19:55: Glucometer 296H 01/19/21 04:25: White Blood Count 13.5H, Red Blood Count 3.26L, Hemoglobin 9.0L, Hematocrit 29L, Mean Corpuscular Volume 88, Mean Corpuscular Hemoglobin 28, Mean Corpuscular Hemoglobin Concent 31L, Red Cell Distribution Width 15.3H, Platelet Count 197, Mean Platelet Volume 10.3, Sodium Level 138, Potassium Level 4.0, Chloride Level 104, Carbon Dioxide Level 24, Anion Gap 10, Blood Urea Nitrogen 30H, Creatinine 1.08, Estimat Glomerular Filtration Rate > 60, BUN/Creatinine Ratio 28, Glucose Level 206H, Calcium Level 7.8L Microbiology 01/13/21 Blood Culture - Final, Complete No growth 01/13/21 Influenza Types A,B Antigen (VICENTE) - Final, Complete Assessment/Plan Assessment/Plan Assessment and Plan Sepsis Respiratory distress r/t Bilateral lower lobe pneumonia UGIB CHF Lactic acidosis Leukocytosis - WBC 13.5; up from 11.6 yesterday Anemia - Hgb 9.0, 9.5 yesterday Hypokalemia - K 4.0 Afib HTN HLD Hx stroke w/ LLE paresis Maintaining respiratory status, tolerating 30% FiO2 Vapotherm Zosyn finished for PNA; sputum culture ordered Continue Furosemide for diuresis; CXR 01/18 shows bilateral lower lobe infiltrates Gallbladder US showed large gallstone w/o cholecystitis, to be managed outpt Hold Lovenox until GI bleed resolved, SCD's for DVT prophylaxis Cardiology consulted; started on Diltiazem, appreciate recs HH diet, 1/2NS w/ K for replenishment Continue to monitor VS, labs Supervisory-Addendum Brief Verification & Attestation Participated in pt care: history, MDM, physical Personally performed: exam, history, MDM, supervision of care Care discussed with: Medical Student Procedures: n/a Results interpretation: Verified all documentation AGREE WITH MEDICAL STUDENT NOTE DOCUMENTED, I HAVE PERSONALLY INTERVIEWED AND EXAMINED THE PATIENT INDEPENDENT OF THE MEDICAL STUDENT EVALUATION. SEE MY DOCUMENTATION BELOW. 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 - CHECK REPEAT CXR TOMORROW - VAPOTHERM AT THIS TIME, HOPEFULL CAN WEAN DOWN. CONGESTIVE HEART FAILURE - IV LASIX, MONITOR OUTPUT - SERIAL WEIGHTS - CONSULT PLACED TO CARDIOLOGY HYPERTENSION - RESUME HOME REGIMEN, MONITOR BLOOD PRESSURE SERIALLY. HYPERLIPIDEMIA - HOLD MED AT THIS TIME DUE TO NEED TO DECREASE GI INPUTS. LACTIC ACIDOSIS - RESOLVED LEUKOCYTOSIS - MONITOR LABS - SHOULD IMPROVE WITH TREATMENT OF PNEUMONIA ANEMIA - - SLIGHTLY IMPROVED. 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 EDEMA OF LOWER LEGS - ELEVATE LEGS, THIGH HIGH COMPRESSION SLEEVES ORDERED- PT HAS CALF SCD'S IN PLACE, SWELLING HAS IMPROVED SIGNIFICANTLY. SEIZURE DISORDER - CHRONIC ANTI-SEIZURE MEDICATION USE - RESUMED PHENYTOIN, CHECK LEVEL TOMORROW UPPER GI BLEED - GI SYMPTOMS HAVE STABILIZED, HOWEVER DUE TO HIS PULMONARY DECLINE THE EGD WAS CANCELLED TUESDAY. DAVID BERRY MED STUDENT Jan 19, 2021 08:03 JG DUARTE MD Jan 20, 2021 09:22
[2021-01-19] MEDS ORDERED: FLUCONAZOLE 100 MG/50 ML IVPB IV NR ×2 (09:15)
--- NOTE | 2021-01-19 10:08 | Cardiology Progress Note ---
Subjective Date Seen by Provider: Jan 19, 2021 Time Seen by Provider: 10:05 Subjective/Events-last exam Patient is laying down in bed, still having shortness of breath. Complaining of cough Review of Systems General: No Chills, No Night Sweats; Fatigue, Malaise; No Appetite, No Other HEENT: No Head Aches, No Visual Changes, No Eye Pain, No Ear Pain, No Dysphasia, No Sinus Congestion, No Post Nasal Drip, No Sore Throat, No Other Pulmonary: Dyspnea, Cough; No Pleuritic Chest Pain, No Other Cardiovascular: No: Chest Pain, Palpitations, Orthopnea, Paroxysmal Noc. Dyspnea, Edema, Lt Headedness, Other Objective-Cardiology Exam Last Set of Vital Signs Vital Signs 01/19/21 01/19/21 03:13 07:12 Temp 37.0 Pulse 61 Resp 20 B/P (MAP) 127/91 (103) Pulse Ox 97 O2 Delivery Vapotherm O2 Flow Rate 20.00 FiO2 30 Capillary Refill : Greater Than 3 Seconds I&O Intake and Output 01/19/21 00:00 Intake Total 2240 ml Output Total 1625 ml Balance 615 ml Intake Oral 1000 ml IV Total 1240 ml Output Urine Total 1625 ml # Bowel Movements 1 General: Alert, Oriented X3, Cooperative, Moderate Distress HEENT: Atraumatic Neck: Supple Lungs: Normal Air Movement, Other (bilateral rhonchi) Heart: Normal S1, Normal S2, Other (irregular rhythm) Abdomen: Normal Bowel Sounds Extremities: No Clubbing, No Cyanosis Skin: No Rashes Neuro: Normal Speech, Sensation Intact Psych/Mental Status: Mental Status NL, Mood NL Results Lab Laboratory Tests 01/19/21 04:25 A/P-Cardiology Admission Diagnosis Acute respiratory failure Sepsis Atrial fibrillation GI Assessment/Plan Acute respiratory failure, multifactorial, pneumonia with acute exacerbation of COPD, still having productive cough, maintained on Vapotherm. Managed by primary care team Atrial fibrillation with rapid ventricular response, rate is better controlled, maintained on oral diltiazem and Coreg. Continue to monitor [id number] score of 5, yearly risk of stroke without oral anticoagulation is 6.7 percent. Has been off anticoagulation due to questionable GI bleed, no signs of active bleeding at this time, I will start him on Eliquis and monitor tolerance and response Sepsis, receiving antibiotics and managed by primary care physician Questionable GI bleed, patient reportedly had hematemesis and stool positive for occult blood, H&H are stable, managed by medical team, I am starting oral anticoagulation to reduce the risk of stroke from his atrial fibrillation Echocardiogram done in December 2020 showing normal LV size, EF 55-65 percent, [id number] TR, mild MR, PA 45-50 mmHg Hypertension, continue to monitor blood pressure Peripheral arterial disease, extensive multiple procedures following with heart and vascular care Carotid stenosis followed with heart and vascular care Hyperlipidemia, monitor lipids Chronic kidney disease stage IV, and slight deterioration in renal function. Continue to monitor next Diabetes mellitus, followed and managed by primary care physician GERD, Hiatal hernia H/O skin cancer removal ZHANNA ACE MD Jan 19, 2021 10:08
[2021-01-19] MEDS: CARVEDILOL 12.5 MG (COREG) TABLET PO SCH ×2 (10:16→17:19)
[2021-01-19] MEDS: cloNIDine 0.1 MG (CATAPRES) TAB PO SCH ×2 (10:17→21:06)
[2021-01-19] MEDS: PHENYTOIN 100 MG (DILANTIN) CAP PO SCH ×2 (10:17→21:06)
[2021-01-19] MEDS: KCL 20 MEQ TAB (K-DUR) PO SCH ×2 (10:17→17:19)
[2021-01-19] MEDS: SPIRONOLACTONE 25 MG (ALDACTONE) TAB PO SCH (10:17)
[2021-01-19] MEDS: guaiFENesin (MUCINEX) 600 MG TAB PO SCH ×2 (10:17→21:14)
[2021-01-19] MEDS: MEROPENEM 500 MG in WATER (STERILE) FOR INJECTION 10 ML IV SCH ×3 (10:19→20:59)
[2021-01-19] MEDS: TERAZOSIN 5 MG (HYTRIN) CAPSULE PO SCH ×2 (10:26→21:07)
--- NOTE | 2021-01-19 10:33 | Diagnostic Imaging Report ---
INDICATION: Pneumonia. COMPARISON: 01/18/2021. FINDINGS: Frontal and lateral views of the chest demonstrate unchanged bilateral pulmonary infiltrates with cardiac enlargement and effusions. There is no pneumothorax. The osseous structures are stable. The PICC line is in good position. IMPRESSION: Unchanged aeration of the lungs. Dictated by: Dictated on workstation # [id number]
[2021-01-19] MEDS: APIXABAN 5 MG (ELIQUIS) TABLET PO SCH ×2 (10:57→21:10)
--- NOTE | 2021-01-19 11:39 | Physical Therapy Daily Note ---
PT Daily Note-Current Subjective Patient agrees to PT. Mental Status Patient Orientation: Normal For Age Attachments: Oxygen (vapotherm), Conde Catheter, IV Transfers SCALE: Activities may be completed with or without assistive devices. 3-Ufyijsscex-cdzdryl completes the activity by him/herself with no assistance from a helper. 5-Set-up or Clean-up Assistance-helper sets up or cleans up; patient completes activity. Shedd assists only prior to or following the activity. 4-Supervision or Touching Assistance-helper provides verbal cues and/or touching/steadying and/or contact guard assistance as patient completes activity. Assistance may be provided throughout the activity or intermittently. 3-Partial/Moderate Assistance-helper does LESS THAN HALF the effort. Shedd lifts, holds or supports trunk or limbs, but provides less than half the effort. 2-Substantial/Maximal Assistance-helper does MORE THAN HALF the effort. Shedd lifts or holds trunk or limbs and provides more than half the effort. 9-Xbnphycmf-ogordf does ALL the effort. Patient does none of the effort to complete the activity. Or, the assistance of 2 or more helpers is required for the patient to complete the activity. If activity was not attempted, code reason: 7-Patient Refused. 9-Not Applicable-not attempted and the patient did not perform the activity before the current illness, exacerbation or injury. 10-Not Attempted due to Environmental Limitations-(lack of equipment, weather restraints, etc.). 88-Not Attempted due to Medical Conditions or Safety Concerns. Roll Left & Right (QC): 3 Lying to Sitting/Side of Bed(Q: 3 Sit to Stand (QC): 2 Chair/Agu-vq-Rttpe Xfer(QC): 2 SAO2 decreases to 83% with sit to stand and SPT bed to recliner with quick recovery (~15 sec) Weight Bearing Full Weight Bearing Weight Bearing/Tolerated old (L) sided CVA with increased tone Gait Training Does the Patient Walk?: No and Walking Goal IS indicated Exercises Supine Ex: Quad Set, Heel Slides, Straight leg raise (AAROM) Supine Reps: 12 Seated Therapy Exercises: Ankle pumps, Long arc quads, Hip flexion Seated Reps: 15 Assessment Patient requires time to complete all functional tasks due to SOA. Patient is up in recliner with needs met. Spouse present. PT Short Term Goals Short Term Goals Time Frame: Jan 24, 2021 Roll Left & Right: 4 Sit to lyin Lying to sitting on side of be: 4 Sit to stand: 4 Chair/aen-jx-pgkgr transfer: 4 Toilet transfer: 4 Car transfer: 4 Walk 10 feet: 4 1 step (curb): 4 4 steps: 4 PT Outlet Manager Goals Outlet Manager Goals PT Intermediate Goals Time Frame: Jan 31, 2021 Roll Left & Right (QC): 5 Sit to Lying (QC): 5 Lying-Sitting on Side/Bed(QC): 5 Sit to Stand (QC): 5 Chair/Ncu-tb-Lgghl Xfer(QC): 5 Toilet Transfer (QC): 5 Car Transfer (QC): 5 Does the Patient Walk: No and Walking Goal IS indicated Walk 10 feet (QC): 5 Walk 50ft with 2 Turns (QC): 5 1 Step (curb) (QC): 5 4 Steps (QC): 5 PT Plan Treatment/Plan Treatment Plan: Continue Plan of Care Treatment Plan: Bed Mobility, Functional Activity Phuong, Functional Strength, Gait, Safety, Therapeutic Exercise, Transfers Treatment Duration: Jan 31, 2021 Frequency: 11 times per week Estimated Hrs Per Day: 1 hour per day Time/GCodes Time In: 1030 Time Out: 1053 Total Billed Treatment Time: 23 Total Billed Treatment 1 visit EX x 2 23 min YOLY GUPTA PT Jan 19, 2021 11:38
[2021-01-19] MEDS: ACETAMINOPHEN 500 MG TAB (TYLENOL) PO PRN (15:39)
--- NOTE | 2021-01-19 16:40 | Progress Note ---
Subjective Date Seen by a Provider: Jan 19, 2021 Time Seen by a Provider: 16:30 Subjective/Events-last exam doing ok. tolerating diet and having BM's. Hb stable. still has issues expectorating airway secretions. Objective Exam Vital Signs Date Time Temp Pulse Resp B/P (MAP) Pulse Ox O2 Delivery O2 Flow Rate FiO2 01/19/21 15:59 36.0 67 18 140/92 (108) 98 Vapotherm 15.00 30.00 01/19/21 15:19 99 Vapotherm 15.00 30 01/19/21 12:32 67 01/19/21 12:12 36.7 67 23 135/74 (94) 95 Vapotherm 15.00 30.00 01/19/21 10:30 99 Vapotherm 20.00 30 01/19/21 10:10 36.7 65 25 117/53 (74) 96 NIV Bilevel 20.00 30.00 01/19/21 09:00 95 Vapotherm 15.00 01/19/21 07:12 97 Vapotherm 20.00 30 01/19/21 06:41 63 01/19/21 03:13 37.0 61 20 127/91 (103) 100 NIV Bilevel 01/19/21 02:39 69 19 98 30.00 01/19/21 01:00 82 01/19/21 00:04 37.0 75 24 148/73 (98) 99 Vapotherm 20.00 30.00 01/18/21 22:23 97 Vapotherm 20.00 30 01/18/21 21:00 96 Vapotherm 20.00 30 01/18/21 19:38 37.0 80 17 134/63 (86) 99 Vapotherm 20.00 30.00 01/18/21 19:00 92 01/18/21 18:42 92 Vapotherm 20.00 30 I & O 01/19/21 07:00 Intake Total 1120 ml Output Total 1575 ml Balance -455 ml Capillary Refill : Greater Than 3 Seconds General Appearance: No Apparent Distress HEENT: PERRL/EOMI Neck: Full Range of Motion Respiratory: Chest Non Tender, Rhonci Cardiovascular: Regular Rate, Rhythm Gastrointestinal: normal bowel sounds, non tender, soft Extremity: Normal Capillary Refill Neurologic/Psychiatric: Alert, Oriented x3 Skin: Normal Color Lymphatic: No Adenopathy Results Lab Laboratory Tests 01/18/21 19:55: Glucometer 296H 01/19/21 04:25: White Blood Count 13.5H, Red Blood Count 3.26L, Hemoglobin 9.0L, Hematocrit 29L, Mean Corpuscular Volume 88, Mean Corpuscular Hemoglobin 28, Mean Corpuscular Hemoglobin Concent 31L, Red Cell Distribution Width 15.3H, Platelet Count 197, Mean Platelet Volume 10.3, Sodium Level 138, Potassium Level 4.0, Chloride Level 104, Carbon Dioxide Level 24, Anion Gap 10, Blood Urea Nitrogen 30H, Creatinine 1.08, Estimat Glomerular Filtration Rate > 60, BUN/Creatinine Ratio 28, Glucose Level 206H, Calcium Level 7.8L 01/19/21 11:00: Glucometer 157H 01/19/21 15:28: Glucometer 206H Microbiology 01/13/21 Blood Culture - Final, Complete No growth 01/13/21 Influenza Types A,B Antigen (VICENTE) - Final, Complete Assessment/Plan Assessment/Plan Assess & Plan/Chief Complaint sx cholelithiasis. ok for low fat diet. do not recommend surgery now due to respiratory status. more ideal as OP. hold off on EGD for now. agree with rehab therapy PORFIRIO TORRES MD Jan 19, 2021 16:40
[2021-01-19] MEDS: dilTIAZem120 MG (CARDIZEM CD) CAP PO SCH (20:59)
[2021-01-19] MEDS: PANTOPRAZOLE 40 MG (PROTONIX) TAB PO SCH (21:06)
[2021-01-19] MEDS: 1/2 NS W/KCL 20 MEQ/L 1,000 ML IV SCH (21:19)
[2021-01-20] VITALS: BP 163/67
[2021-01-20 02:16] VITALS: BP 139/65
[2021-01-20] MEDS: RT-ALBUTEROL/IPRATROPIUM 3 ML (DUONEB) VIAL INH SCH ×2 (02:16→06:35)
[2021-01-20] MEDS: MEROPENEM 500 MG in WATER (STERILE) FOR INJECTION 10 ML IV SCH ×2 (02:31→08:13)
[2021-01-20] MEDS: 1/2 NS W/KCL 20 MEQ/L 1,000 ML IV SCH (02:31)
[2021-01-20] MEDS: LORazepam INJ 2 MG/ML (ATIVAN) VIAL IVP PRN (02:38)
[2021-01-20 04:00] VITALS: BP 147/61
[2021-01-20 04:56] LABS: HEMOGLOBIN 9.9 g/dL (13.3-17.7); WHITE BLOOD COUNT 12.2 10^3/uL (4.3-11.0)
[2021-01-20 05:13] LABS: BUN/CREATININE RATIO 30; CARBON DIOXIDE 24 MMOL/L (21-32); CHLORIDE 104 MMOL/L (98-107); CREATININE SERUM 0.87 MG/DL (0.60-1.30); GFR ESTIMATED > 60; GLUCOSE 119 MG/DL (70-105); POTASSIUM 4.2 MMOL/L (3.6-5.0); SODIUM 139 MMOL/L (135-145)
[2021-01-20] MEDS: inSUlin ASPART (NovoLOG) 1 UNIT/0.01 ML (CHARGE PER UNIT) SC SCH (05:19)
[2021-01-20] MEDS: FUROSEMIDE 40 MG/4 ML INJ (LASIX) IV SCH (06:00)
[2021-01-20] MEDS: CATHETER FLUSH 10 ML SYR IV SCH (06:01)
[2021-01-20] MEDS: RT-BUDESONIDE NEBS 0.5 MG/2ML (PULMICORT) AMP INH SCH (06:35)
[2021-01-20 07:06] VITALS: BP 154/77
--- NOTE | 2021-01-20 07:55 | Progress Note ---
Subjective Subjective Date Seen by Provider: Jan 20, 2021 Time Seen by Provider: 07:15 Pt seen and examined. He was awake, laying in bed, NAD, son at bedside. SOB improved from yesterday, pt appears to be doing better. Currently on 2L NC, tolerating well. Denies chest pain, N/V, abd pain. Pt is asking about whether he has to continue Lasix after d/c because he is worried about having to urinate constantly. No other concerns complaints Review of Systems General: No Chills, No Night Sweats; Fatigue, Malaise; No Appetite, No Other HEENT: No Head Aches, No Visual Changes, No Eye Pain, No Ear Pain, No Dysphasia, No Sinus Congestion, No Post Nasal Drip, No Sore Throat, No Other Pulmonary: Dyspnea, Cough; No Pleuritic Chest Pain, No Other Cardiovascular: No: Chest Pain, Palpitations, Orthopnea, Paroxysmal Noc. Dyspnea, Edema, Lt Headedness, Other Gastrointestinal: No: Nausea, Vomiting, Abdominal Pain Genitourinary: No Dysuria; Other (veronica) Musculoskeletal: No: neck pain, back pain Neurological: Weakness (LLE), Numbness (LLE) All Other Systems Reviewed All Other Systems Reviewed: Yes Objective Exam Vital Signs Vital Signs - First Documented 01/14/21 01/14/21 01/14/21 01/14/21 01:00 02:03 02:44 03:36 Temp 37.7 Pulse 112 Resp 27 B/P (MAP) 148/82 (104) Pulse Ox 97 O2 Delivery NIV Bilevel O2 Flow Rate 30.00 FiO2 44 Capillary Refill : Greater Than 3 Seconds General Appearance: No Apparent Distress, Chronically ill HEENT: PERRL/EOMI, Normal ENT Inspection Neck: Full Range of Motion, Normal Inspection, Non Tender, Supple Respiratory: Chest Non Tender, Accessory Muscle Use (still uses abd to breathe at times, improved), Rhonci (faint, improved from earlier) Cardiovascular: Normal Peripheral Pulses, Diastolic Murmur, Irregularly Irregular Gastrointestinal: Normal Bowel Sounds, Non Tender, Soft Rectal: Deferred Back: Normal Inspection Extremity: Normal Capillary Refill, Other (L shoulder pain with movement) Neurologic/Psychiatric: Alert, Oriented x3, Normal Mood/Affect, Motor Weakness (LUE/LLE), Sensory Deficit (LUE/LLE) Skin: Warm/Dry, Erythema (shins) Lymphatic: No Adenopathy Results Lab Laboratory Tests 01/19/21 11:00: Glucometer 157H 01/19/21 15:28: Glucometer 206H 01/19/21 20:11: Glucometer 188H 01/20/21 04:49: White Blood Count 12.2H, Red Blood Count 3.56L, Hemoglobin 9.9L, Hematocrit 32L, Mean Corpuscular Volume 89, Mean Corpuscular Hemoglobin 28, Mean Corpuscular Hemoglobin Concent 31L, Red Cell Distribution Width 16.1H, Platelet Count 219, Mean Platelet Volume 10.0, Sodium Level 139, Potassium Level 4.2, Chloride Level 104, Carbon Dioxide Level 24, Anion Gap 11, Blood Urea Nitrogen 26H, Creatinine 0.87, Estimat Glomerular Filtration Rate > 60, BUN/Creatinine Ratio 30, Glucose Level 119H, Calcium Level 8.0L Microbiology 01/13/21 Blood Culture - Final, Complete No growth 01/13/21 Influenza Types A,B Antigen (VICENTE) - Final, Complete Assessment/Plan Assessment/Plan Assessment and Plan Sepsis Respiratory distress r/t Bilateral lower lobe pneumonia UGIB CHF Lactic acidosis Leukocytosis - WBC 12.2; down from 13.5 yesterday Anemia - Hgb 9.9, 9.0 yesterday Hypokalemia - K 4.2 Afib HTN HLD Hx stroke w/ LLE paresis Respiratory status improving, tolerating 2L NC with decreased abd breathing Meropenem for PNA Continue Furosemide for diuresis; CXR 01/18 shows bilateral lower lobe infiltrates Gallbladder US showed large gallstone w/o cholecystitis, to be managed outpt Hold Lovenox until GI bleed resolved, SCD's for DVT prophylaxis. EGD on hold until respiratory status improves Cardiology consulted; started on Diltiazem, appreciate recs HH diet, 1/2NS w/ K for replenishment Continue to monitor VS, labs Supervisory-Addendum Brief Verification & Attestation Participated in pt care: history, MDM, physical Personally performed: exam, history, MDM, supervision of care Care discussed with: Medical Student Procedures: n/a Results interpretation: Verified all documentation SEE MY DC SUMMARY - AGREE WITH MED STUDENT NOTE DOCUMENTED. DAVID BERRY MED STUDENT Jan 20, 2021 07:55 JG DUARTE MD Jan 20, 2021 09:22
[2021-01-20] MEDS: guaiFENesin (MUCINEX) 600 MG TAB PO SCH (08:10)
[2021-01-20] MEDS: cloNIDine 0.1 MG (CATAPRES) TAB PO SCH (08:10)
[2021-01-20] MEDS: CARVEDILOL 12.5 MG (COREG) TABLET PO SCH (08:11)
[2021-01-20] MEDS: TERAZOSIN 5 MG (HYTRIN) CAPSULE PO SCH (08:11)
[2021-01-20] MEDS: PHENYTOIN 100 MG (DILANTIN) CAP PO SCH (08:12)
[2021-01-20] MEDS: KCL 20 MEQ TAB (K-DUR) PO SCH (08:12)
[2021-01-20] MEDS: PANTOPRAZOLE 40 MG (PROTONIX) TAB PO SCH (08:12)
[2021-01-20] MEDS: SPIRONOLACTONE 25 MG (ALDACTONE) TAB PO SCH (08:12)
[2021-01-20] MEDS: APIXABAN 5 MG (ELIQUIS) TABLET PO SCH (08:12)
--- NOTE | 2021-01-20 08:59 | Discharge Summary ---
Diagnosis/Chief Complaint Date of Admission Jan 13, 2021 at 15:31 Date of Discharge Discharge Date: Jan 20, 2021 Discharge Time: 0900 Reason Hospital Visit MR. JUAN IS A 80 Y/O MALE WHO IS KNOWN TO ME FROM CLINIC. HE HAS HISTORY OF RECENT PNEUMONIA WITH SEPSIS AND RESPIRATORY FAILURE. HE WAS TREATED IN THE HOSPITAL, HAD RAPID IMPROVEMENT AND WAS DISCHARGED ON CEFDINIR AND AZITHROMYCIN. HE THEN HAD RECURRENT SYMPTOMS OUTPATIENT, WAS TREATED WITH MOXIFLOXICIN AND HAD MILD SYMPTOM IMPROVEMENT, THEN JUST CALLED THE OFFICE THIS WEEK WITH WORSENING SYMPTOMS, WE GOT A CHEST XRAY WHICH SHOWED PERSISTENT PNEUMONIA. HOWEVER BEFORE WE COULD CALL HIM BACK THIS MORNING, HE CALLED 911 ABOUT HIS WORSENING DYSPNEA, THEY FOUND HIM TO HAVE OXYGEN SATURATION BELOW 80% AND HE WAS PLACED ON OXYGEN WITH SLOW IMPROVEMENT IN OXYGEN, BUT HE WAS BREATHING ABOUT 60 TIMES A MINUTE. THIS AFTERNOON HE REPORTS THAT HE IS FEELING A LITTLE BIT BETTER AFTER BIPAP AND LASIX. Discharge Summary Discharge Physical Examination Allergies: Coded Allergies: NKANo Known Allergies (Verified Allergy, Unknown, 05/25/08) Vitals & I&Os Vital Signs Date Time Temp Pulse Resp B/P (MAP) Pulse Ox O2 Delivery O2 Flow Rate FiO2 01/20/21 08:14 98 Nasal Cannula 2.00 01/20/21 07:06 36.6 74 20 154/77 (102) 01/20/21 06:35 25 Hospital Course Pending Labs Laboratory Tests 01/20/21 04:49: White Blood Count 12.2, Red Blood Count 3.56, Hemoglobin 9.9, Hematocrit 32, Mean Corpuscular Volume 89, Mean Corpuscular Hemoglobin 28, Mean Corpuscular He moglobin Concent 31, Red Cell Distribution Width 16.1, Platelet Count 219, Mean Platelet Volume 10.0, Sodium Level 139, Potassium Level 4.2, Chloride Level 104, Carbon Dioxide Level 24, Anion Gap 11, Blood Urea Nitrogen 26, Creatinine 0.87, Estimat Glomerular Filtration Rate > 60, BUN/Creatinine Ratio 30, Glucose Level 119, Calcium Level 8.0 Discharge Instructions to patient/family Please see electronic discharge instructions given to patient. Discharge Medications Reviewed and agree with Discharge Medication list on patient's Discharge Instruction sheet JG DUARTE MD Jan 20, 2021 08:59
--- NOTE | 2021-01-20 09:23 | Discharge Summary ---
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 JUAN IS A 80 Y/O MALE WHO IS KNOWN TO ME FROM CLINIC. HE HAS HISTORY OF RECENT PNEUMONIA WITH SEPSIS AND RESPIRATORY FAILURE. HE WAS TREATED IN THE HOSPITAL, HAD RAPID IMPROVEMENT AND WAS DISCHARGED ON CEFDINIR AND AZITHROMYCIN. HE THEN HAD RECURRENT SYMPTOMS OUTPATIENT, WAS TREATED WITH MOXIFLOXICIN AND HAD MILD SYMPTOM IMPROVEMENT, THEN JUST CALLED THE OFFICE THIS WEEK WITH WORSENING SYMPTOMS, WE GOT A CHEST XRAY WHICH SHOWED PERSISTENT PNEUMONIA. HOWEVER BEFORE WE COULD CALL HIM BACK THIS MORNING, HE CALLED 911 ABOUT HIS WORSENING DYSPNEA, THEY FOUND HIM TO HAVE OXYGEN SATURATION BELOW 80% AND HE WAS PLACED ON OXYGEN WITH SLOW IMPROVEMENT IN OXYGEN, BUT HE WAS BREATHING ABOUT 60 TIMES A MINUTE. THIS AFTERNOON HE REPORTS THAT HE IS FEELING A LITTLE BIT BETTER AFTER BIPAP AND LASIX. 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 - CHECK REPEAT CXR TOMORROW - VAPOTHERM AT THIS TIME, HOPEFULL CAN WEAN DOWN. CONGESTIVE HEART FAILURE - IV LASIX, MONITOR OUTPUT - SERIAL WEIGHTS - CONSULT PLACED TO CARDIOLOGY HYPERTENSION - RESUME HOME REGIMEN, MONITOR BLOOD PRESSURE SERIALLY. HYPERLIPIDEMIA - HOLD MED AT THIS TIME DUE TO NEED TO DECREASE GI INPUTS. LACTIC ACIDOSIS - RESOLVED LEUKOCYTOSIS - MONITOR LABS - SHOULD IMPROVE WITH TREATMENT OF PNEUMONIA ANEMIA - - SLIGHTLY IMPROVED. 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 EDEMA OF LOWER LEGS - ELEVATE LEGS, THIGH HIGH COMPRESSION SLEEVES ORDERED- PT HAS CALF SCD'S IN PLACE, SWELLING HAS IMPROVED SIGNIFICANTLY. SEIZURE DISORDER - CHRONIC ANTI-SEIZURE MEDICATION USE - RESUMED PHENYTOIN, CHECK LEVEL TOMORROW UPPER GI BLEED - GI SYMPTOMS HAVE STABILIZED, HOWEVER DUE TO HIS PULMONARY DECLINE THE EGD WAS CANCELLED TUESDAY. Pending Labs Laboratory Tests 01/20/21 04:49: White Blood Count 12.2, Red Blood Count 3.56, Hemoglobin 9.9, Hematocrit 32, Mean Corpuscular Volume 89, Mean Corpuscular Hemoglobin 28, Mean Corpuscular Hemoglobin Concent 31, Red Cell Distribution Width 16.1, Platelet Count 219, Mean Platelet Volume 10.0, Sodium Level 139, Potassium Level 4.2, Chloride Level 104, Carbon Dioxide Level 24, Anion Gap 11, Blood Urea Nitrogen 26, Creatinine 0.87, Estimat Glomerular Filtration Rate > 60, BUN/Creatinine Ratio 30, Glucose Level 119, Calcium Level 8.0 Discharge Instructions to patient/family Please see electronic discharge instructions given to patient. Discharge Medications Reviewed and agree with Discharge Medication list on patient's Discharge Instruction sheet JG DUARTE MD Jan 20, 2021 09:23
--- NOTE | 2021-01-20 09:32 | Diagnostic Imaging Report ---
INDICATION: Pneumonia. TECHNIQUE: Two view chest 8:50 AM CORRELATION STUDY: 01/19/2021 FINDINGS: Heart size enlarged. Continued pulmonary vascular congestion overall slightly improved and less severe. Bilateral pulmonary opacities do persist but also appear improved. Right upper extremity central line tip over the cavoatrial junction. Remain most pronounced over the mid and lower lung field. Likely trace effusions. Degenerative changes and bridging osteophytes throughout the thoracic spine. IMPRESSION: 1. Findings of congestive heart failure are present but overall improved from prior. Continued opacities mid and lower lung cordero could be reflective edema versus infiltrate. Followup imaging recommended. Dictated by: Dictated on workstation # [id number]
--- NOTE | 2021-01-20 12:14 | Cardiology Progress Note ---
Subjective Date Seen by Provider: Jan 20, 2021 Time Seen by Provider: 08:00 Subjective/Events-last exam patient was seen at bedside, having some dyspnea, reporting mild improvement. Review of Systems General: No Chills, No Night Sweats; Fatigue, Malaise; No Appetite, No Other HEENT: No Head Aches, No Visual Changes, No Eye Pain, No Ear Pain, No Dysphasia, No Sinus Congestion, No Post Nasal Drip, No Sore Throat, No Other Pulmonary: Dyspnea; No Cough, No Pleuritic Chest Pain, No Other Cardiovascular: No: Chest Pain, Palpitations, Orthopnea, Paroxysmal Noc. Dyspnea, Edema, Lt Headedness, Other Objective-Cardiology Exam Last Set of Vital Signs Vital Signs 01/20/21 01/20/21 01/20/21 06:35 07:06 08:14 Temp 36.6 Pulse 74 Resp 20 B/P (MAP) 154/77 (102) Pulse Ox 98 O2 Delivery Nasal Cannula O2 Flow Rate 2.00 FiO2 25 Capillary Refill : Greater Than 3 Seconds I&O Intake and Output 01/19/21 23:59 Intake Total 2360 ml Output Total 2150 ml Balance 210 ml Intake Oral 2360 ml Output Urine Total 2150 ml # Bowel Movements 1 General: Alert, Oriented X3, Cooperative, Moderate Distress HEENT: Atraumatic Neck: Supple Lungs: Normal Air Movement, Other (bilateral rhonchi) Heart: Normal S1, Normal S2, Other (irregular rhythm) Abdomen: Normal Bowel Sounds Extremities: No Clubbing, No Cyanosis Skin: No Rashes Neuro: Normal Speech, Sensation Intact Psych/Mental Status: Mental Status NL, Mood NL Results Lab Laboratory Tests 01/20/21 04:49 A/P-Cardiology Admission Diagnosis Acute respiratory failure Sepsis Atrial fibrillation GI Assessment/Plan Acute respiratory failure, multifactorial, pneumonia with acute exacerbation of COPD, still having productive cough, maintained on Vapotherm. Managed by primary care team Atrial fibrillation with rapid ventricular response, rate is better controlled, maintained on oral diltiazem and Coreg. Continue to monitor [id number] score of 5, yearly risk of stroke without oral anticoagulation is 6.7 percent. Has been off anticoagulation due to questionable GI bleed, no signs of active bleeding at this time, I will start him on Eliquis and monitor tolerance and response Sepsis, receiving antibiotics and managed by primary care physician Questionable GI bleed, patient reportedly had hematemesis and stool positive for occult blood, H&H are stable, managed by medical team, I am starting oral anticoagulation to reduce the risk of stroke from his atrial fibrillation Echocardiogram done in December 2020 showing normal LV size, EF 55-65 percent, ymcn-[id number]-aoomockp TR, mild MR, PA 45-50 mmHg Hypertension, continue to monitor blood pressure Peripheral arterial disease, extensive multiple procedures following with heart and vascular care Carotid stenosis followed with heart and vascular care Hyperlipidemia, monitor lipids Chronic kidney disease stage IV, and slight deterioration in renal function. Continue to monitor next Diabetes mellitus, followed and managed by primary care physician GERD, Hiatal hernia H/O skin cancer removal ZHANNA ACE MD Jan 20, 2021 12:14
[2021-01-21] MEDS ORDERED: fluCOnazole (DIFLUCAN) 100 MG TAB PO SCH (09:00)
== END 2021-01-20 09:20 | disposition swing bed (61) | DRG 871 ==
LOC: EDUNIT# 13:10 → ER 13:12 → CSD 15:31
PROVIDERS: ADMIT Family Medicine; ATTEND Family Medicine
PROC: 5A09557 Assistance with Respiratory Ventilation, Greater than 96 Consecutive Hours, Continuous Positive Airway Pressure (ICD-10-PCS; principal; 2021-01-13)
DX: A41.9 Sepsis, unspecified organism (principal); J18.9 Pneumonia, unspecified organism; J96.01 Acute respiratory failure with hypoxia; I50.33 Acute on chronic diastolic (congestive) heart failure; K92.0 Hematemesis; E87.2 Acidosis; J44.0 Chronic obstructive pulmonary disease with (acute) lower respiratory infection; Z66 Do not resuscitate; Z20.822 Contact with and (suspected) exposure to COVID-19; J44.1 Chronic obstructive pulmonary disease with (acute) exacerbation; I13.0 Hypertensive heart and chronic kidney disease with heart failure and stage 1 through stage 4 chronic kidney disease, or unspecified chronic kidney disease; N18.4 Chronic kidney disease, stage 4 (severe); I69.354 Hemiplegia and hemiparesis following cerebral infarction affecting left non-dominant side; R19.5 Other fecal abnormalities; E11.22 Type 2 diabetes mellitus with diabetic chronic kidney disease; Z79.4 Long term (current) use of insulin; E87.6 Hypokalemia; I25.10 Atherosclerotic heart disease of native coronary artery without angina pectoris; F41.9 Anxiety disorder, unspecified; E78.5 Hyperlipidemia, unspecified; E78.00 Pure hypercholesterolemia, unspecified; D50.9 Iron deficiency anemia, unspecified; G40.909 Epilepsy, unspecified, not intractable, without status epilepticus; I48.91 Unspecified atrial fibrillation; I08.1 Rheumatic disorders of both mitral and tricuspid valves; I73.9 Peripheral vascular disease, unspecified; K21.9 Gastro-esophageal reflux disease without esophagitis; K44.9 Diaphragmatic hernia without obstruction or gangrene; K80.20 Calculus of gallbladder without cholecystitis without obstruction; Z79.2 Long term (current) use of antibiotics; Z79.1 Long term (current) use of non-steroidal anti-inflammatories (NSAID); Z79.82 Long term (current) use of aspirin
CPT/HCPCS: 36415; 36569; 71045; 71046; 71250; 76705; 76937; 80048; 80053; 80185; 82271; 82728; 82805; 82962; 83540; 83605; 83735; 83880; 84145; 85007; 85014; 85018; 85027; 85379; 85610; 85730; 86141; 87040; 87635; 87804; 94640; 94660; 94760; 96361; 96374; 96375

== ENCOUNTER 2021-01-20 09:29 | Inpatient (IN) | payer MEDICARE, OTHER ==
[~2021-01-20] VITALS: Ht 182 cm; Wt 102.0 kg
[~2021-01-20 09:29] MED LIST changes: +FURO40TA4 PO; +POTA10TA PO
[2021-01-20] MEDS ORDERED: METHYL SALICYLATE/MENTHOL (BENGAY, MUSCLE RUB) 3 OZ TUBE TP PRN (09:30)
[2021-01-20] MEDS ORDERED: RT-ALBUTEROL SULF 2.5 MG/3 ML PRE-MIX VIAL IH PRN (09:30)
[2021-01-20] MEDS ORDERED: METOCLOPRAMIDE INJ 10 MG/2 ML (REGLAN) IVP PRN (09:30)
[2021-01-20] MEDS ORDERED: MEROPENEM 500 MG in WATER (STERILE) FOR INJECTION 10 ML IV SCH ×2 (09:30→12:00)
[2021-01-20] MEDS ORDERED: ACETAMINOPHEN 500 MG TAB (TYLENOL) PO PRN (09:30)
[2021-01-20] MEDS ORDERED: PROMETHAZINE INJ 25 MG/ML (PHENERGAN) AMP IVP PRN (09:30)
[2021-01-20] MEDS ORDERED: diphenhydrAMINE 50 MG/ML INJ (BENADRYL) IV PRN (09:30)
[2021-01-20] MEDS ORDERED: RT-ALBUTEROL/IPRATROPIUM 3 ML (DUONEB) VIAL INH PRN ×2 (09:30→12:00)
[2021-01-20] MEDS ORDERED: ONDANSETRON 4 MG/2 ML (SDV) Z0FRAN IV PRN (09:30)
[2021-01-20] MEDS: 1/2 NS W/KCL 20 MEQ/L 1,000 ML IV SCH (11:43)
--- NOTE | 2021-01-20 11:43 | Physical Therapy Evaluation ---
PT Evaluation-General Medical Diagnosis Admission Date Jan 20, 2021 at 09:29 Medical Diagnosis: pneumonia Onset Date: Jan 13, 2021 Therapy Diagnosis Therapy Diagnosis: debility/weakness Height/Weight Height (Feet): 6 Height (Inches): 0.00 Weight (Pounds): 215 Weight (Ounces): 0.0 Precautions Precautions/Isolations: Fall Prevention, Standard Precautions Referral Physician: Rick Reason for Referral: Evaluation/Treatment Medical History Pertinent Medical History: CVA Current History SWB status Reviewed History: Yes Social History Home: Single Level Current Living Status: Spouse Entry Into Home: Stairs With Railing PT Steps Into Home: 3 Prior Prior Level of Function SCALE: Activities may be completed with or without assistive devices. 8-Uvnrjmmrro-ascpwft completes the activity by him/herself with no assistance from a helper. 5-Set-up or Clean-up Assistance-helper sets up or cleans up; patient completes activity. [place] assists only prior to or following the activity. 4-Supervision or Touching Assistance-helper provides verbal cues and/or touching/steadying and/or contact guard assistance as patient completes activity. Assistance may be provided throughout the activity or intermittently. 3-Partial/Moderate Assistance-helper does LESS THAN HALF the effort. [place] lifts, holds or supports trunk or limbs, but provides less than half the effort. 2-Substantial/Maximal Assistance-helper does MORE THAN HALF the effort. [place] lifts or holds trunk or limbs and provides more than half the effort. 9-Yolafbdeq-jeuhjz does ALL the effort. Patient does none of the effort to complete the activity. Or, the assistance of 2 or more helpers is required for the patient to complete the activity. If activity was not attempted, code reason: 7-Patient Refused. 9-Not Applicable-not attempted and the patient did not perform the activity before the current illness, exacerbation or injury. 10-Not Attempted due to Environmental Limitations-(lack of equipment, weather restraints, etc.). 88-Not Attempted due to Medical Conditions or Safety Concerns. Bed Mobility: 6 Transfers (B,C,W/C): 6 Gait: 6 Stairs: 6 Indoor Mobility (Ambulation): Independent Stairs: Independent Prior Devices Use: Walker Prior Device Use: 4WW or forearm crutch/KAFO left LE due to hemiparesis PT Evaluation-Current Subjective Patient agrees to PT. Pain Numeric Pain Scale: 0-No Pain Location: No Pain Reported Pt/Family Goals return to home Objective Patient Orientation: Normal For Age Attachments: Oxygen, Conde Catheter, IV ROM/Strength ROM Lower Extremities left LE increase tone but WFL, right LE WFL Strength Lower Extremities left LE 3-/5 grossly with use of tone for mobility/right LE 4/5 grossly Integumentary/Posture Integumentary refer to nursing notes Bladder Incontinence: Conde Cath Posture kyphotic Neuromuscular (Tone, Coordination, Reflexes) left side increase extension tone (LE)/right side intact Sensory Vision: Wears Glasses Hearing: Functional Transfers Roll Left & Right (QC): 3 Sit to Lying (QC): 3 Lying to Sitting/Side of Bed(Q: 3 Sit to Stand (QC): 2 Chair/Hpk-su-Shlpt Xfer(QC): 2 Toilet Transfer (QC): 2 Car Transfer (QC): 88 Gait Does the Patient Walk?: Yes Mode of Locomotion: Both Anticipated Mode of Locomotion: Both Walk 10 feet (QC): 2 Walk 50 ft with 2 Turns(QC): 88 Walk 150 ft (QC): 88 Walking 10ft/uneven surface-QC: 88 Distance: 30' Gait Assistive Device: FWW Comments/Gait Description slow, step to gait sequence (patient has a KAFO at home for left LE. PT recommends patient's family bring for use for patient safety and stability with mobility.) Wheelchair Training Does the Pt Use a Wheelchair?: Yes Wheel 50 ft with 2 turns (QC): 7 Wheel 150 ft (QC): 7 Type of Wheelchair: Motorized uses occasionally for long distances Stairs 1 Step (curb) (QC): 88 4 Steps (QC): 9 12 Steps (QC): 9 Balance Sitting Static: Normal Sitting Dynamic: Normal Standing Static: Fair Standing Dynamic: Fair Picking up an Object (QC): 6 (donns left sock and shoe with set up) Treatment Gait training with FWW mod to max assist due to left LE tone and rotation. Patient ambulates with FWW 30' with slow, step to gait sequence (patient has a KAFO at home for left LE. PT recommends patient's family bring for use for patient safety and stability with mobility.) Assessment/Needs 80 y.o. male, will benefit from skilled PT to address functional strength and mobility to improve current LOF to safely return to home or care facility at maximum LOF. Rehab Potential: Fair PT Correction Goals Career Transition Specialist Goals PT Correction Goals Time Frame: Feb 07, 2021 Roll Left & Right (QC): 6 Sit to Lying (QC): 6 Lying-Sitting on Side/Bed(QC): 6 Sit to Stand (QC): 5 Chair/Lwx-ye-Ijiav Xfer(QC): 5 Toilet Transfer (QC): 5 Car Transfer (QC): 5 Does the Patient Walk: Yes Walk 10 feet (QC): 5 Walk 50ft with 2 Turns (QC): 5 Walk 150 ft (QC): 5 Walking 10ft on Uneven Surface: 5 1 Step (curb) (QC): 5 4 Steps (QC): 9 12 Steps (QC): 9 Picking up an Object (QC): 6 Does the Pt use WC or Scooter?: Yes Wheel 50 feet with 2 turns (QC: 5 Type: Motorized Wheel 150 feet: 5 Type: Motorized will not perform scooter mobility due to utilizes in community PT Plan Problem List Problem List: Activity Tolerance, Functional Strength, Safety, Balance, Gait, Transfer, Bed Mobility Treatment/Plan Treatment Plan: Continue Plan of Care Treatment Plan: Bed Mobility, Education, Functional Activity Phuong, Functional Strength, Gait, Safety, Therapeutic Exercise, Transfers Treatment Duration: Feb 07, 2021 Frequency: 6 times per week Estimated Hrs Per Day: .25 hour per day (to .5) Patient and/or Family Agrees t: Yes Time/GCodes Time In: 1024 Time Out: 1053 Total Billed Treatment Time: 29 Total Billed Treatment 1 visit EVModC 14 min GT 15 min YOLY GUPTA PT Jan 20, 2021 11:43
[2021-01-20] MEDS: inSUlin ASPART (NovoLOG) 1 UNIT/0.01 ML (CHARGE PER UNIT) SC SCH ×3 (11:59→20:59)
[2021-01-20] MEDS: RT-ALBUTEROL/IPRATROPIUM 3 ML (DUONEB) VIAL INH SCH ×4 (12:00→22:13)
[2021-01-20] MEDS: CATHETER FLUSH 10 ML SYR IV SCH ×2 (14:06→21:02)
[2021-01-20] MEDS: MEROPENEM 500 MG in WATER (STERILE) FOR INJECTION 10 ML IV SCH ×2 (14:14→20:47)
--- NOTE | 2021-01-20 15:06 | Occupational Therapy Eval ---
OT Evaluation-General/PLF Medical Diagnosis Admission Date Jan 20, 2021 at 09:29 Medical Diagnosis: pneumonia/sepsis Onset Date: Jan 13, 2021 Therapy Diagnosis Therapy Diagnosis: Weakness, Decreased ADL skills Height/Weight Height (Feet): 6 Height (Inches): 0.00 Weight (Pounds): 215 Weight (Ounces): 0.0 Precautions Precautions/Isolations: Fall Prevention, Standard Precautions Weight Bear Status Weight Bearing Restriction: Weight Bearing/Tolerated Referral Physician: Jeff Referral Reason: Activity Tolerance, Self Care, Evaluation/Treatment, S trengthening/ROM Medical History Pertinent Medical History: CVA, DM Additional Medical History Left sided weakness, CHF, Anemia, Seizure disorder Current History Pt. has had difficulty breathing due to pneumonia. Pt. was treated in December, but pneumonia persistent. Admitted on 01-13-21 from home via EMS. Social History Home: Single Level Current Living Status: Spouse Entry Into Home: Stairs With Railing Steps Into Home: 3 ADL-Prior Level of Function SCALE: Activities may be completed with or without assistive devices. 7-Aiiwzfwinr-ytwdtch completes the activity by him/herself with no assistance from a helper. 5-Set-up or Clean-up Assistance-helper sets up or cleans up; patient completes activity. [place] assists only prior to or following the activity. 4-Supervision or Touching Assistance-helper provides verbal cues and/or touching/steadying and/or contact guard assistance as patient completes activity. Assistance may be provided throughout the activity or intermittently. 3-Partial/Moderate Assistance-helper does LESS THAN HALF the effort. [place] lifts, holds or supports trunk or limbs, but provides less than half the effort. 2-Substantial/Maximal Assistance-helper does MORE THAN HALF the effort. [place] lifts or holds trunk or limbs and provides more than half the effort. 3-Qobcrmzrz-saooae does ALL the effort. Patient does none of the effort to complete the activity. Or, the assistance of 2 or more helpers is required for the patient to complete the activity. If activity was not attempted, code reason: 7-Patient Refused. 9-Not Applicable-not attempted and the patient did not perform the activity before the current illness, exacerbation or injury. 10-Not Attempted due to Environmental Limitations-(lack of equipment, weather restraints, etc.). 88-Not Attempted due to Medical Conditions or Safety Concerns. ADL PLOF Comments Pt. had a CVA when he was 34 years old. Pt. has residual weakness and tone in left UE. Pt. verbalizes that he was independent at home with daily ADLs. 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 They have been 60 years. Pt. still drives. He uses a 4 ww, but also has a power scooter that he uses in public and for any distance. Self Care: Independent Functional Cognition: Independent DME/Equipment: Bath Chair, Shower DME/Equipment Comments Pt. has 4 ww and power scooter. Drive Self: Yes OT Current Status Subjective Pt. reports pain in left shoulder with movement. Reports 7/10 on pain scale. Nursing notified and will get pt. pain medication. Appearance Pt. in bed. Agrees to work with OT. Mental Status/Objective Patient Orientation: Person, Place Attachments: Conde Catheter, IV Current Hand Dominance: Left Upper Extremity ROM Right- WFL Left- Pt. is able to flex left shoulder approximately 45 degrees actively. He is unable to hold it. Pt. reports that he began having shoulder pain during EMS transport, likely from being physically transferred. He is able to flex left elbow functionally, and is able to extend left wrist and move fingers. However, movements are slow and pt. does exhibit some increased tone. Pt's son comes into room and verbalizes that at first, pt. had difficulty with any movement in left UE at all. Son reports that left UE has improved. ADL-Treatment Eating (QC): 5 (Set up per pt. Pt. verbalizes that he is able to feed self with no difficulty, but does need to eat soft foods due to choking hazard. Pt. verbalizes that he has some issues at times with swallowing certain foods, that is residual from CVA at age 34.) Oral Hygiene (QC): 7 Shower/Bathe Self (QC): 88 Upper Body Dressing (QC): 88 Lower Body Dressing (QC): 88 On/Off Footwear (QC): 3 Toileting Hygiene (QC): 1 (Catheter.) Other Treatments Pt states that he had a CVA at age 34. He was able to fully rehab to independent functional level. However, he wears a KAFO on left side for ambulation. His son did bring this in. Pt. verbalizes that even though he has residual weakness on left side, he is left handed. Since transfer, his left shoulder has been sore. Notified nursing and asked for possible Ortho consult. Pt. verbalizes that he used to get cortizone injections in left shoulder due to bursitis. OT assesses available AROM, and provided gentle PROM to tolerated range, which was approximately 80 degrees shoulder flexion. Pt. transferred supine-sit with mod assist. While sitting, pt. able to scoot self toward HOB. He was able to transfer self back to bed with SBA, but required max x 2 for bed mobility and positioning to comfort level. Pt. verbalizes that he had just got back to bed prior to OT entering room. Pt. not on 02, but seemed SOA. Nursing notified. OT tooks oxygen sats and they are 94% on RA. All needs are met and pt./son are educated regarding purpose of OT. Both verbalize understanding. Education OT Patient Education: Correct positioning, Exercise program, Modified ADL techniques, Progress toward Goal/Update tx plan, Purpose of tx/functional activities, Reviewed precautions, Rehab process, Transfer techniques Teaching Recipient: Patient, Family Teaching Methods: Demonstration, Discussion Response to Teaching: Verbalize Understanding, Return Demonstration OT Short Term Goals Short Term Goals Time Frame: Jan 27, 2021 Eatin Oral hygiene: 4 Toileting hygiene: 3 Shower/bathe self: 3 Upper body dressin Lower body dressin Putting on/taking off footwear: 4 OT Senior Living Goals Senior Living Goals Time Frame: Feb 03, 2021 Eating (QC): 6 Oral Hygiene (QC): 5 Toileting Hygiene (QC): 4 Shower/Bathe Self (QC): 4 Upper Body Dressing (QC): 5 Lower Body Dressing (QC): 4 On/Off Footwear (QC): 4 Additional Goals: 1-Demonstrate ADL Tasks, 2-Verbalize Understanding, 3- ImproveStrength/Phuong 1=Demonstrate adherence to instructed precautions during ADL tasks. 2=Patient will verbalize/demonstrate understanding of assistive devices/modifications for ADL. 3=Patient will improve strength/tolerance for activity to enable patient to perform ADL's. OT Education/Plan Problem List/Assessment Assessment: Decreased Activ Tolerance, Decreased UE Strength, Dependent Transfers, Impaired Bed Mobility, Impaired Coordination, Impaired I ADL's, Impaired Self-Care Skills, Restricted Funct UE ROM Discharge Recommendations Plan/Recommendations: Continue POC Therapy Discharge Recommendati: Post Acute OT Comment Equipment needs to be determined. Treatment Plan/Plan of Care Treatment,Training & Education: Yes Patient would benefit from OT for education, treatment and training to promote independence in ADL's, mobility, safety and/or upper extremity function for ADL's. Plan of Care: ADL Retraining, Functional Mobility, UE Funct Exercise/Act, UE Neuromus Re-Ed/Coord Treatment Duration: Feb 03, 2021 Frequency: 5 times per week Estimated Hrs Per Day: .5 hour per day Agreement: Yes Rehab Potential: Fair Time/GCodes Start Time: 13:30 Stop Time: 14:10 Total Time Billed (hr/min): 40 Billed Treatment Time 1, EVH x 10minutes, ADL x 30minutes ULICES LIN OT Jan 20, 2021 15:06
[2021-01-20] MEDS: KCL 20 MEQ TAB (K-DUR) PO SCH (17:04)
[2021-01-20] MEDS: CARVEDILOL 12.5 MG (COREG) TABLET PO SCH (17:04)
[2021-01-20] MEDS: FUROSEMIDE 40 MG/4 ML INJ (LASIX) IV SCH (17:04)
[2021-01-20 17:35] VITALS: BP 129/63
[2021-01-20] MEDS: RT-BUDESONIDE NEBS 0.5 MG/2ML (PULMICORT) AMP INH SCH (18:34)
[2021-01-20] MEDS: PHENYTOIN 100 MG (DILANTIN) CAP PO SCH (20:47)
[2021-01-20] MEDS: cloNIDine 0.1 MG (CATAPRES) TAB PO SCH (20:47)
[2021-01-20] MEDS: TERAZOSIN 5 MG (HYTRIN) CAPSULE PO SCH (20:48)
[2021-01-20] MEDS: dilTIAZem120 MG (CARDIZEM CD) CAP PO SCH (20:48)
[2021-01-20] MEDS: guaiFENesin (MUCINEX) 600 MG TAB PO SCH (20:48)
[2021-01-20] MEDS: PANTOPRAZOLE 40 MG (PROTONIX) TAB PO SCH (20:49)
[2021-01-20] MEDS: APIXABAN 5 MG (ELIQUIS) TABLET PO SCH (20:49)
[2021-01-20] MEDS: LORazepam INJ 2 MG/ML (ATIVAN) VIAL IVP PRN (23:22)
[2021-01-21] MEDS: 1/2 NS W/KCL 20 MEQ/L 1,000 ML IV SCH (00:36)
[2021-01-21] MEDS: RT-ALBUTEROL/IPRATROPIUM 3 ML (DUONEB) VIAL INH SCH ×6 (01:41→22:40)
[2021-01-21] MEDS: MEROPENEM 500 MG in WATER (STERILE) FOR INJECTION 10 ML IV SCH ×4 (01:46→20:47)
[2021-01-21 05:21] LABS: HEMOGLOBIN 9.4 g/dL (13.3-17.7); MEAN PLATELET VOLUME 10.5 fL (9.0-12.2); WHITE BLOOD COUNT 12.2 10^3/uL (4.3-11.0)
[2021-01-21] MEDS: inSUlin ASPART (NovoLOG) 1 UNIT/0.01 ML (CHARGE PER UNIT) SC SCH ×4 (05:30→21:03)
[2021-01-21 05:37] LABS: ALBUMIN 2.6 GM/DL (3.2-4.5)
[2021-01-21 05:38] LABS: CHLORIDE 102 MMOL/L (98-107); SODIUM 130 MMOL/L (135-145)
[2021-01-21 05:39] LABS: CALCIUM 7.5 MG/DL (8.5-10.1)
[2021-01-21 05:40] LABS: GLUCOSE 142 MG/DL (70-105); TOTAL PROTEIN 5.1 GM/DL (6.4-8.2)
[2021-01-21 05:41] LABS: CARBON DIOXIDE 23 MMOL/L (21-32)
[2021-01-21 05:42] LABS: BILIRUBIN,TOTAL 0.4 MG/DL (0.1-1.0)
[2021-01-21 05:43] LABS: ALKALINE PHOSPHATASE 73 U/L (40-136)
[2021-01-21 05:44] LABS: GFR ESTIMATED > 60
[2021-01-21 05:45] LABS: BUN/CREATININE RATIO 28
[2021-01-21 05:46] LABS: ALANINE AMINOTRANSFERASE 49 U/L (0-55)
[2021-01-21 06:00] VITALS: BP 153/72
[2021-01-21] MEDS: CATHETER FLUSH 10 ML SYR IV SCH ×3 (06:08→21:03)
[2021-01-21] MEDS: FUROSEMIDE 40 MG/4 ML INJ (LASIX) IV SCH (06:09)
[2021-01-21 06:10] LABS: POTASSIUM 6.6 MMOL/L (3.6-5.0)
[2021-01-21] MEDS: RT-BUDESONIDE NEBS 0.5 MG/2ML (PULMICORT) AMP INH SCH ×2 (06:43→18:51)
[2021-01-21] MEDS: NS IV 1000 ML 1,000 ML IV SCH (07:14)
[2021-01-21] MEDS: guaiFENesin (MUCINEX) 600 MG TAB PO SCH ×2 (08:29→20:47)
[2021-01-21] MEDS: TERAZOSIN 5 MG (HYTRIN) CAPSULE PO SCH ×2 (08:30→20:48)
[2021-01-21] MEDS: PANTOPRAZOLE 40 MG (PROTONIX) TAB PO SCH ×2 (08:30→20:47)
[2021-01-21] MEDS: SPIRONOLACTONE 25 MG (ALDACTONE) TAB PO SCH (08:30)
[2021-01-21] MEDS: PHENYTOIN 100 MG (DILANTIN) CAP PO SCH ×2 (08:30→20:47)
[2021-01-21] MEDS: CARVEDILOL 12.5 MG (COREG) TABLET PO SCH ×2 (08:31→17:48)
[2021-01-21] MEDS: APIXABAN 5 MG (ELIQUIS) TABLET PO SCH ×2 (08:31→20:47)
[2021-01-21] MEDS: fluCOnazole (DIFLUCAN) 100 MG TAB PO SCH (08:31)
[2021-01-21] MEDS: KCL 20 MEQ TAB (K-DUR) PO SCH (08:32)
[2021-01-21 08:33] VITALS: BP 147/63
[2021-01-21] MEDS: cloNIDine 0.1 MG (CATAPRES) TAB PO SCH ×2 (08:35→20:48)
--- NOTE | 2021-01-21 10:03 | Progress Note - Cardiology ---
Cardiology SOAP Progress Note Subjective: Gen malaise and weakness No cp or palp or syncope Shortness of breath with exertion No n/v/d No focal weakness Objective: I&O/Vital Signs 01/20/21 01/21/21 01/21/21 01/21/21 22:15 01:00 01:41 06:00 Temp 36.5 Pulse 76 71 Resp 20 B/P (MAP) 153/72 (99) Pulse Ox 95 95 98 O2 Delivery Nasal Cannula Nasal Cannula Nasal Cannula O2 Flow Rate 2.00 2.00 FiO2 24 24 01/21/21 01/21/21 01/21/21 01/21/21 06:39 06:43 08:33 08:42 Temp 36.3 Pulse 78 75 Resp 18 B/P (MAP) 147/63 (91) Pulse Ox 97 97 O2 Delivery Nasal Cannula Nasal Cannula Nasal Cannula O2 Flow Rate 2.00 2.00 2.00 01/21/21 00:00 Intake Total 690 ml Output Total 2640 ml Balance -1950 ml Weight (Pounds): 215 Weight (Ounces): 0.0 Weight (Calculated Kilograms): [id number] Constitutional: AAO x 3, well-developed, well-nourished Respiratory: No accessory muscle use; other (fair to good, bilateral air entry) Cardiovascular: regular rate-rhythm, S1 and S2, systolic murmur (soft ISATU at card base) Gastrointestional: No tender; soft; No guarding, No rebound; audible bowel sounds Extremities: No clubbing, No cyanosis, No significant edema Neurologic/Psychiatric: oriented x 3, other (moves all limbs equally) Skin: warm/dry; No cool, No rash on exposed areas, No ulcerations on exposed areas Results/Procedures: Labs Laboratory Tests 01/20/21 11:51: Glucometer 141H 01/20/21 15:38: Glucometer 227H 01/21/21 05:15: White Blood Count 12.2H, Red Blood Count 3.34L, Hemoglobin 9.4L, Hematocrit 30L, Mean Corpuscular Volume 90, Mean Corpuscular Hemoglobin 28, Mean Corpuscular Hemoglobin Concent 31L, Red Cell Distribution Width 16.9H, Platelet Count 188, Mean Platelet Volume 10.5, Sodium Level 130L, Potassium Level 6.6#*H, Chloride Level 102, Carbon Dioxide Level 23, Anion Gap 5, Blood Urea Nitrogen 22H, Creatinine 0.80, Estimat Glomerular Filtration Rate > 60, BUN/Creatinine Ratio 28, Glucose Level 142H, Calcium Level 7.5L, Corrected Calcium 8.6, Total Bilirubin 0.4, Aspartate Amino Transf (AST/SGOT) 50H, Alanine Aminotransferase (ALT/SGPT) 49, Alkaline Phosphatase 73, Total Protein 5.1L, Albumin 2.6L 01/21/21 05:27: Glucometer 144H 01/21/21 06:30: Potassium Level 4.9 Laboratory Tests 01/21/21 05:15 01/21/21 06:30 A/P: Assessment: Shortness of breath (likely multifactorial) - acute diastolic CHF, resolved - pneumonia and sepsis, improved/resolved A Fib with RVR, diagnosed 01-14-21 Echo on 12/17/20: LVEF 55-65%, mild to mod TR and MR, PASP 45-50 mmHg Questionable GI bleed during this hospitalization, managed by the primary care team. Currently on apixaban and tolerating H/O CVA in 1974 - details unknown HTN PVD - H/O L fem-pop by Dr. Gould in Aug 2002 at [place], [place] - February 2006 - L fem-pop repair by Dr. Reeder at [facility] in [place], [place] - H/O iliac stenting in January [address] 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 Reeder at [facility] in [place], [place] HLD DM 2 - insulin CKD GERD Hiatal hernia H/O skin cancer removal Plan: * Multiple comorbities, complex managment * Change Lasix to 40 mg po daily * K reported to be 6.6 this am (?hemolysis); repeat level was normal * D/c supple K * Continue spironolactone * Continue to monitor labs HARRY BARLOW MD FACP [facility] Jan 21, 2021 10:03
--- NOTE | 2021-01-21 11:01 | Occupational Ther Daily Note ---
OT Current Status-Daily Note Subjective Pt alert, sitting on EOB. Nrsg in room to assist pt. Pt agrees to therapy. Mental Status/Objective Patient Orientation: Person, Place, Time, Situation Attachments: Conde Catheter, IV, Telemetry ADL-Treatment Therapy Code Descriptions/Definitions Functional [place] Measure: 0=Not Assessed/NA 4=Minimal Assistance 1=Total Assistance 5=Supervision or Setup 2=Maximal Assistance 6=Modified [place] 3=Moderate Assistance 7=Complete IndependenceSCALE: Activities may be completed with or without assistive devices. 9-Qgbmqtskic-rfijizf completes the activity by him/herself with no assistance from a helper. 5-Set-up or Clean-up Assistance-helper sets up or cleans up; patient completes activity. [place] assists only prior to or following the activity. 4-Supervision or Touching Assistance-helper provides verbal cues and/or touching/steadying and/or contact guard assistance as patient completes a ctivity. Assistance may be provided throughout the activity or intermittently. 3-Partial/Moderate Assistance-helper does LESS THAN HALF the effort. [place] lifts, holds or supports trunk or limbs, but provides less than half the effort. 2-Substantial/Maximal Assistance-helper does MORE THAN HALF the effort. [place] lifts or holds trunk or limbs and provides more than half the effort. 1-Eeillxeej-oygtqy does ALL the effort. Patient does none of the effort to complete the activity. Or, the assistance of 2 or more helpers is required for the patient to complete the activity. If activity was not attempted, code reason: 7-Patient Refused. 9-Not Applicable-not attempted and the patient did not perform the activity before the current illness, exacerbation or injury. 10-Not Attempted due to Environmental Limitations-(lack of equipment, weather restraints, etc.). 88-Not Attempted due to Medical Conditions or Safety Concerns. Other Treatment Pt had been sitting up all morning, per nrsg, and was just getting back to bed. Assist x2 for EOB to supine. Pt c/o L shldr pain after being moved off of floor from home. Increased tightness noted in L shldr/scapular region. Decreased strength in shldr, pt uses compensatory patterns to raise shldr using shldr elevation/shldr abd instead of shldr flexion. [place] completed scapular mobilization, stretching and massage to shldr and scapular region. Pt able to tolerate shldr flexion, shldr int/ext rotation and elbow flex/ext after stretching and massage. Pt educated on correct technique to complete reaching to reduce pain in shldr. After session, pt lying in bed with call light/phone in reach. All needs met in room. present in room. OT Short Term Goals Short Term Goals Time Frame: Jan 27, 2021 Eatin Oral hygiene: 4 Toileting hygiene: 3 Shower/bathe self: 3 Upper body dressin Lower body dressin Putting on/taking off footwear: 4 OT Detention Goals [place] Goals Time Frame: Feb 03, 2021 Eating (QC): 6 Oral Hygiene (QC): 5 Toileting Hygiene (QC): 4 Shower/Bathe Self (QC): 4 Upper Body Dressing (QC): 5 Lower Body Dressing (QC): 4 On/Off Footwear (QC): 4 Additional Goals: 1-Demonstrate ADL Tasks, 2-Verbalize Understanding, 3- ImproveStrength/Phuong 1=Demonstrate adherence to instructed precautions during ADL tasks. 2=Patient will verbalize/demonstrate understanding of assistive devices/modifications for ADL. 3=Patient will improve strength/tolerance for activity to enable patient to perform ADL's. OT Education/Plan Problem List/Assessment Assessment: Decreased UE Strength, Impaired Self-Care Skills, Restricted Funct UE ROM Discharge Recommendations Plan/Recommendations: Continue POC Treatment Plan/Plan of Care Patient would benefit from OT for education, treatment and training to promote independence in ADL's, mobility, safety and/or upper extremity function for ADL's. Plan of Care: ADL Retraining, Functional Mobility, UE Funct Exercise/Act, UE Neuromus Re-Ed/Coord Treatment Duration: Feb 03, 2021 Frequency: 5 times per week Estimated Hrs Per Day: .5 hour per day Agreement: Yes Rehab Potential: Fair Time/GCodes Start Time: 10:27 Stop Time: 10:50 Total Time Billed (hr/min): 23 Billed Treatment Time 1 visit-FA 2 (23 min) DC TOLBERT Jan 21, 2021 11:01
--- NOTE | 2021-01-21 12:26 | Progress Note ---
Subjective Subjective Date Seen by Provider: Jan 21, 2021 Time Seen by Provider: 07:30 Pt seen and examined. He was sitting up at the side of his bed in NAD. He states that he is feeling and breathing better. Denies chest pain, N/V, abd pain. SOB markedly improved since admission. He states that he does not want to go to [place] after discharge and says that he has children who will visit and help care for him at home, but would like to have PT visit him for therapy sessions. Review of Systems General: No Chills; Fatigue HEENT: No Head Aches, No Visual Changes Pulmonary: Dyspnea, Cough; No Pleuritic Chest Pain Cardiovascular: No: Chest Pain, Palpitations, Lt Headedness Gastrointestinal: No: Nausea, Vomiting, Abdominal Pain Genitourinary: No Dysuria; Other (veronica) Musculoskeletal: shoulder pain (L shoulder) Neurological: Weakness (LUE/LLE), Numbness (LUE/LLE) Objective Exam Vital Signs Vital Signs - First Documented 01/20/21 01/20/21 01/20/21 01/20/21 01/20/21 01/21/21 10:20 12:00 12:57 17:35 18:35 06:00 Temp 36.5 Pulse 67 Resp 20 B/P (MAP) 129/63 (85) Pulse Ox 99 O2 Delivery Nasal Cannula O2 Flow Rate 2.00 FiO2 24 Capillary Refill : General Appearance: No Apparent Distress, Chronically ill, Obese HEENT: PERRL/EOMI, Normal ENT Inspection, Pharynx Normal Neck: Full Range of Motion, Normal Inspection, Non Tender, Supple Respiratory: Chest Non Tender, No Accessory Muscle Use, No Respiratory Distress, Rhonci (faint) Cardiovascular: Normal Peripheral Pulses, Irregularly Irregular Gastrointestinal: Normal Bowel Sounds, Non Tender, Soft Rectal: Deferred Back: Normal Inspection, No CVA Tenderness, No Vertebral Tenderness Extremity: Normal Capillary Refill, No Calf Tenderness, No Pedal Edema, Other ( erythema/dry skin to L anterior goodman) Neurologic/Psychiatric: Alert, Oriented x3, Normal Mood/Affect, Motor Weakness (LUE/LLE), Sensory Deficit (LUE/LLE) Skin: Warm/Dry, Erythema (L goodman) Lymphatic: No Adenopathy Results Lab Laboratory Tests 01/20/21 11:51: Glucometer 141H 01/20/21 15:38: Glucometer 227H 01/20/21 20:57: Glucometer 133H 01/21/21 05:15: White Blood Count 12.2H, Red Blood Count 3.34L, Hemoglobin 9.4L, Hematocrit 30L, Mean Corpuscular Volume 90, Mean Corpuscular Hemoglobin 28, Mean Corpuscular Hemoglobin Concent 31L, Red Cell Distribution Width 16.9H, Platelet Count 188, Mean Platelet Volume 10.5, Sodium Level 130L, Potassium Level 6.6#*H, Chloride Level 102, Carbon Dioxide Level 23, Anion Gap 5, Blood Urea Nitrogen 22H, Creatinine 0.80, Estimat Glomerular Filtration Rate > 60, BUN/Creatinine Ratio 28, Glucose Level 142H, Calcium Level 7.5L, Corrected Calcium 8.6, Total Bilirubin 0.4, Aspartate Amino Transf (AST/SGOT) 50H, Alanine Aminotransferase (ALT/SGPT) 49, Alkaline Phosphatase 73, Total Protein 5.1L, Albumin 2.6L 01/21/21 05:27: Glucometer 144H 01/21/21 06:30: Potassium Level 4.9 01/21/21 11:14: Glucometer 243H Assessment/Plan Assessment/Plan Assessment and Plan Sepsis Respiratory distress r/t Bilateral lower lobe pneumonia UGIB Acute on chronic CHF - resolved Leukocytosis - WBC 12.2 Anemia - Hgb 9.4 Hyperkalemia - K 6.6, 4.9 on redraw Cholelithiasis - to be managed as outpt Afib w/ RVR HTN HLD Hx stroke w/ LLE paresis Pt on swing bed for IV Abx and PT/OT Continue Meropenem/Diflucan Hold K supplementation Continue Lasix 40mg per Cardiology D/C to home with home health PT with supportive care from family end of the week Supervisory-Addendum Brief Verification & Attestation Participated in pt care: history, MDM, physical Personally performed: exam, history, MDM, supervision of care Care discussed with: Medical Student Procedures: n/a Results interpretation: Verified all documentation I HAVE PERSONALLY INTERVIEWED, EXAMINED AND FORMULATED ASSESSMENT AND PLAN - SEE MY DOCUMENTATION OF A/P BELOW. I AGREE WITH MEDICAL STUDENT INTERVIEW, EXAM AND A/P DOCUMENTED. 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 - CHECK REPEAT CXR INTERMITTENTLY - PT NOW ON OXYGEN VIA NC AND SEEMS TO BE DOING WELL WITH THIS CHANGE. CONGESTIVE HEART FAILURE - IV LASIX, MONITOR OUTPUT - SERIAL WEIGHTS -CARDIOLOGY FOLLOWING PT AFIB WITH RVR - PT ON ORAL ANTICOAGULATION WITH ELIQUIS - RATE CONTROLLED WITH DILTIAZEM AND METOPROLOL HYPERTENSION - RESUMED HOME REGIMEN, MONITOR BLOOD PRESSURE SERIALLY. HYPERLIPIDEMIA - WILL RESTART OUTPATIENT LEUKOCYTOSIS - MONITOR LABS - IMPROVING ANEMIA - - SLIGHTLY IMPROVED. 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 EDEMA OF LOWER LEGS - ELEVATE LEGS, THIGH HIGH COMPRESSION SLEEVES ORDERED- PT HAS CALF SCD'S IN PLACE, SWELLING HAS IMPROVED SIGNIFICANTLY. SEIZURE DISORDER - CHRONIC ANTI-SEIZURE MEDICATION USE - RESUMED PHENYTOIN, SYMPTOMS STABLE UPPER GI BLEED - GI SYMPTOMS HAVE STABILIZED, HOWEVER DUE TO HIS PULMONARY DECLINE THE EGD WAS CANCELLED AND MAY BE DONE OUTPATIENT. [facility]ES - WILL BE ADDRESSED OUTPT. PT FEELING MUCH BETTER TODAY - HE WANTS TO DISCUSS THE POSSIBILITY OF HOME WITH HOME HEALTH INSTEAD OF PT GOING TO [facility] ON DISCHARGE HAD PREVIOUSLY BEEN DISCUSSED. DAVID BERRY MED STUDENT Jan 21, 2021 12:26 JG DUARTE MD Jan 23, 2021 11:07
--- NOTE | 2021-01-21 14:47 | Diagnostic Imaging Report ---
INDICATION: Lower respiratory infection. EXAMINATION: PA and lateral chest. FINDINGS: Right upper extremity PICC line tip projects over the SVC. There is pulmonary vascular congestion. There has been improvement of the left lower lobe infiltrate compared to the previous study. IMPRESSION: Improving left basilar infiltrate. Dictated by: Dictated on workstation # [id number]
--- NOTE | 2021-01-21 15:08 | Physical Therapy Daily Note ---
PT Daily Note-Current Subjective Pt sitting up in bed. Pt agrees to PT. Pain Location: No Pain Reported Mental Status Patient Orientation: Person, Place, Situation Attachments: Oxygen, IV Transfers SCALE: Activities may be completed with or without assistive devices. 4-Pvfzcyjcyr-alxiswk completes the activity by him/herself with no assistance from a helper. 5-Set-up or Clean-up Assistance-helper sets up or cleans up; patient completes activity. [place] assists only prior to or following the activity. 4-Supervision or Touching Assistance-helper provides verbal cues and/or touching/steadying and/or contact guard assistance as patient completes activity. Assistance may be provided throughout the activity or intermittently. 3-Partial/Moderate Assistance-helper does LESS THAN HALF the effort. [place] lifts, holds or supports trunk or limbs, but provides less than half the effort. 2-Substantial/Maximal Assistance-helper does MORE THAN HALF the effort. [place] l ifts or holds trunk or limbs and provides more than half the effort. 1-Osloeobrb-wvhqjh does ALL the effort. Patient does none of the effort to complete the activity. Or, the assistance of 2 or more helpers is required for the patient to complete the activity. If activity was not attempted, code reason: 7-Patient Refused. 9-Not Applicable-not attempted and the patient did not perform the activity before the current illness, exacerbation or injury. 10-Not Attempted due to Environmental Limitations-(lack of equipment, weather restraints, etc.). 88-Not Attempted due to Medical Conditions or Safety Concerns. Sit to Lying (QC): 3 Sit to Stand (QC): 3 Weight Bearing Full Weight Bearing Full Weight Bearing Gait Training Does the Patient Walk?: Yes Distance: 30' Walk 10 feet (QC): 3 Gait Assistive Device: FWW Treatments TF to standing then to recliner. Pt dons socks, KAFO & shoes. Pt TF to standing and amb. in hallway before returning to recliner. All needs met, call light in hand. Assessment Current Status: Good Progress Pt fatigues and has to rest before returning to room. PT Decal Transferrer Goals Decal Transferrer Goals PT Half-Way Goals Time Frame: Feb 07, 2021 Roll Left & Right (QC): 6 Sit to Lying (QC): 6 Lying-Sitting on Side/Bed(QC): 6 Sit to Stand (QC): 5 Chair/Kgn-qj-Nodmo Xfer(QC): 5 Toilet Transfer (QC): 5 Car Transfer (QC): 5 Does the Patient Walk: Yes Walk 10 feet (QC): 5 Walk 50ft with 2 Turns (QC): 5 Walk 150 ft (QC): 5 Walking 10ft on Uneven Surface: 5 1 Step (curb) (QC): 5 4 Steps (QC): 9 12 Steps (QC): 9 Picking up an Object (QC): 6 Does the Pt use WC or Scooter?: Yes Wheel 50 feet with 2 turns (QC: 5 Type: Motorized Wheel 150 feet: 5 Type: Motorized PT Plan Problem List Problem List: Activity Tolerance, Gait, Transfer Treatment/Plan Treatment Plan: Continue Plan of Care Treatment Plan: Bed Mobility, Education, Functional Activity Phuong, Functional Strength, Gait, Safety, Therapeutic Exercise, Transfers Treatment Duration: Feb 07, 2021 Frequency: 6 times per week Estimated Hrs Per Day: .25 hour per day (to .5) Patient and/or Family Agrees t: Yes Safety Risks/Education Patient Education: Gait Training, Transfer Techniques, Safety Issues Teaching Recipient: Patient Teaching Methods: Discussion Response to Teaching: Verbalize Understanding Time/GCodes Time In: 1345 Time Out: 1420 Total Billed Treatment Time: 35 Total Billed Treatment 1, FA (15m) & GT (20m) PAUL ODOM PTA Jan 21, 2021 15:08
[2021-01-21 16:00] VITALS: BP 157/75
[2021-01-21 20:42] VITALS: BP 157/72
[2021-01-21] MEDS: LORazepam INJ 2 MG/ML (ATIVAN) VIAL IVP PRN (20:50)
[2021-01-21] MEDS: dilTIAZem120 MG (CARDIZEM CD) CAP PO SCH (21:03)
[2021-01-22] MEDS: MEROPENEM 500 MG in WATER (STERILE) FOR INJECTION 10 ML IV SCH ×4 (02:13→22:02)
[2021-01-22] MEDS: NS IV 1000 ML 1,000 ML IV SCH (02:14)
[2021-01-22] MEDS: RT-ALBUTEROL/IPRATROPIUM 3 ML (DUONEB) VIAL INH SCH ×6 (02:19→21:56)
[2021-01-22] MEDS: inSUlin ASPART (NovoLOG) 1 UNIT/0.01 ML (CHARGE PER UNIT) SC SCH ×4 (05:59→20:43)
[2021-01-22 06:00] VITALS: BP 157/72
[2021-01-22] MEDS: CATHETER FLUSH 10 ML SYR IV SCH ×3 (06:14→20:46)
[2021-01-22] MEDS: RT-BUDESONIDE NEBS 0.5 MG/2ML (PULMICORT) AMP INH SCH ×2 (06:56→21:56)
--- NOTE | 2021-01-22 07:55 | Progress Note ---
Subjective Subjective Date Seen by Provider: Jan 22, 2021 Time Seen by Provider: 07:00 Pt seen and examined. He was laying in bed, NAD. Son at bedside. He states that he is feeling and breathing better. Denies chest pain, N/V, abd pain. SOB markedly improved since admission. Continuing to improve with PT/OT, L shoulder is feeling better. Review of Systems General: No Chills; Fatigue HEENT: No Head Aches, No Visual Changes Pulmonary: Dyspnea, Cough; No Pleuritic Chest Pain Cardiovascular: No: Chest Pain, Palpitations, Lt Headedness Gastrointestinal: No: Nausea, Vomiting, Abdominal Pain Genitourinary: No Dysuria; Frequency Musculoskeletal: shoulder pain (L shoulder) Neurological: Weakness (LUE/LLE), Numbness (LUE/LLE) Objective Exam Vital Signs Vital Signs - First Documented 01/20/21 01/20/21 01/20/21 01/20/21 01/20/21 01/21/21 10:20 12:00 12:57 17:35 18:35 06:00 Temp 36.5 Pulse 67 Resp 20 B/P (MAP) 129/63 (85) Pulse Ox 99 O2 Delivery Nasal Cannula O2 Flow Rate 2.00 FiO2 24 Capillary Refill : General Appearance: No Apparent Distress, Chronically ill, Obese HEENT: PERRL/EOMI, Normal ENT Inspection, Pharynx Normal Neck: Full Range of Motion, Normal Inspection, Non Tender, Supple Respiratory: Chest Non Tender, No Accessory Muscle Use, No Respiratory Distress, Rhonci (faint) Cardiovascular: Normal Peripheral Pulses, Irregularly Irregular, Other (mild- mod edema LLE, nonpitting) Gastrointestinal: Normal Bowel Sounds, Non Tender, Soft Rectal: Deferred Back: Normal Inspection, No CVA Tenderness, No Vertebral Tenderness Extremity: Normal Capillary Refill, No Calf Tenderness, No Pedal Edema, Other (erythema/dry skin to L anterior goodman) Neurologic/Psychiatric: Alert, Oriented x3, Normal Mood/Affect, Motor Weakness (LUE/LLE), Sensory Deficit (LUE/LLE) Skin: Warm/Dry, Erythema (L goodman) Lymphatic: No Adenopathy Results Lab Laboratory Tests 01/21/21 11:14: Glucometer 243H 01/21/21 16:29: Glucometer 160H 01/21/21 20:32: Glucometer 181H 01/22/21 05:50: Glucometer 141H Assessment/Plan Assessment/Plan Assessment and Plan Sepsis Respiratory distress r/t Bilateral lower lobe pneumonia UGIB Acute on chronic CHF - resolved Leukocytosis Anemia Hyperkalemia Cholelithiasis - to be managed as outpt Afib w/ RVR HTN HLD Hx stroke w/ LLE paresis Pt on swing bed for IV Abx and PT/OT Continue Meropenem/Diflucan Hold K supplementation Continue Lasix 40mg per Cardiology JUAN bates for LE swelling D/C to home with home health PT with supportive care from family end of the week Supervisory-Addendum Brief Verification & Attestation Participated in pt care: history, MDM, physical Personally performed: exam, history, MDM, supervision of care Care discussed with: Medical Student Procedures: n/a Results interpretation: Verified all documentation I HAVE PERSONALLY INTERVIEWED, EXAMINED AND FORMULATED ASSESSMENT AND PLAN - SEE MY DOCUMENTATION OF A/P BELOW. I AGREE WITH MEDICAL STUDENT INTERVIEW, EXAM AND A/P DOCUMENTED. 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 - CHECK REPEAT CXR INTERMITTENTLY - PT NOW ON OXYGEN VIA NC AND SEEMS TO BE DOING WELL WITH THIS CHANGE. CONGESTIVE HEART FAILURE - IV LASIX, MONITOR OUTPUT - SERIAL WEIGHTS -CARDIOLOGY FOLLOWING PT AFIB WITH RVR - PT ON ORAL ANTICOAGULATION WITH ELIQUIS - RATE CONTROLLED WITH DILTIAZEM AND METOPROLOL HYPERTENSION - RESUMED HOME REGIMEN, MONITOR BLOOD PRESSURE SERIALLY. HYPERLIPIDEMIA - WILL RESTART OUTPATIENT LEUKOCYTOSIS - MONITOR LABS - IMPROVING ANEMIA - - SLIGHTLY IMPROVED. 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 EDEMA OF LOWER LEGS - ELEVATE LEGS, THIGH HIGH COMPRESSION SOCKS ORDERED SINCE ROSAURA LIKES TO SIT AT THE BEDSIDE WITH HIS FEET DANGLING DOWN TO THE GROUND. SEIZURE DISORDER - CHRONIC ANTI-SEIZURE MEDICATION USE - RESUMED PHENYTOIN, SYMPTOMS STABLE UPPER GI BLEED - GI SYMPTOMS HAVE STABILIZED, HOWEVER DUE TO HIS PULMONARY DECLINE THE EGD WAS CANCELLED AND MAY BE DONE OUTPATIENT. GALLSTONES - WILL BE ADDRESSED OUTPT. PT FEELING MUCH BETTER TODAY - HE WANTS TO DISCUSS THE POSSIBILITY OF HOME WITH HOME HEALTH INSTEAD OF PT GOING TO [facility] ON DISCHARGE HAD PREVIOUSLY BEEN DISCUSSED. DAVID BERRY MED STUDENT Jan 22, 2021 07:55 JG DUARTE MD Jan 23, 2021 11:09
[2021-01-22] MEDS: APIXABAN 5 MG (ELIQUIS) TABLET PO SCH ×2 (08:27→20:43)
[2021-01-22] MEDS: guaiFENesin (MUCINEX) 600 MG TAB PO SCH ×2 (08:27→20:42)
[2021-01-22] MEDS: FUROSEMIDE 40 MG (LASIX) TAB PO SCH (08:27)
[2021-01-22] MEDS: cloNIDine 0.1 MG (CATAPRES) TAB PO SCH ×2 (08:27→20:43)
[2021-01-22] MEDS: PHENYTOIN 100 MG (DILANTIN) CAP PO SCH ×2 (08:28→20:43)
[2021-01-22] MEDS: CARVEDILOL 12.5 MG (COREG) TABLET PO SCH ×2 (08:28→16:55)
[2021-01-22] MEDS: PANTOPRAZOLE 40 MG (PROTONIX) TAB PO SCH ×2 (08:28→20:42)
[2021-01-22] MEDS: fluCOnazole (DIFLUCAN) 100 MG TAB PO SCH (08:28)
[2021-01-22] MEDS: TERAZOSIN 5 MG (HYTRIN) CAPSULE PO SCH ×2 (08:28→20:43)
[2021-01-22] MEDS: SPIRONOLACTONE 25 MG (ALDACTONE) TAB PO SCH (08:28)
--- NOTE | 2021-01-22 10:21 | Physical Therapy Daily Note ---
PT Daily Note-Current Subjective Patient agrees to PT. Mental Status Patient Orientation: Normal For Age Attachments: Oxygen Transfers SCALE: Activities may be completed with or without assistive devices. 1-Xebvhgghjd-zfltgrl completes the activity by him/herself with no assistance from a helper. 5-Set-up or Clean-up Assistance-helper sets up or cleans up; patient completes activity. [place] assists only prior to or following the activity. 4-Supervision or Touching Assistance-helper provides verbal cues and/or touching/steadying and/or contact guard assistance as patient completes activity. Assistance may be provided throughout the activity or intermittently. 3-Partial/Moderate Assistance-helper does LESS THAN HALF the effort. [place] lifts, holds or supports trunk or limbs, but provides less than half the effort. 2-Substantial/Maximal Assistance-helper does MORE THAN HALF the effort. [place] lifts or holds trunk or limbs and provides more than half the effort. 1-Fbongtuwf-gdvwlx does ALL the effort. Patient does none of the effort to complete the activity. Or, the assistance of 2 or more helpers is required for the patient to complete the activity. If activity was not attempted, code reason: 7-Patient Refused. 9-Not Applicable-not attempted and the patient did not perform the activity before the current illness, exacerbation or injury. 10-Not Attempted due to Environmental Limitations-(lack of equipment, weather restraints, etc.). 88-Not Attempted due to Medical Conditions or Safety Concerns. Roll Left & Right (QC): 6 Sit to Lying (QC): 6 Lying to Sitting/Side of Bed(Q: 6 Sit to Stand (QC): 4 Chair/Eze-qw-Ncjzb Xfer(QC): 4 Toilet Transfer (QC): 4 Car Transfer (QC): 4 SBA to CGA for safety (son assist)/PT donned JUAN hose bilaterally and assisted with KAFO/Son assist with dressing Weight Bearing Full Weight Bearing Full Weight Bearing Gait Training Does the Patient Walk?: Yes Distance: 100' Walk 10 feet (QC): 4 Walk 50 ft with 2 Turns(QC): 4 Walk 150 ft (QC): 88 Walking 10ft/uneven surface-QC: 4 Gait Persons Needed: 1 Gait Assistive Device: FWW improved gait sequence with KAFO left LE in place Wheelchair Training Does the Pt Use a Wheelchair?: Yes Wheel 50 ft with 2 turns (QC): 7 Wheel 150 ft (QC): 7 Type of Wheelchair: Motorized Stair Training Stair Training: Handrails/: uses walker #of Steps: 1 1 Step (curb) (QC): 4 4 Steps (QC): 9 12 Steps (QC): 9 Stairs: Pattern: Step to Balance Picking up an Object (QC): 6 (seated position) Treatments Patient performed dressing and placing KAFO with set up and SBA with son assist. PT did zeke MARTINEZ venkatomar (thigh high) with instruction to son. Assessment Per physician, patient will dismiss to home tomorrow with home health and family. Goals addressed and some attained with home health PT to continue. Patient continues to requires some assist with sit to stand from low chair and has diminished endurance with functional activity. Patient is independent with bed mobility and requires SBA to [facility] for ambulation with FWW short distances. PT Cottrell Operator Goals [facility] Goals PT [facility] Goals Time Frame: Feb 07, 2021 Roll Left & Right (QC): 6 (met 01/22/21) Sit to Lying (QC): 6 (met 01/22/21) Lying-Sitting on Side/Bed(QC): 6 (met 01/22/21) Sit to Stand (QC): 5 Chair/Prs-xa-Kqvys Xfer(QC): 5 Toilet Transfer (QC): 5 Car Transfer (QC): 5 Does the Patient Walk: Yes Walk 10 feet (QC): 5 Walk 50ft with 2 Turns (QC): 5 Walk 150 ft (QC): 5 Walking 10ft on Uneven Surface: 5 1 Step (curb) (QC): 5 4 Steps (QC): 9 12 Steps (QC): 9 Picking up an Object (QC): 6 Does the Pt use WC or Scooter?: Yes Wheel 50 feet with 2 turns (QC: 5 Type: Motorized Wheel 150 feet: 5 Type: Motorized PT Plan Treatment/Plan Treatment Plan: Continue Plan of Care Treatment Plan: Bed Mobility, Education, Functional Activity Phuong, Functional Strength, Gait, Safety, Therapeutic Exercise, Transfers Treatment Duration: Feb 07, 2021 Frequency: 6 times per week Estimated Hrs Per Day: .25 hour per day (to .5) Patient and/or Family Agrees t: Yes Time/GCodes Time In: 845 Time Out: 919 Total Billed Treatment Time: 34 Total Billed Treatment 1 visit FA 20 min GT 14 min YOLY GUPTA PT Jan 22, 2021 10:21
[2021-01-22] MEDS ORDERED: BISACODYL 10 MG SUPP (DULCOLAX) PR ONE (12:15)
[2021-01-22] MEDS ORDERED: polyethylene glycoL POWDER 17 GM (MIRALAX) PACK PO PRN (12:15)
[2021-01-22 13:01] VITALS: BP 157/72
--- NOTE | 2021-01-22 14:00 | Occupational Ther Daily Note ---
OT Current Status-Daily Note Subjective Pt alert, lying in bed. Pt agrees to therapy. No c/o pain. Mental Status/Objective Patient Orientation: Person, Place, Time, Situation Attachments: IV, Telemetry ADL-Treatment Pt agrees to sponge bath. Requests to complete bed bath, encouraged to sit on EOB to complete. Pt agreed to sit EOB. Pt able to bathe upper body, bushra area and buttocks sitting on EOB by self after set up, leaning side to side to cleanse bushra area/buttocks. Pt declined to complete B LE's due to JUAN hose just being put on. Pt using B UE to complete task due to increased L UE movement and decreased pain. Min A for supine <--> sitting EOB, assist with B LE's. Assist x2 to scoot pt up in bed. After session, pt lying in bed with call light/phone in reach. Nrsg in room. All needs met in room. Therapy Code Descriptions/Definitions Functional [place] Measure: 0=Not Assessed/NA 4=Minimal Assistance 1=Total Assistance 5=Supervision or Setup 2=Maximal Assistance 6=Modified [place] 3=Moderate Assistance 7=Complete IndependenceSCALE: Activities may be completed with or without assistive devices. 2-Jefyfsvalb-opbyhtr completes the activity by him/herself with no assistance from a helper. 5-Set-up or Clean-up Assistance-helper sets up or cleans up; patient completes activity. [place] assists only prior to or following the activity. 4-Supervision or Touching Assistance-helper provides verbal cues and/or sophie talya/steadying and/or contact guard assistance as patient completes activity. Assistance may be provided throughout the activity or intermittently. 3-Partial/Moderate Assistance-helper does LESS THAN HALF the effort. [place] lifts, holds or supports trunk or limbs, but provides less than half the effort. 2-Substantial/Maximal Assistance-helper does MORE THAN HALF the effort. [place] lifts or holds trunk or limbs and provides more than half the effort. 2-Nvkujbwgt-unqchh does ALL the effort. Patient does none of the effort to complete the activity. Or, the assistance of 2 or more helpers is required for the patient to complete the activity. If activity was not attempted, code reason: 7-Patient Refused. 9-Not Applicable-not attempted and the patient did not perform the activity before the current illness, exacerbation or injury. 10-Not Attempted due to Environmental Limitations-(lack of equipment, weather restraints, etc.). 88-Not Attempted due to Medical Conditions or Safety Concerns. Eating (QC): 6 (Using clinical judgement, pt able to complete independently.) Oral Hygiene (QC): 6 (Using clinical judgement, pt able to complete sitting at sink independently.) Shower/Bathe Self (QC): 5 Upper Body Dressing (QC): 88 Lower Body Dressing (QC): 7 On/Off Footwear: 7 Toileting Hygiene (QC): 7 Toilet Transfer (QC): 7 OT Short Term Goals Short Term Goals Time Frame: Jan 27, 2021 Eatin Oral hygiene: 4 Toileting hygiene: 3 Shower/bathe self: 3 Upper body dressin Lower body dressin Putting on/taking off footwear: 4 OT Collar Stay Fuser Tender Goals Collar Stay Fuser Tender Goals Time Frame: Feb 03, 2021 Eating (QC): 6 Oral Hygiene (QC): 5 Toileting Hygiene (QC): 4 Shower/Bathe Self (QC): 4 Upper Body Dressing (QC): 5 Lower Body Dressing (QC): 4 On/Off Footwear (QC): 4 Additional Goals: 1-Demonstrate ADL Tasks, 2-Verbalize Understanding, 3- ImproveStrength/Phuong 1=Demonstrate adherence to instructed precautions during ADL tasks. 2=Patient will verbalize/demonstrate understanding of assistive devices/modifications for ADL. 3=Patient will improve strength/tolerance for activity to enable patient to perform ADL's. OT Education/Plan Problem List/Assessment Assessment: Decreased Activ Tolerance, Decreased UE Strength, Impaired Funct Balance, Impaired Self-Care Skills, Restricted Funct UE ROM Discharge Recommendations Plan/Recommendations: Continue POC Treatment Plan/Plan of Care Patient would benefit from OT for education, treatment and training to promote independence in ADL's, mobility, safety and/or upper extremity function for ADL's. Plan of Care: ADL Retraining, Functional Mobility, UE Funct Exercise/Act, UE Neuromus Re-Ed/Coord Treatment Duration: Feb 03, 2021 Frequency: 5 times per week Estimated Hrs Per Day: .5 hour per day Agreement: Yes Rehab Potential: Fair Time/GCodes Start Time: 12:45 Stop Time: 13:17 Total Time Billed (hr/min): 32 Billed Treatment Time 1 visit-ADL 2 (32 min) DC TOLBERT Jan 22, 2021 14:00
--- NOTE | 2021-01-22 17:15 | Progress Note - Cardiology ---
Cardiology SOAP Progress Note Subjective: Some gen malaise, but improving No shortness of breath at rest No cp or palp or syncope No n/v/d Objective: I&O/Vital Signs 01/22/21 01/22/21 01/22/21 01/22/21 06:00 06:42 06:56 06:58 Temp 36.5 Pulse 82 68 Resp 20 B/P (MAP) 157/72 (100) Pulse Ox 96 95 95 O2 Delivery Nasal Cannula Nasal Cannula Nasal Cannula O2 Flow Rate 1.00 1.00 1.00 01/22/21 01/22/21 01/22/21 01/22/21 08:00 10:37 10:39 12:20 Pulse 90 Pulse Ox 93 93 85 O2 Delivery Nasal Cannula Room Air O2 Flow Rate 2.00 1.00 01/22/21 01/22/21 13:01 14:42 Temp 36.5 Pulse 76 Pulse Ox 97 92 O2 Delivery Room Air FiO2 21 01/22/21 00:00 Intake Total 1410 ml Output Total 1175 ml Balance 235 ml Weight (Pounds): 215 Weight (Ounces): 0.0 Weight (Calculated Kilograms): 97.489967 Constitutional: AAO x 3, well-developed, well-nourished Respiratory: No accessory muscle use; other (fair to good, bilateral air entry) Cardiovascular: regular rate-rhythm, S1 and S2, systolic murmur (soft ISATU at card base) Gastrointestional: No tender; soft; No guarding, No rebound; audible bowel sounds Extremities: No clubbing, No cyanosis, No significant edema Neurologic/Psychiatric: oriented x 3, other (moves all limbs equally) Skin: warm/dry; No cool, No rash on exposed areas, No ulcerations on exposed areas Results/Procedures: Labs Laboratory Tests 01/21/21 20:32: Glucometer 181H 01/22/21 05:50: Glucometer 141H 01/22/21 11:05: Glucometer 217H 01/22/21 15:31: Glucometer 139H Laboratory Tests 01/21/21 05:15 01/21/21 06:30 A/P: Assessment: Shortness of breath (likely multifactorial) - acute diastolic CHF, resolved - pneumonia and sepsis, improved/resolved A Fib with RVR, diagnosed 01-14-21 Echo on 12/17/20: LVEF 55-65%, mild to mod TR and MR, PASP 45-50 mmHg Questionable GI bleed during this hospitalization, managed by the primary care team. Currently on apixaban and tolerating H/O CVA in 1974 - details unknown HTN PVD - H/O L fem-pop by Dr. Gould in Aug 2002 at [facility], [place], [place] - February 2006 - L fem-pop repair by Dr. Reeder at [facility] in [place], [place] - H/O iliac stenting in January [address] 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 Reeder at [facility] in [place], [place] HLD DM 2 - insulin CKD GERD Hiatal hernia H/O skin cancer removal Plan: * Continue current regimen * Monitor labs HARRY BARLOW MD FACP FAC CCDS Jan 22, 2021 17:15
[2021-01-22 17:22] VITALS: BP 156/68
[2021-01-22] MEDS: dilTIAZem120 MG (CARDIZEM CD) CAP PO SCH (20:43)
[2021-01-22] MEDS: LORazepam INJ 2 MG/ML (ATIVAN) VIAL IVP PRN (22:13)
[2021-01-23] MEDS: RT-ALBUTEROL/IPRATROPIUM 3 ML (DUONEB) VIAL INH SCH ×2 (02:08→07:00)
[2021-01-23] MEDS: MEROPENEM 500 MG in WATER (STERILE) FOR INJECTION 10 ML IV SCH ×2 (02:50→07:55)
[2021-01-23] MEDS: CATHETER FLUSH 10 ML SYR IV SCH (02:51)
[2021-01-23 06:19] LABS: BUN/CREATININE RATIO 24; CALCIUM 8.6 MG/DL (8.5-10.1); CARBON DIOXIDE 23 MMOL/L (21-32); CHLORIDE 105 MMOL/L (98-107); CREATININE SERUM 0.76 MG/DL (0.60-1.30); GFR ESTIMATED > 60; GLUCOSE 163 MG/DL (70-105); POTASSIUM 4.2 MMOL/L (3.6-5.0); SODIUM 137 MMOL/L (135-145)
[2021-01-23] MEDS: inSUlin ASPART (NovoLOG) 1 UNIT/0.01 ML (CHARGE PER UNIT) SC SCH (06:26)
[2021-01-23 06:38] VITALS: BP 145/77
[2021-01-23] MEDS: RT-BUDESONIDE NEBS 0.5 MG/2ML (PULMICORT) AMP INH SCH (07:00)
--- NOTE | 2021-01-23 07:47 | Therapy Team Discharge Summary ---
Therapy Discharge Summary Discharge Recommendations Date of Discharge Physical Therapy Goals have been addressed but not all attained. Patient has made great progress with gross motor skills and endurance and will continue to benefit from home health therapy to ensure safe return to home environment. Patient performs independent bed mobility, however, continues, due to safety concerns, to require SBA to CGA with sit to stand transfers and ambulation. Patient to dismiss to home with family and home health. Occupational Therapy Decreased Activ Tolerance, Decreased UE Strength, Impaired Funct Balance, Impaired Self-Care Skills, Restricted Funct UE ROM PT Wood Furniture Assembler Goals Usp Goals PT Wood Furniture Assembler Goals Time Frame: Feb 07, 2021 Roll Left to Right (QC): 6 (met 01/22/21) Sit to Lying (QC): 6 (met 01/22/21) Lying-Sitting on Side/Bed(QC): 6 (met 01/22/21) Sit to Stand (QC): 5 Chair/Zfa-vx-Fytwb Xfer(QC): 5 Car Transfer (QC): 5 Does the Patient Walk: Yes Walk 10 feet (QC): 5 Walk 10ft-Uneven Surface(QC): 5 Walk 50ft with 2 Turns (QC): 5 Walk 150 ft (QC): 5 Does the Pt use WC or Scooter?: Yes Wheel 50 feet with 2 turns (QC: 5 1 Step (curb) (QC): 5 4 Steps (QC): 9 12 Steps (QC): 9 Picking up an Object (QC): 6 OT Wood Furniture Assembler Goals Usp Goals Time Frame: Feb 03, 2021 Eating (QC): 6 Oral Hygiene (QC): 5 Shower/Bathe Self (QC): 4 Upper Body Dressing (QC): 5 Lower Body Dressing (QC): 4 On/Off Footwear (QC): 4 Toileting Hygiene (QC): 4 Toilet/Commode Transfer (QC): 5 Additional Goals: 1-Demonstrate ADL Tasks, 2-Verbalize Understanding, 3- ImproveStrength/Phuong 1=Demonstrate adherence to instructed precautions during ADL tasks. 2=Patient will verbalize/demonstrate understanding of assistive devices/modifications for ADL. 3=Patient will improve strength/tolerance for activity to enable patient to perform ADL's. YOLY GUPTA PT Jan 23, 2021 07:47
--- NOTE | 2021-01-23 07:50 | Progress Note ---
Subjective Subjective Date Seen by Provider: Jan 23, 2021 Time Seen by Provider: 07:10 Pt seen and examined. He was laying in bed awake, NAD. Son at bedside. He states that he is feeling/breathing better. Doing well off of O2. No complaints of chest pain, N/V. Eager for discharge today. Had questions about whether he needs O2 all the time at home. Would like to f/u with Dr. Aguilar as outpt. No other complaints/concerns. Review of Systems General: No Chills; Fatigue HEENT: No Head Aches, No Visual Changes Pulmonary: Dyspnea, Cough; No Pleuritic Chest Pain Cardiovascular: No: Chest Pain, Palpitations, Lt Headedness Gastrointestinal: No: Nausea, Vomiting, Abdominal Pain Genitourinary: No Dysuria; Frequency Musculoskeletal: shoulder pain (L shoulder) Neurological: Weakness (LUE/LLE), Numbness (LUE/LLE) Objective Exam Vital Signs Vital Signs - First Documented 01/20/21 01/20/21 01/20/21 01/20/21 01/20/21 01/21/21 10:20 12:00 12:57 17:35 18:35 06:00 Temp 36.5 Pulse 67 Resp 20 B/P (MAP) 129/63 (85) Pulse Ox 99 O2 Delivery Nasal Cannula O2 Flow Rate 2.00 FiO2 24 Capillary Refill : General Appearance: No Apparent Distress, Chronically ill, Obese HEENT: PERRL/EOMI, Normal ENT Inspection, Pharynx Normal Neck: Full Range of Motion, Normal Inspection, Non Tender, Supple Respiratory: Chest Non Tender, Lungs Clear, No Accessory Muscle Use (occasional abd breathing), No Respiratory Distress, Decreased Breath Sounds Cardiovascular: Normal Peripheral Pulses, Systolic Murmur, Irregularly Irregular, Other (mild edema LLE, nonpitting) Gastrointestinal: Normal Bowel Sounds, Non Tender, Soft Rectal: Deferred Back: Normal Inspection, No CVA Tenderness, No Vertebral Tenderness Extremity: Normal Capillary Refill, No Calf Tenderness, Pedal Edema (LLE), Other (erythema/dry skin to L anterior goodman) Neurologic/Psychiatric: Alert, Oriented x3, Normal Mood/Affect, Motor Weakness (LUE/LLE), Sensory Deficit (LUE/LLE) Skin: Warm/Dry, Erythema (L goodman) Lymphatic: No Adenopathy Results Lab Laboratory Tests 01/22/21 11:05: Glucometer 217H 01/22/21 15:31: Glucometer 139H 01/22/21 20:26: Glucometer 187H 01/23/21 05:40: Sodium Level 137, Potassium Level 4.2, Chloride Level 105, Carbon Dioxide Level 23, Anion Gap 9, Blood Urea Nitrogen 18, Creatinine 0.76, Estimat Glomerular Filtration Rate > 60, BUN/Creatinine Ratio 24, Glucose Level 163H, Calcium Level 8.6 Assessment/Plan Assessment/Plan Assessment and Plan Sepsis Respiratory distress r/t Bilateral lower lobe pneumonia UGIB Acute on chronic CHF - resolved Leukocytosis Anemia Hyperkalemia Cholelithiasis - to be managed as outpt Afib w/ RVR HTN HLD Hx stroke w/ LLE paresis Pt on swing bed for IV Abx and PT/OT Continue Meropenem/Diflucan Hold K supplementation Continue Lasix 40mg per Cardiology JUAN hose for LE swelling RT assessed need for O2: 93% on RA, recommends 2-4L NC w/ exercise D/C to home today with home health PT with supportive care from family Supervisory-Addendum Brief Verification & Attestation Participated in pt care: history, MDM, physical Personally performed: exam, history, MDM, supervision of care Care discussed with: Medical Student Procedures: n/a Results interpretation: Verified all documentation SEE MY DC SUMMARY I AGREE WITH STUDENT NOTE DOCUMENTED. DAVID BERRY MED STUDENT Jan 23, 2021 07:50 JG AGUILAR MD Jan 23, 2021 11:09
[2021-01-23 07:51] VITALS: BP 142/68
[2021-01-23] MEDS: CARVEDILOL 12.5 MG (COREG) TABLET PO SCH (07:55)
[2021-01-23] MEDS ORDERED: FURO-125 PO (09:12)
[2021-01-23] MEDS ORDERED: IPRA3AMP31 INH (09:12)
[2021-01-23] MEDS ORDERED: DILT-27 PO (09:12)
[2021-01-23] MEDS ORDERED: FLUC100T6 PO (09:12)
[2021-01-23] MEDS ORDERED: PANT40TA52 PO (09:12)
[2021-01-23] MEDS ORDERED: RIVA20TA PO ×3 (09:12→16:30)
[2021-01-23] MEDS ORDERED: CLN.1T PO (09:12)
[2021-01-23] MEDS ORDERED: BUDE0.5A INH (09:12)
[2021-01-23] MEDS ORDERED: GUAI600T43 PO (09:12)
[2021-01-23] MEDS ORDERED: SPIR25TA5 PO (09:12)
[2021-01-23] MEDS ORDERED: POLY17PO54 PO (09:12)
--- NOTE | 2021-01-23 09:16 | D/C HH Face to Face Order ---
D/C Face to Face Orders Reconcile Patient Problems Problems Reviewed?: Yes Instructions for Patient Via [employer], Patient Instructions/FollowUp: 1 wk [facility] 2 wks cardiology clinic Physician to follow Patient: janet Discharge Diet for Home: Regular Diet Patient Problems: pneumonia copd afib weakness hx stroke with left sided paresis Goals for Patient: improved strength, increased independence Patient Data-Allergies,Ht & Wt Patient Allergies: Coded Allergies: NKANo Known Allergies (Verified Allergy, Unknown, 05/25/08) Height (Feet): 6 Height (Inches): 0.00 Weight (Pounds): 215 Weight (Ounces): 0.0 Home Health Need/Face to Face Date of Face to Face: Jan 23, 2021 Clinical Findings: Muscle weakness, Shortness of breath, Unsteady gait I have seen Pt [id number]: Yes Discharged To: Home Diagnosis/Conditions: pneumonia copd afib weakness hx stroke with left sided paresis Patient is Homebound due to: Anastasia fall risk due to instabilty, Muscle weakness, Shortness of breath/distress Homebound Status Due to the above stated illness, injury or surgical procedure (medical condition or diagnosis) and associated clinical findings, the patient is homebound because of his/her inability to leave home except with aid of a supportive device and/or person AND leaving the home requires a considerable and taxing effort or is medically contraindicated. Pt req the following assistanc: Walker (or single crutch) Home Health Nursing Orders Home Health Services Order: Nursing Services, Safety Analyst-Evaluate & Treat, Physical Therapy-Evaluate & Treat Home Health Lab Orders Labs (specify type/freq): cbc, cmp in 1 wk from dx Therapy Orders Therapy Orders: Physical Therapy, PT to assess for OT Therapy Specific Orders: Teach enviro modifications/safety, Increase strength/endurance oxygen at 2-4 liters NC while ambulating, and 2 -3 liters at hs Certify Stmt I certify that this patient is under my care and that I, a nurse practitioner or a physician; a preschool assistant principal working with me, had a face to face encounter that - meets the physician face to face encounter requirements with this patient as dated. JG DUARTE MD Jan 23, 2021 09:16
[2021-01-23] MEDS: SPIRONOLACTONE 25 MG (ALDACTONE) TAB PO SCH (09:17)
[2021-01-23] MEDS: guaiFENesin (MUCINEX) 600 MG TAB PO SCH (09:17)
[2021-01-23] MEDS: cloNIDine 0.1 MG (CATAPRES) TAB PO SCH (09:18)
[2021-01-23] MEDS: APIXABAN 5 MG (ELIQUIS) TABLET PO SCH (09:18)
[2021-01-23] MEDS: FUROSEMIDE 40 MG (LASIX) TAB PO SCH (09:18)
[2021-01-23] MEDS: PANTOPRAZOLE 40 MG (PROTONIX) TAB PO SCH (09:18)
[2021-01-23] MEDS: fluCOnazole (DIFLUCAN) 100 MG TAB PO SCH (09:18)
[2021-01-23] MEDS: TERAZOSIN 5 MG (HYTRIN) CAPSULE PO SCH (09:18)
[2021-01-23] MEDS: PHENYTOIN 100 MG (DILANTIN) CAP PO SCH (09:18)
--- NOTE | 2021-01-23 09:23 | Discharge Summary ---
Diagnosis/Chief Complaint Date of Admission Jan 20, 2021 at 09:29 Date of Discharge Discharge Date: Jan 23, 2021 Discharge Time: 1000 Admission Diagnosis Admission Diagnosis RESPIRATORY FAILURE SEPSIS PNEUMONIA CONGESTIVE HEART FAILURE ATRIAL FIBRILLATION WITH RVR HYPERTENSION HYPERLIPIDEMIA LACTIC ACIDOSIS LEUKOCYTOSIS ANEMIA HX OF STROKE WITH CHRONIC PARESIS LEFT UPPER ARM AND LOWER LEG EDEMA OF LOWER LEGS SEIZURE DISORDER - CHRONIC ANTI-SEIZURE MEDICATION USE Discharge Diagnosis RESPIRATORY FAILURE SEPSIS PNEUMONIA CONGESTIVE HEART FAILURE ATRIAL FIBRILLATION WITH RVR HYPERTENSION HYPERLIPIDEMIA LACTIC ACIDOSIS LEUKOCYTOSIS ANEMIA HX OF STROKE WITH CHRONIC PARESIS LEFT UPPER ARM AND LOWER LEG EDEMA OF LOWER LEGS SEIZURE DISORDER - CHRONIC ANTI-SEIZURE MEDICATION USE Reason Hospital Visit PT IS A 80 Y/O MALE WHO IS KNOWN TO ME FROM CLINIC. HE HAD PRESENTED TO THE HOSPITAL FOR RECURRENT DYSPNEA/PNEUMONIA - WAS HOSPITALIZED IN DEC AND DID FAIRLY WELL INITIALLY AT HOME, THEN RETURNED TO THE HOSPITAL A MONTH LATER WITH SEVERE RESPIRATORY DISTRESS. HE WAS ADMITTED TO THE ICU WITH RESPIRATORY FAILURE AND SLOWLY SHOWED IMPROVEMENT, WAS TRANSFERRED TO CARDIAC STEPDOWN, THEN ON TUESDAY OF THIS PAST WEEK WE ADJUSTED HIS MEDICATIONS AND ADDED AN ANTIFUNGAL. ROSAURA NEEDED CONTINUED IV MEROPENEM AND PHYSICAL AND OCCUPATIONAL THERAPY AND WAS THEREFORE TRANSFERRED TO 4TH FLOOR FOR SWING BED FOR IV ANTIBIOTICS AND THERAPY. Discharge Summary Consultations CARDIOLOGY Discharge Physical Examination Allergies: Coded Allergies: NKANo Known Allergies (Verified Allergy, Unknown, 05/25/08) Vitals & I&Os Vital Signs Date Time Temp Pulse Resp B/P (MAP) Pulse Ox O2 Delivery O2 Flow Rate FiO2 01/23/21 07:51 36.6 82 24 142/68 (92) 96 Room Air 01/22/21 13:01 21 01/22/21 10:39 1.00 General Appearance: Alert, Oriented X3, Cooperative, No Acute Distress HEENT: Atraumatic, PERRLA, EOMI, Mucous Memb Moist/[place] Respiratory: Clear to Auscultation, Normal Air Movement Cardiovascular: Regular Rate, Other (III/ ISATU) Abdominal: Normal Bowel Sounds, Soft, No Tenderness Extremities: No Cyanosis, Other (GIOVANNI COLOR TO BILATERAL LOWER LEGS, WITH WRINKLES IN SKIN FROM RECENT SEVERE EDEMA, MINIMAL/TRACE EDEMA BILATERAL LOWER LEGS TODAY.) Skin: No Rashes Neuro: Cranial Nerves 3-12 NL, Other (LEFT ARM AND LEG WITH MINIMAL MOVEMENT) Psych/Mental Status: Mental Status NL, Mood NL Hospital Course Was the Problem List Reviewed?: Yes RESPIRATORY FAILURE SEPSIS PNEUMONIA CONGESTIVE HEART FAILURE ATRIAL FIBRILLATION WITH RVR HYPERTENSION HYPERLIPIDEMIA LACTIC ACIDOSIS LEUKOCYTOSIS ANEMIA HX OF STROKE WITH CHRONIC PARESIS LEFT UPPER ARM AND LOWER LEG EDEMA OF LOWER LEGS SEIZURE DISORDER - CHRONIC ANTI-SEIZURE MEDICATION USE SEPSIS WITH PNEUMONIA - PT HAS FINISHED ZOSYN - HE HAS HAD AN INCREASE IN HIS WHITE COUNT AND HE WAS CHANGED TO MEROPENEM AND ADDED ANTIFUNGAL THERAPY WITH DIFLUCAN. OVER THE ENSUING 5 DAYS AFTER ANTIBIOTIC AND ANTIFUNGAL THERAPY - ROSAURA HAS HAD A TREMENDOUS TURN AROUND WITH ALMOST COMPLETE RESOLUTION OF SYMPTOMS - - HE QUALIFIED FOR OXYGEN WITH EXERTION AT 2-4 LITERS NC, BUT AT REST HE IS SHOWING OXYGEN SATS IN THE UPPER 90'S ON ROOM AIR. - HE WILL CONTINUE TO NEED OXYGEN AT HS WELL. CONGESTIVE HEART FAILURE - ORAL LASIX AT 20MG DAILY - SERIAL WEIGHTS -CARDIOLOGY FOLLOWING PT OUTPT. AFIB WITH RVR - PT ON ORAL ANTICOAGULATION WITH ELIQUIS IN HOSPITAL, HOWEVER DUE TO EXTREME COST OF MEDICATION - HE WAS CHANGED TO XARELTO 20MG DAILY STARTING TOMORROW. - RATE CONTROLLED WITH DILTIAZEM AND COREG HYPERTENSION - RESUMED HOME REGIMEN, MONITOR BLOOD PRESSURE SERIALLY. HYPERLIPIDEMIA - WILL RESTART OUTPATIENT LEUKOCYTOSIS - MONITOR LABS - IMPROVING ANEMIA - - SLIGHTLY IMPROVED. 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 EDEMA OF LOWER LEGS - ELEVATE LEGS, THIGH HIGH COMPRESSION SLEEVES ORDERED- PT HAS CALF SCD'S IN PLACE, SWELLING HAS IMPROVED SIGNIFICANTLY. SEIZURE DISORDER - CHRONIC ANTI-SEIZURE MEDICATION USE - RESUMED PHENYTOIN, SYMPTOMS STABLE UPPER GI BLEED - GI SYMPTOMS HAVE STABILIZED, HOWEVER DUE TO HIS PULMONARY DECLINE THE EGD WAS CANCELLED AND MAY BE DONE OUTPATIENT. GALLSTONES - WILL BE ADDRESSED OUTPT. HE WILL BE DISCHARGED TO HOME WITH HOME HEALTH FOLLOW UP IN THE OFFICE IN A WEEK.. Pending Labs Laboratory Tests 01/23/21 05:40: Sodium Level 137, Potassium Level 4.2, Chloride Level 105, Carbon Dioxide Level 23, Anion Gap 9, Blood Urea Nitrogen 18, Creatinine 0.76, Estimat Glomerular Braydon tration Rate > 60, BUN/Creatinine Ratio 24, Glucose Level 163, Calcium Level 8.6 Discharge Condition at discharge IMPROVED Instructions to patient/family Please see electronic discharge instructions given to patient. Discharge Medications Reviewed and agree with Discharge Medication list on patient's Discharge Instruction sheet Medication List: Active Scripts Active Xarelto (Rivaroxaban) 20 Mg Tablet 20 Mg PO DAILY Pantoprazole Sodium 40 Mg Tablet.dr 40 Mg PO BID 1 pill twice/day x 2 weeks then daily thereafter Budesonide 0.5 Mg/2 Ml Ampul.neb 0.5 Mg INH RTBID Iprat-Albut 0.5-3(2.5) mg/3 ml (Ipratropium/Albuterol Sulfate) 3 Ml Ampul.neb 3 Ml INH TID Lasix (Furosemide) 20 Mg Tablet 20 Mg PO DAILY Polyethylene Glycol 3350 17 Gm Powd.pack 17 Gm PO BID PRN Mucinex (Guaifenesin) 600 Mg Tab.er.12h 600 Mg PO BID Spironolactone 25 Mg Tablet 25 Mg PO DAILY Diltiazem 24Hr ER (Diltiazem HCl) 120 Mg Cap.er.24h 120 Mg PO DAILY@2100 Clonidine HCl 0.1 Mg Tablet 0.1 Mg PO BID Fluconazole 100 Mg Tablet 100 Mg PO DAILY Reported Aspirin EC (Aspirin) 81 Mg Tablet.dr 81 Mg PO DAILY Novolin 70-30 100 Unit/ml Vial (Insulin NPH Hum/Reg Insulin Hm) 100 Unit/1 Ml Vial 30 Unit SQ DAILY Novolin N (Insulin NPH Human Isophane) 100 Unit/1 Ml Vial 30 Unit SQ 1700 W/MEAL Carvedilol 25 Mg Tablet 25 Mg PO BID Diltiazem ER (Diltiazem HCl) 360 Mg Capsule.er 360 Mg PO DAILY Levothyroxine Sodium 25 Mcg Tablet 25 Mcg PO DAILY Tramadol HCl 50 Mg Tablet 50-100 Mg PO Q6H PRN Terazosin HCl 5 Mg Capsule 5 Mg PO BID Phenytoin Sodium Extended 100 Mg Capsule 200 Mg PO HS TAKES 2 (100MG) CAPS Phenytoin Sodium Extended 100 Mg Capsule 100 Mg PO DAILY Ventolin Hfa (Albuterol Sulfate) 18 Gm Hfa.aer.ad 2 Puff INH Q6H PRN JG DUARTE MD Jan 23, 2021 09:23
--- NOTE | 2021-01-23 09:38 | Therapy Team Discharge Summary ---
Therapy Discharge Summary Discharge Recommendations Date of Discharge 01-23-21 Therapy D/C Recommendations: Home w/ Family Support, Occupational Therapy Home Care, Scheduled Assistance Occupational Therapy Pt. seen briefly for Occupational therapy to increase overall strength and independence with daily tasks. At discharge, pt. able to meet oral care, feeding, and bathing goals. Pt. declines dressing tasks at this time with OT. OT assessed and facilitated treatment for left shoulder tightness and pain. Treatment consisted of gentle PROM and stretch to tolerated level. Pt. would benefit from continued OT at home setting to continue working on left shoulder, as well as functional independence with ADL skills. Decreased Activ Tolerance, Decreased UE Strength, Impaired Funct Balance, Impaired I ADL's, Impaired Self-Care Skills, Restricted Funct UE ROM PT Online Community Manager Goals [facility] Goals PT Online Community Manager Goals Time Frame: Feb 07, 2021 Roll Left to Right (QC): 6 (met 01/22/21) Sit to Lying (QC): 6 (met 01/22/21) Lying-Sitting on Side/Bed(QC): 6 (met 01/22/21) Sit to Stand (QC): 5 Chair/Ntb-oi-Jqodm Xfer(QC): 5 Car Transfer (QC): 5 Does the Patient Walk: Yes Walk 10 feet (QC): 5 Walk 10ft-Uneven Surface(QC): 5 Walk 50ft with 2 Turns (QC): 5 Walk 150 ft (QC): 5 Does the Pt use WC or Scooter?: Yes Wheel 50 feet with 2 turns (QC: 5 1 Step (curb) (QC): 5 4 Steps (QC): 9 12 Steps (QC): 9 Picking up an Object (QC): 6 OT Online Community Manager Goals Online Community Manager Goals Time Frame: Feb 03, 2021 Eating (QC): 6 (met) Oral Hygiene (QC): 5 (met) Shower/Bathe Self (QC): 4 (met) Upper Body Dressing (QC): 5 (not met) Lower Body Dressing (QC): 4 (not met) On/Off Footwear (QC): 4 (not met) Toileting Hygiene (QC): 4 (not met) Toilet/Commode Transfer (QC): 5 (not met) Additional Goals: 1-Demonstrate ADL Tasks, 2-Verbalize Understanding, 3- ImproveStrength/Phuong 1=Demonstrate adherence to instructed precautions during ADL tasks. 2=Patient will verbalize/demonstrate understanding of assistive devices/modifications for ADL. 3=Patient will improve strength/tolerance for activity to enable patient to perform ADL's. ULICES LIN OT Jan 23, 2021 09:38
--- NOTE | 2021-01-23 15:59 | Progress Note - Cardiology ---
Cardiology SOAP Progress Note Subjective: Gen weakness and malaise are improving No cp or palp or syncope No shortness of breath at rest No n/v/d Wishes to go home Objective: I&O/Vital Signs 01/23/21 01/23/21 01/23/21 01/23/21 06:38 07:00 07:02 07:51 Temp 36.3 36.6 Pulse 68 65 82 Resp 18 24 B/P (MAP) 145/77 (99) 142/68 (92) Pulse Ox 96 97 96 O2 Delivery Room Air Room Air Room Air 01/23/21 08:00 Pulse Ox 96 O2 Delivery Room Air O2 Flow Rate 1.00 01/23/21 00:00 Intake Total 2147 ml Output Total 2325 ml Balance -178 ml Weight (Pounds): 215 Weight (Ounces): 0.0 Weight (Calculated Kilograms): 97.127255 Constitutional: AAO x 3, well-developed, well-nourished Respiratory: No accessory muscle use; other (fair to good, bilateral air entry) Cardiovascular: regular rate-rhythm, S1 and S2, systolic murmur (soft ISATU at card base) Gastrointestional: No tender; soft; No guarding, No rebound; audible bowel sounds Extremities: No clubbing, No cyanosis, No significant edema Neurologic/Psychiatric: oriented x 3, other (moves all limbs equally) Skin: warm/dry; No cool, No rash on exposed areas, No ulcerations on exposed areas Results/Procedures: Labs Laboratory Tests 01/22/21 20:26: Glucometer 187H 01/23/21 05:40: Sodium Level 137, Potassium Level 4.2, Chloride Level 105, Carbon Dioxide Level 23, Anion Gap 9, Blood Urea Nitrogen 18, Creatinine 0.76, Estimat Glomerular Filtration Rate > 60, BUN/Creatinine Ratio 24, Glucose Level 163H, Calcium Level 8.6 A/P: Assessment: Shortness of breath (likely multifactorial) - acute diastolic CHF, resolved - pneumonia and sepsis, improved/resolved A Fib with RVR, diagnosed 01-14-21 Echo on 12/17/20: LVEF 55-65%, mild to mod TR and MR, PASP 45-50 mmHg Questionable GI bleed during this hospitalization, managed by the primary care team. Currently on apixaban and tolerating H/O CVA in 1974 - details unknown HTN PVD - H/O L fem-pop by Dr. Gould in Aug 2002 at [facility], [place], [place] - February 2006 - L fem-pop repair by Dr. Reeder at [facility] in [place], [place] - H/O iliac stenting in January [address] 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 Reeder at [facility] in [place], [place] HLD DM 2 - insulin CKD GERD Hiatal hernia H/O skin cancer removal Plan: * Close outpt f/u advised * I discussed his CV issues with him and his and answered questions HARRY BARLOW MD FACP FAC CCDS Jan 23, 2021 15:59
== END 2021-01-23 11:10 | disposition home health service (06) | DRG 871 ==
LOC: 4TH 09:29
PROVIDERS: ADMIT Family Medicine; ATTEND Family Medicine
DX: A41.9 Sepsis, unspecified organism (principal); J18.9 Pneumonia, unspecified organism; I50.31 Acute diastolic (congestive) heart failure; J96.90 Respiratory failure, unspecified, unspecified whether with hypoxia or hypercapnia; K92.2 Gastrointestinal hemorrhage, unspecified; E87.2 Acidosis; I13.0 Hypertensive heart and chronic kidney disease with heart failure and stage 1 through stage 4 chronic kidney disease, or unspecified chronic kidney disease; D64.9 Anemia, unspecified; E87.5 Hyperkalemia; K80.20 Calculus of gallbladder without cholecystitis without obstruction; I48.91 Unspecified atrial fibrillation; E78.5 Hyperlipidemia, unspecified; G40.909 Epilepsy, unspecified, not intractable, without status epilepticus; E11.51 Type 2 diabetes mellitus with diabetic peripheral angiopathy without gangrene; N18.9 Chronic kidney disease, unspecified; E11.22 Type 2 diabetes mellitus with diabetic chronic kidney disease; K44.9 Diaphragmatic hernia without obstruction or gangrene; I77.9 Disorder of arteries and arterioles, unspecified; Z86.73 Personal history of transient ischemic attack (TIA), and cerebral infarction without residual deficits
CPT/HCPCS: 36415; 71046; 80048; 80053; 82962; 84132; 85027; 94640; 94760; 94761

== ENCOUNTER 2021-02-09 10:58 | Inpatient (IN) | payer MEDICARE, OTHER ==
[~2021-02-09] VITALS: Ht 182.8 cm; Wt 98.1 kg
[~2021-02-09 10:58] MED LIST changes: +BUDE0.5A INH; +DILT-27 PO; +FLUC100T6 PO; +FURO-125 PO; +GUAI600T43 PO; +IPRA3AMP31 INH; +PANT40TA52 PO; +POLY17PO54 PO; +RIVA20TA PO; +SPIR25TA5 PO
--- NOTE | 2021-02-09 11:24 | ED General ---
General Chief Complaint: Cardiac/General Problems Stated Complaint: SOB Source of Information: Patient Exam Limitations: No Limitations History of Present Illness Date Seen by Provider: Feb 09, 2021 Time Seen by Provider: 11:03 Initial Comments Here with report of shortness of air and left great toe and second toe are turning black. Did have recent hospitalization for CHF and pneumonia. Denies fevers. Does admit to increasing shortness of breath overnight and weakness. He called EMS this morning. No report of fever or vomiting. Does report that the left leg is turning red up the leg and does admit to increased swelling. Timing/Duration: 1-2 Days, Getting Worse Severity: Moderate Associated Systoms: No Chest Pain, No Cough, No Fever/Chills, No Nausea/Vomiting; Shortness of Air, Weakness Allergies and Home Medications Allergies Coded Allergies: NKANo Known Allergies (Verified Allergy, Unknown, 05/25/08) Home Medications Albuterol Sulfate 18 Gm Hfa.aer.ad, 2 PUFF INH Q6H PRN for SHORTNESS OF BREATH, (Reported) Aspirin 81 Mg Tablet.dr, 81 MG PO DAILY, (Reported) Budesonide 0.5 Mg/2 Ml Ampul.neb, 0.5 MG INH RTBID Prescribed by: JG AGUILAR on 01/23/21911 Carvedilol 25 Mg Tablet, 25 MG PO BID, (Reported) Clonidine HCl 0.1 Mg Tablet, 0.1 MG PO BID Prescribed by: JG AGUILAR on 01/23/21911 Diltiazem HCl 360 Mg Capsule.er, 360 MG PO DAILY, (Reported) Diltiazem HCl 120 Mg Cap.er.24h, 120 MG PO DAILY@2100 Prescribed by: JG AGUILAR on 01/23/21911 Fluconazole 100 Mg Tablet, 100 MG PO DAILY Prescribed by: JG AGUILAR on 01/23/21911 Furosemide 20 Mg Tablet, 20 MG PO DAILY Prescribed by: JG AGUILAR on 01/23/21911 Guaifenesin 600 Mg Tab.er.12h, 600 MG PO BID Prescribed by: JG AGUILAR on 01/23/21911 Insulin NPH Hum/Reg Insulin Hm 100 Unit/1 Ml Vial, 30 UNIT SQ DAILY, (Reported) Insulin NPH Human Isophane 100 Unit/1 Ml Vial, 30 UNIT SQ 1700 W/MEAL, (Reported) Ipratropium/Albuterol Sulfate 3 Ml Ampul.neb, 3 ML INH TID Prescribed by: JG AGUILAR on 01/23/21911 Levothyroxine Sodium 25 Mcg Tablet, 25 MCG PO DAILY, (Reported) Pantoprazole Sodium 40 Mg Tablet.dr, 40 MG PO BID 1 pill twice/day x 2 weeks then daily thereafter Prescribed by: JG AGUILAR on 01/23/21911 Phenytoin Sodium Extended 100 Mg Capsule, 100 MG PO DAILY, (Reported) Phenytoin Sodium Extended 100 Mg Capsule, 200 MG PO HS, (Reported) TAKES 2 (100MG) CAPS Polyethylene Glycol 3350 17 Gm Powd.pack, 17 GM PO BID PRN for CONSTIPATION-1ST LINE Prescribed by: JG AGUILAR on 01/23/21911 Rivaroxaban 20 Mg Tablet, 20 MG PO DAILY Prescribed by: JG AGUILAR on 01/23/21913 Rivaroxaban 20 Mg Tablet, 20 MG PO DAILY Prescribed by: JG AGUILAR on 01/23/21 1630 Spironolactone 25 Mg Tablet, 25 MG PO DAILY Prescribed by: JG AGUILAR on 01/23/21911 Terazosin HCl 5 Mg Capsule, 5 MG PO BID, (Reported) Tramadol HCl 50 Mg Tablet, 50-100 MG PO Q6H PRN for PAIN-MODERATE (5-7), (Reported) Patient Home Medication List Home Medication List Reviewed: Yes Review of Systems Review of Systems Constitutional: see HPI; No chills, No fever EENTM: no symptoms reported Respiratory: No cough; dyspnea on exertion, orthopnea, short of breath Cardiovascular: No chest pain; edema Gastrointestinal: No abdominal pain, No nausea, No vomiting Musculoskeletal: No back pain; muscle weakness; No neck pain Skin: change in color, lesions Psychiatric/Neurological: No Symptoms Reported All Other Systems Reviewed Negative Unless Noted: Yes Past Iencmwt-Icpnpc-Clfyio Hx Past Med/Social Hx: Reviewed Nursing Past Med/Soc Hx Patient Social History Alcohol Use: Denies Use Smoking Status: Former Smoker Type Used: Cigarettes Former Smoker, Quit: Dec 08, 1999 2nd Hand Smoke Exposure: Yes Recent Hopitalizations: Yes (DEC 16 2020) Immunizations Up To Date Date of Pneumonia Vaccine: Aug 25, 2010 Date of Influenza Vaccine: Aug 15, 2020 Seasonal Allergies Seasonal Allergies: No Past Medical History Surgeries: Yes (- H/O L fem-pop by Dr. Gould in Aug 2002 at [place], [place] ) Vascular Surgery Respiratory: Yes Pneumonia Cardiac: Yes Coronary Artery Disease, Hypertension Neurological: Yes (CVA) Stroke Gastrointestinal: No Musculoskeletal: Yes Endocrine: Yes (TYPE II TAKES INSULIN) Diabetes, Non-Insulin dep Loss of Vision: Denies Hearing Impairment: Denies Cancer: No Skin Psychosocial: No Family Medical History Reviewed Nursing Family Hx Hypertension Physical Exam-Suspected Sepsis Physical Exam Vital Signs Vital Signs - First Documented 02/09/21 02/09/21 11:03 14:45 Temp 36.2 Pulse 74 Resp 26 B/P (MAP) 160/79 (106) Pulse Ox 99 O2 Delivery Room Air FiO2 21 Capillary Refill : Height, Weight, BMI Height: 6'0.00" Weight: 215lbs. 0.0oz. 97.854118ti; 30.79 BMI Method: General Appearance: No Apparent Distress, WD/WN HEENT: PERRL/EOMI, Pharynx Normal Neck: Non Tender, Supple Respiratory: Crackles (Bilateral bases), Other (Dyspneic and mildly tachypneic) Cardiovascular: Regular Rate, Rhythm, No Murmur Gastrointestinal: Non Tender, Soft Back: Normal Inspection, No CVA Tenderness, No Vertebral Tenderness Extremity: No Pedal Edema (4+ edema to the level of the knees bilateral), Other (Left great toe tip blackened with wound at the nailbed. Second toe has dorsal wound proximally. There is redness extending up the leg to the level of the knee on the left.) Neurologic/Psychiatric: Alert, Oriented x3 Skin: warm/dry, ulcerations (Left great and second toe), other (Wounds as above) Focused Exam Lactate Level 02/09/21 11:15: Lactic Acid Level 1.14 02/09/21 15:02: Lactic Acid Level 1.44 Lactic Acid Level Laboratory Tests Test 02/09/21 15:02 Lactic Acid Level 1.44 MMOL/L (0.50-2.00) Progress/Results/Core Measures Suspected Sepsis SIRS Temperature: Pulse: Respiratory Rate: Laboratory Tests 02/09/21 11:15: White Blood Count 9.4 Blood Pressure / Mean: 02/09/21 11:15: Lactic Acid Level 1.14 02/09/21 15:02: Lactic Acid Level 1.44 Laboratory Tests 02/09/21 11:15: Creatinine 0.80, INR Comment 1.2, Platelet Count 206, Total Bilirubin 0.5 Results/Orders Lab Results Laboratory Tests Test 02/09/21 11:15 02/09/21 14:01 02/09/21 15:02 Range/Units White Blood Count 9.4 4.3-11.0 10^3/uL Red Blood Count 3.87 L 4.30-5.52 10^6/uL Hemoglobin 10.7 L 13.3-17.7 g/dL Hematocrit 34 L 40-54 % Mean Corpuscular Volume 89 80-99 fL Mean Corpuscular Hemoglobin 28 25-34 pg Mean Corpuscular Hemoglobin Concent 31 L 32-36 g/dL Red Cell Distribution Width 18.5 H 10.0-14.5 % Platelet Count 206 130-400 10^3/uL Mean Platelet Volume 10.1 9.0-12.2 fL Immature Granulocyte % (Auto) 1 % Neutrophils (%) (Auto) 77 H 42-75 % Lymphocytes (%) (Auto) 10 L 12-44 % Monocytes (%) (Auto) 10 0-12 % Eosinophils (%) (Auto) 3 0-10 % Basophils (%) (Auto) 0 0-10 % Neutrophils # (Auto) 7.3 1.8-7.8 10^3/uL Lymphocytes # (Auto) 0.9 L 1.0-4.0 10^3/uL Monocytes # (Auto) 0.9 0.0-1.0 10^3/uL Eosinophils # (Auto) 0.2 0.0-0.3 10^3/uL Basophils # (Auto) 0.0 0.0-0.1 10^3/uL Immature Granulocyte # (Auto) 0.1 0.0-0.1 10^3/uL Prothrombin Time 15.2 H 12.2-14.7 SEC INR Comment 1.2 0.8-1.4 Activated Partial Thromboplast Time 30 24-35 SEC Sodium Level 141 135-145 MMOL/L Potassium Level 4.0 3.6-5.0 MMOL/L Chloride Level 104 98-107 MMOL/L Carbon Dioxide Level 26 21-32 MMOL/L Anion Gap 11 5-14 MMOL/L Blood Urea Nitrogen 23 H 7-18 MG/DL Creatinine 0.80 0.60-1.30 MG/DL Estimat Glomerular Filtration Rate > 60 BUN/Creatinine Ratio 29 Glucose Level 77 70-105 MG/DL Lactic Acid Level 1.14 1.44 0.50-2.00 MMOL/L Calcium Level 8.9 8.5-10.1 MG/DL Corrected Calcium 9.5 8.5-10.1 MG/DL Total Bilirubin 0.5 0.1-1.0 MG/DL Aspartate Amino Transf (AST/SGOT) 28 5-34 U/L Alanine Aminotransferase (ALT/SGPT) 18 0-55 U/L Alkaline Phosphatase 116 40-136 U/L Troponin I 0.061 H <0.028 NG/ML B-Type Natriuretic Peptide 2363.3 H <100.0 PG/ML Total Protein 6.7 6.4-8.2 GM/DL Albumin 3.3 3.2-4.5 GM/DL Urine Color YELLOW Urine Clarity CLEAR Urine pH 6.0 5-9 Urine Specific Pe Ell 1.015 L 1.016-1.022 Urine Protein NEGATIVE NEGATIVE Urine Glucose (UA) NEGATIVE NEGATIVE Urine Ketones NEGATIVE NEGATIVE Urine Nitrite NEGATIVE NEGATIVE Urine Bilirubin NEGATIVE NEGATIVE Urine Urobilinogen 0.2 < = 1.0 MG/DL Urine Leukocyte Esterase NEGATIVE NEGATIVE Urine RBC (Auto) NEGATIVE NEGATIVE Urine RBC RARE /HPF Urine WBC 0-2 /HPF Urine Squamous Epithelial Cells 0-2 /HPF Urine Crystals NONE /LPF Urine Bacteria NEGATIVE /HPF Urine Casts NONE /LPF Urine Mucus NEGATIVE /LPF Urine Culture Indicated CULTURE PENDING My Orders Orders - VIC ABDULLAHI MD Cbc With Automated Diff (02/09/21 11:12) Comprehensive Metabolic Panel (02/09/21 11:12) Blood Culture (02/09/21 11:12) Sputum Culture (02/09/21 11:12) Urinalysis (02/09/21 11:12) Urine Culture (02/09/21 11:12) Protime With Inr (02/09/21 11:12) Partial Thromboplastin Time (02/09/21 11:12) Chest 1 View, Ap/Pa Only (02/09/21 11:12) Ed Iv/Invasive Line Start (02/09/21 11:12) Ed Iv/Invasive Line Start (02/09/21 11:12) Ekg Tracing (02/09/21 11:12) Troponin I (02/09/21 11:12) Vital Signs Adult Sepsis Patie Q15M (02/09/21 11:12) O2 (02/09/21 11:12) Remove Rings In Anticipation O (02/09/21 11:12) Lactic Acid Analyzer (02/09/21 11:12) BNP (02/09/21 11:12) Furosemide Injection (Lasix Injection) (02/09/21 12:54) Catheter(Urinary) Insert & Ass 03,15 (02/09/21 13:18) Cefepime Injection (Maxipime Injection) (02/09/21 13:30) Albuterol/Ipra Inhalation Soln (Duoneb I (02/09/21 13:30) Svn Small Volume Nebulizer (02/09/21 13:18) Mat Initiate Protocol (02/09/21 15:22) Albuterol/Ipra Inhalation Soln (Duoneb I (02/09/21 21:00) Albuterol/Ipra Inhalation Soln (Duoneb I (02/09/21 15:00) Vital Signs/I&O 02/09/21 02/09/21 02/09/21 02/09/21 11:03 13:31 14:27 14:45 Temp 36.2 36.2 Pulse 74 79 81 Resp 26 18 B/P (MAP) 160/79 (106) 190/75 Pulse Ox 99 95 95 95 O2 Delivery Room Air Room Air Room Air FiO2 21 02/09/21 02/09/21 02/09/21 14:55 15:07 16:06 Temp 36.5 Pulse 78 66 Resp 22 B/P (MAP) 189/81 (117) Pulse Ox 95 95 O2 Delivery Room Air Room Air Capillary Refill : Progress Note : Progress Note Seen and evaluated on arrival by EMS. Sepsis protocol initiated with addition of BNP, troponin and EKG. Has at least class III heart failure symptoms with dyspnea at rest with talking. Becomes hypoxic with activity per EMS report as his sats went down into the 80s while transferring to the cot. Monitor patient. 1300 I have discussed the case with Dr. Figueroa and have paged to Dr. Aguilar. Patient does have findings of acute heart failure with markedly elevated BNP and slightly elevated troponin. Lactic acid is negative and white count is normal. I still have concerns about cellulitis of the left lower extremity including the great toe. He will need treated for that. Lasix 40 mg IV given and we will continue that twice daily. Patient to be admitted to Dr. Aguilar service on cardiac stepdown with Dr. Carolina herrera. Discussed with patient and family who agree with plan. Patient does have findings of sepsis without severe sepsis or septic shock and does not require high-volume fluid resuscitation. ECG Initial ECG Impression Date: Feb 09, 2021 Initial ECG Impression Time: 11:07 Initial ECG Rate: 75 Initial ECG Rhythm: Normal Sinus Initial ECG Comparisson: Unchanged (12/16/20) Comment Sinus rhythm with low voltage P waves. No evidence of ST elevation [place]. Interpreted by me. Diagnostic Imaging Diagonstic Imaging: Xray Plain Films/CT/US/NM/MRI: chest Comments [facility] [place], [place] NAME: ROSAURA [facility] REC#: [id number] PT STATUS: REG ER : 1940 PHYSICIAN: VIC ABDULLAHI MD ADMIT DATE: 02/09/21/ER Signed Date of Exam:02/09/21 CHEST 1 VIEW, AP/PA ONLY INDICATION: Dyspnea. TECHNIQUE/COMPARISON: An AP view of the chest was obtained with comparison made to the study of 01/21/2021. FINDINGS: The heart size and pulmonary vascularity are at the upper limits of normal. There is mild blunting of the left costophrenic sulcus. No pneumothorax is identified. There is no evidence of new infiltrate. IMPRESSION: Findings are compatible with mild persistent edema and/or pneumonitis with probable mild left pleural fluid or thickening. Overall, no adverse change is seen. Dictated by: Dictated on workstation # [id number] Dict: 02/09/21 1154 Trans: 02/09/21 1202 [id number] Interpreted by: CARYL COSTA MD Electronically signed by: CARYL COSTA MD 02/09/21 1202 Departure Communication (Admissions) Time/Spoke to Admitting Phy: 13:12 Time/Spoke to Consulting Phy: 13:00 Impression Primary Impression: Acute on chronic heart failure Qualified Codes: I50.9 - Heart failure, unspecified Additional Impression: Cellulitis of left lower extremity Disposition: ADMITTED INPATIENT Condition: Stable Admissions Decision to Admit Reason: Admit from ER (General) Decision to Admit/Date: Feb 09, 2021 Time/Decision to Admit Time: 13:00 Departure-Patient Inst. Referrals: JG AGUILAR MD (PCP/Family) Primary Care Physician VIC ABDULLAHI MD Feb 09, 2021 11:24
[2021-02-09 11:31] LABS: BASOPHILS % (AUTO) 0 % (0-10); EOSINOPHILS # (AUTO) 0.2 10^3/uL (0.0-0.3); EOSINOPHILS % (AUTO) 3 % (0-10); HEMATOCRIT 34 % (40-54); HEMOGLOBIN 10.7 g/dL (13.3-17.7); LYMPHOCYTES # (AUTO) 0.9 10^3/uL (1.0-4.0); LYMPHOCYTES % (AUTO) 10 % (12-44); MEAN CORPUSCULAR HEMOGLOBIN 28 pg (25-34); MEAN CORPUSCULAR HGB CONC 31 g/dL (32-36); MEAN CORPUSCULAR VOLUME 89 fL (80-99); MEAN PLATELET VOLUME 10.1 fL (9.0-12.2); MONOCYTES # (AUTO) 0.9 10^3/uL (0.0-1.0); MONOCYTES % (AUTO) 10 % (0-12); NEUTROPHILS # (AUTO) 7.3 10^3/uL (1.8-7.8); NEUTROPHILS % (AUTO) 77 % (42-75); PLATELET COUNT 206 10^3/uL (130-400); WHITE BLOOD COUNT 9.4 10^3/uL (4.3-11.0)
[2021-02-09 11:39] LABS: INR 1.2 (0.8-1.4); PROTHROMBIN TIME PATIENT 15.2 SEC (12.2-14.7)
[2021-02-09 11:46] LABS: ALANINE AMINOTRANSFERASE 18 U/L (0-55); ALBUMIN 3.3 GM/DL (3.2-4.5); ALKALINE PHOSPHATASE 116 U/L (40-136); BILIRUBIN,TOTAL 0.5 MG/DL (0.1-1.0); BUN/CREATININE RATIO 29; CALCIUM 8.9 MG/DL (8.5-10.1); CARBON DIOXIDE 26 MMOL/L (21-32); CHLORIDE 104 MMOL/L (98-107); GFR ESTIMATED > 60; GLUCOSE 77 MG/DL (70-105); SODIUM 141 MMOL/L (135-145); TOTAL PROTEIN 6.7 GM/DL (6.4-8.2)
--- NOTE | 2021-02-09 11:58 | Diagnostic Imaging Report ---
INDICATION: Dyspnea. TECHNIQUE/COMPARISON: An AP view of the chest was obtained with comparison made to the study of 01/21/2021. FINDINGS: The heart size and pulmonary vascularity are at the upper limits of normal. There is mild blunting of the left costophrenic sulcus. No pneumothorax is identified. There is no evidence of new infiltrate. IMPRESSION: Findings are compatible with mild persistent edema and/or pneumonitis with probable mild left pleural fluid or thickening. Overall, no adverse change is seen. Dictated by: Dictated on workstation # [id number]
[2021-02-09] MEDS ORDERED: FUROSEMIDE 40 MG/4 ML INJ (LASIX) IV STA (12:54)
[2021-02-09] MEDS ORDERED: CEFEPIME INJECTION 1,000 MG in WATER (STERILE) FOR INJECTION 10 ML IV ONE (13:30)
[2021-02-09] MEDS ORDERED: RT-ALBUTEROL/IPRATROPIUM 3 ML (DUONEB) VIAL INH ONE (13:30)
[2021-02-09 14:14] LABS: BILIRUBIN,URINE NEGATIVE (NEGATIVE); CLARITY,URINE CLEAR; COLOR,URINE YELLOW; GLUCOSE, URINE (UA) NEGATIVE (NEGATIVE); KETONES,URINE NEGATIVE (NEGATIVE); LEUKOCYTE ESTERASE ,URINE NEGATIVE (NEGATIVE); NITRITE,URINE NEGATIVE (NEGATIVE); PROTEIN,URINE NEGATIVE (NEGATIVE)
[2021-02-09 14:21] LABS: BACTERIA,URINE NEGATIVE /HPF; RBC,URINE RARE /HPF; SQUAMOUS EPITHELIAL CELL,UR 0-2 /HPF; WBC,URINE 0-2 /HPF
[2021-02-09 14:45] VITALS: BP 160/79
[2021-02-09] MEDS ORDERED: RT-ALBUTEROL/IPRATROPIUM 3 ML (DUONEB) VIAL INH PRN (15:00)
[2021-02-09] MEDS ORDERED: CATHETER FLUSH 10 ML SYR IV PRN (15:00)
[2021-02-09] MEDS ORDERED: VANCOMYCIN 1,750 MG/NS 500 ML IVPB IV NR ×2 (15:30)
[2021-02-09 16:06] VITALS: BP 189/81
[2021-02-09] MEDS: metroNIDAZOLE 500 MG/100 ML IVPB (PRE-MIX) IV SCH (16:49)
[2021-02-09] MEDS: FUROSEMIDE 40 MG/4 ML INJ (LASIX) IVP SCH (16:49)
--- NOTE | 2021-02-09 17:17 | Wound Care Assessment ---
Wound Care Assessment Date Seen by Provider: Feb 09, 2021 Time Seen by Provider: 17:00 Chief Complaint Black L great toe. HPI The patient is a 80 year old male with a two day history of a black L great toe, in a setting of know vasculopathy, previous fem-pop bypass x 2, and well- controlled diabetes. There is bilateral massive lymphedema, erythema to the knee on the L, and no palpable L pedal pulse. Segmentals and Duplex scan ordered STAT, Vascular consultation recommended to attending. Telfa dressings ordered for comfort. Past Medical History: Admits Diabetes Type II, Admits Peripheral Artery Disease Smoking Status: Former Smoker Recreational Drug Use: No Alcohol Use: Denies Use Review of Systems Pulmonary: No Dyspnea Cardiovascular: No: Chest Pain Exam Vital Signs Date Time Temp Pulse Resp B/P (MAP) Pulse Ox O2 Delivery O2 Flow Rate FiO2 02/09/21 16:06 36.5 66 22 189/81 (117) 95 Room Air 02/09/21 14:45 21 Capillary Refill : Greater Than 3 Seconds Extremities: other (L great toe -- 3.0 x 3.0 x 0.1 cm area of black and cyanotic tissue, consistent with infarction, clear line of demarcation is present.) Results Laboratory Tests 02/09/21 11:15: White Blood Count 9.4, Red Blood Count 3.87L, Hemoglobin 10.7L, Hematocrit 34L, Mean Corpuscular Volume 89, Mean Corpuscular Hemoglobin 28, Mean Corpuscular Hemoglobin Concent 31L, Red Cell Distribution Width 18.5H, Platelet Count 206, Mean Platelet Volume 10.1, Immature Granulocyte % (Auto) 1, Neutrophils (%) (Auto) 77H, Lymphocytes (%) (Auto) 10L, Monocytes (%) (Auto) 10, Eosinophils (%) (Auto) 3, Basophils (%) (Auto) 0, Neutrophils # (Auto) 7.3, Lymphocytes # (Auto) 0.9L, Monocytes # (Auto) 0.9, Eosinophils # (Auto) 0.2, Basophils # (Auto) 0.0, Immature Granulocyte # (Auto) 0.1, Prothrombin Time 15.2H, INR Comment 1.2, Activated Partial Thromboplast Time 30, Sodium Level 141, Potassium Level 4.0, Chloride Level 104, Carbon Dioxide Level 26, Anion Gap 11, Blood Urea Nitrogen 23H, Creatinine 0.80, Estimat Glomerular Filtration Rate > 60, BUN/Creatinine Ratio 29, Glucose Level 77, Lactic Acid Level 1.14, Calcium Level 8.9, Corrected Calcium 9.5, Total Bilirubin 0.5, Aspartate Amino Transf (AST/SGOT) 28, Alanine Aminotransferase (ALT/SGPT) 18, Alkaline Phosphatase 116, Troponin I 0.061H, B- Type Natriuretic Peptide 2363.3H, Total Protein 6.7, Albumin 3.3 02/09/21 14:01: Urine Color YELLOW, Urine Clarity CLEAR, Urine pH 6.0, Urine Specific [place] 1.015L, Urine Protein NEGATIVE, Urine Glucose (UA) NEGATIVE, Urine Ketones NEGATIVE, Urine Nitrite NEGATIVE, Urine Bilirubin NEGATIVE, Urine Urobilinogen 0.2, Urine Leukocyte Esterase NEGATIVE, Urine RBC (Auto) NEGATIVE, Urine RBC RARE, Urine WBC 0-2, Urine Squamous Epithelial Cells 0-2, Urine Crystals NONE, Urine Bacteria NEGATIVE, Urine Casts NONE, Urine Mucus NEGATIVE, Urine Culture Indicated CULTURE PENDING 02/09/21 15:02: Lactic Acid Level 1.44 Assessment/Plan/Dx 1. Necrotic L great toe, distal 13. 2. Peripheral arterial disease, with previous L fem-pop bypass, remote. 3. diabetes mellitus, well-controlled. Plan: Segmentals, duplex ordered. Would recommend Vascular consultation in at tempt to salvage limb. JONA BAXTER MD Feb 09, 2021 17:17
--- NOTE | 2021-02-09 17:28 | Consultation-Cardiology ---
HPI-Cardiology Cardiology Consultation Date of Consultation 02/09/21 Date of Admission Time Seen by Provider: 17:23 Indication: Shortness of breath, gangrene on the toe HPI 80-year-old gentleman with history of hypertension, hyperlipidemia, was hospitalized for pneumonia recently. Was doing well at home, started to notice a wound on his toe on the left leg that was deteriorating quickly, becoming a dry gangrene. Has been having worsening pedal edema, reporting worsening shortness of breath. Came into the emergency room for evaluation. On my evaluation was laying down in bed, complaining of shortness of breath fatigue and peripheral edema, had gangrene with ulceration on the first and second toe of the left leg Home Medications & Allergies Allergies: Coded Allergies: NKANo Known Allergies (Verified Allergy, Unknown, 05/25/08) Home Medication List Reviewed: Yes KQO-Woqfva-Efyynb Hx Patient Social History Marital Status: Recreational Drug Use: No Smoking Status: Former Smoker Type Used: Cigarettes 2nd Hand Smoke Exposure: Yes Recent Hopitalizations: Yes (DEC 16 2020) Have you traveled recently?: No Alcohol Use?: No Immunizations Up To Date Date of Pneumonia Vaccine: Aug 25, 2010 Date of Influenza Vaccine: Aug 15, 2020 Past Medical History Discussed below Family Medical History Significant Family History: Hypertension Family Medical Hx Noncontributory Review of Systems-General Review of Systems Constitutional: see HPI; No chills, No fever; malaise, weakness EENTM: no symptoms reported Respiratory: No cough; dyspnea on exertion, orthopnea, short of breath Cardiovascular: see HPI; No chest pain; edema, vascular heart diseas Gastrointestinal: see HPI; No abdominal pain, No nausea, No vomiting Genitourinary: no symptoms reported, see HPI Musculoskeletal: No back pain; muscle weakness; No neck pain Skin: change in color, lesions, other (Gangrene on the toe) Psychiatric/Neurological: No Symptoms Reported, See HPI All Other Systems Reviewed Negative Unless Noted: Yes Reviewed Test Results Reviewed Test Results Lab Laboratory Tests Test 02/09/21 11:15 02/09/21 14:01 02/09/21 15:02 Range/Units White Blood Count 9.4 4.3-11.0 10^3/uL Red Blood Count 3.87 L 4.30-5.52 10^6/uL Hemoglobin 10.7 L 13.3-17.7 g/dL Hematocrit 34 L 40-54 % Mean Corpuscular Volume 89 80-99 fL Mean Corpuscular Hemoglobin 28 25-34 pg Mean Corpuscular Hemoglobin Concent 31 L 32-36 g/dL Red Cell Distribution Width 18.5 H 10.0-14.5 % Platelet Count 206 130-400 10^3/uL Mean Platelet Volume 10.1 9.0-12.2 fL Immature Granulocyte % (Auto) 1 % Neutrophils (%) (Auto) 77 H 42-75 % Lymphocytes (%) (Auto) 10 L 12-44 % Monocytes (%) (Auto) 10 0-12 % Eosinophils (%) (Auto) 3 0-10 % Basophils (%) (Auto) 0 0-10 % Neutrophils # (Auto) 7.3 1.8-7.8 10^3/uL Lymphocytes # (Auto) 0.9 L 1.0-4.0 10^3/uL Monocytes # (Auto) 0.9 0.0-1.0 10^3/uL Eosinophils # (Auto) 0.2 0.0-0.3 10^3/uL Basophils # (Auto) 0.0 0.0-0.1 10^3/uL Immature Granulocyte # (Auto) 0.1 0.0-0.1 10^3/uL Prothrombin Time 15.2 H 12.2-14.7 SEC INR Comment 1.2 0.8-1.4 Activated Partial Thromboplast Time 30 24-35 SEC Sodium Level 141 135-145 MMOL/L Potassium Level 4.0 3.6-5.0 MMOL/L Chloride Level 104 98-107 MMOL/L Carbon Dioxide Level 26 21-32 MMOL/L Anion Gap 11 5-14 MMOL/L Blood Urea Nitrogen 23 H 7-18 MG/DL Creatinine 0.80 0.60-1.30 MG/DL Estimat Glomerular Filtration Rate > 60 BUN/Creatinine Ratio 29 Glucose Level 77 70-105 MG/DL Lactic Acid Level 1.14 1.44 0.50-2.00 MMOL/L Calcium Level 8.9 8.5-10.1 MG/DL Corrected Calcium 9.5 8.5-10.1 MG/DL Total Bilirubin 0.5 0.1-1.0 MG/DL Aspartate Amino Transf (AST/SGOT) 28 5-34 U/L Alanine Aminotransferase (ALT/SGPT) 18 0-55 U/L Alkaline Phosphatase 116 40-136 U/L Troponin I 0.061 H <0.028 NG/ML B-Type Natriuretic Peptide 2363.3 H <100.0 PG/ML Total Protein 6.7 6.4-8.2 GM/DL Albumin 3.3 3.2-4.5 GM/DL Urine Color YELLOW Urine Clarity CLEAR Urine pH 6.0 5-9 Urine Specific Clements 1.015 L 1.016-1.022 Urine Protein NEGATIVE NEGATIVE Urine Glucose (UA) NEGATIVE NEGATIVE Urine Ketones NEGATIVE NEGATIVE Urine Nitrite NEGATIVE NEGATIVE Urine Bilirubin NEGATIVE NEGATIVE Urine Urobilinogen 0.2 < = 1.0 MG/DL Urine Leukocyte Esterase NEGATIVE NEGATIVE Urine RBC (Auto) NEGATIVE NEGATIVE Urine RBC RARE /HPF Urine WBC 0-2 /HPF Urine Squamous Epithelial Cells 0-2 /HPF Urine Crystals NONE /LPF Urine Bacteria NEGATIVE /HPF Urine Casts NONE /LPF Urine Mucus NEGATIVE /LPF Urine Culture Indicated CULTURE PENDING Physical Exam Physical Exam Vital Signs Vital Signs - First Documented 02/09/21 02/09/21 11:03 14:45 Temp 36.2 Pulse 74 Resp 26 B/P (MAP) 160/79 (106) Pulse Ox 99 O2 Delivery Room Air FiO2 21 Capillary Refill : Greater Than 3 Seconds Height, Weight, BMI Height: 6'0.00" Weight: 215lbs. 0.0oz. 97.757313lf; 29.35 BMI Method: General Appearance: No Apparent Distress, WD/WN HEENT: PERRL/EOMI, Pharynx Normal Neck: Non Tender, Supple Respiratory: Crackles (Bilateral bases), Other (Dyspneic and mildly tachypneic) Cardiovascular: Regular Rate, Rhythm, No Murmur, Other (Peripheral edema) Gastrointestinal: Non Tender, Soft Back: Normal Inspection, No CVA Tenderness, No Vertebral Tenderness Extremity: Pedal Edema (Significant pedal edema), Other (Left great toe tip blackened with wound at the nailbed. Second toe has dorsal wound proximally. There is redness extending up the leg to the level of the knee on the left.) Neurologic/Psychiatric: Alert, Oriented x3 A/P-Cardiology Admission Diagnosis Gangrene of the foot Peripheral arterial disease Congestive heart failure Hypertension Assessment/Plan Acute/subacute ischemic toe, dry gangrene, wound care management initiated. Receiving antibiotic. 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 Edson Reeder in the remote past. Has been doing well until recently Congestive heart failure, acute on chronic left ventricular diastolic dysfunction, had an echo in December 2020 showing normal left ventricular size and systolic function, EF 55 to 65%, left atrial dilatation with moderate mitral regurgitation, pulmonary hypertension with PA pressure 45 to 50 mmHg. Patient was started on Lasix 40 mg IV every 12 hours and will evaluate tolerance and response. Paroxysmal atrial fibrillation, had an episode of atrial fibrillation with rapid ventricular response in January 2021 during his hospitalization, was maintained on diltiazem and Coreg, maintained on Xarelto as an outpatient. [id number] score of 5, yearly risk of stroke without oral anticoagulation is 6.7%. Has been on Xarelto as an outpatient, currently on hold and will use Lovenox. Hypertension, restart Coreg and diltiazem and monitor blood pressure Sepsis, gangrene. Receiving antibiotic. Managed by medical team History of carotid stenosis, continue to monitor renal function Chronic kidney disease stage IV, continue to monitor renal function closely Diabetes mellitus, followed and managed by primary care physician History of hematemesis and stool positive for occult blood, H&H were stable, tolerating Xarelto, had history of hiatal hernia and GERD H/O skin cancer removal ZHANNA ACE MD Feb 09, 2021 17:28
--- NOTE | 2021-02-09 18:11 | History & Physical ---
History of Present Illness History of Present Illness Reason for visit/HPI PT IS A 80 Y/O MALE WHO IS KNOWN TO ME FROM CLINIC. HE PRESENTED TO THE HOSPITAL WITH COMPLAINT OF SEVERE SHORTNESS OF BREATH AND DISCOLORATION OF HIS LEFT GREAT TOE AND REDNESS OF HIS LEFT LEG FROM FOOT TO KNEE. PER HOME HEALTH - HIS TOE STARTED TO BECOME DISCOLORED OVER THE PAST 4-5 DAYS, WE ATTEMPTED TO GET THE PT INTO THE OFFICE FOR AN EVALUATION, HOWEVER THEY REFUSED STATING THAT HE COULD NOT EXIT HIS HOME. WE GOT A PHONE CALL AT THE OFFICE TODAY WITH CONCERN FOR HIS GREAT TOE LOOKING MORE BLACK, AND HE THEN WAS INSTRUCTED TO GO TO THE EMERGENCY DEPARTMENT FOR THE LEG DISCOLORATION AND TOE COLOR CHANGES. Date of Admission Feb 09, 2021 at 13:00 Date Seen by a Provider: Feb 09, 2021 Time Seen by a Provider: 17:45 Attending Physician Jg Duarte MD Admitting Physician Jg Duarte MD Consult CARDIOLOGY - DR. ACE WOUND CARE PHYSICIAN - DR. BAXTER Allergies and Home Medications Allergies Coded Allergies: WILMAANo Known Allergies (Verified Allergy, Unknown, 05/25/08) Home Medications Albuterol Sulfate 18 Gm Hfa.aer.ad, 2 PUFF INH Q6H PRN for SHORTNESS OF BREATH, (Reported) Aspirin 81 Mg Tablet.dr, 81 MG PO DAILY, (Reported) Budesonide 0.5 Mg/2 Ml Ampul.neb, 0.5 MG INH RTBID Prescribed by: JG DUARTE on 01/23/21911 Carvedilol 25 Mg Tablet, 25 MG PO BID, (Reported) Clonidine HCl 0.1 Mg Tablet, 0.1 MG PO BID Prescribed by: JG DUARTE on 01/23/21911 Diltiazem HCl 360 Mg Capsule.er, 360 MG PO DAILY, (Reported) Diltiazem HCl 120 Mg Cap.er.24h, 120 MG PO DAILY@2100 Prescribed by: JG DUARTE on 01/23/21911 Fluconazole 100 Mg Tablet, 100 MG PO DAILY Prescribed by: JG DUARTE on 01/23/21911 Furosemide 20 Mg Tablet, 20 MG PO DAILY Prescribed by: JG DUARTE on 01/23/21911 Guaifenesin 600 Mg Tab.er.12h, 600 MG PO BID Prescribed by: JG DUARTE on 01/23/21911 Insulin NPH Hum/Reg Insulin Hm 100 Unit/1 Ml Vial, 30 UNIT SQ DAILY, (Reported) Insulin NPH Human Isophane 100 Unit/1 Ml Vial, 30 UNIT SQ 1700 W/MEAL, (Reported) Ipratropium/Albuterol Sulfate 3 Ml Ampul.neb, 3 ML INH TID Prescribed by: JG DUARTE on 01/23/21911 Levothyroxine Sodium 25 Mcg Tablet, 25 MCG PO DAILY, (Reported) Pantoprazole Sodium 40 Mg Tablet.dr, 40 MG PO BID 1 pill twice/day x 2 weeks then daily thereafter Prescribed by: JG DUARTE on 01/23/21911 Phenytoin Sodium Extended 100 Mg Capsule, 100 MG PO DAILY, (Reported) Phenytoin Sodium Extended 100 Mg Capsule, 200 MG PO HS, (Reported) TAKES 2 (100MG) CAPS Polyethylene Glycol 3350 17 Gm Powd.pack, 17 GM PO BID PRN for CONSTIPATION-1ST LINE Prescribed by: JG DUARTE on 01/23/21911 Rivaroxaban 20 Mg Tablet, 20 MG PO DAILY Prescribed by: JG DUARTE on 01/23/21913 Rivaroxaban 20 Mg Tablet, 20 MG PO DAILY Prescribed by: JG DUARTE on 01/23/21 1630 Spironolactone 25 Mg Tablet, 25 MG PO DAILY Prescribed by: JG DUARTE on 01/23/21911 Terazosin HCl 5 Mg Capsule, 5 MG PO BID, (Reported) Tramadol HCl 50 Mg Tablet, 50-100 MG PO Q6H PRN for PAIN-MODERATE (5-7), (Reported) Patient Home Medication List Home Medication List Reviewed: Yes Past Ljrmqjt-Dxzhub-Rjpuvt Hx Past Med/Social Hx: Reviewed Nursing Past Med/Soc Hx Patient Social History Marrital Status: Living Status: LIVES WITH SPOUSE IN THEIR HOME IN [place] Employed/Student: retired Alcohol Use: Denies Use Recreational Drug Use: No Smoking Status: Former Smoker Former Smoker, Quit: Dec 08, 1999 Type Used: Cigarettes 2nd Hand Smoke Exposure: Yes Physical Abuse Screen: No Sexual Abuse: No Recent Foreign Travel: No Contact w/other who traveled: No Recent Hopitalizations: Yes (DEC 16 2020) Recent Infectious Disease Expo: No Immunizations Up To Date Date of Pneumonia Vaccine: Aug 25, 2010 Date of Influenza Vaccine: Aug 15, 2020 Seasonal Allergies Seasonal Allergies: No Past Medical History Surgeries: Vascular Surgery (MULTIPLE FEM-POP BYPASSES) Respiratory: COPD Currently Using CPAP: No Currently Using BIPAP: No Cardiac: Atrial Fibrillation, Coronary Artery Disease, Hypertension, Peripheral Vascular Neurological: Stroke Genitourinary: Benign Prostatic Hyperpl Musculoskeletal: Arthritis Endocrine: Diabetes, Non-Insulin dep Loss of Vision: Denies Hearing Impairment: Denies Cancer: Skin Psychosocial: Anxiety Family History Reviewed and Corrections made Hypertension Review of Systems Constitutional: No chills, No diaphoresis, No fever; malaise, weakness EENTM: No hoarseness, No throat pain Respiratory: No cough; dyspnea on exertion, orthopnea, short of breath Cardiovascular: No chest pain; edema; No syncope Gastrointestinal: No abdominal pain, No nausea, No vomiting Genitourinary: frequency Musculoskeletal: joint pain, muscle weakness Skin: change in color (BLACK DISCOLORATION OF LEFT GREAT TOE, WOUND ON DORUSM OF 2ND TOE), other (ERYTHEMA OF LEFT LEG FROM FOOT TO KNEE) Psychiatric/Neurological: Denies Anxiety, Denies Depressed; Pre-Existing Deficit (LEFT ARM AND LEG PARESIS), Weakness (GENERALIZED WEAKNESS) All Other Systems Reviewed Negative Unless Noted: Yes Physical Exam Vital Signs Vital Signs - First Documented 02/09/21 02/09/21 11:03 14:45 Temp 36.2 Pulse 74 Resp 26 B/P (MAP) 160/79 (106) Pulse Ox 99 O2 Delivery Room Air FiO2 21 Capillary Refill : Greater Than 3 Seconds Height, Weight, BMI Height: 6'0.00" Weight: 215lbs. 0.0oz. 97.945241qb; 29.35 BMI Method: General Appearance: WD/WN, Mild Distress (DUE TO RESPIRATORY DISTRESS) Eyes: Bilateral Eye Normal Inspection, Bilateral Eye PERRL, Bilateral Eye EOMI HEENT: PERRL/EOMI, Pharynx Normal Neck: Full Range of Motion, Normal Inspection, Non Tender, Supple Respiratory: Chest Non Tender, Crackles (IN BASES BILATERALL), Decreased Breath Sounds, Respiratory Distress (MILD) Cardiovascular: Regular Rate, Rhythm, Tachycardia, Other (DECREASED PERIPHERAL PULSE ON LEFT AT POSTERIAL TIBIAL AND DORSALIS PEDIS) Gastrointestinal: Normal Bowel Sounds, No Organomegaly, Non Tender, Soft Rectal: Deferred Back: Normal Inspection Extremity: Pedal Edema, Slow Capillary Refill, Other (BLACK TOE ON THE LEFT) Neurologic/Psychiatric: Alert, Oriented x3, No Motor/Sensory Deficits, Normal Mood/Affect, personnel specialist II-XII Norm as Tested Skin: Cool (LEFT FOOT), Cyanosis (LEFT FOOT), Erythema (FROM FOOT TO KNEE ON LEFT), Other (BLACK GREAT TOE AND ULCERATION ON DORSUM OF 2ND TOE) Assessment/Plan Assessment and Plan GANGRENE GREAT TOE ON LEFT CELLULITIS OF LEFT LEG CHRONIC PERIPHERAL ARTERIAL DISEASE ATRIAL FIBRILLATION HYPERTENSION HX OF FEM-POP BYPASS X 2 ON LEFT DIABETES MELLITUS ACUTE ON CHRONIC LEFT VENTRICULAR DIASTOLIC DYSFUNCTION CKD STAGE 2 ANEMIA HX RECENT PNEUMONIA, 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 ACE AND DR. BAXTER - WE ARE PLANNING ON FURTHER INVESTIGATION INTO HIS FEMORAL/POPLITEAL ARTERIAL FLOW TO SEE IF THERE IS A CLOT OR OTHER BLOCKAGE IN THE VASCULATURE. - MAY END UP WITH REFERRAL BACK TO CV SURGEON AT [facility] - PT STOPPED HIS XARELTO ON HIS OWN WITH OUT NOTIFICATION TO MY CLINIC OR PLASTICS FABRICATOR OR WELDER, THIS MAY HAVE AIDED CLOTTING OF HIS EXTREMITIES WITH POSSIBLE EMBOLIC EVENT. - PT ON LOVENOX AT TREATMENT DOSES - WAITING ON FURTHER IMAGING - WITH CT ANGIO VERSUS DOPPLER - PT ON CEFEPIME, FLAGYL, AND VANCOMYCIN CHRONIC PERIPHERAL ARTERIAL DISEASE - CHECKING IMAGING NOTED ABOVE ATRIAL FIBRILLATION - RESTART BETABLOCKER AND RESTART CARDIZEM - PT REFUSES XARELTO - FELT LIKE IT "MADE MY BACK HURT" - PT ON LOVENOX AT THIS TIME. HYPERTENSION - RESUME SOME OF HIS HOME MEDS, MONITOR PRESSURES. HX OF FEM-POP BYPASS X 2 ON LEFT - SEE ABOVE FOR DETAILS, POTENTIAL RECURRENT BLOCKAGE, STUDIES TO BE DONE TONIGHT. ACUTE ON CHRONIC LEFT VENTRICULAR DIASTOLIC DYSFUNCTION - LASIX, MONITOR LABS, DEFER TO CARDIOLOGY DIABETES MELLITUS - RESUME HOME MEDS -SLIDING SCALE A INSULIN REGIMEN - FSBS AC, HS CKD - GOOD RENAL FUNCTION AT THIS TIME, MONITOR LABS ANEMIA - STABLE, MONITOR LABS HX RECENT PNEUMONIA, BACTERIAL AND FUNGAL AND PLEURAL EFFUSIONS -AT THIS POINT, SUPPORTIVE CARE, INCENTIVE SPIROMETRY - MONITOR CXR SERIALLY SEIZURE DISORDER - RESUME PHENYTOIN HX OF STROKE WITH LEFT SIDED PARESIS AND GENERALIZED WEAKNESS - SUPPORTIVE CARE, MONITOR, START THERAPY WHEN ABLE. 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
[2021-02-09] MEDS ORDERED: RX-TRAMADOL 50 MG (ULTRAM) TAB PPK#4 PO PRN (18:15)
[2021-02-09] MEDS: ENOXAPARIN 100 MG/1 ML (LOVENOX) SYR SC SCH (18:28)
[2021-02-09] MEDS: RT-ALBUTEROL/IPRATROPIUM 3 ML (DUONEB) VIAL INH SCH (19:15)
[2021-02-09 20:00] VITALS: BP 160/51
[2021-02-09] MEDS: CEFEPIME 1,000 MG/SWFI 10 ML IV PUSH IV SCH ×2 (20:39)
[2021-02-09] MEDS: cloNIDine 0.1 MG (CATAPRES) TAB PO SCH (20:40)
[2021-02-09] MEDS: TERAZOSIN 5 MG (HYTRIN) CAPSULE PO SCH (20:41)
[2021-02-09] MEDS ORDERED: PHENYTOIN 100 MG (DILANTIN) CAP PO SCH (21:00)
[2021-02-09] MEDS ORDERED: PANTOPRAZOLE 40 MG (PROTONIX) TAB PO SCH (21:00)
[2021-02-09] MEDS: inSUlin ASPART (NovoLOG) 1 UNIT/0.01 ML (CHARGE PER UNIT) SC SCH (21:09)
[2021-02-09] MEDS: CATHETER FLUSH 10 ML SYR IV SCH (21:10)
[2021-02-09] MEDS: fentaNYL INJ 100 MCG/2 ML AMP IVP PRN (21:57)
[2021-02-10] VITALS: BP 159/65
[2021-02-10] MEDS: CEFEPIME 1,000 MG/SWFI 10 ML IV PUSH IV SCH ×4 (01:37→08:19)
[2021-02-10] MEDS: metroNIDAZOLE 500 MG/100 ML IVPB (PRE-MIX) IV SCH (03:06)
[2021-02-10] MEDS: RT-ALBUTEROL/IPRATROPIUM 3 ML (DUONEB) VIAL INH SCH ×2 (03:15→09:29)
[2021-02-10] MEDS: fentaNYL INJ 100 MCG/2 ML AMP IVP PRN ×2 (03:44→08:19)
[2021-02-10] MEDS ORDERED: VANCOMYCIN 1 GM/NS 250 ML IVPB IV SCH ×2 (04:00)
[2021-02-10 04:10] VITALS: BP 156/68
[2021-02-10 05:08] LABS: BASOPHILS % (AUTO) 1 % (0-10); EOSINOPHILS # (AUTO) 0.2 10^3/uL (0.0-0.3); EOSINOPHILS % (AUTO) 2 % (0-10); HEMATOCRIT 31 % (40-54); LYMPHOCYTES # (AUTO) 1.1 10^3/uL (1.0-4.0); LYMPHOCYTES % (AUTO) 12 % (12-44); MEAN CORPUSCULAR HEMOGLOBIN 29 pg (25-34); MEAN CORPUSCULAR HGB CONC 33 g/dL (32-36); MEAN CORPUSCULAR VOLUME 87 fL (80-99); MEAN PLATELET VOLUME 11.3 fL (9.0-12.2); MONOCYTES # (AUTO) 0.9 10^3/uL (0.0-1.0); MONOCYTES % (AUTO) 11 % (0-12); NEUTROPHILS # (AUTO) 6.5 10^3/uL (1.8-7.8); NEUTROPHILS % (AUTO) 74 % (42-75); PLATELET COUNT 291 10^3/uL (130-400); WHITE BLOOD COUNT 8.8 10^3/uL (4.3-11.0)
[2021-02-10 05:20] LABS: CHLORIDE 105 MMOL/L (98-107); POTASSIUM 3.6 MMOL/L (3.6-5.0); SODIUM 142 MMOL/L (135-145)
[2021-02-10 05:21] LABS: CALCIUM 8.5 MG/DL (8.5-10.1)
[2021-02-10 05:22] LABS: GLUCOSE 115 MG/DL (70-105)
[2021-02-10 05:23] LABS: CARBON DIOXIDE 23 MMOL/L (21-32)
[2021-02-10 05:24] LABS: BILIRUBIN,TOTAL 0.4 MG/DL (0.1-1.0)
[2021-02-10 05:26] LABS: ALKALINE PHOSPHATASE 92 U/L (40-136); CREATININE SERUM 0.77 MG/DL (0.60-1.30); GFR ESTIMATED > 60
[2021-02-10 05:27] LABS: BUN/CREATININE RATIO 27
[2021-02-10 05:29] LABS: ALANINE AMINOTRANSFERASE 12 U/L (0-55)
[2021-02-10] MEDS: inSUlin ASPART (NovoLOG) 1 UNIT/0.01 ML (CHARGE PER UNIT) SC SCH ×2 (05:34→11:35)
[2021-02-10] MEDS: CATHETER FLUSH 10 ML SYR IV SCH (06:00)
[2021-02-10] MEDS: ENOXAPARIN 100 MG/1 ML (LOVENOX) SYR SC SCH (06:00)
[2021-02-10] MEDS: FUROSEMIDE 40 MG/4 ML INJ (LASIX) IVP SCH (06:00)
[2021-02-10] MEDS ORDERED: LEVOTHYROXINE 25 MCG (LEVOTHROID) TAB PO SCH (06:30)
[2021-02-10 07:27] VITALS: BP 155/68
[2021-02-10] MEDS: TERAZOSIN 5 MG (HYTRIN) CAPSULE PO SCH (08:19)
[2021-02-10] MEDS: cloNIDine 0.1 MG (CATAPRES) TAB PO SCH (08:20)
[2021-02-10] MEDS ORDERED: NON-FORMULARY MEDICATION 1 EA EA (Diltiazem HCl (Diltiazem ER) 360 MG) PO SCH (09:00)
[2021-02-10] MEDS ORDERED: PHENYTOIN 100 MG (DILANTIN) CAP PO SCH (09:00)
[2021-02-10] MEDS ORDERED: ASPIRIN E.C. 81 MG (ECOTRIN) TAB PO SCH (09:00)
--- NOTE | 2021-02-10 09:15 | Cardiology Progress Note ---
Subjective Date Seen by Provider: Feb 10, 2021 Time Seen by Provider: 09:13 Subjective/Events-last exam Patient was seen and evaluated, laying down comfortably, still having some shortness of breath. Review of Systems General: No Chills, No Night Sweats; Fatigue, Malaise; No Appetite, No Other HEENT: No Head Aches, No Visual Changes, No Eye Pain, No Ear Pain, No Dysp hasia, No Sinus Congestion, No Post Nasal Drip, No Sore Throat, No Other Pulmonary: Dyspnea; No Cough, No Pleuritic Chest Pain, No Other Cardiovascular: Edema; No: Chest Pain, Palpitations, Orthopnea, Paroxysmal Noc. Dyspnea, Lt Headedness, Other Focused Exam Lactate Level 02/09/21 11:15: Lactic Acid Level 1.14 02/09/21 15:02: Lactic Acid Level 1.44 Objective-Cardiology Exam Last Set of Vital Signs Vital Signs 02/09/21 02/10/21 14:45 07:27 Temp 37.0 Pulse 93 Resp 26 B/P (MAP) 155/68 (97) Pulse Ox 95 O2 Delivery Nasal Cannula O2 Flow Rate 2.00 FiO2 21 Capillary Refill : Greater Than 3 Seconds I&O Intake and Output 02/10/21 00:00 Intake Total 1267 ml Output Total 3650 ml Balance -2383 ml Intake Oral 650 ml IV Total 617 ml Output Urine Total 3650 ml Daily Weight Change No General: Alert, Oriented X3, Cooperative HEENT: Atraumatic, PERRLA Neck: Supple, No JVD, No Thyromegaly Lungs: Clear to Auscultation, Normal Air Movement Heart: Regular Rate, Normal S1, Normal S2, Other (Systolic murmur) Abdomen: Normal Bowel Sounds, Soft, No Tenderness, No Hepatosplenomegaly, No Masses Extremities: No Tenderness/Swelling, Other (Gangrene on the toe of the left foot, peripheral edema) Skin: Other (Gangrene on the left foot) Neuro: Normal Speech, Normal Tone, Sensation Intact Psych/Mental Status: Mental Status NL, Mood NL Results Lab Laboratory Tests 02/09/21 11:15 02/10/21 04:30 A/P-Cardiology Admission Diagnosis Gangrene of the foot Peripheral arterial disease Congestive heart failure Hypertension Assessment/Plan Acute/subacute ischemic toe, dry gangrene, wound care management initiated. Receiving antibiotic. Discussed with the patient the management plan, has history of multiple surgeries to the left leg, he agreed on transferring to [facility], I spoke with Dr. Edson Reeder who accepted the patient. We will arrange for the transfer, I discussed the plan with Dr. 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 Edson Reeder in the remote past. Has been doing well until recently Congestive heart failure, acute on chronic left ventricular diastolic dysfunction, had an echo in December 2020 showing normal left ventricular size and systolic function, EF 55 to 65%, left atrial dilatation with moderate mitral regurgitation, pulmonary hypertension with PA pressure 45 to 50 mmHg. Her on Lasix 40 mg IV every 12 hours, continue to monitor. Paroxysmal atrial fibrillation, had an episode of atrial fibrillation with rapid ventricular response in January 2021 during his hospitalization, was maintained on diltiazem and Coreg, maintained on Xarelto as an outpatient. [id number] score of 5, yearly risk of stroke without oral anticoagulation is 6.7%. Has been on Xarelto as an outpatient, currently on hold and will use Lovenox. Hypertension, restart Coreg and diltiazem and monitor blood pressure Sepsis, gangrene. Receiving antibiotic. Managed by medical team History of carotid stenosis, continue to monitor renal function Chronic kidney disease stage IV, continue to monitor renal function closely Diabetes mellitus, followed and managed by primary care physician History of hematemesis and stool positive for occult blood, H&H were stable, tolerating Xarelto, had history of hiatal hernia and GERD H/O skin cancer removal ZHANNA ACE MD Feb 10, 2021 09:15
--- NOTE | 2021-02-10 09:19 | Discharge Summary ---
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 HE PRESENTED TO THE HOSPIT AL WITH COMPLAINT OF SEVERE SHORTNESS OF BREATH AND DISCOLORATION OF HIS LEFT GREAT TOE AND REDNESS OF HIS LEFT LEG FROM FOOT TO KNEE. PER HOME HEALTH - HIS TOE STARTED TO BECOME DISCOLORED OVER THE PAST 4-5 DAYS, WE ATTEMPTED TO GET THE PT INTO THE OFFICE FOR AN EVALUATION, HOWEVER THEY REFUSED STATING THAT HE COULD NOT EXIT HIS HOME. WE GOT A PHONE CALL AT THE OFFICE TODAY WITH CONCERN FOR HIS GREAT TOE LOOKING MORE BLACK, AND HE THEN WAS INSTRUCTED TO GO TO THE EMERGENCY DEPARTMENT FOR THE LEG DISCOLORATION AND TOE COLOR CHANGES. Discharge Summary Consultations DR. DB BAXTER Discharge Physical Examination Allergies: Coded Allergies: NKANo Known Allergies (Verified Allergy, Unknown, 05/25/08) Vitals & I&Os Vital Signs Date Time Temp Pulse Resp B/P (MAP) Pulse Ox O2 Delivery O2 Flow Rate FiO2 02/10/21 07:27 37.0 93 26 155/68 (97) 95 Nasal Cannula 2.00 02/09/21 14:45 21 General Appearance: Alert, Oriented X3, Cooperative, Mild Distress (WITH BREATHING) HEENT: Atraumatic, PERRLA, Mucous Memb Moist/[place] Respiratory: Other (CRACKLES IN BASES BILATERALLY) Cardiovascular: Regular Rate Abdominal: Normal Bowel Sounds, Soft, No Tenderness Extremities: Other (CYANOSIS OF DORSUM LEFT FOOT, GANGRENE LEFT GREAT TOE AND ON DORSUM OF LEFT 2ND DIGIT) Skin: Other (ULCERATION ON DORSUM 2ND TOE LEFT FOOT, BLACK END OF GREAT TOE ON LEFT, ERYTHEMA LEFT LEG FROM FOOT TO KNEE) Neuro: Cranial Nerves 3-12 NL Psych/Mental Status: Mental Status NL, Mood NL Hospital Course Was the Problem List Reviewed?: Yes GANGRENE GREAT TOE ON LEFT CELLULITIS OF LEFT LEG CHRONIC PERIPHERAL ARTERIAL DISEASE ATRIAL FIBRILLATION HYPERTENSION HX OF FEM-POP BYPASS X 2 ON LEFT DIABETES MELLITUS ACUTE ON CHRONIC LEFT VENTRICULAR DIASTOLIC DYSFUNCTION CKD STAGE 2 ANEMIA HX RECENT PNEUMONIA, 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 ACE AND DR. BAXTER - WE ARE PLANNING ON FURTHER INVESTIGATION INTO HIS FEMORAL/POPLITEAL ARTERIAL FLOW TO SEE IF THERE IS A CLOT OR OTHER BLOCKAGE IN THE VASCULATURE. - MAY END UP WITH REFERRAL BACK TO CV SURGEON AT [facility] - PT STOPPED HIS XARELTO ON HIS OWN WITH OUT NOTIFICATION TO MY CLINIC OR DAY TRADER, THIS MAY HAVE AIDED CLOTTING OF HIS EXTREMITIES WITH POSSIBLE EMBOLIC EVENT. - PT ON LOVENOX AT TREATMENT DOSES - WAITING ON FURTHER IMAGING - WITH CT ANGIO VERSUS DOPPLER - ULTRASOUNDS WERE ORDERED STAT LAST NIGHT - CHANGED TO THIS MORNING, HOWEVER WITH WORSENING APPEARANCE OF FOOT, PT TRANSFERRING TO CV SURGEON FOR FURTHER TREATMENT - PT ON CEFEPIME, FLAGYL, AND VANCOMYCIN CHRONIC PERIPHERAL ARTERIAL DISEASE - CHECKING IMAGING NOTED ABOVE ATRIAL FIBRILLATION - RESTART BETABLOCKER AND RESTART CARDIZEM - PT REFUSES XARELTO - FELT LIKE IT "MADE MY BACK HURT" - PT ON LOVENOX AT THIS TIME. HYPERTENSION - RESUME SOME OF HIS HOME MEDS, MONITOR PRESSURES. HX OF FEM-POP BYPASS X 2 ON LEFT - SEE ABOVE FOR DETAILS, POTENTIAL RECURRENT BLOCKAGE, STUDIES TO BE DONE TONIGHT. ACUTE ON CHRONIC LEFT VENTRICULAR DIASTOLIC DYSFUNCTION - LASIX, MONITOR LABS, DEFER TO CARDIOLOGY DIABETES MELLITUS - RESUME HOME MEDS -SLIDING SCALE A INSULIN REGIMEN - FSBS AC, HS CKD - GOOD RENAL FUNCTION AT THIS TIME, MONITOR LABS ANEMIA - STABLE, MONITOR LABS HX RECENT PNEUMONIA, BACTERIAL AND FUNGAL AND PLEURAL EFFUSIONS -AT THIS POINT, SUPPORTIVE CARE, INCENTIVE SPIROMETRY - MONITOR CXR SERIALLY SEIZURE DISORDER - RESUME PHENYTOIN HX OF STROKE WITH LEFT SIDED PARESIS AND GENERALIZED WEAKNESS - SUPPORTIVE CARE, MONITOR, START THERAPY WHEN ABLE. DVT PROPHYLAXIS WITH TREATMENT DOSE LOVENOX GI PROPHYLAXIS WITH PPI THERAPY Pending Labs Laboratory Tests 02/10/21 04:30: White Blood Count 8.8, Red Blood Count 3.50, Hemoglobin 10.0, Hematocrit 31, Mean Corpuscular Volume 87, Mean Corpuscular Hemoglobin 29, Mean Corpuscular Hemoglobin Concent 33, Red Cell Distribution Width 18.8, Platelet Count 291, Mean Platelet Volume 11.3, Immature Granulocyte % (Auto) 1, Neutrophils (%) (Auto) 74, Lymphocytes (%) (Auto) 12, Monocytes (%) (Auto) 11, Eosinophils (%) (Auto) 2, Basophils (%) (Auto) 1, Neutrophils # (Auto) 6.5, Lymphocytes # (Auto) 1.1, Monocytes # (Auto) 0.9, Eosinophils # (Auto) 0.2, Basophils # (Auto) 0.0, Immature Granulocyte # (Auto) 0.1, Sodium Level 142, Potassium Level 3.6, Chloride Level 105, Carbon Dioxide Level 23, Anion Gap 14, Blood Urea Nitrogen 21, Creatinine 0.77, Estimat Glomerular Filtration Rate > 60, BUN/Creatinine Ratio 27, Glucose Level 115, Calcium Level 8.5, Corrected Calcium 9.3, Total Bilirubin 0.4, Aspartate Amino Transf (AST/SGOT) 29, Alanine Aminotransferase (ALT/SGPT) 12, Alkaline Phosphatase 92, Troponin I 0.085, Total Protein 6.0, Albumin 3.0 Discharge Condition at discharge TRANSFER IN PROCESS Instructions to patient/family Please see electronic discharge instructions given to patient. Discharge Medications Reviewed and agree with Discharge Medication list on patient's Discharge Instruction sheet JG DUARTE MD Feb 10, 2021 09:19
[2021-02-10 12:13] VITALS: BP 151/57
--- NOTE | 2021-02-10 12:45 | Diagnostic Imaging Report ---
PROCEDURE: US Bilateral lower extremity arterial. TECHNIQUE: Multiple real-time grayscale images are obtained through both lower extremity arterial systems with color Doppler imaging and color Doppler spectral analysis. INDICATION: Necrotic left great toe. History of a previous left sided femoral popliteal graft CORRELATION STUDY: None FINDINGS: Overall limited assessment given the difficulty in scanning the patient. The right lower extremity demonstrates patency of the major arteries to the level of the ankles. There is flow demonstrated dorsalis pedis and posterior tibial arteries. There is however diffusely dampened monophasic waveforms noted throughout the major arteries. There is some velocity change between the mid to distal aspect superficial femoral artery which would suggest at least mild narrowing. There is also asymmetrically elevated velocity from the common femoral artery into the proximal superficial femoral artery also suggestive of focal narrowing. On the left, there is dampened monophasic waveforms present. There is occlusion through the majority of the [place] superficial femoral artery. There is what appears to be a patient of patent femoral popliteal graft. The distal circulation of the posterior tibial and dorsalis pedis arteries are not definitively visualized and cannot be confirmed. Additionally, anterior tibial artery at its proximal aspect cannot be well visualized. IMPRESSION: 1. Abnormal lower extremity arterial Doppler study. 2. On the right, there is patency of the major arteries, there is what appears be more focal velocity change likely at the common femoral artery and superficial femoral artery origins as well as at the mid to distal aspect superficial femoral artery. 3. Left lower extremity demonstrates occlusion to the [place] superficial femoral artery. Patent femoral-popliteal graft. However, circulation below the tibial peroneal trifurcation cannot be definitively confirmed. Dictated by: Dictated on workstation # [id number]
--- NOTE | 2021-02-10 12:47 | Diagnostic Imaging Report ---
INDICATION: Necrotic left great toe. TECHNIQUE: Segmental pulse pressures were performed of the upper and lower extremities. FINDINGS: Resting Doppler Blood Pressures RIGHT Brachial: 150 mmHg Ankle (Posterior Tibial): 44 mm Hg Index 0.29 Ankle (Dorsalis Pedis): 95 mm Hg Index 0.63 LEFT Unable to be obtained. IMPRESSION: 1. Markedly abnormal right lower extremity ankle-brachial index. 2. Left ankle brachial index unable to be obtained. Dictated by: Dictated on workstation # [id number]
[2021-02-10] MEDS ORDERED: inSUlin NPH (NovoLIN N) 1 UNIT/0.01 ML (CHARGE PER UNIT) SQ SCH (17:00)
[2021-02-24] MEDS ORDERED: PANTOPRAZOLE 40 MG (PROTONIX) TAB PO SCH (09:00)
== END 2021-02-10 12:57 | disposition short-term general hospital (02) | DRG 299 ==
LOC: EDUNIT# 10:58 → ER 10:59 → CSD 13:00
PROVIDERS: ADMIT Family Medicine; ATTEND Family Medicine
DX: I70.262 Atherosclerosis of native arteries of extremities with gangrene, left leg (principal); I50.33 Acute on chronic diastolic (congestive) heart failure; L03.116 Cellulitis of left lower limb; I13.0 Hypertensive heart and chronic kidney disease with heart failure and stage 1 through stage 4 chronic kidney disease, or unspecified chronic kidney disease; I69.354 Hemiplegia and hemiparesis following cerebral infarction affecting left non-dominant side; L97.529 Non-pressure chronic ulcer of other part of left foot with unspecified severity; E11.22 Type 2 diabetes mellitus with diabetic chronic kidney disease; N18.2 Chronic kidney disease, stage 2 (mild); Z79.4 Long term (current) use of insulin; I25.10 Atherosclerotic heart disease of native coronary artery without angina pectoris; I34.0 Nonrheumatic mitral (valve) insufficiency; I27.20 Pulmonary hypertension, unspecified; I48.0 Paroxysmal atrial fibrillation; K21.9 Gastro-esophageal reflux disease without esophagitis; N40.0 Benign prostatic hyperplasia without lower urinary tract symptoms; M19.91 Primary osteoarthritis, unspecified site; F41.9 Anxiety disorder, unspecified; G40.909 Epilepsy, unspecified, not intractable, without status epilepticus
CPT/HCPCS: 36415; 71045; 80053; 81000; 82962; 83605; 83880; 84484; 85025; 85027; 85610; 85730; 87040; 87088; 93005; 93923; 93925; 94640; 94664; 94760